=== PATIENT | female | born 1950 | race Caucasian/White ===

== ENCOUNTER → 2019-04-18 13:42 | Outpatient (BNVA) | payer MEDICARE, OTHER, SELFPAY | PROVIDERS: Family Provider Family Medicine; PCP Family Medicine; Visit Provider Nurse Practitioner | DX: F33.2 Major depressive disorder, recurrent severe without psychotic features (principal) | CPT/HCPCS: 90832; 99214 ==

== ENCOUNTER → 2019-05-29 07:31 | Outpatient (BNVA) | payer MEDICARE, OTHER, SELFPAY | PROVIDERS: Family Provider Family Medicine; PCP Family Medicine; Visit Provider Nurse Practitioner | DX: F33.2 Major depressive disorder, recurrent severe without psychotic features (principal); F43.12 Post-traumatic stress disorder, chronic; F60.3 Borderline personality disorder | CPT/HCPCS: 99214 ==

== ENCOUNTER → 2019-07-13 08:23 | Outpatient (BNVA) | payer MEDICARE, OTHER, SELFPAY | PROVIDERS: Family Provider Family Medicine; PCP Family Medicine; Visit Provider Nurse Practitioner | DX: F43.12 Post-traumatic stress disorder, chronic (principal); F33.2 Major depressive disorder, recurrent severe without psychotic features; F60.3 Borderline personality disorder | CPT/HCPCS: 99213 ==

== ENCOUNTER → 2019-08-07 08:25 | Outpatient (BNVA) | payer MEDICARE, OTHER, SELFPAY | PROVIDERS: Family Provider Family Medicine; PCP Family Medicine; Visit Provider Social Worker Clinical | DX: F33.2 Major depressive disorder, recurrent severe without psychotic features (principal); F43.12 Post-traumatic stress disorder, chronic; F60.3 Borderline personality disorder | CPT/HCPCS: 90791 ==

== ENCOUNTER → 2019-08-22 07:48 | Outpatient (BNVA) | payer MEDICARE, OTHER, SELFPAY | PROVIDERS: Family Provider Family Medicine; PCP Family Medicine; Visit Provider Social Worker Clinical | DX: F60.3 Borderline personality disorder (principal); F43.12 Post-traumatic stress disorder, chronic; F33.2 Major depressive disorder, recurrent severe without psychotic features | CPT/HCPCS: 90834 ==

== ENCOUNTER → 2019-10-08 08:23 | Outpatient (BNVA) | payer MEDICARE, OTHER, SELFPAY | PROVIDERS: Family Provider Family Medicine; PCP Family Medicine; Visit Provider Social Worker Clinical | DX: F60.3 Borderline personality disorder (principal); F43.12 Post-traumatic stress disorder, chronic; F33.2 Major depressive disorder, recurrent severe without psychotic features | CPT/HCPCS: 90832 ==

== ENCOUNTER → 2019-10-23 09:01 | Outpatient (BNVA) | payer MEDICARE, OTHER, SELFPAY | PROVIDERS: Family Provider Family Medicine; PCP Family Medicine; Visit Provider Social Worker Clinical | DX: F60.3 Borderline personality disorder (principal); F43.12 Post-traumatic stress disorder, chronic; F33.2 Major depressive disorder, recurrent severe without psychotic features | CPT/HCPCS: 90834 ==

== ENCOUNTER → 2019-11-14 08:36 | Outpatient (BNVA) | payer MEDICARE, OTHER, SELFPAY | PROVIDERS: Family Provider Family Medicine; PCP Family Medicine; Visit Provider Social Worker Clinical | DX: F60.3 Borderline personality disorder (principal); F43.12 Post-traumatic stress disorder, chronic; F33.2 Major depressive disorder, recurrent severe without psychotic features | CPT/HCPCS: 90832 ==

== ENCOUNTER → 2019-12-12 08:40 | Outpatient (BNVA) | payer MEDICARE, OTHER, SELFPAY | PROVIDERS: Family Provider Family Medicine; PCP Family Medicine; Visit Provider Social Worker Clinical | DX: F60.3 Borderline personality disorder (principal); F43.12 Post-traumatic stress disorder, chronic; F33.2 Major depressive disorder, recurrent severe without psychotic features | CPT/HCPCS: 90834 ==

== ENCOUNTER 2020-03-14 09:34 | Outpatient (CLI) | payer MEDICARE, OTHER, SELFPAY ==
--- NOTE | 2020-03-14 09:45 | FL_ITS ---
WS: [id number] MODIFIED BARIUM SWALLOW TECHNIQUE: Modified barium swallow with speech therapy using multiple consistencies. FLUOROSCOPY TIME: 3 minutes. CLINICAL INFORMATION: Other dysphagia COMPARISON: None. FINDINGS: Multiple consistencies utilized. No evidence of aspiration penetration. Slightly delayed oropharyngea l phase with the mitul cracker. Fluid in the vallecula which cleared with additional swallows. Sligh tly delayed transit of the barium tablet in the upper esophagus which resolves with additional fluid. Moderate esophageal dysmotility is noted with delayed emptying. Reflux is visualized to the mid and u pper esophagus. This can be further evaluated with esophagram. FL/FL barium swallow modifd [id number] IMPRESSION: 1. Moderate esophageal dysmotility is noted with delayed emptying. 2. Reflux is visualized to the mid and upper esophagus. This can be further ev aluated with esophagram.
== END 2020-03-14 09:35 | disposition home or self-care (01) ==
LOC: RAD 09:37
PROVIDERS: Family Provider Family Medicine; PCP Family Medicine; Visit Provider Family Medicine
DX: R13.19 Other dysphagia (principal)
CPT/HCPCS: 74230; 92611

== ENCOUNTER → 2020-03-21 07:57 | Outpatient (BNVA) | payer MEDICARE, OTHER, SELFPAY | PROVIDERS: Family Provider Family Medicine; PCP Family Medicine; Visit Provider Nurse Practitioner | DX: F33.2 Major depressive disorder, recurrent severe without psychotic features (principal); F43.12 Post-traumatic stress disorder, chronic; F60.3 Borderline personality disorder | CPT/HCPCS: 99214 ==

== ENCOUNTER → 2020-04-03 08:01 | Outpatient (BNVA) | payer MEDICARE, OTHER, SELFPAY | PROVIDERS: Family Provider Family Medicine; PCP Family Medicine; Visit Provider Social Worker Clinical | DX: F60.3 Borderline personality disorder (principal); F43.12 Post-traumatic stress disorder, chronic; F33.2 Major depressive disorder, recurrent severe without psychotic features | CPT/HCPCS: 90834 ==

== ENCOUNTER → 2020-04-23 08:05 | Outpatient (BNVA) | payer MEDICARE, OTHER, SELFPAY | PROVIDERS: Family Provider Family Medicine; PCP Family Medicine; Visit Provider Nurse Practitioner | DX: F43.12 Post-traumatic stress disorder, chronic (principal); F33.2 Major depressive disorder, recurrent severe without psychotic features; F60.3 Borderline personality disorder | CPT/HCPCS: 99214 ==

== ENCOUNTER → 2020-05-15 07:39 | Outpatient (BNVA) | payer MEDICARE, OTHER, SELFPAY | PROVIDERS: Family Provider Family Medicine; PCP Family Medicine; Visit Provider Social Worker Clinical | DX: F60.3 Borderline personality disorder (principal); F43.12 Post-traumatic stress disorder, chronic; F33.2 Major depressive disorder, recurrent severe without psychotic features | CPT/HCPCS: 90832 ==

== ENCOUNTER → 2020-05-29 09:17 | Outpatient (BNVA) | payer MEDICARE, OTHER, SELFPAY | PROVIDERS: Family Provider Family Medicine; PCP Family Medicine; Visit Provider Orthopaedic Surgery | DX: M54.9 Dorsalgia, unspecified (principal); M41.86 Other forms of scoliosis, lumbar region; M48.061 Spinal stenosis, lumbar region without neurogenic claudication | CPT/HCPCS: 72110 ==

== ENCOUNTER 2020-06-10 08:25 | Outpatient (CLI) | payer MEDICARE, OTHER, SELFPAY ==
--- NOTE | 2020-06-10 08:59 | MR_ITS ---
WS: [id number] MRI LUMBAR SPINE NONCONTRAST TECHNIQUE: Sagittal T1, T2 and STIR imaging. Axial T1 and T2 imaging. CLINICAL INFORMATION: SPINAL STENOSIS COMPARISON: None. FINDINGS: Lumbar scoliosis convex right. No acute compression fractures. Degenerative disc disease worse at L2- 3 with endplate degenerative changes. L1-L2: Mild annular bulging with narrowing of the right greater than left subarticular recess. Mild f acet arthropathy. Foramen are patent. L2-L3: Mild disc bulging with slight retrolisthesis. Left subarticular protrusion impinges the left s ubarticular recess and traversing left L3 nerve root. Mild to moderate left and no significant right foraminal narrowing. Mild central canal stenosis. Moderate facet arthropathy. L3-L4: Mild annular bulging with slight effacement of ventral thecal sac. Spinal canal and foramen ar e patent. Mild facet arthropathy. L4-L5: Mild annular bulging with mild central canal stenosis. Narrowing of the subarticular recess bi laterally. Mild to moderate facet arthropathy. L5-S1: Mild annular bulging eccentric to the right. Slight contact right S1 nerve root. Foramen are p atent. Mild/moderate facet arthropathy. Small left renal cyst measuring 8 mm. Moderate aortic atheromatous disease. Slightly aneurysmal infra renal abdominal aorta measuring 2.1 x 2.1 cm MR/MR lumbar spine wo con* [id number] IMPRESSION: 1. Lumbar scoliosis convex right. No acute compression fractures. 2. Left subarticular disc protrusion L2-3 impinges the traversing left L3 nerv e root in the subarticular recess. Mild to moderate left L2-3 foraminal narrowi ng. Mild central canal stenosis. 3. Mild central canal stenosis L4-5 with narrowing of the right greater than l eft subarticular recess. 4. Disc bulging L5-S1 eccentric to the right with slight contact of the right S1 nerve root. 5. Mild to moderate facet arthropathy L2-3 L3-4 L4-L5 and L5-S1.
== END 2020-06-10 08:26 | disposition home or self-care (01) ==
PROVIDERS: PCP Family Medicine; Visit Provider Orthopaedic Surgery
DX: M48.061 Spinal stenosis, lumbar region without neurogenic claudication (principal); M47.816 Spondylosis without myelopathy or radiculopathy, lumbar region; M47.817 Spondylosis without myelopathy or radiculopathy, lumbosacral region; M51.26 Other intervertebral disc displacement, lumbar region
CPT/HCPCS: 72148

== ENCOUNTER → 2020-06-11 10:53 | Outpatient (BNVA) | payer MEDICARE, OTHER, SELFPAY | PROVIDERS: Family Provider Family Medicine; PCP Family Medicine; Visit Provider Social Worker Clinical | DX: F43.12 Post-traumatic stress disorder, chronic (principal); F60.3 Borderline personality disorder; F33.2 Major depressive disorder, recurrent severe without psychotic features | CPT/HCPCS: 90834 ==

== ENCOUNTER → 2020-07-02 09:09 | Outpatient (BNVA) | payer MEDICARE, OTHER, SELFPAY | PROVIDERS: Family Provider Family Medicine; PCP Family Medicine; Visit Provider Anesthesiology Pain Medicine | DX: M54.41 Lumbago with sciatica, right side (principal); M54.42 Lumbago with sciatica, left side; M54.9 Dorsalgia, unspecified; F17.210 Nicotine dependence, cigarettes, uncomplicated; Z79.891 Long term (current) use of opiate analgesic | CPT/HCPCS: 99205 ==

== ENCOUNTER → 2020-07-07 10:41 | Outpatient (BNVA) | payer MEDICARE, OTHER, SELFPAY | PROVIDERS: Family Provider Family Medicine; PCP Family Medicine; Visit Provider Social Worker Clinical | DX: F60.3 Borderline personality disorder (principal); F43.12 Post-traumatic stress disorder, chronic; F33.2 Major depressive disorder, recurrent severe without psychotic features | CPT/HCPCS: 90834 ==

== ENCOUNTER → 2020-07-08 11:18 | Outpatient (BNVA) | payer MEDICARE, OTHER, SELFPAY | PROVIDERS: Family Provider Family Medicine; PCP Family Medicine; Visit Provider Nurse Practitioner | DX: F43.12 Post-traumatic stress disorder, chronic (principal); F33.2 Major depressive disorder, recurrent severe without psychotic features; F60.3 Borderline personality disorder | CPT/HCPCS: 99214 ==

== ENCOUNTER → 2020-07-16 12:58 | Outpatient (BNVA) | payer MEDICARE, OTHER, SELFPAY | PROVIDERS: Family Provider Family Medicine; PCP Family Medicine; Visit Provider Anesthesiology Pain Medicine | DX: G89.29 Other chronic pain (principal); M54.5 Low back pain; F17.210 Nicotine dependence, cigarettes, uncomplicated; Z79.891 Long term (current) use of opiate analgesic | CPT/HCPCS: 62323; J1040; J3490 ==

== ENCOUNTER → 2020-07-31 09:53 | Outpatient (BNVA) | payer MEDICARE, OTHER, SELFPAY | PROVIDERS: Family Provider Family Medicine; PCP Family Medicine; Visit Provider Anesthesiology Pain Medicine | DX: M54.9 Dorsalgia, unspecified (principal); M47.816 Spondylosis without myelopathy or radiculopathy, lumbar region; M51.16 Intervertebral disc disorders with radiculopathy, lumbar region; M79.604 Pain in right leg; M79.605 Pain in left leg; F17.210 Nicotine dependence, cigarettes, uncomplicated; Z79.891 Long term (current) use of opiate analgesic | CPT/HCPCS: 99214 ==

== ENCOUNTER → 2020-08-11 14:05 | Outpatient (BNVA) | payer MEDICARE, OTHER, SELFPAY | PROVIDERS: Family Provider Family Medicine; PCP Family Medicine; Visit Provider Anesthesiology Pain Medicine | DX: M47.816 Spondylosis without myelopathy or radiculopathy, lumbar region (principal); M54.9 Dorsalgia, unspecified; F17.210 Nicotine dependence, cigarettes, uncomplicated; Z79.891 Long term (current) use of opiate analgesic | CPT/HCPCS: 64493; 64494; 64495; J3490 ==

== ENCOUNTER → 2020-08-25 08:45 | Outpatient (BNVA) | payer MEDICARE, OTHER, SELFPAY | PROVIDERS: Family Provider Family Medicine; PCP Family Medicine; Visit Provider Anesthesiology Pain Medicine | DX: M51.16 Intervertebral disc disorders with radiculopathy, lumbar region (principal); M47.816 Spondylosis without myelopathy or radiculopathy, lumbar region; M54.9 Dorsalgia, unspecified; F17.210 Nicotine dependence, cigarettes, uncomplicated; Z79.891 Long term (current) use of opiate analgesic | CPT/HCPCS: 99214 ==

== ENCOUNTER → 2020-09-09 12:57 | Outpatient (BNVA) | payer MEDICARE, OTHER, SELFPAY | PROVIDERS: Family Provider Family Medicine; PCP Family Medicine; Visit Provider Anesthesiology Pain Medicine | DX: M47.816 Spondylosis without myelopathy or radiculopathy, lumbar region (principal); M54.9 Dorsalgia, unspecified; F17.210 Nicotine dependence, cigarettes, uncomplicated; Z79.891 Long term (current) use of opiate analgesic | CPT/HCPCS: 64635; 64636; J1030 ==

== ENCOUNTER → 2020-09-16 12:48 | Outpatient (BNVA) | payer MEDICARE, OTHER, SELFPAY | PROVIDERS: Family Provider Family Medicine; PCP Family Medicine; Visit Provider Anesthesiology Pain Medicine | DX: M79.18 Myalgia, other site (principal); M47.816 Spondylosis without myelopathy or radiculopathy, lumbar region; M51.16 Intervertebral disc disorders with radiculopathy, lumbar region; M79.604 Pain in right leg; M79.605 Pain in left leg; F17.210 Nicotine dependence, cigarettes, uncomplicated; Z71.6 Tobacco abuse counseling; Z79.891 Long term (current) use of opiate analgesic | CPT/HCPCS: 20553; 99214; J1030; J3490 ==

== ENCOUNTER → 2020-09-23 12:47 | Outpatient (BNVA) | payer MEDICARE, OTHER, SELFPAY | PROVIDERS: Family Provider Family Medicine; PCP Family Medicine; Visit Provider Anesthesiology Pain Medicine | DX: M47.816 Spondylosis without myelopathy or radiculopathy, lumbar region (principal); Z79.891 Long term (current) use of opiate analgesic | CPT/HCPCS: 64635; 64636; J1030 ==

== ENCOUNTER → 2020-10-07 08:50 | Outpatient (BNVA) | payer MEDICARE, OTHER, SELFPAY | PROVIDERS: Family Provider Family Medicine; PCP Family Medicine; Visit Provider Anesthesiology Pain Medicine | DX: M47.816 Spondylosis without myelopathy or radiculopathy, lumbar region (principal); M51.16 Intervertebral disc disorders with radiculopathy, lumbar region; Z79.891 Long term (current) use of opiate analgesic | CPT/HCPCS: 99214 ==

== ENCOUNTER 2020-12-23 14:52 | Outpatient (CLI) | payer MEDICARE, OTHER, SELFPAY ==
--- NOTE | 2020-12-23 14:57 | MM_ITS ---
WS: [id number] BILATERAL SCREENING DIGITAL MAMMOGRAM WITH CAD HISTORY: SCREENING COMPARISON: 04/12/2018 and 01/19/2017 Bilateral CC and MLO views submitted. Computer aided detection analyzed. Breast composition: There are scattered areas of fibroglandular density. No suspicious masses, microc alcifications or architectural distortion. Benign calcification in the anterior LEFT breast. Addition al calcification just posterior to the RIGHT nipple. MM/[place] [id number] IMPRESSION: BI-RADS: 2-Benign FOLLOW UP: 1 Year Follow-up
== END 2020-12-23 14:53 | disposition home or self-care (01) ==
LOC: RADSHAW 14:56
PROVIDERS: PCP Family Medicine; Visit Provider Family Medicine
DX: Z12.31 Encounter for screening mammogram for malignant neoplasm of breast (principal)
CPT/HCPCS: 77067

== ENCOUNTER → 2021-04-20 10:39 | Outpatient (BNVA) | payer MEDICARE, OTHER, SELFPAY | PROVIDERS: PCP Family Medicine; Visit Provider Nurse Practitioner Psychiatric/Mental Health | DX: F43.12 Post-traumatic stress disorder, chronic (principal); F33.2 Major depressive disorder, recurrent severe without psychotic features; F60.3 Borderline personality disorder | CPT/HCPCS: 99214 ==

== ENCOUNTER → 2021-05-04 08:05 | Outpatient (BNVA) | payer MEDICARE, OTHER, SELFPAY | PROVIDERS: PCP Family Medicine; Visit Provider Nurse Practitioner Psychiatric/Mental Health | DX: F43.12 Post-traumatic stress disorder, chronic (principal); F33.2 Major depressive disorder, recurrent severe without psychotic features; G89.29 Other chronic pain | CPT/HCPCS: 99214 ==

== ENCOUNTER → 2021-05-05 10:36 | Outpatient (BNVA) | payer MEDICARE, OTHER, SELFPAY | PROVIDERS: PCP Family Medicine; Visit Provider Social Worker Clinical | DX: F60.3 Borderline personality disorder (principal); F43.12 Post-traumatic stress disorder, chronic; F33.2 Major depressive disorder, recurrent severe without psychotic features | CPT/HCPCS: 90834 ==

== ENCOUNTER → 2021-05-18 12:44 | Outpatient (BNVA) | payer MEDICARE, OTHER, SELFPAY | PROVIDERS: PCP Family Medicine; Visit Provider Nurse Practitioner Psychiatric/Mental Health | DX: F60.3 Borderline personality disorder (principal); F43.12 Post-traumatic stress disorder, chronic; F33.2 Major depressive disorder, recurrent severe without psychotic features; G89.29 Other chronic pain | CPT/HCPCS: 99213 ==

== ENCOUNTER → 2021-06-23 14:16 | Outpatient (BNVA) | payer MEDICARE, OTHER, SELFPAY | PROVIDERS: PCP Family Medicine; Visit Provider Social Worker Clinical | DX: F60.3 Borderline personality disorder (principal); F43.12 Post-traumatic stress disorder, chronic; F33.2 Major depressive disorder, recurrent severe without psychotic features | CPT/HCPCS: 90834 ==

== ENCOUNTER → 2021-06-30 15:12 | Outpatient (BNVA) | payer MEDICARE, OTHER, SELFPAY | PROVIDERS: PCP Family Medicine; Visit Provider Nurse Practitioner Psychiatric/Mental Health | DX: F33.2 Major depressive disorder, recurrent severe without psychotic features (principal); F60.3 Borderline personality disorder; F43.12 Post-traumatic stress disorder, chronic; G89.29 Other chronic pain | CPT/HCPCS: 99214 ==

== ENCOUNTER → 2021-07-07 13:56 | Outpatient (BNVA) | payer MEDICARE, OTHER, SELFPAY | PROVIDERS: PCP Family Medicine; Visit Provider Social Worker Clinical | DX: F60.3 Borderline personality disorder (principal); F43.12 Post-traumatic stress disorder, chronic; F33.2 Major depressive disorder, recurrent severe without psychotic features | CPT/HCPCS: 90834 ==

== ENCOUNTER → 2021-07-17 08:42 | Outpatient (BNVA) | payer MEDICARE, OTHER, SELFPAY | PROVIDERS: PCP Family Medicine; Visit Provider Social Worker Clinical | DX: F60.3 Borderline personality disorder (principal); F43.12 Post-traumatic stress disorder, chronic; F33.2 Major depressive disorder, recurrent severe without psychotic features | CPT/HCPCS: 90834 ==

== ENCOUNTER → 2021-08-17 07:21 | Outpatient (BNVA) | payer MEDICARE, OTHER, SELFPAY | PROVIDERS: PCP Family Medicine; Visit Provider Nurse Practitioner Psychiatric/Mental Health | DX: F60.3 Borderline personality disorder; F43.12 Post-traumatic stress disorder, chronic; G89.29 Other chronic pain; F33.2 Major depressive disorder, recurrent severe without psychotic features | CPT/HCPCS: 99213 ==

== ENCOUNTER → 2021-08-24 10:40 | Outpatient (BNVA) | payer MEDICARE, OTHER, SELFPAY | PROVIDERS: PCP Family Medicine; Visit Provider Social Worker Clinical | DX: F60.3 Borderline personality disorder (principal); F33.2 Major depressive disorder, recurrent severe without psychotic features | CPT/HCPCS: 90791 ==

== ENCOUNTER 2021-12-11 07:53 | Outpatient (CLI) | payer MEDICARE, OTHER, SELFPAY ==
--- NOTE | 2021-12-11 | ECG_ITS ---
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 Interpretive Statements NAME OF STUDY: LEXISCAN SESTAMIBI STRESS TEST INDICATION: Chest Pain, PROCEDURE: At the baseline, the EKG revealed normal sinus rhythm with a poor R wave progression. Possible old septal WV. Some diffused nonspecific ST-T changes. Possible old lateral wall WV. The baseline heart was 63 bpm with a blood pressue of 153/84 mm of Hg. Lexiscan was infused over a period of 20 seconds. A total of 0.4 milligrams of Lexiscan was infused. The stress phase was continued for a total of 5 minutes. Heart rate at the end of the stress phase was 79 bpm with a blood pressure 144/76 mm of Hg. The EKG at the peak infusion revealed no significant changes. Sestamibi was injected 20 seconds after the Lexiscan infusion. Heart rate at the end of the recovery phase was 75 bpm with a blood pressure of 149/78 mm of Hg. CONCLUSION: 1. No significant EKG changes with the LexiScan infusion 2. No LexiScan induced chest pain or cardiac arrhythmia 3. Normal blood pressure and heart rate response 4. Sestamibi/sestamibi perfusion scan pending; see separate report. Electronically Signed On 12-11-2021 16:25:15 CDT by Chandu Cates M.D. [id number]
[2021-12-11 08:33] VITALS: BMI 25.0
--- NOTE | 2021-12-11 08:47 | NMCV_ITS ---
NM alejandra perf SPECT r/s* [id number] Mary Cruz Age: 71 Gender: F : 1950 Exam Date: 12/11/2021 10:05 Ordering Phys: Kem Portillo Technologist: TEODORO Paniagua Exam Location: [facility] Indications: CHEST PAIN STRESS TEST Please see separate stress test report in Ephiphany for full findings IMAGE PROTOCOL Rest/Stress 1 Lexiscan Day Radiopharmaceutical Dose (mCi) Administration Site Administered by Rest: Tc-99m 10.7 IV TEODORO Marshall Sestamibi Stress:Tc-99m 32.4 IV TEODORO Marshall Sestamibi Rest: 11-Dec-2021 60 Discovery 630 Stress: 11-Dec-2021 30 Discovery 630 0.4mg Lexiscan. Supine position only as patient was unable to lay prone. SPECT RESULTS Technical Quality: Excellent Raw Data Analysis: Normal Image Corrections: No attenuation or motion correction applied Summed Stress Score: 0 Summed Rest Score: 0 Summed Difference Score: 0 PERFUSION FINDINGS Uniform myocardial tracer uptake. No significant perfusion abnormalities FUNCTIONAL RESULTS (calculated via Gated SPECT) Stress Image LV EF (%): 59 Stress EDV (mL):91 TID: 1.19 Stress ESV (mL):37 FUNCTIONAL FINDINGS: Segmental wall motion analysis revealing no gross wall motion abnormalities The transient ischemic dilatation ratio was elevated to 1.19 IMPRESSIONS 1. Myocardial perfusion imaging revealing fairly uniform myocardial tracer uptake with no significant perfusion normalities. 2. Normal LV ejection fraction of 59%. 3. LV wall motion analysis revealing no gross wall motion abnormalities. 4. Normal LV volume 5. Elevated transient ischemic dilatation ratio, may suggest endocardial ischemia. However the positive predictive value of this finding is low, especially in the absence of any other abnormal objective findings. Clinical correlation is recommended. Dr Chandu Cates MD [facility] (Electronically Signed) Final Date: 11 December 2021 13:19 S
[2021-12-11] MEDS: regadenoson 0.4 Mg/5 ml Syringe IVP (10:41)
[2021-12-11 10:51] VITALS: BP 149/78; PULSE 77
== END 2021-12-11 07:54 | disposition home or self-care (01) ==
LOC: CDL 07:53
PROVIDERS: PCP Family Medicine; Visit Provider Family Medicine
DX: R07.9 Chest pain, unspecified (principal); R94.39 Abnormal result of other cardiovascular function study
CPT/HCPCS: 78452; 93017; A9500; J2785

== ENCOUNTER → 2022-04-19 10:08 | Outpatient (BNVA) | payer MEDICARE, OTHER, SELFPAY | PROVIDERS: PCP Family Medicine; Visit Provider Otolaryngology | DX: R42 Dizziness and giddiness (principal); Z90.09 Acquired absence of other part of head and neck | CPT/HCPCS: 99203 ==

== ENCOUNTER → 2022-05-17 11:49 | Outpatient (BNVA) | payer MEDICARE, OTHER, SELFPAY | PROVIDERS: PCP Family Medicine; Referring Provider Family Medicine; Visit Provider Anesthesiology Pain Medicine | DX: M47.816 Spondylosis without myelopathy or radiculopathy, lumbar region (principal); M51.16 Intervertebral disc disorders with radiculopathy, lumbar region; M79.604 Pain in right leg; M79.605 Pain in left leg | CPT/HCPCS: 99214 ==

== ENCOUNTER → 2022-06-01 14:33 | Outpatient (BNVA) | payer MEDICARE, OTHER, SELFPAY | PROVIDERS: PCP Family Medicine; Visit Provider Anesthesiology Pain Medicine | DX: M54.16 Radiculopathy, lumbar region (principal) | CPT/HCPCS: 64483; 64484; J1100; J3490 ==

== ENCOUNTER → 2022-06-02 12:25 | Outpatient (BNVA) | payer MEDICARE, OTHER, SELFPAY | PROVIDERS: PCP Family Medicine; Visit Provider Internal Medicine Cardiovascular Disease | DX: I47.1 Supraventricular tachycardia (principal); I11.0 Hypertensive heart disease with heart failure; I50.9 Heart failure, unspecified; R07.89 Other chest pain; F17.210 Nicotine dependence, cigarettes, uncomplicated | CPT/HCPCS: 36415; 80048; 83880; 99205 ==

== ENCOUNTER → 2022-06-15 13:46 | Outpatient (BNVA) | payer MEDICARE, OTHER, SELFPAY | PROVIDERS: PCP Family Medicine; Visit Provider Anesthesiology Pain Medicine | DX: M54.16 Radiculopathy, lumbar region (principal) | CPT/HCPCS: 64483; 64484; J1100; J3490 ==

== ENCOUNTER → 2022-09-13 12:47 | Outpatient (BNVA) | payer MEDICARE, OTHER, SELFPAY | PROVIDERS: PCP Family Medicine; Visit Provider Nurse Practitioner Family | DX: I13.0 Hypertensive heart and chronic kidney disease with heart failure and stage 1 through stage 4 chronic kidney disease, or unspecified chronic kidney disease (principal); F17.210 Nicotine dependence, cigarettes, uncomplicated; N18.9 Chronic kidney disease, unspecified; I50.9 Heart failure, unspecified; R00.2 Palpitations | CPT/HCPCS: 80048; 83880; 99214 ==

== ENCOUNTER 2022-09-20 12:25 | Outpatient (CLI) | payer MEDICARE, OTHER, SELFPAY ==
--- NOTE | 2022-09-20 12:32 | USCV_ITS ---
Mary Cruz Age: 72 Gender: F : 1950 Exam Date: 09/20/2022 12:55 Ordering Phys: Chandu Cates MD ([email or web address]) Technologist: CT Exam Location: [facility] Indication: chf BP: / HR: Rhythm: Sinus Technical Quality: Adequate MEASUREMENTS (Male / Female) Normal Values FINDINGS Left Ventricle Normal left ventricular size and systolic function, EF 60%, visual.mild left ventricular hypertrophy. No regional wall motion abnormalities. Grade I/IV diastolic dysfunction (abnormal relaxation filling pattern), normal to mildly elevated filling pressures. Right Ventricle The right ventricle is normal in size and function. Right Atrium The right atrium is normal in size. Left Atrium The left atrium is normal in size. Mitral Valve Minimally thickened mitral valve. Trace mitral valve regurgitation. Aortic Valve Some thickening of the noncoronary cusp of aortic valve Tricuspid Valve Mild tricuspid valve regurgitation. Pulmonic Valve No gross abnormalities noted Pericardium Normal pericardium without effusion. Aorta Normal ascending aorta dimension. IVC The inferior vena cava appears normal. CONCLUSIONS Normal left ventricular size and systolic function, EF 60%, visual.mild left ventricular hypertrophy. No regional wall motion abnormalities. Grade I/IV diastolic dysfunction (abnormal relaxation filling pattern), normal to mildly elevated filling pressures. The left atrium is normal in size. Minimally thickened mitral valve. Trace mitral valve regurgitation. Some thickening of the noncoronary cusp of aortic valve. Mild tricuspid valve regurgitation. Estimated pulmonary artery peak systolic pressure 50 mmHg There is no pericardial effusion. There are no intracardiac masses. No similar previous studies are available for comparison Dr Chandu Cates MD [facility] (Electronically Signed) Final Date: 22 September 2022 09:04 S
== END 2022-09-20 12:26 | disposition home or self-care (01) ==
PROVIDERS: PCP Family Medicine; Visit Provider Internal Medicine Cardiovascular Disease
DX: R06.09 Other forms of dyspnea (principal); I50.9 Heart failure, unspecified; I07.1 Rheumatic tricuspid insufficiency; R93.1 Abnormal findings on diagnostic imaging of heart and coronary circulation
CPT/HCPCS: 93306

== ENCOUNTER → 2022-10-26 10:30 | Outpatient (BNVA) | payer OTHER, SELFPAY | PROVIDERS: PCP Family Medicine; Visit Provider Nurse Practitioner Psychiatric/Mental Health | DX: F33.2 Major depressive disorder, recurrent severe without psychotic features (principal); F43.12 Post-traumatic stress disorder, chronic; F60.3 Borderline personality disorder | CPT/HCPCS: 80061; 83036 ==

== ENCOUNTER → 2022-11-08 13:17 | Outpatient (BNVA) | payer MEDICARE, OTHER, SELFPAY ==
[2022-10-28 15:55] VITALS: BP 135/79; BMI 26.8
== END ==
PROVIDERS: PCP Family Medicine; Referring Provider Nurse Practitioner Psychiatric/Mental Health; Visit Provider Specialist
DX: R29.90 Unspecified symptoms and signs involving the nervous system (principal); G31.84 Mild cognitive impairment of uncertain or unknown etiology; F60.3 Borderline personality disorder; F43.12 Post-traumatic stress disorder, chronic
CPT/HCPCS: 96116; 99205

== ENCOUNTER → 2022-12-06 12:07 | Outpatient (BNVA) | payer MEDICARE, OTHER, SELFPAY ==
[2022-10-28 15:55] VITALS: BP 135/79; BMI 26.8
== END ==
PROVIDERS: PCP Family Medicine; Visit Provider Internal Medicine Cardiovascular Disease
DX: R07.9 Chest pain, unspecified (principal); R06.02 Shortness of breath; M25.512 Pain in left shoulder; R07.89 Other chest pain; I11.0 Hypertensive heart disease with heart failure; M19.012 Primary osteoarthritis, left shoulder; I50.9 Heart failure, unspecified; M75.82 Other shoulder lesions, left shoulder; I25.10 Atherosclerotic heart disease of native coronary artery without angina pectoris; M75.112 Incomplete rotator cuff tear or rupture of left shoulder, not specified as traumatic; F43.12 Post-traumatic stress disorder, chronic; F17.210 Nicotine dependence, cigarettes, uncomplicated; I47.10 Supraventricular tachycardia, unspecified
CPT/HCPCS: 36415; 73030; 80048; 83880; 93005

== ENCOUNTER → 2023-06-28 11:32 | Outpatient (BNVA) | payer MEDICARE, OTHER, SELFPAY ==
[2022-10-28 15:55] VITALS: BP 135/79; BMI 26.8
== END ==
PROVIDERS: PCP Family Medicine; Visit Provider Internal Medicine Cardiovascular Disease
DX: R07.89 Other chest pain (principal); I13.0 Hypertensive heart and chronic kidney disease with heart failure and stage 1 through stage 4 chronic kidney disease, or unspecified chronic kidney disease; I50.40 Unspecified combined systolic (congestive) and diastolic (congestive) heart failure; N18.9 Chronic kidney disease, unspecified; F17.210 Nicotine dependence, cigarettes, uncomplicated; I47.10 Supraventricular tachycardia, unspecified
CPT/HCPCS: 99214

== ENCOUNTER → 2023-07-18 09:46 | Outpatient (BNVA) | payer MEDICARE, OTHER, SELFPAY ==
[2022-10-28 15:55] VITALS: BP 135/79; BMI 26.8
== END ==
PROVIDERS: PCP Family Medicine; Visit Provider Specialist
DX: M75.82 Other shoulder lesions, left shoulder (principal); M19.012 Primary osteoarthritis, left shoulder; M75.112 Incomplete rotator cuff tear or rupture of left shoulder, not specified as traumatic
CPT/HCPCS: 20610; 73030; 99213; J1100; J2795; J3301

== ENCOUNTER → 2023-10-21 10:51 | Outpatient (BNVA) | payer MEDICARE, OTHER, SELFPAY ==
[2022-10-28 15:55] VITALS: BP 135/79; BMI 26.8
== END ==
PROVIDERS: PCP Family Medicine; Visit Provider Specialist
DX: M75.112 Incomplete rotator cuff tear or rupture of left shoulder, not specified as traumatic (principal); M75.82 Other shoulder lesions, left shoulder; M19.012 Primary osteoarthritis, left shoulder
CPT/HCPCS: 20610; J1100; J2795; J3301

== ENCOUNTER → 2023-11-15 14:26 | Outpatient (BNVA) | payer OTHER, SELFPAY ==
[2022-10-28 15:55] VITALS: BP 135/79; BMI 26.8
== END ==
PROVIDERS: PCP Family Medicine; Visit Provider Nurse Practitioner Psychiatric/Mental Health
DX: F43.12 Post-traumatic stress disorder, chronic (principal); F60.3 Borderline personality disorder; F41.1 Generalized anxiety disorder
CPT/HCPCS: 80061; 83036

== ENCOUNTER 2024-02-09 14:33 | Emergency (ER) | payer MEDICARE, OTHER, SELFPAY ==
[2023-11-23 16:19] VITALS: BP 140/80; BMI 29.1
[2024-02-09 14:34] VITALS: BP 210/12; PULSE 64; RESP 20; TEMP 36.4; O2SAT 93
--- NOTE | 2024-02-09 14:42 | XRR_ITS ---
PROCEDURE INFORMATION: Exam: XR Chest Exam date and time: 02/09/2024 2:57 PM Age: 73 years old Clinical indication: Pain; Angina pectoris; Additional info: Chest pain TECHNIQUE: Imaging protocol: Radiologic exam of the chest. Views: 1 view. COMPARISON: CR XR shoulder LT min 2V* [id number] 07/18/2023 9:47 AM FINDINGS: Lungs: Lungs are clear. Pleural spaces: There is no pleural effusion or pneumothorax. Heart/Mediastinum: There is mild enlargement of the cardiac silhouette. Bones/joints: There is mild degenerative disease at both shoulders. No acute osseous findings. XR/XR chest 1V portable [id number] IMPRESSION: No acute findings.
--- NOTE | 2024-02-09 14:42 | ECG_ITS ---
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 Measurements Intervals [place] Rate: 63 P: 86 RI: 169 QRS: 61 QRSD: 100 T: 66 QT: 352 QTc: 361 Interpretive Statements SINUS RHYTHM NONSPECIFIC T-WAVE ABNORMALITY Compared to ECG 12/06/2022 12:14:37 Possible ischemia no longer present T-wave abnormality still present Electronically Signed On 02-10-2024 09:31:38 SPEARER by Jad Galeas M.D. [id number]
--- NOTE | 2024-02-09 14:42 | W.ED.ABDPA2 ---
HPI - Abdominal Pain General: Chief Complaint: Abdominal Pain Stated Complaint: ruq abd pain/chest pain Time Seen by Provider: 02/09/24 14:34 Source: patient and EMS Mode of arrival: EMS Limitations: no limitations History of Present Illness: Patient is a 73-year-old female who presents to ED today with a complaint of right sided abdominal pain radiating up into her chest. She was reportedly at [facility] [place] when symptoms occurred thus they called an ambulance to bring patient here. Patient states she has been having intermittent identical episodes all summer long . She has reportedly been seen multiple times through her primary care office as well as emergency departments. She states she has been seen at [facility] in [place] as well as [facility] just 3 days ago for identical symptoms. States she was told by [facility] ED [address] days ago that her CT was normal apart from a few spots on my liver . States she followed up with primary care the next day who told her she has diverticulitis and placed her on antibiotics. She states she has had this identical pain since the summer. No correlation with eating. No acid reflux/heartburn. Patient states she will have approximately 2-3 episodes a week that seem to resolve on their own. No alleviating or worsening factors to her discomfort. She does not have a gallbladder. She is not having any nausea, vomiting, changes in bowel movements. She does feel like her abdomen is distended. Patient is very anxious. She states she has been referred to GI and this appointment is scheduled in April. MD elicited complaint: abdominal pain Pertinent past history: none Onset (ago): hour(s) Location: RUQ and RLQ Severity: severe Quality: aching and other (bloating) Radiation: chest Migration to: no migration Exacerbating factors: nothing Relieving factors: nothing Associated Symptoms: Reports no associated symptoms and bloating; Denies change in bowel habits, chills, diarrhea, dysuria, fever(s), nausea, syncope and vomiting Related Data Home Medications Medication Instructions Recorded Confirmed famotidine 20 mg tablet 20 mg PO BID 04/27/21 02/09/24 valsartan 160 mg tablet 160 mg PO BID 04/27/21 02/09/24 alprazolam 0.5 mg tablet 0.5 mg PO BID PRN anxiety 11/12/21 02/09/24 hydrocodone 10 mg-acetaminophen 1 tab PO Q4H PRN Pain 11/12/21 02/09/24 325 mg tablet amlodipine 5 mg tablet 5 mg PO BID 02/09/24 02/09/24 atorvastatin 40 mg tablet 80 mg PO DAILY 02/09/24 02/09/24 clopidogrel 75 mg tablet 75 mg PO DAILY 02/09/24 02/09/24 isosorbide mononitrate 30 mg 30 mg PO DAILY 02/09/24 02/09/24 tablet,extended release 24 hr metoprolol tartrate 25 mg tablet 25 mg PO DAILY 02/09/24 02/09/24 Allergies Allergy/AdvReac Type Severity Reaction Status Date / Time fluphenazine [From Prolixin] Allergy Unknown Verified 02/09/24 13:48 thiopental [From Pentothal] Allergy Unknown Verified 02/09/24 13:48 Review of Systems Const: Denies: fever(s), chills, body aches, fatigue or malaise Eyes: Denies: change in vision, blurry vision, floaters or seeing flashes Card: Reports: chest pain; Denies: palpitations, irregular heart rhythm, edema, swelling of feet/ankles, lightheadedness, syncope, pre-syncope, dyspnea on exertion, orthopnea, leg pain with exertion or acrocyanosis Resp: Reports: pain on inspiration (states it hurts R side of abdomen); Denies: dyspnea, productive cough, non-productive cough, wheezing, hemoptysis or chest congestion GI: Reports: abdominal pain and bloating; Denies: nausea, vomiting, diarrhea or change in bowel habits : Denies: flank pain, difficulty voiding, dysuria, urinary frequency, urinary urgency or urinary hesitancy Musc: Denies: neck pain, back pain, extremity pain, extremity swelling, joint pain or joint swelling Skin/Breast: Denies: rash Neuro: Denies: headache(s) or dizziness PFSH ED PFSH: Medical History Psychiatric care History of colon polyps Abdominal pain Overflow incontinence HTN (hypertension) Hyperlipidemia CKD (chronic kidney disease) ALMA DELIA (generalized anxiety disorder) GERD (gastroesophageal reflux disease) Back pain Fibromyalgia Urinary incontinence Chronic pain Dysphagia Borderline personality disorder Post-traumatic stress disorder, chronic Major depressive disorder, recurrent severe without psychotic features Surgical History History of ear surgery Family History Denies family history of Anesthesia complication Bleeding disorder Social History Smoking and tobacco/nicotine status: current every day tobacco/nicotine user cigarettes Packs smoked per day: 1 Years cigarettes smoked: 70 Quit status (tobacco/nicotine): has tried quititng Number of times tried to quit tobacco: 1 Second hand smoke exposure: Yes Alcohol intake: never Substance/Drug Use: never Current gender identity: Female Physical Exam Const: COMMON NORMALS: average body habitus, patient oriented x3, no limitations, healthy appearing, alert and well nourished GENERAL APPEARANCE: cooperative and in distress (anxious, complains of abdominal pain) Eye: COMMON NORMALS: no scleral icterus Resp: COMMON NORMALS: normal respiratory effort and clear to auscultation bilaterally AUSCULTATION: clear to auscultation bilaterally Cardio: COMMON NORMALS: regular rate and regular rhythm RATE: regular rate RHYTHM: regular rhythm GI: COMMON NORMALS: Normal to inspection, nondistended, normoactive bowel sounds present, Soft to palpation, No hepatosplenomegaly present and no masses INSPECTION: Yes normal to inspection AUSCULTATION: Yes normoactive bowel sounds PALPATION: Yes Soft to palpation, Yes Tenderness to palpation present (GI) (tenderness throughout R side of abdomen), No Guarding due to palpation present (GI), No Rigid due to palpation and Yes No hepatosplenomegaly present : COMMON NORMALS: Yes no CVA tenderness BLADDER/KIDNEY EXAM: Yes no CVA tenderness Back/Pelvis: COMMON NORMALS: no CVA tenderness Extremity: GENERAL: Yes normal exam except as noted Neuro: MINH COMA SCALE: document GCS findings [place] coma scale eye opening: Spontaneous Minh coma scale verbal response: Orientated [place] coma scale motor response: Obey commands [place] coma scale total score: 15 COMMON NORMALS: patient oriented x3 SENSORIUM/ORIENTATION: Yes alert Skin: COMMON NORMALS: no rashes or lesions noted GENERAL SKIN EXAM: no rashes or lesions noted Course Vital Signs: Vital signs: Vital Signs Temperature 97.6 F 02/09/24 14:34 Pulse Rate 59 L 02/09/24 16:36 Respiratory Rate 20 H 02/09/24 14:53 Blood Pressure 182/77 02/09/24 16:36 Pulse Oximetry 95 02/09/24 16:36 Oxygen Delivery Me thod Room Air 02/09/24 16:36 MDM - Abdominal Pain Medical Decision Making Patient re-examined multiple times and feels quite a bit better at time of discharge. Patient's blood work overall is benign. Mild hypokalemia at 3.3. She was given oral supplementation for this. Her baseline troponin is unremarkable. Baseline and repeat EKGs are nonischemic. Based on her history and exam I do not have any suspicion for cardiac etiology. Her UA is clear. Patient's symptoms have been going on well over 6 months. She has had multiple evaluations for this. Records were initially requested at the beginning of her visit. After 2.5 hours we still do not have these records. I am foregoing repeat CT imaging as she just had CT scan 3 days ago. She states she has had countless CT scans over the past several months for evaluation. Return to ED precautions given. Medical Records I reviewed the patient's medical records. Lab Data I reviewed the patient's lab results. 02/09/24 15:14 02/09/24 15:14 Labs/Radiology: Radiology Impressions Chest X-Ray 02/09/24 14:42 IMPRESSION: No acute findings. Laboratory Results WBC 5.86 10^3/uL (3.29-11.43) 02/09/24 15:14 RBC 4.35 10^6/uL (3.85-5.65) 02/09/24 15:14 Hgb 12.70 g/dL (11.27-16.99) 02/09/24 15:14 Hct 39.4 % (36-47) 02/09/24 15:14 MCV 90.6 fl (85-98) 02/09/24 15:14 MCH 29.2 pg (27-33) 02/09/24 15:14 MCHC 32.2 g/dL (30-55) 02/09/24 15:14 RDW 12.9 % (12.1-15.1) 02/09/24 15:14 Plt Count 250 10^3/cmm (157-399) 02/09/24 15:14 MPV 9.8 fL (7.4-10.4) 02/09/24 15:14 Neut % (Auto) 57.3 % 02/09/24 15:14 Lymph % (Auto) 27.5 % 02/09/24 15:14 [place] % (Auto) 10.4 % 02/09/24 15:14 Eos % (Auto) 3.4 % 02/09/24 15:14 Baso % (Auto) 1.2 % 02/09/24 15:14 Neut # (Auto) 3.36 10^3/uL (1.8-7.7) 02/09/24 15:14 Lymph # (Auto) 1.6 10^3/uL (0.8-4.8) 02/09/24 15:14 Upson # (Auto) 0.6 10^3/uL (0.2-0.9) 02/09/24 15:14 Eos # (Auto) 0.2 10^3/uL (0.0-0.8) 02/09/24 15:14 Baso # (Auto) 0.1 10^3/uL (0.0-0.1) 02/09/24 15:14 Nucleated RBC % (auto) 0 % 02/09/24 15:14 Nucleated RBCs # 0.0 /100WBC 02/09/24 15:14 Sodium 136 mmol/L (136-145) 02/09/24 15:14 Potassium 3.3 mmol/L (3.5-5.1) L 02/09/24 15:14 Chloride 97 mmol/L (98-107) L 02/09/24 15:14 Carbon Dioxide 26 mmol/L (22-29) 02/09/24 15:14 Anion Gap 16.3 (5-19) 02/09/24 15:14 BUN 8 mg/dL (8-23) 02/09/24 15:14 Creatinine 0.8 mg/dL (0.5-0.9) 02/09/24 15:14 GFR Calculation Not Reportable 02/09/24 15:14 Glucose 102 mg/dL (65-115) 02/09/24 15:14 Calculated Osmolality 281 mOsm/kg (285-295) L 02/09/24 15:14 Calcium 8.9 mg/dL (8.5-10.5) 02/09/24 15:14 Total Bilirubin 0.3 mg/dL (0.15-1.2) 02/09/24 15:14 AST 13 U/L (0-32) 02/09/24 15:14 ALT 9 U/L (0-33) 02/09/24 15:14 Alkaline Phosphatase 62 U/L (35-105) 02/09/24 15:14 Troponin T Baseline < 6 ng/L (0-10) 02/09/24 15:14 Total Protein 6.1 g/dL (6.6-8.7) L 02/09/24 15:14 Albumin 4.0 g/dL (3.5-5.2) 02/09/24 15:14 Globulin 2.1 g/dL (1.3-4.6) 02/09/24 15:14 Lipase 20 U/L (13-60) 02/09/24 15:14 Urine Color Yellow (Yellow) 02/09/24 16:31 Urine Appearance Clear (CLEAR) 02/09/24 16:31 Urine pH 7.0 (5-7) 02/09/24 16:31 Ur Specific [place] 1.010 (1.005-1.030) 02/09/24 16:31 Urine Protein Trace (Negative) A 02/09/24 16:31 Urine Glucose (UA) Negative (Normal) 02/09/24 16:31 Urine Ketones Negative (Negative) 02/09/24 16:31 Urine Blood Negative (Negative) 02/09/24 16:31 Urine Nitrate Negative (Negative) 02/09/24 16:31 Urine Bilirubin Negative (Negative) 02/09/24 16:31 Urine Urobilinogen 0.2 mg/dL (Negative) 02/09/24 16:31 Ur Leukocyte Esterase Negative (Negative) 02/09/24 16:31 Urine RBC 0-2 /hpf (0-2) 02/09/24 16:31 Urine WBC 0-5 /hpf (0-5) 02/09/24 16:31 Ur Squamous Epith Cells 0-5 /hpf (0-5) 02/09/24 16:31 Amorphous Sediment Not Reportable 02/09/24 16:31 Urine Bacteria None seen /hpf (NONE) 02/09/24 16:31 Hyaline Casts 0-4 /lpf H 02/09/24 16:31 All radiology interpretation(s) finalized by discharge Discharge Plan Discharge Patient Disposition: Home Clinical Impression: Abdominal pain Qualifiers: Abdominal location: unspecified location Qualified Code(s): R10.9 - Unspecified abdominal pain Condition: Stable Prescriptions: No Action famotidine 20 mg tablet 20 mg PO BID valsartan 160 mg tablet 160 mg PO BID hydrocodone-acetaminophen 10-325 mg tablet 1 tab PO Q4H PRN (Reason: Pain) alprazolam 0.5 mg tablet 0.5 mg PO BID PRN (Reason: anxiety) atorvastatin 40 mg tablet 80 mg PO DAILY clopidogrel 75 mg tablet 75 mg PO DAILY amlodipine 5 mg tablet 5 mg PO BID metoprolol tartrate 25 mg tablet 25 mg PO DAILY isosorbide mononitrate 30 mg tablet extended release 24 hr 30 mg PO DAILY Discharge Orders: Discharge ED (Routine); Ordered 02/09/24 Ordered By: Patience uJan Referrals: Kem Portillo [Primary Care Provider] - Patient Instructions: Abdominal Pain (ED) Activity Restrictions/Additional Instructions: As we discussed, would like you to follow-up with your primary care provider next week. Continue plan to follow-up with GI as scheduled in April. You may return to the emergency department at anytime for worsening abdominal pain, repetitive episodes of vomiting, severe lightheadedness/dizziness/passing out episodes, any blood in your vomit or black or tarry stools, fevers, yellowing to your skin or eyes, generally feeling worse or unwell, or any other concerns you may have. I hope you begin to feel better soon. Coding Level of Care Code ED Automatic [employer] Sander for Sveta Wagner
[2024-02-09 14:44] VITALS: BP 210/120
[2024-02-09] MEDS: ondansetron 2 mg/ML SDV 2 mL 4 MG IVP (14:50)
[2024-02-09 14:53] VITALS: RESP 20; O2SAT 97
[2024-02-09] MEDS: morphine 4 mg/mL SDV 1 mL IVP (14:53)
--- NOTE | 2024-02-09 15:11 | PC.PHAR ---
patient states she does do her own medications, however when going through them she didn't really know any of them but could tell me sort of yes or no if i told her what they were for so that is what i did. there is a couple that i need to note she was just put on fluoxitine 20 mg and it made her mouth move constantly? stopped it within 3 days of starting it. also states she doesnt take hydralazine even though it was just prescribed 2 weeks ago
[2024-02-09 15:14] VITALS: BP 196/89; PULSE 55; O2SAT 95
[2024-02-09] MEDS: hyDRALAzine 20 mg/mL INJ 1 mL 10 MG IVP (15:39)
[2024-02-09 15:40] LABS: Basophils # 0.1 10^3/uL (0.0-0.1); Basophils % 1.2 %; Eosinophils # 0.2 10^3/uL (0.0-0.8); Eosinophils % 3.4 %; Hematocrit 39.4 % (36-47); Lymphocytes # 1.6 10^3/uL (0.8-4.8); Lymphocytes % 27.5 %; Mean Corpuscular HGB Conc 32.2 g/dL (30-55); Mean Corpuscular Hemoglobin 29.2 pg (27-33); Mean Corpuscular Volume 90.6 fl (85-98); Mean Platelet Volume 9.8 fL (7.4-10.4); Monocytes # 0.6 10^3/uL (0.2-0.9); Monocytes % 10.4 %; Neutrophils # 3.36 10^3/uL (1.8-7.7); Neutrophils % 57.3 %; Nucleated Red Blood Cells % 0 %; Platelet Count 250 10^3/cmm (157-399); Red Blood Count 4.35 10^6/uL (3.85-5.65); Red Cell Distribution Width 12.9 % (12.1-15.1); White Blood Count 5.86 10^3/uL (3.29-11.43)
[2024-02-09 15:57] LABS: Alanine Aminotransferase 9 U/L (0-33); Alkaline Phosphatase 62 U/L (35-105); Anion Gap 16.3 (5-19); Aspartate Amino Transferase 13 U/L (0-32); Blood Urea Nitrogen 8 mg/dL (8-23); Calcium 8.9 mg/dL (8.5-10.5); Carbon Dioxide 26 mmol/L (22-29); Chloride 97 mmol/L (98-107); Creatinine Clr Calc Pharmacy 62.3907; Globulin 2.1 g/dL (1.3-4.6); Glucose 102 mg/dL (65-115); Lipase 20 U/L (13-60); Osmolality Calculated 281 mOsm/kg (285-295); Potassium 3.3 mmol/L (3.5-5.1); Sodium 136 mmol/L (136-145); Total Bilirubin 0.3 mg/dL (0.15-1.2); Total Protein 6.1 g/dL (6.6-8.7)
[2024-02-09 15:58] LABS: Troponin(5th) Baseline < 6 ng/L (0-10)
[2024-02-09] MEDS: potassium chloride ER 20 mEq Tablet 40 MEQ PO (16:33)
[2024-02-09 16:36] VITALS: BP 182/77; PULSE 59; O2SAT 95
[2024-02-09 16:46] LABS: Bilirubin Urine Negative (Negative); Blood Urine Negative (Negative); Glucose Urine UA Negative (Normal); Ketones Urine Negative (Negative); Leukocyte Esterase Urine Negative (Negative); Nitrate Urine Negative (Negative); Protein Urine Trace (Negative); Urine Appearance Clear (CLEAR); Urine Color Yellow (Yellow); Urobilinogen Urine 0.2 mg/dL (Negative)
[2024-02-09 16:50] LABS: Add Urine Microscopic? YES; Bacteria Urine None Seen /hpf; Hyaline Casts Urine 0-4 /lpf; RBC Urine 0-2 /hpf (0-2); Squamous Epithelial Cell Urine 0-5 /hpf (0-5); WBC Urine 0-5 /hpf (0-5)
--- NOTE | 2024-02-09 16:51 | ECG_ITS ---
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 Measurements Intervals [place] Rate: 58 P: 7 TN: 153 QRS: -24 QRSD: 95 T: 58 QT: 358 QTc: 354 Interpretive Statements SINUS BRADYCARDIA POSSIBLE ANTERIOR MYOCARDIAL INFARCTION , PROBABLY OLD [30 ms Q WAVE IN V3/V4, OR R < 0.2 mV IN V4] Compared to ECG 02/09/2024 14:39:13 Myocardial infarct finding now present Sinus rhythm no longer present T-wave abnormality no longer present Electronically Signed On 02-10-2024 22:08:35 PERL PROGRAMMER by Jad Galeas M.D. [id number]
[2024-02-09 17:09] VITALS: BP 172/83; PULSE 56; O2SAT 94
== END 2024-02-09 17:16 | disposition home or self-care (01) ==
PROVIDERS: Emergency Provider Physician Assistant; PCP Family Medicine
DX: R10.9 Unspecified abdominal pain (principal); Z79.02 Long term (current) use of antithrombotics/antiplatelets; F17.210 Nicotine dependence, cigarettes, uncomplicated; I12.9 Hypertensive chronic kidney disease with stage 1 through stage 4 chronic kidney disease, or unspecified chronic kidney disease; N18.9 Chronic kidney disease, unspecified; E78.5 Hyperlipidemia, unspecified
CPT/HCPCS: 36415; 71045; 80053; 81001; 83690; 84484; 85025; 93005; 96374; 96375; 99285; J0360; J2270; J2405

== ENCOUNTER 2024-05-19 13:51 | Emergency (ER) | payer MEDICARE, OTHER, SELFPAY ==
[2023-11-23 16:19] VITALS: BP 140/80; BMI 29.1
--- NOTE | 2024-05-19 13:59 | W.ED.PSYCHS ---
Documented by User: Gilda Momin MD 05/19/24 16:04 HPI - Psych General: Chief Complaint: Psychiatric Symptoms Stated Complaint: mhe Time Seen by Provider: 05/19/24 13:55 Source: patient and EMS Mode of arrival: EMS Limitations: no limitations History of Present Illness: 74-year-old female who has a history of depression states that she has been getting increasingly depressed. She states she lives alone and is severely depressed about that. Patient is very tearful here and states that she needs help she denies being suicidal but states she wants to get inpatient help Associated symptoms: Reports depression; Deny suicidal ideation Related Data Home Medications ?Medication ?Instructions ?Recorded ?Confirmed famotidine 20 mg tablet 20 mg PO BID 04/27/21 05/19/24 valsartan 160 mg tablet 160 mg PO BID 04/27/21 05/19/24 alprazolam 0.5 mg tablet 0.5 mg PO BID PRN anxiety 11/12/21 05/19/24 hydrocodone 10 mg-acetaminophen 1 tab PO Q4H PRN Pain 11/12/21 05/19/24 325 mg tablet amlodipine 5 mg tablet 5 mg PO BID 02/09/24 05/19/24 atorvastatin 40 mg tablet 80 mg PO DAILY 02/09/24 05/19/24 clopidogrel 75 mg tablet 75 mg PO DAILY 02/09/24 05/19/24 isosorbide mononitrate 30 mg 30 mg PO DAILY 02/09/24 05/19/24 tablet,extended release 24 hr metoprolol tartrate 25 mg tablet 25 mg PO DAILY 02/09/24 05/19/24 albuterol sulfate 90 mcg/actuation 2 puff inhalation Q6H 05/19/24 05/19/24 aerosol inhaler (Ventolin HFA) bupropion HCl 150 mg 24 hr tablet, 150 mg PO DAILY 05/19/24 05/19/24 extended release duloxetine 20 mg capsule,delayed 20 mg PO DAILY 05/19/24 05/19/24 release hydralazine 100 mg tablet 100 mg PO BID 05/19/24 05/19/24 Allergies Allergy/AdvReac Type Severity Reaction Status Date / Time fluphenazine (From Prolixin) Allergy Unknown Verified 02/09/24 13:48 thiopental (From Pentothal) Allergy Unknown Verified 02/09/24 13:48 Review of Systems Const: Denies: fever(s), chills, body aches or change in appetite ENMT: Denies: throat pain or dental pain Card: Denies: chest pain Resp: Denies: dyspnea GI: Denies: abdominal pain, nausea, vomiting or diarrhea Musc: Denies: neck pain or back pain Skin/Breast: Denies: rash Neuro: Denies: headache(s) Psych: Reports: depression; Denies: suicidal ideation PFSH ED PFSH: Medical History Psychiatric care History of colon polyps Abdominal pain Overflow incontinence HTN (hypertension) Hyperlipidemia CKD (chronic kidney disease) ALMA DELIA (generalized anxiety disorder) GERD (gastroesophageal reflux disease) Back pain Fibromyalgia Urinary incontinence Chronic pain Dysphagia Borderline personality disorder Post-traumatic stress disorder, chronic Major depressive disorder, recurrent severe without psychotic features Surgical History History of ear surgery Family History Denies family history of Anesthesia complication Bleeding disorder Social History Smoking and tobacco/nicotine status: current every day tobacco/nicotine user cigarettes Packs smoked per day: 1 Years cigarettes smoked: 70 Quit status (tobacco/nicotine): has tried quititng Number of times tried to quit tobacco: 1 Second hand smoke exposure: Yes Alcohol intake: never Substance/Drug Use: never Current gender identity: Female Physical Exam Const: COMMON NORMALS: no acute distress, patient oriented x3 and healthy appearing HENMT: COMMON NORMALS: normocephalic and atraumatic HEAD & SCALP: normocephalic and atraumatic Eye: COMMON NORMALS: conjunctivae normal CONJUNCTIVA: Yes conjunctivae normal Neck/C-Spine: COMMON NORMALS: full ROM and supple Chest: COMMONS NORMALS: normal inspection of the chest Resp: COMMON NORMALS: normal respiratory effort, No use of accessory muscles and clear to auscultation bilaterally AUSCULTATION: clear to auscultation bilaterally Cardio: COMMON NORMALS: regular rate RATE: regular rate Extremity: COMMON NORMALS: normal to inspection and full ROM Neuro: COMMON NORMALS: patient oriented x3, moves all extremities and no focal motor deficits Psych: COMMON NORMALS: mental status grossly normal, Normal thought process present and cooperative MOOD & AFFECT: Yes depressed mood and Yes tearful THOUGHT PROCESS: Normal thought process present THOUGHT CONTENT: No Suicidality present Skin: COMMON NORMALS: no rashes or lesions noted and no wounds GENERAL SKIN EXAM: no rashes or lesions noted Course Vital Signs: Vital signs: Vital Signs Temperature 98.2 F 05/19/24 14:05 Pulse Rate 72 05/20/24 00:02 Respiratory Rate 16 05/20/24 00:02 Blood Pressure 178/84 05/20/24 00:02 Pulse Oximetry 96 05/20/24 00:02 Oxygen Delivery Me thod Room Air 05/19/24 15:16 MDM - Psych Medical Decision Making Patient presents here with severe depression she voluntarily wants to be placed for her depression she is not suicidal she is medically cleared will transfer due to geriatric psych capabilities Medical Records I reviewed the patient's medical records. Lab Data I reviewed the patient's lab results. 05/19/24 14:08 05/19/24 14:08 Laboratory Results WBC 6.12 10^3/uL (3.29-11.43) 05/19/24 14:08 RBC 4.80 10^6/uL (3.85-5.65) 05/19/24 14:08 Hgb 13.90 g/dL (11.27-16.99) 05/19/24 14:08 Hct 41.5 % (36-47) 05/19/24 14:08 MCV 86.5 fl (85-98) 05/19/24 14:08 MCH 29.0 pg (27-33) 05/19/24 14:08 MCHC 33.5 g/dL (30-55) 05/19/24 14:08 RDW 14.3 % (12.1-15.1) 05/19/24 14:08 Plt Count 308 10^3/cmm (157-399) 05/19/24 14:08 MPV 9.6 fL (7.4-10.4) 05/19/24 14:08 Neut % (Auto) 59.8 % 05/19/24 14:08 Lymph % (Auto) 26.3 % 05/19/24 14:08 [place] % (Auto) 8.7 % 05/19/24 14:08 Eos % (Auto) 3.9 % 05/19/24 14:08 Baso % (Auto) 1.1 % 05/19/24 14:08 Neut # (Auto) 3.66 10^3/uL (1.8-7.7) 05/19/24 14:08 Lymph # (Auto) 1.6 10^3/uL (0.8-4.8) 05/19/24 14:08 [place] # (Auto) 0.5 10^3/uL (0.2-0.9) 05/19/24 14:08 Eos # (Auto) 0.2 10^3/uL (0.0-0.8) 05/19/24 14:08 Baso # (Auto) 0.1 10^3/uL (0.0-0.1) 05/19/24 14:08 Nucleated RBC % (auto) 0 % 05/19/24 14:08 Nucleated RBCs # 0.0 /100WBC 05/19/24 14:08 Sodium 131 mmol/L (136-145) L 05/19/24 14:08 Potassium 3.9 mmol/L (3.5-5.1) 05/19/24 14:08 Chloride 93 mmol/L (98-107) L 05/19/24 14:08 Carbon Dioxide 26 mmol/L (22-29) 05/19/24 14:08 Anion Gap 15.9 (5-19) 05/19/24 14:08 BUN 15 mg/dL (8-23) 05/19/24 14:08 Creatinine 1.1 mg/dL (0.5-0.9) H 05/19/24 14:08 GFR Calculation Not Reportable 05/19/24 14:08 Glucose 100 mg/dL (65-115) 05/19/24 14:08 Calculated Osmolality 273 mOsm/kg (285-295) L 05/19/24 14:08 Calcium 9.2 mg/dL (8.5-10.5) 05/19/24 14:08 Total Bilirubin 0.4 mg/dL (0.15-1.2) 05/19/24 14:08 AST 17 U/L (0-32) 05/19/24 14:08 ALT 16 U/L (0-33) 05/19/24 14:08 Alkaline Phosphatase 74 U/L (35-105) 05/19/24 14:08 Total Protein 7.4 g/dL (6.6-8.7) 05/19/24 14:08 Albumin 4.4 g/dL (3.5-5.2) 05/19/24 14:08 Globulin 3.0 g/dL (1.3-4.6) 05/19/24 14:08 TSH 1.58 uIU/mL (0.27-4.20) 05/19/24 14:08 HCG, Qual Negative (Negative) 05/19/24 15:25 Urine Color Yellow (Yellow) 05/19/24 15:25 Urine Appearance Clear (CLEAR) 05/19/24 15:25 Urine pH 5.5 (5-7) 05/19/24 15:25 Ur Specific [place] 1.011 (1.005-1.030) 05/19/24 15:25 Urine Protein Negative (Negative) 05/19/24 15:25 Urine Glucose (UA) Negative (Normal) 05/19/24 15:25 Urine Ketones Negative (Negative) 05/19/24 15:25 Urine Blood Negative (Negative) 05/19/24 15:25 Urine Nitrate Negative (Negative) 05/19/24 15:25 Urine Bilirubin Negative (Negative) 05/19/24 15:25 Urine Urobilinogen 0.2 mg/dL (Negative) 05/19/24 15:25 Ur Leukocyte Esterase Trace (Negative) A 05/19/24 15:25 Urine RBC 0-2 /hpf (0-2) 05/19/24 15:25 Urine WBC 11-20 /hpf (0-5) H 05/19/24 15:25 Ur Squamous Epith Cells 0-5 /hpf (0-5) 05/19/24 15:25 Amorphous Sediment Not Reportable 05/19/24 15:25 Urine Bacteria None seen /hpf (NONE) 05/19/24 15:25 Hyaline Casts 1.65 /lpf 05/19/24 15:25 Salicylates < 0.3 mg/dL (3-10) L 05/19/24 14:08 Urine Opiates Screen Positive ng/mL (Negative) H 05/19/24 15:25 Acetaminophen < 5.0 ug/mL (10-30) L 05/19/24 14:08 Ur Barbiturates Screen Negative ng/mL (Negative) 05/19/24 15:25 Ur Phencyclidine Scrn Negative ng/mL (Negative) 05/19/24 15:25 Ur Amphetamines Screen Negative ng/mL (Negative) 05/19/24 15:25 U Benzodiazepines Scrn Positive ng/mL (Negative) H 05/19/24 15:25 Urine Cocaine Screen Negative ng/mL (Negative) 05/19/24 15:25 U Marijuana (THC) Screen Negative ng/mL (Negative) 05/19/24 15:25 Ethyl Alcohol < 10 mg/dL (0-10) 05/19/24 14:08 Influenza A (PCR) Negative (Negative) 05/19/24 14:08 Influenza Type B (PCR) Negative (Negative) 05/19/24 14:08 RSV (PCR) Negative (Negative) 05/19/24 14:08 SARS-CoV-2 (PCR) Negative (Negative) 05/19/24 14:08 No radiology studies performed this visit EKG Data EKG 1: I personally reviewed and interpreted this EKG as follows: EKG interpretation date: 05/19/24 EKG interpretation time: 15:58 Interpretation: sinus bradycardia hr [address] elevation qrs 97 qtc 405 Discharge Plan Discharge Patient Disposition: Home Clinical Impression: Depression Condition: Stable Prescriptions: No Action famotidine 20 mg tablet 20 mg PO BID valsartan 160 mg tablet 160 mg PO BID hydrocodone-acetaminophen 10-325 mg tablet 1 tab PO Q4H PRN (Reason: Pain) alprazolam 0.5 mg tablet 0.5 mg PO BID PRN (Reason: anxiety) atorvastatin 40 mg tablet 80 mg PO DAILY clopidogrel 75 mg tablet 75 mg PO DAILY amlodipine 5 mg tablet 5 mg PO BID metoprolol tartrate 25 mg tablet 25 mg PO DAILY isosorbide mononitrate 30 mg tablet extended release 24 hr 30 mg PO DAILY hydralazine 100 mg tablet 100 mg PO BID albuterol sulfate [Ventolin HFA] 90 mcg/actuation HFA aerosol inhaler 2 puff INHALATION Q6H bupropion HCl 150 mg tablet extended release 24 hr 150 mg PO DAILY duloxetine 20 mg capsule,delayed release(DR/EC) 20 mg PO DAILY Discharge Orders: Discharge ED (Routine); Ordered 05/19/24 Ordered By: Ishmael Velasco Referrals: Kem Portillo [Primary Care Provider] - Patient Instructions: Depression (ED), Opioid Safety, Pain Management Activity Restrictions/Additional Instructions: Case management has been asked to make you an appointment for follow-up care with behavioral health clinic. You should get a call from them early next week to set up an appointment. Return for any thoughts or wishes to harm your self or anyone else. Print Language: Tunisian Coding Level of Care Code ED Freight Clerk for Chg Fwd Documented by User: Ishmael Velasco DO 05/20/24 01:11 HPI - Psych General: Chief Complaint: Psychiatric Symptoms Stated Complaint: mhe Time Seen by Provider: 05/19/24 13:55 Related Data Home Medications ?Medication ?Instructions ?Recorded ?Confirmed famotidine 20 mg tablet 20 mg PO BID 04/27/21 05/19/24 valsartan 160 mg tablet 160 mg PO BID 04/27/21 05/19/24 alprazolam 0.5 mg tablet 0.5 mg PO BID PRN anxiety 11/12/21 05/19/24 hydrocodone 10 mg-acetaminophen 1 tab PO Q4H PRN Pain 11/12/21 05/19/24 325 mg tablet amlodipine 5 mg tablet 5 mg PO BID 02/09/24 05/19/24 atorvastatin 40 mg tablet 80 mg PO DAILY 02/09/24 05/19/24 clopidogrel 75 mg tablet 75 mg PO DAILY 02/09/24 05/19/24 isosorbide mononitrate 30 mg 30 mg PO DAILY 02/09/24 05/19/24 tablet,extended release 24 hr metoprolol tartrate 25 mg tablet 25 mg PO DAILY 02/09/24 05/19/24 albuterol sulfate 90 mcg/actuation 2 puff inhalation Q6H 05/19/24 05/19/24 aerosol inhaler (Ventolin HFA) bupropion HCl 150 mg 24 hr tablet, 150 mg PO DAILY 05/19/24 05/19/24 extended release duloxetine 20 mg capsule,delayed 20 mg PO DAILY 05/19/24 05/19/24 release hydralazine 100 mg tablet 100 mg PO BID 05/19/24 05/19/24 Allergies Allergy/AdvReac Type Severity Reaction Status Date / Time fluphenazine (From Prolixin) Allergy Unknown Verified 02/09/24 13:48 thiopental (From Pentothal) Allergy Unknown Verified 02/09/24 13:48 PFSH ED PFSH: Medical History Psychiatric care History of colon polyps Abdominal pain Overflow incontinence HTN (hypertension) Hyperlipidemia CKD (chronic kidney disease) ALMA DELIA (generalized anxiety disorder) GERD (gastroesophageal reflux disease) Back pain Fibromyalgia Urinary incontinence Chronic pain Dysphagia Borderline personality disorder Post-traumatic stress disorder, chronic Major depressive disorder, recurrent severe without psychotic features Surgical History History of ear surgery Family History Denies family history of Anesthesia complication Bleeding disorder Social History Smoking and tobacco/nicotine status: current every day tobacco/nicotine user cigarettes Packs smoked per day: 1 Years cigarettes smoked: 70 Quit status (tobacco/nicotine): has tried quititng Number of times tried to quit tobacco: 1 Second hand smoke exposure: Yes Alcohol intake: never Substance/Drug Use: never Current gender identity: Female Course Vital Signs: Vital signs: Vital Signs Temperature 98.2 F 05/19/24 14:05 Pulse Rate 72 05/20/24 00:02 Respiratory Rate 16 05/20/24 00:02 Blood Pressure 178/84 05/20/24 00:02 Pulse Oximetry 96 05/20/24 00:02 Oxygen Delivery Me thod Room Air 05/19/24 15:16 MDM - Psych Medical Decision Making Patient presents here with severe depression she voluntarily wants to be placed for her depression she is not suicidal she is medically cleared will transfer due to geriatric psych capabilities. Patient checked out to me at shift change. She remains medically stable. The patient now states she would not like to be admitted, but would rather return home. She is not suicidal, and has had no history of suicidal ideation. She is simply depressed, sad that her children are not coming to see her regularly, and feels like she was convinced by her daughter to come to the emergency room. She does not wish to be transferred for psychiatric evaluation or treatment. She is awake and alert, and is her own guardian. She will be allowed discharge home. Case management was asked to make the patient a [facility] [place] follow-up appointment, at the patient's request. Lab Data 05/19/24 14:08 05/19/24 14:08 Laboratory Results WBC 6.12 10^3/uL (3.29-11.43) 05/19/24 14:08 RBC 4.80 10^6/uL (3.85-5.65) 05/19/24 14:08 Hgb 13.90 g/dL (11.27-16.99) 05/19/24 14:08 Hct 41.5 % (36-47) 05/19/24 14:08 MCV 86.5 fl (85-98) 05/19/24 14:08 MCH 29.0 pg (27-33) 05/19/24 14:08 MCHC 33.5 g/dL (30-55) 05/19/24 14:08 RDW 14.3 % (12.1-15.1) 05/19/24 14:08 Plt Count 308 10^3/cmm (157-399) 05/19/24 14:08 MPV 9.6 fL (7.4-10.4) 05/19/24 14:08 Neut % (Auto) 59.8 % 05/19/24 14:08 Lymph % (Auto) 26.3 % 05/19/24 14:08 [place] % (Auto) 8.7 % 05/19/24 14:08 Eos % (Auto) 3.9 % 05/19/24 14:08 Baso % (Auto) 1.1 % 05/19/24 14:08 Neut # (Auto) 3.66 10^3/uL (1.8-7.7) 05/19/24 14:08 Lymph # (Auto) 1.6 10^3/uL (0.8-4.8) 05/19/24 14:08 [place] # (Auto) 0.5 10^3/uL (0.2-0.9) 05/19/24 14:08 Eos # (Auto) 0.2 10^3/uL (0.0-0.8) 05/19/24 14:08 Baso # (Auto) 0.1 10^3/uL (0.0-0.1) 05/19/24 14:08 Nucleated RBC % (auto) 0 % 05/19/24 14:08 Nucleated RBCs # 0.0 /100WBC 05/19/24 14:08 Sodium 131 mmol/L (136-145) L 05/19/24 14:08 Potassium 3.9 mmol/L (3.5-5.1) 05/19/24 14:08 Chloride 93 mmol/L (98-107) L 05/19/24 14:08 Carbon Dioxide 26 mmol/L (22-29) 05/19/24 14:08 Anion Gap 15.9 (5-19) 05/19/24 14:08 BUN 15 mg/dL (8-23) 05/19/24 14:08 Creatinine 1.1 mg/dL (0.5-0.9) H 05/19/24 14:08 GFR Calculation Not Reportable 05/19/24 14:08 Glucose 100 mg/dL (65-115) 05/19/24 14:08 Calculated Osmolality 273 mOsm/kg (285-295) L 05/19/24 14:08 Calcium 9.2 mg/dL (8.5-10.5) 05/19/24 14:08 Total Bilirubin 0.4 mg/dL (0.15-1.2) 05/19/24 14:08 AST 17 U/L (0-32) 05/19/24 14:08 ALT 16 U/L (0-33) 05/19/24 14:08 Alkaline Phosphatase 74 U/L (35-105) 05/19/24 14:08 Total Protein 7.4 g/dL (6.6-8.7) 05/19/24 14:08 Albumin 4.4 g/dL (3.5-5.2) 05/19/24 14:08 Globulin 3.0 g/dL (1.3-4.6) 05/19/24 14:08 TSH 1.58 uIU/mL (0.27-4.20) 05/19/24 14:08 HCG, Qual Negative (Negative) 05/19/24 15:25 Urine Color Yellow (Yellow) 05/19/24 15:25 Urine Appearance Clear (CLEAR) 05/19/24 15:25 Urine pH 5.5 (5-7) 05/19/24 15:25 Ur Specific [place] 1.011 (1.005-1.030) 05/19/24 15:25 Urine Protein Negative (Negative) 05/19/24 15:25 Urine Glucose (UA) Negative (Normal) 05/19/24 15:25 Urine Ketones Negative (Negative) 05/19/24 15:25 Urine Blood Negative (Negative) 05/19/24 15:25 Urine Nitrate Negative (Negative) 05/19/24 15:25 Urine Bilirubin Negative (Negative) 05/19/24 15:25 Urine Urobilinogen 0.2 mg/dL (Negative) 05/19/24 15:25 Ur Leukocyte Esterase Trace (Negative) A 05/19/24 15:25 Urine RBC 0-2 /hpf (0-2) 05/19/24 15:25 Urine WBC 11-20 /hpf (0-5) H 05/19/24 15:25 Ur Squamous Epith Cells 0-5 /hpf (0-5) 05/19/24 15:25 Amorphous Sediment Not Reportable 05/19/24 15:25 Urine Bacteria None seen /hpf (NONE) 05/19/24 15:25 Hyaline Casts 1.65 /lpf 05/19/24 15:25 Salicylates < 0.3 mg/dL (3-10) L 05/19/24 14:08 Urine Opiates Screen Positive ng/mL (Negative) H 05/19/24 15:25 Acetaminophen < 5.0 ug/mL (10-30) L 05/19/24 14:08 Ur Barbiturates Screen Negative ng/mL (Negative) 05/19/24 15:25 Ur Phencyclidine Scrn Negative ng/mL (Negative) 05/19/24 15:25 Ur Amphetamines Screen Negative ng/mL (Negative) 05/19/24 15:25 U Benzodiazepines Scrn Positive ng/mL (Negative) H 05/19/24 15:25 Urine Cocaine Screen Negative ng/mL (Negative) 05/19/24 15:25 U Marijuana (THC) Screen Negative ng/mL (Negative) 05/19/24 15:25 Ethyl Alcohol < 10 mg/dL (0-10) 05/19/24 14:08 Influenza A (PCR) Negative (Negative) 05/19/24 14:08 Influenza Type B (PCR) Negative (Negative) 05/19/24 14:08 RSV (PCR) Negative (Negative) 05/19/24 14:08 SARS-CoV-2 (PCR) Negative (Negative) 05/19/24 14:08 Discharge Plan Discharge Patient Disposition: Home Clinical Impression: Depression Condition: Stable Prescriptions: No Action famotidine 20 mg tablet 20 mg PO BID valsartan 160 mg tablet 160 mg PO BID hydrocodone-acetaminophen 10-325 mg tablet 1 tab PO Q4H PRN (Reason: Pain) alprazolam 0.5 mg tablet 0.5 mg PO BID PRN (Reason: anxiety) atorvastatin 40 mg tablet 80 mg PO DAILY clopidogrel 75 mg tablet 75 mg PO DAILY amlodipine 5 mg tablet 5 mg PO BID metoprolol tartrate 25 mg tablet 25 mg PO DAILY isosorbide mononitrate 30 mg tablet extended release 24 hr 30 mg PO DAILY hydralazine 100 mg tablet 100 mg PO BID albuterol sulfate [Ventolin HFA] 90 mcg/actuation HFA aerosol inhaler 2 puff INHALATION Q6H bupropion HCl 150 mg tablet extended release 24 hr 150 mg PO DAILY duloxetine 20 mg capsule,delayed release(DR/EC) 20 mg PO DAILY Discharge Orders: Discharge ED (Routine); Ordered 05/19/24 Ordered By: Ishmael Velasco Referrals: Kem Portillo [Primary Care Provider] - Patient Instructions: Depression (ED), Opioid Safety, Pain Management Activity Restrictions/Additional Instructions: Case management has been asked to make you an appointment for follow-up care with behavioral health clinic. You should get a call from them early next week to set up an appointment. Return for any thoughts or wishes to harm your self or anyone else. Print Language: Tunisian Coding Level of Care Code ED Freight Clerk for Sveta Wagner
[2024-05-19 14:05] VITALS: BP 153/76; PULSE 91; RESP 18; TEMP 36.8; O2SAT 99
[2024-05-19 14:21] LABS: Basophils # 0.1 10^3/uL (0.0-0.1); Basophils % 1.1 %; Eosinophils # 0.2 10^3/uL (0.0-0.8); Eosinophils % 3.9 %; Hematocrit 41.5 % (36-47); Lymphocytes # 1.6 10^3/uL (0.8-4.8); Lymphocytes % 26.3 %; Mean Corpuscular HGB Conc 33.5 g/dL (30-55); Mean Corpuscular Volume 86.5 fl (85-98); Mean Platelet Volume 9.6 fL (7.4-10.4); Monocytes # 0.5 10^3/uL (0.2-0.9); Monocytes % 8.7 %; Neutrophils # 3.66 10^3/uL (1.8-7.7); Neutrophils % 59.8 %; Nucleated Red Blood Cells % 0 %; Platelet Count 308 10^3/cmm (157-399); Red Cell Distribution Width 14.3 % (12.1-15.1); White Blood Count 6.12 10^3/uL (3.29-11.43)
[2024-05-19 14:46] LABS: Alanine Aminotransferase 16 U/L (0-33); Albumin Level 4.4 g/dL (3.5-5.2); Alkaline Phosphatase 74 U/L (35-105); Anion Gap 15.9 (5-19); Aspartate Amino Transferase 17 U/L (0-32); Blood Urea Nitrogen 15 mg/dL (8-23); Calcium 9.2 mg/dL (8.5-10.5); Carbon Dioxide 26 mmol/L (22-29); Chloride 93 mmol/L (98-107); Glucose 100 mg/dL (65-115); Osmolality Calculated 273 mOsm/kg (285-295); Potassium 3.9 mmol/L (3.5-5.1); Sodium 131 mmol/L (136-145); Thyroid Stimulating Hormone 1.58 uIU/mL (0.27-4.20); Total Bilirubin 0.4 mg/dL (0.15-1.2); Total Protein 7.4 g/dL (6.6-8.7)
[2024-05-19 14:48] LABS: Acetaminophen < 5.0 ug/mL (10-30); Alcohol Level < 10 mg/dL (0-10); Salicylate < 0.3 mg/dL (3-10)
[2024-05-19 15:16] VITALS: O2SAT 99
[2024-05-19 15:26] LABS: Influenza A NEGATIVE (Negative); Influenza B NEGATIVE (Negative); Respiratory Syncytial Virus Ce NEGATIVE (Negative); SARS-CoV-2 PCR NEGATIVE (Negative)
[2024-05-19 15:37] LABS: HCG Qualitative Urine. Negative (Negative)
[2024-05-19 15:41] LABS: Bilirubin Urine Negative (Negative); Blood Urine Negative (Negative); Glucose Urine UA Negative (Normal); Ketones Urine Negative (Negative); Leukocyte Esterase Urine Trace (Negative); Nitrate Urine Negative (Negative); Protein Urine Negative (Negative); Specific Gravity, Urine 1.011 (1.005-1.030); Urine Appearance Clear (CLEAR); Urine Color Yellow (Yellow); Urobilinogen Urine 0.2 mg/dL (Negative); pH Urine 5.5 (5-7)
[2024-05-19 15:42] LABS: Amphetamines Screen Urine Negative (Negative); Barbiturates Screen Urine Negative (Negative); Benzodiazepines Screen Urine Positive (Negative); Cocaine Screen Urine Negative (Negative); Opiate Screen Urine Positive (Negative); PCP Screen Urine Negative (Negative); THC Screen Urine Negative (Negative)
[2024-05-19 15:46] LABS: Add Urine Microscopic? YES; Bacteria Urine None Seen /hpf; Hyaline Casts Urine 1.65 /lpf; RBC Urine 0-2 /hpf (0-2); Squamous Epithelial Cell Urine 0-5 /hpf (0-5)
--- NOTE | 2024-05-19 15:58 | ECG_ITS ---
[facility] Date: 2024-05-19 Pat Name: Mary Cruz Department: Room: Gender: Female Business Services Intern: : 1950 Requested By: Gilda Momin Order Number: [id number] Ronnell MD: Chandu Cates M.D. Measurements Intervals [place] Rate: 57 P: 72 WA: 173 QRS: -10 QRSD: 97 T: 63 QT: 410 QTc: 402 Interpretive Statements SINUS BRADYCARDIA SEPTAL MYOCARDIAL INFARCTION , OF INDETERMINATE AGE [40+ ms Q WAVE IN V1/V2] Compared to ECG 02/09/2024 16:51:18 No significant changes Electronically Signed On 05-20-2024 22:45:11 CDT by Chandu Cates M.D. [email or web address] [id number]
[2024-05-19] MEDS: HYDROcodone-acetaminophen 10-325 mg Tablet 1 TAB PO ×2 (16:01→23:37)
[2024-05-19 21:38] VITALS: BP 175/83; PULSE 60; RESP 16; O2SAT 95
[2024-05-19] MEDS: famotidine 20 mg Tablet PO (23:36)
[2024-05-19] MEDS: hyDRALAzine 25 mg Tablet 100 MG PO (23:36)
[2024-05-19] MEDS: amlodipine 5 mg Tablet PO (23:36)
[2024-05-20 00:02] VITALS: BP 178/84; PULSE 72; RESP 16; O2SAT 96
--- NOTE | 2024-05-23 08:09 | DCPLANNER ---
Referral sent to [facility] for Eval
== END 2024-05-20 00:27 | disposition home or self-care (01) ==
PROVIDERS: Emergency Medicine; Emergency Provider Emergency Medicine; PCP Family Medicine
DX: F32.A Depression, unspecified (principal); Z79.02 Long term (current) use of antithrombotics/antiplatelets; Z11.52 Encounter for screening for COVID-19; F17.210 Nicotine dependence, cigarettes, uncomplicated; I12.9 Hypertensive chronic kidney disease with stage 1 through stage 4 chronic kidney disease, or unspecified chronic kidney disease; N18.9 Chronic kidney disease, unspecified
CPT/HCPCS: 80053; 80306; 80307; 81001; 81025; 84443; 85025; 87637; 93005; 99284; J9999

== ENCOUNTER → 2024-06-29 10:33 | Outpatient (BNVA) | payer MEDICARE, OTHER, SELFPAY ==
[2023-11-23 16:19] VITALS: BP 140/80; BMI 29.1
== END ==
PROVIDERS: PCP Family Medicine; Visit Provider Specialist
DX: M19.012 Primary osteoarthritis, left shoulder (principal)
CPT/HCPCS: 20610; J1100; J2795; J3301; J9999

== ENCOUNTER 2024-07-03 13:10 | Outpatient (CLI) | payer MEDICARE, OTHER, SELFPAY ==
[2023-11-23 16:19] VITALS: BP 140/80; BMI 29.1
--- NOTE | 2024-07-03 | MM_ITS ---
WS: [id number] DIAGNOSTIC BILATERAL DIGITAL BREAST TOMOSYNTHESIS MAMMOGRAPHY WITH CAD RIGHT breast ultrasound, limited. HISTORY: RIGHT BREAST PAIN, RT BREAST CYST COMPARISON: 12/23/2020 TECHNIQUE: Bilateral craniocaudad, mediolateral oblique, and mediolateral views are submitted with tomosynthesis and SM. Spot compression RIGHT CC and MLO. Computer aided detection utilized. Breast composition: The breasts are almost entirely fatty. Triangular marker is placed over the anterior medial RIGHT breast. Patient was unable to identify the palpable abnormality during today's exam. There are benign calcifications in each breast. No nipple retraction. No suspicious mass or distortion. RIGHT breast ultrasound, limited. Ultrasound directed in the retroareolar region and to the area directed by the patient. Attention is focused along the 1-3 o'clock axis. No dilated ducts and no mass identified. MM/MM diag BI tomosynthesis [id number] IMPRESSION: BI-RADS: 2 - Benign. FOLLOW UP: 1 Year Follow-up
--- NOTE | 2024-07-03 13:45 | US_ITS ---
WS: [id number] DIAGNOSTIC BILATERAL DIGITAL BREAST TOMOSYNTHESIS MAMMOGRAPHY WITH CAD RIGHT breast ultrasound, limited. HISTORY: RIGHT BREAST PAIN, RT BREAST CYST COMPARISON: 12/23/2020 TECHNIQUE: Bilateral craniocaudad, mediolateral oblique, and mediolateral views are submitted with tomosynthesis and SM. Spot compression RIGHT CC and MLO. Computer aided detection utilized. Breast composition: The breasts are almost entirely fatty. Triangular marker is placed over the anterior medial RIGHT breast. Patient was unable to identify the palpable abnormality during today's exam. There are benign calcifications in each breast. No nipple retraction. No suspicious mass or distortion. RIGHT breast ultrasound, limited. Ultrasound directed in the retroareolar region and to the area directed by the patient. Attention is focused along the 1-3 o'clock axis. No dilated ducts and no mass identified. US/US breast RT limited* [id number] IMPRESSION: BI-RADS: 2 - Benign. FOLLOW UP: 1 Year Follow-up
== END 2024-07-03 13:11 | disposition home or self-care (01) ==
LOC: RAD 13:13
PROVIDERS: PCP Family Medicine; Visit Provider Family Medicine
DX: N64.4 Mastodynia (principal); R92.313 Mammographic fatty tissue density, bilateral breasts; R92.1 Mammographic calcification found on diagnostic imaging of breast
CPT/HCPCS: 76642; 77062; G0279

== ENCOUNTER 2024-07-19 12:41 | Inpatient (IN) | payer MEDICARE, OTHER, SELFPAY ==
[2023-11-23 16:19] VITALS: BP 140/80; BMI 29.1
[2024-07-19] VITALS (27 sets, daily range): BP systolic 132–176; BP diastolic 55–103; PULSE 0–76; RESP 12–22; TEMP 36.8–37.4; O2SAT 89–98; BMI 28.3
--- NOTE | 2024-07-19 12:47 | XR_ITS ---
WS: [id number] Portable AP upright chest, 07/19/2024 Clinical Data: chest pain Comparison: Portable chest, 02/09/2024 Findings: No nodules, masses or effusions are seen. The heart is normal. The pulmonary vascularity is not increased. No pneumonia or pneumothorax is seen. The aortic arch and descending thoracic aorta show tortuosity and minimal calcification. There are monitor leads on the chest wall. XR/XR chest 1V portable [id number] Impression: Atherosclerosis.
--- NOTE | 2024-07-19 12:55 | W.ED.CHESTPA ---
Documented by User: Darnell Cordero DO 07/19/24 13:23 HPI - Chest Pain General: Chief Complaint: Chest Pain Stated Complaint: Chest Pain Time Seen by Provider: 07/19/24 12:47 History of Present Illness: 74-year-old female presents emergency room with complaint of substernal chest pain that began while she was at rest around 830 this morning. She took some nitro at home with minimal relief of symptoms pain radiates up into her neck she has not noticed anything that makes it better or worse she has had some difficulty with epigastric discomfort Associated symptoms: Deny abdominal pain, dyspnea or fever(s) Related Data Home Medications ?Medication ?Instructions ?Recorded ?Confirmed valsartan 160 mg tablet 160 mg PO BID 04/27/21 07/19/24 alprazolam 0.5 mg tablet 0.5 mg PO BID PRN anxiety 11/12/21 07/19/24 hydrocodone 10 mg-acetaminophen 1 tab PO Q4H PRN Pain 11/12/21 07/19/24 325 mg tablet amlodipine 5 mg tablet 5 mg PO BID 02/09/24 07/19/24 clopidogrel 75 mg tablet 75 mg PO DAILY 02/09/24 07/19/24 albuterol sulfate 90 mcg/actuation 2 puff inhalation Q6H 05/19/24 07/19/24 aerosol inhaler (Ventolin HFA) bupropion HCl 150 mg 24 hr tablet, 150 mg PO DAILY 05/19/24 07/19/24 extended release duloxetine 20 mg capsule,delayed 20 mg PO DAILY 05/19/24 07/19/24 release hydralazine 100 mg tablet 100 mg PO BID 05/19/24 07/19/24 fluticasone propionate 50 2 spray intranasal DAILY 07/19/24 07/19/24 mcg/actuation nasal spray,suspension Previous Rx's ?Medication ?Instructions ?Recorded isosorbide mononitrate 30 mg 60 mg (2 x 30 mg) PO DAILY 30 days 07/20/24 tablet,extended release 24 hr #60 tabs pantoprazole 40 mg tablet,delayed 40 mg PO QAM #60 tabs 07/20/24 release (Protonix) Allergies Allergy/AdvReac Type Severity Reaction Status Date / Time fluphenazine (From Prolixin) Allergy Unknown Verified 07/09/24 13:09 thiopental (From Pentothal) Allergy Unknown Verified 07/09/24 13:09 Review of Systems Const: Denies: fever(s) or chills Card: Reports: chest pain Resp: Denies: dyspnea GI: Denies: abdominal pain : Denies: dysuria, urinary frequency or urinary urgency Musc: Denies: neck pain or back pain Skin/Breast: Denies: rash PFSH ED PFSH: Medical History Psychiatric care History of colon polyps Abdominal pain Overflow incontinence HTN (hypertension) Hyperlipidemia CKD (chronic kidney disease) ALMA DELIA (generalized anxiety disorder) GERD (gastroesophageal reflux disease) Back pain Fibromyalgia Urinary incontinence Chronic pain Dysphagia Borderline personality disorder Post-traumatic stress disorder, chronic Major depressive disorder, recurrent severe without psychotic features Surgical History History of ear surgery Family History Denies family history of Anesthesia complication Bleeding disorder Social History Smoking and tobacco/nicotine status: current some day tobacco/nicotine user cigarettes Packs smoked per day: 1 Years cigarettes smoked: 70 Quit status (tobacco/nicotine): has tried quititng Number of times tried to quit tobacco: 1 Second hand smoke exposure: Yes Alcohol intake: never Substance/Drug Use: never Current gender identity: Female Physical Exam Const: GENERAL APPEARANCE: cooperative ORIENTATION/CONSCIOUSNESS: Yes awake, Yes oriented to person, Yes oriented to place and Yes oriented to time HENMT: COMMON NORMALS: normocephalic, atraumatic and hearing grossly normal bilaterally HEAD & SCALP: normocephalic and atraumatic Resp: COMMON NORMALS: normal respiratory effort, No retractions, No use of accessory muscles and clear to auscultation bilaterally AUSCULTATION: clear to auscultation bilaterally Cardio: COMMON NORMALS: regular rate, regular rhythm and No murmurs present (Cardio) RATE: regular rate RHYTHM: regular rhythm GI: COMMON NORMALS: Soft to palpation and No hepatosplenomegaly present AUSCULTATION: Yes normoactive bowel sounds PALPATION: Yes Soft to palpation, No Tenderness to palpation present (GI), No Guarding due to palpation present (GI) and Yes No hepatosplenomegaly present Extremity: COMMON NORMALS: normal to inspection, capillary refill normal, no clubbing, cyanosis or edema, no calf tenderness and no pedal edema Neuro: SENSORIUM/ORIENTATION: Yes oriented to person, Yes oriented to place and Yes oriented to time Skin: COMMON NORMALS: no rashes or lesions noted GENERAL SKIN EXAM: no rashes or lesions noted Course Vital Signs: Vital signs: Vital Signs Temperature 99.3 F 07/20/24 00:00 Pulse Rate 74 07/20/24 09:50 Respiratory Rate 23 H 07/20/24 08:30 Blood Pressure 163/97 07/20/24 10:28 Pulse Oximetry 94 07/20/24 08:30 Oxygen Delivery Me thod Room Air 07/20/24 08:03 MDM - Chest Pain Lab Data 07/20/24 05:15 07/20/24 05:15 Radiology Impressions Chest X-Ray 07/19/24 12:47 Impression: Atherosclerosis. Laboratory Results WBC 5.86 10^3/uL (3.29-11.43) 07/19/24 12:58 RBC 4.81 10^6/uL (3.85-5.65) 07/19/24 12:58 Hgb 14.00 g/dL (11.27-16.99) 07/19/24 12:58 Hct 41.9 % (36-47) 07/19/24 12:58 MCV 87.1 fl (85-98) 07/19/24 12:58 MCH 29.1 pg (27-33) 07/19/24 12:58 MCHC 33.4 g/dL (30-55) 07/19/24 12:58 RDW 13.1 % (12.1-15.1) 07/19/24 12:58 Plt Count 264 10^3/cmm (157-399) 07/19/24 12:58 MPV 9.6 fL (7.4-10.4) 07/19/24 12:58 Neut % (Auto) 62.4 % 07/19/24 12:58 Lymph % (Auto) 25.3 % 07/19/24 12:58 [place] % (Auto) 9.6 % 07/19/24 12:58 Eos % (Auto) 1.5 % 07/19/24 12:58 Baso % (Auto) 1.0 % 07/19/24 12:58 Neut # (Auto) 3.66 10^3/uL (1.8-7.7) 07/19/24 12:58 Lymph # (Auto) 1.5 10^3/uL (0.8-4.8) 07/19/24 12:58 [place] # (Auto) 0.6 10^3/uL (0.2-0.9) 07/19/24 12:58 Eos # (Auto) 0.1 10^3/uL (0.0-0.8) 07/19/24 12:58 Baso # (Auto) 0.1 10^3/uL (0.0-0.1) 07/19/24 12:58 Nucleated RBC % (auto) 0 % 07/19/24 12:58 Nucleated RBCs # 0.0 /100WBC 07/19/24 12:58 D-Dimer 0.75 ug/mLFEU (0-0.59) H 07/19/24 12:58 Sodium 130 mmol/L (136-145) L 07/19/24 12:58 Potassium 3.9 mmol/L (3.5-5.1) 07/19/24 12:58 Chloride 94 mmol/L (98-107) L 07/19/24 12:58 Carbon Dioxide 20 mmol/L (22-29) L 07/19/24 12:58 Anion Gap 19.9 (5-19) H 07/19/24 12:58 BUN 16 mg/dL (8-23) 07/19/24 12:58 Creatinine 0.9 mg/dL (0.5-0.9) 07/19/24 12:58 GFR Calculation Not Reportable 07/19/24 12:58 Glucose 123 mg/dL (65-115) H 07/19/24 12:58 Estimat Average Glucose 120 07/19/24 12:58 Hemoglobin A1c 5.8 % (4.0-6.0) 07/19/24 12:58 Calculated Osmolality 273 mOsm/kg (285-295) L 07/19/24 12:58 Calcium 9.2 mg/dL (8.5-10.5) 07/19/24 12:58 Iron 71 ug/dL (37-145) 07/19/24 12:58 TIBC 239 mcg/dl 07/19/24 12:58 % Saturation 29.7 % (20-50) 07/19/24 12:58 Unsat Iron Binding 168 ug/dL (112-347) 07/19/24 12:58 Total Bilirubin 0.2 mg/dL (0.15-1.2) 07/19/24 12:58 AST 20 U/L (0-32) 07/19/24 12:58 ALT 15 U/L (0-33) 07/19/24 12:58 Alkaline Phosphatase 71 U/L (35-105) 07/19/24 12:58 Troponin T Baseline 10 ng/L (0-10) 07/19/24 12:58 Troponin T 120 Minute 10.79 ng/L (0-10) H 07/19/24 15:01 Delta Troponin T 0.79 ABS# (0-10) 07/19/24 15:01 Total Protein 6.1 g/dL (6.6-8.7) L 07/19/24 12:58 Albumin 4.1 g/dL (3.5-5.2) 07/19/24 12:58 Globulin 2.0 g/dL (1.3-4.6) 07/19/24 12:58 Vitamin B12 473 pg/mL (232-1245) 07/19/24 12:58 Procalcitonin 0.06 ng/mL (0-0.5) 07/19/24 12:58 TSH 0.94 uIU/mL (0.27-4.20) 07/19/24 12:58 Discharge Plan Discharge Patient Disposition: Admitted As Inpatient Admit Provider: Maldonado Bryant Clinical Impression: Chest pain Condition: Stable Discharge Diet: Cardiac Discharge Activity: Resume usual activity and Increase activity as tolerated Coding Level of Care Code ED Security Supervisor for Chg Fwd Documented by User: Raulito Breaux DO 07/20/24 20:28 HPI - Chest Pain General: Chief Complaint: Chest Pain Stated Complaint: Chest Pain Time Seen by Provider: 07/19/24 12:47 Related Data Home Medications ?Medication ?Instructions ?Recorded ?Confirmed valsartan 160 mg tablet 160 mg PO BID 04/27/21 07/19/24 alprazolam 0.5 mg tablet 0.5 mg PO BID PRN anxiety 11/12/21 07/19/24 hydrocodone 10 mg-acetaminophen 1 tab PO Q4H PRN Pain 11/12/21 07/19/24 325 mg tablet amlodipine 5 mg tablet 5 mg PO BID 02/09/24 07/19/24 clopidogrel 75 mg tablet 75 mg PO DAILY 02/09/24 07/19/24 albuterol sulfate 90 mcg/actuation 2 puff inhalation Q6H 05/19/24 07/19/24 aerosol inhaler (Ventolin HFA) bupropion HCl 150 mg 24 hr tablet, 150 mg PO DAILY 05/19/24 07/19/24 extended release duloxetine 20 mg capsule,delayed 20 mg PO DAILY 05/19/24 07/19/24 release hydralazine 100 mg tablet 100 mg PO BID 05/19/24 07/19/24 fluticasone propionate 50 2 spray intranasal DAILY 07/19/24 07/19/24 mcg/actuation nasal spray,suspension Previous Rx's ?Medication ?Instructions ?Recorded isosorbide mononitrate 30 mg 60 mg (2 x 30 mg) PO DAILY 30 days 07/20/24 tablet,extended release 24 hr #60 tabs pantoprazole 40 mg tablet,delayed 40 mg PO QAM #60 tabs 07/20/24 release (Protonix) Allergies Allergy/AdvReac Type Severity Reaction Status Date / Time fluphenazine (From Prolixin) Allergy Unknown Verified 07/09/24 13:09 thiopental (From Pentothal) Allergy Unknown Verified 07/09/24 13:09 PFS ED PFSH: Medical History Psychiatric care History of colon polyps Abdominal pain Overflow incontinence HTN (hypertension) Hyperlipidemia CKD (chronic kidney disease) ALMA DELIA (generalized anxiety disorder) GERD (gastroesophageal reflux disease) Back pain Fibromyalgia Urinary incontinence Chronic pain Dysphagia Borderline personality disorder Post-traumatic stress disorder, chronic Major depressive disorder, recurrent severe without psychotic features Surgical History History of ear surgery Family History Denies family history of Anesthesia complication Bleeding disorder Social History Smoking and tobacco/nicotine status: current some day tobacco/nicotine user cigarettes Packs smoked per day: 1 Years cigarettes smoked: 70 Quit status (tobacco/nicotine): has tried quititng Number of times tried to quit tobacco: 1 Second hand smoke exposure: Yes Alcohol intake: never Substance/Drug Use: never Current gender identity: Female Course Vital Signs: Vital signs: Vital Signs Temperature 99.3 F 07/20/24 00:00 Pulse Rate 74 07/20/24 09:50 Respiratory Rate 23 H 07/20/24 08:30 Blood Pressure 163/97 07/20/24 10:28 Pulse Oximetry 94 07/20/24 08:30 Oxygen Delivery Me thod Room Air 07/20/24 08:03 MDM - Chest Pain Medical Decision Making Care assumed from Dr. Graham. Patient already accepted for admission. She was rooming in the emergency department and till she transferred to the floor. The time under my care was unremarkable. Not requiring any additional diagnosis or treatments. Lab Data 07/20/24 05:15 07/20/24 05:15 Radiology Impressions Chest X-Ray 07/19/24 12:47 Impression: Atherosclerosis. Laboratory Results WBC 5.86 10^3/uL (3.29-11.43) 07/19/24 12:58 RBC 4.81 10^6/uL (3.85-5.65) 07/19/24 12:58 Hgb 14.00 g/dL (11.27-16.99) 07/19/24 12:58 Hct 41.9 % (36-47) 07/19/24 12:58 MCV 87.1 fl (85-98) 07/19/24 12:58 MCH 29.1 pg (27-33) 07/19/24 12:58 MCHC 33.4 g/dL (30-55) 07/19/24 12:58 RDW 13.1 % (12.1-15.1) 07/19/24 12:58 Plt Count 264 10^3/cmm (157-399) 07/19/24 12:58 MPV 9.6 fL (7.4-10.4) 07/19/24 12:58 Neut % (Auto) 62.4 % 07/19/24 12:58 Lymph % (Auto) 25.3 % 07/19/24 12:58 [place] % (Auto) 9.6 % 07/19/24 12:58 Eos % (Auto) 1.5 % 07/19/24 12:58 Baso % (Auto) 1.0 % 07/19/24 12:58 Neut # (Auto) 3.66 10^3/uL (1.8-7.7) 07/19/24 12:58 Lymph # (Auto) 1.5 10^3/uL (0.8-4.8) 07/19/24 12:58 [place] # (Auto) 0.6 10^3/uL (0.2-0.9) 07/19/24 12:58 Eos # (Auto) 0.1 10^3/uL (0.0-0.8) 07/19/24 12:58 Baso # (Auto) 0.1 10^3/uL (0.0-0.1) 07/19/24 12:58 Nucleated RBC % (auto) 0 % 07/19/24 12:58 Nucleated RBCs # 0.0 /100WBC 07/19/24 12:58 D-Dimer 0.75 ug/mLFEU (0-0.59) H 07/19/24 12:58 Sodium 130 mmol/L (136-145) L 07/19/24 12:58 Potassium 3.9 mmol/L (3.5-5.1) 07/19/24 12:58 Chloride 94 mmol/L (98-107) L 07/19/24 12:58 Carbon Dioxide 20 mmol/L (22-29) L 07/19/24 12:58 Anion Gap 19.9 (5-19) H 07/19/24 12:58 BUN 16 mg/dL (8-23) 07/19/24 12:58 Creatinine 0.9 mg/dL (0.5-0.9) 07/19/24 12:58 GFR Calculation Not Reportable 07/19/24 12:58 Glucose 123 mg/dL (65-115) H 07/19/24 12:58 Estimat Average Glucose 120 07/19/24 12:58 Hemoglobin A1c 5.8 % (4.0-6.0) 07/19/24 12:58 Calculated Osmolality 273 mOsm/kg (285-295) L 07/19/24 12:58 Calcium 9.2 mg/dL (8.5-10.5) 07/19/24 12:58 Iron 71 ug/dL (37-145) 07/19/24 12:58 TIBC 239 mcg/dl 07/19/24 12:58 % Saturation 29.7 % (20-50) 07/19/24 12:58 Unsat Iron Binding 168 ug/dL (112-347) 07/19/24 12:58 Total Bilirubin 0.2 mg/dL (0.15-1.2) 07/19/24 12:58 AST 20 U/L (0-32) 07/19/24 12:58 ALT 15 U/L (0-33) 07/19/24 12:58 Alkaline Phosphatase 71 U/L (35-105) 07/19/24 12:58 Troponin T Baseline 10 ng/L (0-10) 07/19/24 12:58 Troponin T 120 Minute 10.79 ng/L (0-10) H 07/19/24 15:01 Delta Troponin T 0.79 ABS# (0-10) 07/19/24 15:01 Total Protein 6.1 g/dL (6.6-8.7) L 07/19/24 12:58 Albumin 4.1 g/dL (3.5-5.2) 07/19/24 12:58 Globulin 2.0 g/dL (1.3-4.6) 07/19/24 12:58 Vitamin B12 473 pg/mL (232-1245) 07/19/24 12:58 Procalcitonin 0.06 ng/mL (0-0.5) 07/19/24 12:58 TSH 0.94 uIU/mL (0.27-4.20) 07/19/24 12:58 All radiology interpretation(s) finalized by discharge Discharge Plan Discharge Patient Disposition: Admitted As Inpatient Admit Provider: Maldonado Bryant Clinical Impression: Chest pain Condition: Stable Discharge Diet: Cardiac Discharge Activity: Resume usual activity and Increase activity as tolerated Coding Level of Care Code ED Security Supervisor for Sveta Wagner
--- NOTE | 2024-07-19 13:15 | ECG_ITS ---
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 Measurements Intervals [place] Rate: 68 P: 70 OK: 171 QRS: -21 QRSD: 96 T: 63 QT: 392 QTc: 419 Interpretive Statements SINUS RHYTHM SEPTAL MYOCARDIAL INFARCTION , OF INDETERMINATE AGE [40+ ms Q WAVE IN V1/V2] MODERATE T-WAVE ABNORMALITY, CONSIDER LATERAL ISCHEMIA [-0.1+ mV T-WAVE IN I/aVL/V5/V6] Compared to ECG 05/19/2024 15:58:56 T-wave abnormality now present Possible ischemia now present Sinus bradycardia no longer present Myocardial infarct finding still present Electronically Signed On 07-19-2024 18:02:22 CDT by Chandu Cates M.D. [email or web address]
[2024-07-19 13:21] LABS: Basophils # 0.1 10^3/uL (0.0-0.1); Eosinophils # 0.1 10^3/uL (0.0-0.8); Eosinophils % 1.5 %; Hematocrit 41.9 % (36-47); Lymphocytes # 1.5 10^3/uL (0.8-4.8); Lymphocytes % 25.3 %; Mean Corpuscular HGB Conc 33.4 g/dL (30-55); Mean Corpuscular Hemoglobin 29.1 pg (27-33); Mean Corpuscular Volume 87.1 fl (85-98); Mean Platelet Volume 9.6 fL (7.4-10.4); Monocytes # 0.6 10^3/uL (0.2-0.9); Monocytes % 9.6 %; Neutrophils # 3.66 10^3/uL (1.8-7.7); Neutrophils % 62.4 %; Nucleated Red Blood Cells % 0 %; Platelet Count 264 10^3/cmm (157-399); Red Blood Count 4.81 10^6/uL (3.85-5.65); Red Cell Distribution Width 13.1 % (12.1-15.1); White Blood Count 5.86 10^3/uL (3.29-11.43)
[2024-07-19 13:43] LABS: Troponin(5th) Baseline 10 ng/L (0-10)
[2024-07-19 13:46] LABS: Alanine Aminotransferase 15 U/L (0-33); Albumin Level 4.1 g/dL (3.5-5.2); Alkaline Phosphatase 71 U/L (35-105); Anion Gap 19.9 (5-19); Aspartate Amino Transferase 20 U/L (0-32); Blood Urea Nitrogen 16 mg/dL (8-23); Calcium 9.2 mg/dL (8.5-10.5); Carbon Dioxide 20 mmol/L (22-29); Chloride 94 mmol/L (98-107); Creatinine Clr Calc Pharmacy 54.6052; Glucose 123 mg/dL (65-115); Osmolality Calculated 273 mOsm/kg (285-295); Potassium 3.9 mmol/L (3.5-5.1); Sodium 130 mmol/L (136-145); Total Bilirubin 0.2 mg/dL (0.15-1.2); Total Protein 6.1 g/dL (6.6-8.7)
[2024-07-19] MEDS: morphine 4 mg/mL SDV 1 mL 2 MG IVP (14:06)
[2024-07-19] MEDS: ketorolac 30 mg/mL INJ IVP (14:06)
--- NOTE | 2024-07-19 14:47 | ECG_ITS ---
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 Measurements Intervals [place] Rate: 70 P: 24 [place]: 125 QRS: -6 QRSD: 101 T: 75 QT: 328 QTc: 355 Interpretive Statements SINUS RHYTHM NONSPECIFIC T-WAVE ABNORMALITY Compared to ECG 05/19/2024 15:58:56 T-wave abnormality now present Sinus bradycardia no longer present Myocardial infarct finding no longer present Electronically Signed On 07-19-2024 18:17:49 CDT by Chandu Cates M.D. [id number]
[2024-07-19 15:30] LABS: Troponin 5 2HR 10.79 ng/L (0-10); Troponin 5 2HR Delta 0.79 ABS# (0-10)
--- NOTE | 2024-07-19 16:12 | ECG_ITS ---
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
--- NOTE | 2024-07-19 16:12 | USCV_ITS ---
Mary Cruz Age: 74 Gender: F : 1950 Exam Date: 07/19/2024 19:32 Ordering Phys: Maldonado Bryant MD Technologist: ALBERT Exam Location: [facility] [place] Indication: htn, unstable angina BP: 173 / 84 HR: 65 Rhythm: Sinus Technical Quality: Adequate MEASUREMENTS (Male / Female) Normal Values 2D ECHO LV Diastolic Diameter PLAX 4.7 cm 4.2 - 5.9 / 3.9 - 5.3 cm IVS Diastolic Thickness 1.3 cm 0.6 - 1.0 / 0.6 - 0.9 cm IVS Systolic Thickness 2.1 cm LVPW Diastolic Thickness 1.6 cm 0.6 - 1.0 / 0.6 - 0.9 cm LVPW Systolic Thickness 1.4 cm LVOT Diameter 1.8 cm LV Ejection Fraction 2D Teich 69.8 % LV Ejection Fraction MOD 4C 61.4 % LV Ejection Fraction MOD 2C 49.3 % LV Ejection Fraction 2C AL 52.5 % LA Diameter 2.6 cm Aorta at Sinotubular Diameter 3.0 cm IVC Diameter 1.0 cm M-MODE LA Ao Ratio MM 1.1 AV Cusp Separation MM 1.8 cm DOPPLER AV Peak Velocity 152.0 cm/s LVOT Peak Velocity 95.0 cm/s AV Area Cont Eq vti 2.1 cm squared AV Area Cont Eq pk 1.7 cm squared MV Peak Velocity 108.0 cm/s MV Area PHT 2.3 cm squared Mitral E to A Ratio 0.6 TV Peak E Velocity 41.0 cm/s PV Peak Velocity 111.0 cm/s FINDINGS Left Ventricle Normal left ventricular size and systolic function, EF 61%.mild left ventricular hypertrophy. Grade I/IV diastolic dysfunction (abnormal relaxation filling pattern), normal to mildly elevated filling pressures. Right Ventricle Normal right ventricular size and systolic function. Right Atrium The right atrium is normal in size. Left Atrium The left atrium is normal in size. Mitral Valve No gross abnormalities noted Aortic Valve No gross abnormalities noted Tricuspid Valve No gross abnormalities noted Pulmonic Valve No gross abnormalities noted Pericardium Normal pericardium without effusion. Aorta Normal ascending aorta dimension. IVC Normal inferior vena cava. CONCLUSIONS Normal left ventricular size and systolic function, EF 61%.mild left ventricular hypertrophy. Grade I/IV diastolic dysfunction (abnormal relaxation filling pattern), normal to mildly elevated filling pressures. No gross wall motion abnormalities Normal cardiac chamber sizes. No intracardiac masses No similar previous studies are available for comparison Dr Chandu Cates MD [facility] (Electronically Signed) Final Date: 20 Jul 2024 09:17 S
[2024-07-19] MEDS: nitroglycerin 1 gm/inch oint Pkt 1 INCH TOPICAL (16:24)
[2024-07-19 17:03] LABS: Procalcitonin 0.06 ng/mL (0-0.5)
--- NOTE | 2024-07-19 17:14 | PM.HP ---
Providers/Chief Complaint Admitting Physician: Maldonado Bryant MD Primary Care Provider: Kem Portillo Chief Complaint: Chest Pain History of Present Illness Mary Cruz is a 74 year old female With past medical history of atypical chest pain, uncontrolled hypertension, PTSD, SVT who presents to the ER today with ongoing central chest pain radiating to her neck with some difficulty in breathing and palpitations that started today morning when she woke up. Patient denies any nausea, vomiting, headache. States she has been having some stomach upset for last 2 days with belly pain. Denies any diarrhea. Denies any headache. Denies any changes in medications recently. In the ER troponin was checked which was found to be normal with a delta of 0.79 in 2 hours with EKG showing mild T wave inversions in lateral leads hence hospitalist service was consulted with concern for possible unstable angina. Review of Systems General: Reports: 10 or more systems reviewed and unremarkable except in HPI and below Const: Denies: fever(s), chills, body aches, change in appetite, change in weight, malaise, night sweats, diaphoresis, change in sleep pattern, daytime sleepiness or snoring Eyes: Denies: change in vision, blurry vision, photophobia, eye discomfort or eye discharge ENMT: Denies: throat pain, enlarged tonsils, hoarseness, mouth pain, oral sores, dry mouth, tinnitus, nasal congestion or post nasal drip Card: Denies: chest pain, palpitations, irregular heart rhythm, edema, swelling of feet/ankles, lightheadedness, syncope, pre-syncope, dyspnea on exertion, orthopnea, leg pain with exertion or acrocyanosis Resp: Denies: dyspnea, productive cough, non-productive cough, wheezing, stridor, pain on inspiration, change in phlegm color, hemoptysis or chest congestion GI: Denies: abdominal pain, nausea, vomiting, hematemesis, coffee ground emesis, dysphagia, heartburn, diarrhea, constipation, bloating, GI cramping, change in bowel habits, pain on defecation, hematochezia or melena : Denies: flank pain, dysuria, urinary frequency, urinary urgency, urinary hesitancy, nocturia or hematuria Musc: Denies: neck pain, back pain, extremity pain, joint pain, joint swelling, joint redness, joint stiffness or limited range of motion Neuro: Denies: headache(s), numbness in extremities, weakness in extremities, sensory changes, lack of coordination, difficulty walking, frequent falls, dizziness, vertigo, confusion, Slurred speech present, difficulty communicating thoughts or seizure-like activity Psych: Denies: anxiety, depression, mood swings, panic attacks, hopelessness or irritability Endo: Denies: polyuria, polydipsia, tired all the time, cold intolerance, excessive sweating, flushing or heat intolerance Hunter/Lymph: Denies: easy bruising or easy bleeding All/Imm: Denies: tongue swelling, facial swelling or acute wheezing Medications/Allergies Home Medications ?Medication ?Instructions ?Recorded ?Confirmed ?Last Taken ?Type famotidine 20 mg tablet 20 mg PO BID 04/27/21 07/09/24 02/09/24 History valsartan 160 mg tablet 160 mg PO BID 04/27/21 07/09/24 02/09/24 History alprazolam 0.5 mg tablet 0.5 mg PO BID PRN anxiety 11/12/21 07/09/24 Unknown History hydrocodone 10 mg-acetaminophen 1 tab PO Q4H PRN Pain 11/12/21 07/09/24 Unknown History 325 mg tablet amlodipine 5 mg tablet 5 mg PO BID 02/09/24 07/09/24 02/09/24 History atorvastatin 40 mg tablet 80 mg PO DAILY 02/09/24 07/09/24 02/09/24 History clopidogrel 75 mg tablet 75 mg PO DAILY 02/09/24 07/09/24 02/09/24 History isosorbide mononitrate 30 mg 30 mg PO DAILY 02/09/24 07/09/24 02/09/24 History tablet,extended release 24 hr metoprolol tartrate 25 mg tablet 25 mg PO DAILY 02/09/24 07/09/24 02/09/24 History albuterol sulfate 90 mcg/actuation 2 puff inhalation Q6H 05/19/24 07/09/24 Unknown History aerosol inhaler (Ventolin HFA) bupropion HCl 150 mg 24 hr tablet, 150 mg PO DAILY 05/19/24 07/09/24 Unknown History extended release duloxetine 20 mg capsule,delayed 20 mg PO DAILY 05/19/24 07/09/24 Unknown History release hydralazine 100 mg tablet 100 mg PO BID 05/19/24 07/09/24 Unknown History Allergies Allergy/AdvReac Type Severity Reaction Status Date / Time fluphenazine (From Prolixin) Allergy Unknown Verified 07/09/24 13:09 thiopental (From Pentothal) Allergy Unknown Verified 07/09/24 13:09 PFSH Acute PFSH: Medical History Psychiatric care History of colon polyps Abdominal pain Overflow incontinence HTN (hypertension) Hyperlipidemia CKD (chronic kidney disease) ALMA DELIA (generalized anxiety disorder) GERD (gastroesophageal reflux disease) Back pain Fibromyalgia Urinary incontinence Chronic pain Dysphagia Borderline personality disorder Post-traumatic stress disorder, chronic Major depressive disorder, recurrent severe without psychotic features Surgical History History of ear surgery Family History Denies family history of Anesthesia complication Bleeding disorder Social History Smoking and tobacco/nicotine status: current some day tobacco/nicotine user cigarettes Packs smoked per day: 1 Years cigarettes smoked: 70 Quit status (tobacco/nicotine): has tried quititng Number of times tried to quit tobacco: 1 Second hand smoke exposure: Yes Alcohol intake: never Substance/Drug Use: never Current gender identity: Female Vitals/I&O/Wt Last Vital Signs Temp 98.7 F 07/19/24 16:50 Pulse 72 07/19/24 16:55 Resp 18 07/19/24 16:55 BP 173/84 07/19/24 16:55 Pulse Ox 97 07/19/24 17:08 O2 Del Method Room Air 07/19/24 17:08 Weight last 48 hrs Weight 77.111 kg Weight 77.111 kg Physical Exam Narrative: General: No acute distress, AO x3, anxious HEENT: PERRLA, pupils bilaterally equal and reactive Chest: Normal vesicular breath sounds, no added sounds, equal good air entry bilaterally CVS: S1-S2 regular, no murmurs, no tachycardia, no gallops, no rubs Abdomen: Soft, nontender, no organomegaly, bowel sounds present Neuro: No focal deficits, no facial deformity, AO x3, power 5/5 in all limbs Data 07/19/24 12:58 07/19/24 12:58 A&P Assessment and plan (1) Chest pain: Has history of atypical chest pain. Last stress test from 2021 showed normal perfusion scan. Cycle troponins. Check echocardiogram. Aspirin 81 mg daily. Continue with home dose of atorvastatin. Metoprolol 25 mg twice daily. Continue with home dose of Imdur 30 mg oral daily. Check D-dimer. Check A1c, lipid panel. N.p.o. after midnight for Lexiscan stress test in AM. Cannot rule out symptoms in setting of possible GERD. She has been complaining of abdominal upset for last few days. IV Protonix 40 mg daily. Continue with home dose of Xanax 0.5 mg twice daily as needed. (2) Atherosclerosis of coronary artery of [place] heart without angina pectoris: (3) Benign essential HTN: Goal blood pressure less than 140/90 mmHg. Med rec not completed yet but it seems patient is on multiple antihypertensives including amlodipine 5 mg twice daily, hydralazine 100 mg twice daily, Imdur 30 mg daily, metoprolol 25 mg daily, valsartan 160 mg oral twice daily. For now restart all medications except hydralazine 100 mg twice daily. Will restart once med rec is completed. Uptitrate as per goal blood pressures. 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 Plan Full code Cardiac diet, n.p.o. 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
[2024-07-19] MEDS: alum-mag-hydroxide-sime 30 mL UDC PO (17:18)
[2024-07-19] MEDS: enoxaparin 40 mg/0.4 mL Syringe SUBCUT (17:19)
[2024-07-19] MEDS: pantoprazole 40 mg SDV IVP (17:19)
[2024-07-19] MEDS: docusate sodium 100 mg Capsule PO (17:19)
[2024-07-19] MEDS: losartan 50 mg Tablet PO (17:49)
[2024-07-19 17:55] LABS: D Dimer 0.75 ug/mLFEU (0-0.59)
--- NOTE | 2024-07-19 18:04 | PC.PHAR ---
Patient stated she didn't know the names of her drugs and said I can call the Pharmacy. I spoke apoorva Boudreaux in [place] and they verified current medications . Patient did have a Metoprolol Tartrate 25 but last fill was 05/21/24 30days and no refills available .
[2024-07-19 18:38] LABS: Estmated Average Glucose 120; Hemoglobin A1C 5.8 % (4.0-6.0)
--- NOTE | 2024-07-19 18:47 | ECG_ITS ---
[facility]: 2024-07-19 Pat Name: Mary Cruz Department: Room: ICU03 Gender: Female Specialty Cook: : 1950 Requested By: Darnell Martin Order Number: [id number] Ronnell MD: Chandu Cates M.D. Measurements Intervals Stuart Rate: 71 P: 62 CT: 177 QRS: -22 QRSD: 100 T: 94 QT: 381 QTc: 415 Interpretive Statements SINUS RHYTHM WITH OCCASIONAL SUPRAVENTRICULAR PREMATURE COMPLEXES SEPTAL MYOCARDIAL INFARCTION , OF INDETERMINATE AGE [40+ ms Q WAVE IN V1/V2] MODERATE T-WAVE ABNORMALITY, CONSIDER LATERAL ISCHEMIA [-0.1+ mV T-WAVE IN I/aVL/V5/V6] Compared to ECG 07/19/2024 13:15:58 No significant changes Electronically Signed On 07-19-2024 18:14:47 CDT by Chandu Cates M.D. [email or web address]
[2024-07-19 19:59] LABS: Troponin 5 6HR 8.65 ng/L (0-10)
[2024-07-19 20:00] LABS: Troponin 5 6HR Delta -1.35 ng/L (0-12)
[2024-07-19 20:03] LABS: Iron 71 ug/dL (37-145); Percent Saturation 29.7 % (20-50); Thyroid Stimulating Hormone 0.94 uIU/mL (0.27-4.20); Total Iron Binding Capacity 239 mcg/dl; Unsaturated Iron Binding 168 ug/dL (112-347); Vitamin B12 473 pg/mL (232-1245)
[2024-07-19] MEDS: metoprolol tartrate 25 mg Tablet PO (21:45)
[2024-07-20] VITALS (23 sets, daily range): BP systolic 149–181; BP diastolic 70–97; PULSE 51–74; RESP 13–23; TEMP 37.4; O2SAT 88–96
[2024-07-20] MEDS: alum-mag-hydroxide-sime 30 mL UDC 15 ML PO ×2 (00:14→13:43)
[2024-07-20] MEDS: morphine 4 mg/mL SDV 1 mL 2 MG IVP (01:29)
[2024-07-20] MEDS: ondansetron 2 mg/ML SDV 2 mL 4 MG IVP (05:33)
[2024-07-20 05:36] LABS: Basophils % 0.9 %; Eosinophils # 0.2 10^3/uL (0.0-0.8); Eosinophils % 4.1 %; Hematocrit 39.4 % (36-47); Lymphocytes # 1.6 10^3/uL (0.8-4.8); Lymphocytes % 36.3 %; Mean Corpuscular HGB Conc 33.8 g/dL (30-55); Mean Corpuscular Hemoglobin 29.2 pg (27-33); Mean Corpuscular Volume 86.4 fl (85-98); Mean Platelet Volume 9.9 fL (7.4-10.4); Monocytes # 0.4 10^3/uL (0.2-0.9); Monocytes % 9.1 %; Neutrophils # 2.19 10^3/uL (1.8-7.7); Neutrophils % 49.6 %; Nucleated Red Blood Cells % 0 %; Platelet Count 239 10^3/cmm (157-399); Red Blood Count 4.56 10^6/uL (3.85-5.65); White Blood Count 4.41 10^3/uL (3.29-11.43)
[2024-07-20 06:02] LABS: Alanine Aminotransferase 13 U/L (0-33); Albumin Level 3.6 g/dL (3.5-5.2); Alkaline Phosphatase 65 U/L (35-105); Anion Gap 13.1 (5-19); Aspartate Amino Transferase 14 U/L (0-32); Blood Urea Nitrogen 20 mg/dL (8-23); Carbon Dioxide 25 mmol/L (22-29); Chloride 98 mmol/L (98-107); Chol HDL Ratio 3.53 mg/dL (0.0-4.40); Cholesterol 166 mg/dL (0-200); Creatinine Clr Calc Pharmacy 44.4511; Globulin 2.5 g/dL (1.3-4.6); Glucose 92 mg/dL (65-115); HDL Cholesterol 47 mg/dL (60-100); LDL Cholesterol Calculated 97 mg/dL (50-129); LDL HDL Ratio 2.06 RATIO (0.00-3.22); Magnesium 2.1 mg/dL (1.7-2.3); Osmolality Calculated 276 mOsm/kg (285-295); Phosphorus 3.3 mg/dL (2.5-4.5); Potassium 4.1 mmol/L (3.5-5.1); Sodium 132 mmol/L (136-145); Total Bilirubin 0.3 mg/dL (0.15-1.2); Total Protein 6.1 g/dL (6.6-8.7); Triglycerides 111 mg/dL (0-150)
[2024-07-20 06:20] LABS: Folate Level 9.4 ng/mL (4.8-37.3)
[2024-07-20] MEDS: regadenoson 0.4 Mg/5 ml Syringe IVP (09:34)
[2024-07-20] MEDS: aminophylline 25 mg/mL SDV 20 mL IVP ×3 (09:43→09:47)
[2024-07-20] MEDS: atorvastatin 40 mg Tablet 80 MG PO (10:27)
[2024-07-20] MEDS: buPROPion XL (24 HR) 150 mg Tablet PO (10:27)
[2024-07-20] MEDS: duloxetine 20 mg Capsule PO (10:27)
[2024-07-20] MEDS: hyDRALAzine 50 mg Tablet 100 MG PO (10:28)
[2024-07-20] MEDS: losartan 50 mg Tablet PO (10:28)
[2024-07-20] MEDS: metoprolol tartrate 25 mg Tablet PO (10:28)
[2024-07-20] MEDS: clopidogrel 75 mg Tablet PO (10:28)
[2024-07-20] MEDS: amlodipine 5 mg Tablet PO (10:28)
[2024-07-20] MEDS: pantoprazole 40 mg SDV IVP (10:29)
--- NOTE | 2024-07-20 12:13 | PM.DCS ---
Discharge Providers Date of Admission: 07/19/24 16:32 Date of Discharge: July 20, 2024 Attending Provider at Admission: Maldonado Bryant MD Attending Provider at Discharge: Maldonado Bryant MD Primary Care Provider: Kem Portillo Diagnoses at Discharge Discharge Diagnosis (1) Chest pain: Status: Acute Qualifiers: Chest pain type: other chest pain Qualified Code(s): R07.89 - Other chest pain (2) Atherosclerosis of coronary artery of [place] heart without angina pectoris: Status: Acute (3) Benign essential HTN: Status: Acute (4) CHF (congestive heart failure), NYHA class I: Status: Acute Qualifiers: Congestive heart failure chronicity: unspecified Congestive heart failure type: combined Qualified Code(s): I50.40 - Unspecified combined systolic (congestive) and diastolic (congestive) heart failure (5) SVT (supraventricular tachycardia): Status: Acute Reason for Visit Reason for Visit: Chest Pain Hospital Course Hospital Course Mary Cruz is a 74 year old female With past medical history of atypical chest pain, uncontrolled hypertension, PTSD, SVT who presents to the ER today with ongoing central chest pain radiating to her neck with some difficulty in breathing and palpitations that started today morning when she woke up. Patient denies any nausea, vomiting, headache. States she has been having some stomach upset for last 2 days with belly pain. Denies any diarrhea. Denies any headache. Denies any changes in medications recently. In the ER troponin was checked which was found to be normal with a delta of 0.79 in 2 hours with EKG showing mild T wave inversions in lateral leads hence hospitalist service was consulted with concern for possible unstable angina. Patient was admitted to the hospital further evaluation and management of chest pain. Echocardiogram was done which was negative for regional wall motion abnormality which, showed normal EF. She underwent cardiac stress on 07/20 which were negative for acute ischemia. D-dimer was checked which was negative for age. Patient symptoms are most likely in setting of acid reflux from gastroenteritis. She is advised to maintain her oral hydration with a full 2 to 3 L of liquid daily. Famotidine has been changed to Protonix twice daily for 2 weeks followed by 40 mg Protonix daily. During hospitalization she was found to have elevated blood pressures for which Imdur 60 mg oral daily has been added to her medication list. She is secondary to the rheumatoid number pressure diary with goal blood pressure between 140 systolics. Physical Exam Narrative: General: No acute distress, AO x3, anxious HEENT: PERRLA, pupils bilaterally equal and reactive Chest: Normal vesicular breath sounds, no added sounds, equal good air entry bilaterally CVS: S1-S2 regular, no murmurs, no tachycardia, no gallops, no rubs Abdomen: Soft, nontender, no organomegaly, bowel sounds present Neuro: No focal deficits, no facial deformity, AO x3, power 5/5 in all limbs Discharge Data Studies Completed and Pending Completed Studies During Hospitalization Category Date Time Status Sestamibi Stress Test Request Routine Exams 07/19/24 16:12 Draft XR chest 1V portable [id number] Stat Exams 07/19/24 12:47 Completed NM alejandra perf SPECT r/s* [id number] Routine Nuc Med 07/20/24 16:12 Completed CV. echo complete* [id number] Routine Ultrasound 07/19/24 16:12 Completed Pending at discharge Category Date Time Status Complete Blood Count w/Auto AM LABS Lab 07/21/24 04:00 Ordered Complete Blood Count w/Auto AM LABS Lab 07/22/24 04:00 Ordered Comprehensive Metabolic Panel AM LABS Lab 07/21/24 04:00 Ordered Comprehensive Metabolic Panel AM LABS Lab 07/22/24 04:00 Ordered Magnesium AM LABS Lab 07/21/24 04:00 Ordered Magnesium AM LABS Lab 07/22/24 04:00 Ordered Phosphorus AM LABS Lab 07/21/24 04:00 Ordered Phosphorus AM LABS Lab 07/22/24 04:00 Ordered Radiology Impressions Chest X-Ray 07/19/24 12:47 Impression: Atherosclerosis. Echocardiogram: CONCLUSIONS Normal left ventricular size and systolic function, EF 61%.mild left ventricular hypertrophy. Grade I/IV diastolic dysfunction (abnormal relaxation filling pattern), normal to mildly elevated filling pressures. No gross wall motion abnormalities Normal cardiac chamber sizes. No intracardiac masses No similar previous studies are available for comparison Dr Chandu Cates MD [facility] (Electronically Signed) Final Date: 20 Jul 2024 09:17 Lexiscan stress test: PERFUSION FINDINGS SPECT images demonstrate homogeneous tracer distribution throughout the myocardium. FUNCTIONAL RESULTS (calculated via Gated SPECT) Stress Image LV EF (%): 65 Stress EDV (mL):92 TID: 1.1 Stress ESV (mL):32 FUNCTIONAL FINDINGS: There is normal left ventricular systolic function. TID ratio is mildly elevated most likely secondary to left ventricular hyper trophy IMPRESSIONS Myocardial perfusion imaging is normal. Janie Dupont MD (Electronically Signed) Final Date: 20 Jul 2024 11:26 Laboratory Results WBC 4.41 10^3/uL (3.29-11.43) 07/20/24 05:15 RBC 4.56 10^6/uL (3.85-5.65) 07/20/24 05:15 Hgb 13.30 g/dL (11.27-16.99) 07/20/24 05:15 Hct 39.4 % (36-47) 07/20/24 05:15 MCV 86.4 fl (85-98) 07/20/24 05:15 MCH 29.2 pg (27-33) 07/20/24 05:15 MCHC 33.8 g/dL (30-55) 07/20/24 05:15 RDW 13.0 % (12.1-15.1) 07/20/24 05:15 Plt Count 239 10^3/cmm (157-399) 07/20/24 05:15 MPV 9.9 fL (7.4-10.4) 07/20/24 05:15 Neut % (Auto) 49.6 % 07/20/24 05:15 Lymph % (Auto) 36.3 % 07/20/24 05:15 Bee % (Auto) 9.1 % 07/20/24 05:15 Eos % (Auto) 4.1 % 07/20/24 05:15 Baso % (Auto) 0.9 % 07/20/24 05:15 Neut # (Auto) 2.19 10^3/uL (1.8-7.7) 07/20/24 05:15 Lymph # (Auto) 1.6 10^3/uL (0.8-4.8) 07/20/24 05:15 Bee # (Auto) 0.4 10^3/uL (0.2-0.9) 07/20/24 05:15 Eos # (Auto) 0.2 10^3/uL (0.0-0.8) 07/20/24 05:15 Baso # (Auto) 0.0 10^3/uL (0.0-0.1) 07/20/24 05:15 Nucleated RBC % (auto) 0 % 07/20/24 05:15 Nucleated RBCs # 0.0 /100WBC 07/20/24 05:15 D-Dimer 0.75 ug/mLFEU (0-0.59) H 07/19/24 12:58 Sodium 132 mmol/L (136-145) L 07/20/24 05:15 Potassium 4.1 mmol/L (3.5-5.1) 07/20/24 05:15 Chloride 98 mmol/L (98-107) 07/20/24 05:15 Carbon Dioxide 25 mmol/L (22-29) 07/20/24 05:15 Anion Gap 13.1 (5-19) 07/20/24 05:15 BUN 20 mg/dL (8-23) 07/20/24 05:15 Creatinine 1.1 mg/dL (0.5-0.9) H 07/20/24 05:15 GFR Calculation Not Reportable 07/20/24 05:15 Glucose 92 mg/dL (65-115) 07/20/24 05:15 Estimat Average Glucose 120 07/19/24 12:58 Hemoglobin A1c 5.8 % (4.0-6.0) 07/19/24 12:58 Calculated Osmolality 276 mOsm/kg (285-295) L 07/20/24 05:15 Calcium 9.0 mg/dL (8.5-10.5) 07/20/24 05:15 Phosphorus 3.3 mg/dL (2.5-4.5) 07/20/24 05:15 Magnesium 2.1 mg/dL (1.7-2.3) 07/20/24 05:15 Iron 71 ug/dL (37-145) 07/19/24 12:58 TIBC 239 mcg/dl 07/19/24 12:58 % Saturation 29.7 % (20-50) 07/19/24 12:58 Unsat Iron Binding 168 ug/dL (112-347) 07/19/24 12:58 Total Bilirubin 0.3 mg/dL (0.15-1.2) 07/20/24 05:15 AST 14 U/L (0-32) 07/20/24 05:15 ALT 13 U/L (0-33) 07/20/24 05:15 Alkaline Phosphatase 65 U/L (35-105) 07/20/24 05:15 Troponin T Baseline 10 ng/L (0-10) 07/19/24 12:58 Troponin T 120 Minute 10.79 ng/L (0-10) H 07/19/24 15:01 Delta Troponin T 0.79 ABS# (0-10) 07/19/24 15:01 Troponin T Hi Sens 6Hr 8.65 ng/L (0-10) 07/19/24 19:18 Troponin T Hi Sens 6Hr Delta -1.35 ng/L (0-12) L 07/19/24 19:18 Total Protein 6.1 g/dL (6.6-8.7) L 07/20/24 05:15 Albumin 3.6 g/dL (3.5-5.2) 07/20/24 05:15 Globulin 2.5 g/dL (1.3-4.6) 07/20/24 05:15 Triglycerides 111 mg/dL (0-150) 07/20/24 05:15 Cholesterol 166 mg/dL (0-200) 07/20/24 05:15 LDL Cholesterol, Calc 97 mg/dL (50-129) 07/20/24 05:15 HDL Cholesterol 47 mg/dL (60-100) L 07/20/24 05:15 LDL/HDL Ratio 2.06 RATIO (0.00-3.22) 07/20/24 05:15 Cholesterol/HDL Ratio 3.53 mg/dL (0.0-4.40) 07/20/24 05:15 Vitamin B12 473 pg/mL (232-1245) 07/19/24 12:58 Folate 9.4 ng/mL (4.8-37.3) 07/20/24 05:15 Procalcitonin 0.06 ng/mL (0-0.5) 07/19/24 12:58 TSH 0.94 uIU/mL (0.27-4.20) 07/19/24 12:58 Vitals Last Vital Signs Temp 99.3 F 07/20/24 00:00 Pulse 74 07/20/24 09:50 Resp 23 H 07/20/24 08:30 BP 163/97 07/20/24 10:28 Pulse Ox 94 07/20/24 08:30 O2 Del Method Room Air 07/20/24 08:03 Discharge Plan Discharge Patient Disposition: Home Condition: Stable Prescriptions: New isosorbide mononitrate 30 mg Tablet Extended Release 24 Hr 60 mg PO DAILY 30 Days Qty: 60 0RF pantoprazole [Protonix] 40 mg tablet,delayed release (DR/EC) 40 mg PO QAM Qty: 60 0RF Rx Instructions: Twice daily for next 2 weeks followed by once daily Continued valsartan 160 mg tablet 160 mg PO BID hydrocodone-acetaminophen 10-325 mg tablet 1 tab PO Q4H PRN (Reason: Pain) alprazolam 0.5 mg tablet 0.5 mg PO BID PRN (Reason: anxiety) clopidogrel 75 mg tablet 75 mg PO DAILY amlodipine 5 mg tablet 5 mg PO BID hydralazine 100 mg tablet 100 mg PO BID albuterol sulfate [Ventolin HFA] 90 mcg/actuation HFA aerosol inhaler 2 puff INHALATION Q6H bupropion HCl 150 mg tablet extended release 24 hr 150 mg PO DAILY duloxetine 20 mg capsule,delayed release(DR/EC) 20 mg PO DAILY fluticasone propionate 50 mcg/actuation spray,suspension 2 spray INTRANASAL DAILY Discontinued famotidine 20 mg tablet 20 mg PO BID Discharge Orders: Discharge Order (Routine); Ordered 07/20/24 Ordered By: Maldonado Bryant Referrals: Kem Portillo [Primary Care Provider, [facility]] - 07/30/25 11:00 am Referral Note: clinic will notify you for a closer available appointment ,clinics would like to follow up with patients usually 5-7 days after a discharge from hospital . will follow with [facility] nurse Marika Quintero Discharge Diet: Cardiac Discharge Activity: Resume usual activity and Increase activity as tolerated Patient Instructions: Isosorbide Mononitrate (By mouth) (Imdur, Imdur ER, Ismo), Pantoprazole (By mouth) (Protonix), Heart Failure (DC), Supraventricular Tachycardia (DC), Chest Pain (DC), Heart Healthy Diet (DC), Hypertension (DC), CHF Stoplight, Chest Pain Stoplight, Opioid Safety Activity Restrictions/Additional Instructions: Check your blood pressure daily at home maintain a blood pressure diary. Goal blood pressure is between 100 140 systolic. Maintain oral hydration with up to 2 L of liquid daily. Take Protonix twice daily for 2 weeks followed by once daily. Discharge Attestations Time Spent in Discharge Care*: greater than 30 min Specific Discharge Activities: educating patient, discussing with pcp/other providers, discussing with telehealth case manager/social workers/dc planners, documenting/other paperwork and evaluating patient/reviewing data Time Spent in Smoking Cessation: more than 10 minutes Status at Discharge: Cognitive status at discharge: cognitively intact, Behavioral status at discharge: cooperative, Functional status at discharge: independent ambulation, Overall status at discharge: patient is back to baseline Quality Metrics Clinical Quality Measures [ No reported AMI, CVA or VTE this stay] Coding Level of Care Code 75772 Total time (in minutes) for Discharge: 65 Diagnoses Other chest pain R07.89 Chest pain type: other chest pain Atherosclerosis of coronary artery of [place] heart without angina pectoris I25.10 Benign essential HTN I10 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
--- NOTE | 2024-07-20 16:12 | NMCV_ITS ---
NM alejandra perf SPECT r/s* [id number] Mary Cruz Age: 74 Gender: F : 1950 Exam Date: 07/20/2024 08:52 Ordering Phys: Maldonado Bryant MD Technologist: TEODORO Hassan Exam [facility]: [facility] Indications: CP STRESS TEST Please see separate stress test report in [facility] for full findings IMAGE PROTOCOL Rest/Stress 1 Lexiscan Day Radiopharmaceutical Dose (mCi) Administration Site Administered by Rest: Tc-99m 10.9 IV Mine Pagan, CREPE MACHINE OPERATOR Sestamibi Stress:Tc-99m 32.8 IV Mine Colliergle, CREPE MACHINE OPERATOR Sestamibi Rest: 20-Jul-2024 60 Discovery 630 Stress: 20-Jul-2024 30 Discovery 630 0.4mg Lexiscan. Supine position only as patient was unable to lay prone. SPECT RESULTS Technical Quality: Good Raw Data Analysis: Normal Image Corrections: No attenuation or motion correction applied Summed Stress Score: 0 Summed Rest Score: 0 Summed Difference Score: 0 PERFUSION FINDINGS SPECT images demonstrate homogeneous tracer distribution throughout the myocardium. FUNCTIONAL RESULTS (calculated via Gated SPECT) Stress Image LV EF (%): 65 Stress EDV (mL):92 TID: 1.1 Stress ESV (mL):32 FUNCTIONAL FINDINGS: There is normal left ventricular systolic function. TID ratio is mildly elevated most likely secondary to left ventricular hyper trophy IMPRESSIONS Myocardial perfusion imaging is normal. Janie Dupont MD (Electronically Signed) Final Date: 20 Jul 2024 11:26 S
== END 2024-07-20 13:24 | disposition home or self-care (01) | DRG 313 ==
LOC: ER 16:13 → ICU 16:33
PROVIDERS: Family Medicine; Admitting Provider Student in an Organized Health Care Education/Training Program; Emergency Provider General Practice; PCP Family Medicine; Visit Provider Student in an Organized Health Care Education/Training Program
DX: R07.89 Other chest pain (principal); I13.0 Hypertensive heart and chronic kidney disease with heart failure and stage 1 through stage 4 chronic kidney disease, or unspecified chronic kidney disease; I50.30 Unspecified diastolic (congestive) heart failure; I47.10 Supraventricular tachycardia, unspecified; F33.2 Major depressive disorder, recurrent severe without psychotic features; I25.10 Atherosclerotic heart disease of native coronary artery without angina pectoris; N18.9 Chronic kidney disease, unspecified; F43.12 Post-traumatic stress disorder, chronic; E78.5 Hyperlipidemia, unspecified; F41.1 Generalized anxiety disorder; K21.9 Gastro-esophageal reflux disease without esophagitis; M79.7 Fibromyalgia; F60.3 Borderline personality disorder; F17.210 Nicotine dependence, cigarettes, uncomplicated; Z79.891 Long term (current) use of opiate analgesic; Z79.02 Long term (current) use of antithrombotics/antiplatelets
CPT/HCPCS: 36415; 71045; 78452; 80053; 80061; 82607; 82746; 83036; 83540; 83550; 83735; 84100; 84145; 84443; 84484; 85025; 85378; 93005; 93017; 93306; 94664; 96372; 96374; 96375; 99285; A9500; J0280; J1650; J1885; J2270; J2405; J2470; J2785; J9999

== ENCOUNTER → 2024-11-28 11:17 | Outpatient (BNVA) | payer OTHER, SELFPAY ==
[2023-11-23 16:19] VITALS: BP 140/80; BMI 29.1
== END ==
PROVIDERS: PCP Family Medicine; Visit Provider Psychiatry & Neurology Psychiatry
DX: F60.3 Borderline personality disorder (principal); F41.1 Generalized anxiety disorder; F33.2 Major depressive disorder, recurrent severe without psychotic features
CPT/HCPCS: 83036

== ENCOUNTER 2024-12-18 08:40 | Emergency (ER) | payer MEDICARE, OTHER, SELFPAY ==
[2024-12-03 11:09] VITALS: BP 160/81; BMI 26.9
--- OUTSIDE RECORDS SUMMARY | 2024-12-11 13:00 | XMS_ITS | Encounter Summary ---
Author Organization [facility] Address [address] [place] [address] Care Team Providers Care Felt Pad Cutter Name Role Phone Kem Portillo MD Primary Care Provider [phone] Reason for Visit * Reason Comments Establish Care Chronic abd pain * Eval and Treat (Routine) - Closed Specialty Diagnoses / Procedures Referred By Contac t Referred To Contact Surgery / General Surgery Diagnoses Chronic abdominal pain Procedures [place] OFFICE/OUTPATIENT ESTABLISHED MOD MDM 30 MIN [place] OFFICE/OUTPATIENT NEW MODERATE MDM 45 MINUTES Anabell Diggs FNP [address] [facility] [address] [place] [address] Phone: tel: fax: Pino Mitchell MD [address] [place] [phone] Phone: tel: fax: Referral ID Status Reason Start Date Expiration Date Visits Re quested Visits Authorized [id number] Closed 11/29/2024 11/29/2025 1 1 Encounter Details Date Type Department Care Team (Late st Contact Info) Description 12/11/2024 1:00 PM CDT Office Visit [facility] Gen Spec Surg [address] [address] Pino Mitchell MD [address] [place] [phone] Right upper quadrant abdominal pain (Primary Dx) Social History Tobacco Use Types Packs/Day Years Used Date Smoking Tobacco: Every Day Cigarettes Smokeless Tobacco: Never Alcohol Use Standard Drinks/Week Comments No 0 (1 standard drink = 0.6 oz pur e alcohol) Feeling Safe Answer Date Recorded Within the last year, have y ou been afraid of your partner or ex-partner? Patient declined 01/14/2020 Within the last year, have y ou been humiliated or emotionally abused in other ways by your partner or ex-partner? Patient declined 01/14/2020 Within the last year, have y ou been kicked, hit, slapped, or otherwise physically hurt by your partner or ex-partner? Patient declined 01/14/2020 Within the last year, have y ou been raped or forced to have any kind of sexual activity by your partner or ex-partner? Patient declined 01/14/2020 Social Connections Answer Date Recorded In a typical week, how many times do you talk on the phone with family, friends, or neighbors? Patient declined 01/14/2020 How often do you get togethe r with friends or relatives? Patient declined 01/14/2020 How often do you attend methodist or lutheran serv ices? Patient declined 01/14/2020 Do you belong to any clubs o r organizations such as methodist groups, unions, fraternal or athletic groups, or school groups? Patient declined 01/14/2020 How often do you attend meet ings of the clubs or organizations you belong to? Patient declined 01/14/2020 Are you , , di vorced, , never , or living with a partner? Patient declined 01/14/2020 Financial Resource Strain Answer Date R ecorded How hard is it for you to pa y for the very basics like food, housing, medical care, and heating? Not very hard 08/27/2021 Food Insecurity Answer Date Recorded In the past 12 months, have you worried that your food would run out before you had money to buy more? Never true 08/27/2021 In the past 12 months, did y ou run out of food and didn't have money to buy more? Never true 08/27/2021 Transportation Needs Answer Date Record ed In the past 12 months, has l ack of transportation kept you from medical appointments or from getting medications? No 08/27/2021 Lack of Transportation (Non-Medical) Not on file 08/27/2021 Feeling Safe Answer Date Recorded Are you in a relationship wi th someone who hurts you emotionally and/or physically? No 11/23/2024 Food Insecurity Answer Date Recorded Patient needs follow up regardin 06/21/2024 Transportation Needs Answer Date Record ed Patient needs follow up regardin 06/21/2024 Housing Stability Answer Date Recorded Social/Environmental Concerns No concerns Utility Needs Answer Date Recorded Patient needs follow up regardin 06/21/2024 Comments No Sex and Gender Information Value Date Recorded Sex Assigned at Not on file Legal Sex Female 12:40 AM NOZZLEMAN Gender Identity Not on file Sexual Orientation Not on file documented as of this encounter Last Filed Vital Signs Vital Sign Reading Time Taken Comments Blood Pressure 136/74 12/11/2024 1:11 PM CDT Pulse 85 12/11/2024 1:11 PM CDT Temperature 36.1 C (97 F) 12/11/2024 1:11 PM CDT Respiratory Rate - - Oxygen Saturation 96% 12/11/2024 1:11 PM CDT Inhaled Oxygen Concentration - - Weight 69.9 kg (154 lb) 12/11/2024 1:11 PM CDT Height 165.1 cm (5' 5 ) 12/11/2024 1:11 PM CDT Body Mass Index 25.63 12/11/2024 1:11 PM CDT documented in this encounter Progress Notes * Pino Mitchell MD - 12/12/2024 6:46 AM CDT Patient: Mary Cruz / 74 y.o. / female : 1950 Clinic Note: Date:12/12/2024 Mary Cruz is a 74 y.o. female History of Present Illness The patient is a 74-year-old female who presents for chronic abdominal pain. She reports experiencing abdominal pain since the previous winter, which has persisted through the summer. The pain is described as severe, often making her doubt her ability to endure it throughout the day. Despite undergoing various diagnostic tests including blood tests, x-rays, CT scans, and ultrasounds, no definitive cause for her discomfort has been identified. She has had stents placed in her bladder and aorta, and her gallbladder was removed in the past. She experiences nausea whether she eats or not, and her abdomen is notably hard and bloated. The pain is localized under her rib cage on both sides and occasionally extends downwards. She has consulted with a venetian blind mechanic regarding her symptoms. Her bowel movements have improved recently, but she previously experienced watery stools and was advised to undergo a cleanout procedure. She has not had a colonoscopy within the recommended timeframe. She has consulted with Dr. Triplett in [place] for the same issue. A week ago, she visited the ER where a CT scan suggested possible constipation. She has been taking hydrocodone for several years due to three discs in her back that are compressed, causing constant pain. PAST SURGICAL HISTORY: - Gallbladder removal - Stent placement in the aorta - Stent placement in the superior mesenteric artery (SMA) Body mass index is 25.63 kg/m??. CT scan: Findings: Comparison from 08/30/2024. There is mild bibasilar discoid atelectasis and/or scarring. No concerning abnormality of either lung base is noted. There is mild cardiomegaly. No significant abnormality of the liver is noted. The spleen and pancreas are unremarkable. The gallbladder is surgically absent. There is unchanged mild intra and extra hepatic bile duct dilatation. The common bile duct measures 13 mm in the head of the pancreas. No abnormality of the adrenal glands is noted. The right kidney is unremarkable. There is mild left renal atrophy. There is a small left renal cyst. There are no abnormally dilated loops of bowel. There is no evidence for appendicitis. No inflammatory change is noted. No free air or free fluid is appreciated. The urinary bladder is unremarkable. The uterus is absent. No pathologic adenopathy is noted. There is mild atherosclerotic plaque in the distal descending thoracic aorta and in the proximal and mid abdominal aorta. The celiac is patent but probably severely stenotic at its origin. There is a patent stent in the proximal SMA. There is a patent right renal artery. There is a patent left renal artery with probable severe stenosis at the origin. A bifurcated endograft is again noted in the infrarenal abdominal aorta extending into the bilateral common iliac arteries. The endograft is patent. Outflow was present. No significant abnormality of the bony pelvis is noted. No acute abnormality of the lumbar spine is present. Multilevel degenerative change is noted. IMPRESSION: 1. No acute radiographic abnormality noted. 2. Prior cholecystectomy. Unchanged mild intra and extrahepatic bile duct dilatation. 3. 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 4. Chronic left renal atrophy. Small left renal cyst. 5. Prior hysterectomy. Mesenteric duplex: FINDINGS: SMA peak systolic velocity values elevated at 3.03 m/s. SMA to aorta velocity ratio is also elevated measuring 4.89. Celiac artery peak systolic velocity is within normal limits as is its ratio to aortic velocity. SMV is patent. 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 Assessment & Plan 1. Chronic mesenteric ischemia. Symptoms of chronic abdominal pain, bloating, and discomfort after eating are consistent with chronic mesenteric ischemia due to poor blood flow to the intestines. 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 A mesenteric duplex will be ordered prior to consultation with Dr. Cerda. Referral to Dr. Brianna Cerda, a vascular surgeon, for further evaluation and potential stenting of the celiac artery. 2. Chronic back pain. Chronic back pain is due to three disks in the spine that are sitting on each other, causing constant pain. Hydrocodone has been used for pain management. Risks, benefits, and alternatives of continued hydrocodone use were discussed, including potential dependency and the need for regular monitoring. 3. Constipation. Constipation has improved recently but was previously severe, with minimal bowel movements and watery stools. A colonoscopy may be considered if symptoms persist. The importance of hydration and dietary fiber was discussed as part of the management plan. This documentation was created by [employer] railcar foreman software (known for inherent railcar foreman error) using [employer]. Effort has been done to assure accuracy of railcar foreman. Any obvious errors or omissions should be clarified with the author of the document. The author of this note, patient (or authorized direct marketing representative), and all other persons present consent to the audio recording of this visit for charting documentation purposes. Do not feel like there is any indication for general surgical intervention. Likely represents chronic intestinal ischemia. Signed: Pino Mitchell MD 12/12/2024, 6:46 AM documented in this encounter Plan of Treatment Upcoming Encounters Date Type Department Care Team (Latest Contact Info) Description 12/19/2024 10:20 AM CDT [facility] [address] [phone] Marika Quintero FNP [address] [phone] 12/25/2024 3:20 PM CDT Office Visit [facility] [address] [phone] Kem Portillo MD [address] [address] 02/05/2025 10:20 AM NOZZLEMAN Hospital Encounter [facility] [address] [place] [address] Alex Berg MD [address] [address] 02/05/2025 10:20 AM NOZZLEMAN - 02/05/2025 10:40 AM NOZZLEMAN Surgery [facility] [address] [place] [address] Alex Berg MD [address] [address] ESOPHAGOGASTRODUODENOSCOPY Scheduled Procedures Name Priority Associated Diagnoses Date/Ti me ESOPHAGOGASTRODUODENOSCOPY Dysphagia, unspecified type; Black tarry stools 02/05/2025 10:20 AM NOZZLEMAN COLONOSCOPY Dysphagia, unspecified type; Black tarry stools 02/05/2025 10:20 AM NOZZLEMAN Scheduled Referrals Name Type Priority Associated Diagnoses Orde r Schedule AMB REFERRAL TO GENERAL SURGERY Outpatient Referral Routine Chronic abdominal pain Ordered: 11/29/2024 documented as of this encounter Goals Goal Patient Goal Type Associated Problems Recent Progress Patient-Stated? Author Autogenera carlos Goal Care Plan Autogenerated Problem No Lynn Rod RN documented as of this encounter Visit Diagnoses Diagnosis Right upper quadrant abdominal pain- Primary Abdominal pain, right upper quadrant documented in this encounter Additional Health Concerns Active Problems Noted Date Diagnosed Date Autogenerated Problem 11/29/2024 Assessment Noted Time PHQ-9 Depression Total Score: 5 09/07/19 25 2:30 PM CDT documented as of this encounter Care Teams Felt Pad Cutter Relationship Specialty Start Date End Date Kem Portillo MD [address] [phone] PCP - General Family Practice 09/02/21 documented as of this encounter
--- OUTSIDE RECORDS SUMMARY | 2024-12-15 04:46 | XMS_ITS | Encounter Summary ---
Author Organization [facility] Address 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 Name Role Phone Kem Portillo MD Primary Care Provider [phone] Reason for Visit * Reason Comments Shortness of Breath * Auth/Cert (Routine) Specialty Diagnoses / Procedures Referred By Contac t Referred To Contact Internal Medicine Elizabeth Rodriguez MD [address] [place] [phone] Phone: tel: fax: [address] [phone] Phone: tel: fax: Referral ID Status Reason Start Date Expiration Date Visits Re quested Visits Authorized [id number] 1 1 Encounter Details Date Type Department Care Team (Latest Contact Info) Description 12/15/2024 4:46 AM CDT - 12/16/2024 12:50 PM CDT Hospital Encounter [facility] [address] [place] [id number] Daniel Austin MD [address] [place] [phone] Elizabeth Rodriguez MD [address] [place] [phone] COPD with exacerbation (CMS/HCC) Discharge Disposition: Home or Self Care Social History Tobacco Use Types Packs/Day Years [...] declined 01/14/2020 How often do you attend zoroastrian or voodoo serv ices? Patient declined 01/14/2020 Do you belong to any clubs o r organizations such as zoroastrian groups, unions, fraternal or athletic groups, or [...] of Transportation (Non-Medical) Not on file 08/27/2021 Food Insecurity Answer Date Recorded Do you find you are eating l ess than you should because you can t pay for food? No 12/15/2024 Transportation Needs Answer Date Record ed Have you gone without health care because you didn t have a way to get there? 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 No 2024 Housing Stability Answer Date Recorded Do you worry you won t have a steady place to sleep or struggle to pay rent or mortgage? No 12/15/2024 Utility Needs Answer Date Recorded Do you have difficulty payin g for utility costs (electric, water or gas bills)? No 12/15/2024 Medication Needs Answer Date Recorded Have you skipped taking medi cation due to cost or worry you can t afford new medications? No 12/15/2024 Feeling Safe Answer Date Recorded Are you in a relationship wi th someone who hurts you emotionally and/or physically? 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 Gender Identity Not on file Sexual Orientation Not on file documented as of this encounter Last Filed Vital Signs Vital Sign Reading Time Taken Comments Blood Pressure 159/62 12/16/2024 11:00 AM CDT Pulse 65 12/16/2024 11:00 AM CDT Temperature 36.4 C (97.6 F) 12/16/2024 8:44 AM CDT Respiratory Rate 18 12/16/2024 11:00 AM CDT Oxygen Saturation 100% 12/16/2024 8:44 AM CDT Inhaled Oxygen Concentration - - Weight 72.4 kg (159 lb 9.6 oz) 12/15/2024 10:07 AM CDT Height 165.1 cm (5' 5 ) 12/15/2024 4:47 AM CDT Body Mass Index 26.56 12/15/2024 4:47 AM CDT documented in this encounter Discharge Summaries * Leah Messina Diane, 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 / female : 1950 Admit date: 12/15/2024 Indication for Admission: COPD exacerbation and HTN Admitting Diagnoses: COPD exacerbation and severe uncontrolled HTN Attending Physician: Elizabeth Rodriguez MD Consults: none. Emergency Department Diagnoses: ICD-10-CM ICD-9-CM 1. COPD with exacerbation (CMS/HCC) J44.1 491.21 2. Severe uncontrolled hypertension I10 401.9 3. Vitamin B12 deficiency (non anemic) E53.8 266.2 4. Essential hypertension I10 401.9 Problem List: Active Hospital Problems Diagnosis Patient understands importance of medication adherence COPD with exacerbation (CMS/HCC) Severe uncontrolled hypertension Resolved Hospital Problems No resolved problems to display. Treatments: antibiotics: azithromycin and cefTRIAXone, steroids: prednisone and dexamethazone, and respiratory therapy: O2 and duonebs . Significant Diagnostic Studies: Hospital Course: Mary Cruz is a(n) 74 y.o. female, admitted to the hospital with the diagnosis of COPD exacerbation and hypertension urgency Patient presented by EMS with reports of sob and hypertension. She was noted to be anxious and havea history of COPD. Reviewed results and patient has slight leukocytosis of 13.8. Renal function LFTs and electrolytes are within normal. COVID and influenza tests are negative. X-ray of the chest revealed emphysema with minimal left basilar atelectasis. Provided with couple doses of hydralazine pain medication and a tablet of Ativan for anxiety along with methylprednisolone and DuoNeb over night in the ED. This am The patient with given another dose Xopenex with ipratropium, Imdur 60 mg which is patient's regular medication, dexamethasone 10 mg IV in the presence of COPD. 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 At her reevaluation, patient's blood pressure improved to 138/61 with regular rate and rhythm in the 60s. Patient has decrease in wheezing after using the Xopenex with ipratropium and receiving longer doseof steroid. Patient still requiring oxygen with a baseline of room air. Patient agreeable to admit for continued treatment. 12/15/2024 Seen at bedside. Resting. No s/s of distress at this time. BP is remaining stable and patient currently has her oxgyen off. Will continue to monitor with the starting of abx and RT to assess and treat. 12/16/2024 Long discussion with the patient regarding medications and adherence. Discussion with daughter regarding assistance and previous hospice which she reports fired because she didn't like the company counting her pain medications. The patient doesn't qualify for medicaid or home health at this time.The patient is agreeable to work with her family to improve medication compliance. Discussed the changes and plan to start back with medication and keep a log of blood pressure and any miss medications. Admission Condition: stable. Discharge date: 12/16/2024 Discharging Physician: KHADRA Castillo Discharge Exam: Vitals and nursing note reviewed. Constitutional: General: She is resting without s/s of distress Appearance: Normal appearance. HENT: Head: Normocephalic and atraumatic. Right Ear: External ear normal. Left Ear: External ear normal. Nose: Nose normal. Mouth/Throat: Mouth: Mucous membranes are moist. Pharynx: Oropharynx is clear. Eyes: Extraocular Movements: Extraocular movements intact. Cardiovascular: Rate and Rhythm: Normal rate and regular rhythm. Heart sounds: Normal heart sounds. Pulmonary: Effort: Pulmonary effort is normal. Breath sounds: Decreased breath sounds and no wheezing present. No rhonchi or rales. Abdominal: Palpations: Abdomen is soft. Musculoskeletal: General: Normal range of motion. Cervical back: Normal range of motion and neck supple. No rigidity or tenderness. Skin: General: Skin is warm and dry. Neurological: General: No focal deficit present. Mental Status: She is alert and oriented to person, place, and time. Mental status is at baseline. Psychiatric: Mood and Affect: stable Thought Content: Thought content normal. Discharge Condition: improving. Discharge Diagnoses: hypertension and copd exacerbation Disposition: home. MEDICATIONS Prior to admission: Facility-Administered Medications Prior to Admission Medication Dose Route Frequency Provider Last Rate Last Admin cyanocobalamin (VITAMIN B-12) injection 1,000 mcg 1,000 mcg IM every 30 days Kem Portillo MD 1,000 mcg at 11/20/24 1128 Medications Prior to Admission Medication Sig Dispense Refill Last Dose/Taking ALPRAZolam (XANAX) 0.5 mg tablet Take 1 Tablet (0.5 mg) by mouth 2 times daily as needed for Anxiety. 60 Tablet 2 HYDROcodone-acetaminophen (NORCO) 10-325 mg Tablet Take 1 Tablet by mouth every 4 hours as needed for Pain, Moderate. Max Daily Amount: 6 Tablets 180 Tablet 0 fluticasone propionate (FLONASE) 50 mcg/spray [place], Suspension nasal inhaler Administer 2 Sprays in each nostril daily. 16 Gram 11 polyethylene glycol 3350 (MIRALAX) 17 gram/dose Powder Take 1 Scoop (17 Grams) by mouth daily. 527 Gram 2 isosorbide mononitrate (IMDUR) 60 mg Extended Release 24 hour tablet Take 1 Tablet (60 mg) by mouthdaily in the morning. 30 Tablet 0 amLODIPine (NORVASC) 5 mg tablet Take 1 Tablet (5 mg) by mouth daily. 30 Tablet 0 DULoxetine (CYMBALTA) 30 mg Capsule, Delayed Release(E.C.) Take 1 Capsule (30 mg) by mouth daily. Dose increase 100 Capsule 1 [DISCONTINUED] valsartan (DIOVAN) 160 mg tablet Take 1 Tablet (160 mg) by mouth 2 times daily. 200 Tablet 3 clopidogreL (PLAVIX) 75 mg Tablet Take 1 Tablet (75 mg) by mouth daily. 100 Tablet 1 famotidine (PEPCID) 20 mg tablet TAKE 1 TABLET BY MOUTH TWICE DAILY NEEDED FOR HEARTBURN/UPSET STOMACH 200 Tablet 1 gabapentin (NEURONTIN) 100 mg capsule Take 1 Capsule (100 mg) by mouth 2 times daily. (Patient not taking: Reported on 12/10/2024) 60 Capsule 2 lubiprostone (AMITIZA) 24 mcg Capsule Take 1 Capsule (24 mcg) by mouth 2 times daily with meals. (Patient not taking: Reported on 12/10/2024) 60 Capsule 5 furosemide (LASIX) 20 mg tablet Take 1 Tablet (20 mg) by mouth daily. 100 Tablet 3 metoprolol tartrate (LOPRESSOR) 50 mg tablet Take 1 Tablet (50 mg) by mouth 2 times daily. 180 Tablet 3 pantoprazole (PROTONIX) 40 mg Tablet, Delayed Release (E.C.) Take 1 Tablet (40 mg) by mouth daily. 90 Tablet 3 budesonide-formoteroL (SYMBICORT) 160-4.5 mcg/actuation HFA Aerosol Inhaler Take 2 Puffs by inhalation 2 times daily. 10.2 Gram 11 hydrALAZINE (APRESOLINE) 100 mg Tablet tablet Take 1 tablet by mouth twice daily 200 Tablet 2 buPROPion HCL (Wellbutrin SR) 150 mg Sustained Release 12 hour tablet Take 1 Tablet (150 mg) by mouth 2 times daily. Dose increase (Patient not taking: Reported on 12/10/2024) 60 Tablet 5 Ventolin HFA 90 mcg/actuation inhaler INHALE 2 PUFFS BY MOUTH EVERY 6 HOURS NEEDED FOR SHORTNESSOF BREATH 18 Gram 5 docusate sodium (COLACE) 100 mg capsule Take 1 Capsule (100 mg) by mouth 3 times daily as needed for Constipation. (Patient not taking: Reported on 12/10/2024) 125 Capsule 5 nystatin (NYSTOP) 100,000 unit/gram powder Apply to affected area 2 times daily. 60 Gram 5 zinc oxide 12 % Cream Use barrier cream twice daily to areas of damaged skin (Patient not taking: Reported on 12/10/2024) 142 Gram 2 aspirin (ECOTRIN EC) 81 mg Tablet, Delayed Release (E.C.) Take 1 Tablet by mouth daily. Discharge medications and new prescriptions: Medication List START taking these medications aspirin 81 mg Tablet, Delayed Release (E.C.) Commonly known as: ECOTRIN EC Take 1 Tablet by mouth daily. Refills: 0 azithromycin 250 mg tablet Commonly known as: ZITHROMAX Take 1 Tablet (250 mg) by mouth daily for 5 days. Signed by: Nurse Virgie Messina Quantity: 5 Tablet Refills: 0 cefdinir 300 mg capsule Commonly known as: OMNICEF Take 1 Capsule (300 mg) by mouth every 12 hours for 7 days. Signed by: Nurse Virgie Messina Quantity: 14 Capsule Refills: 0 guaiFENesin 600 mg Extended Release Biphasic tablet Commonly known as: MUCINEX Take 1 Tablet (600 mg) by mouth 2 times daily for 5 days. Signed by: Nurse Virgie Messina Quantity: 10 Tablet Refills: 0 predniSONE 20 mg tablet Commonly known as: DELTASONE Take 1 Tablet (20 mg) by mouth daily with breakfast for 5 days. Start taking on: December 17, 2024 Signed by: Nurse Virgie Messina Quantity: 5 Tablet Refills: 0 CHANGE how you take these medications hydrALAZINE 25 mg tablet Commonly known as: APRESOLINE What changed: medication strength how much to take when to take this reasons to take this Take 1 Tablet (25 mg) by mouth 2 times daily as needed for Other (See Comment) (Blood pressure >160 or/and >100). Signed by: Nurse Virgie Messina Quantity: 60 Tablet Refills: 0 valsartan 160 mg tablet Commonly known as: DIOVAN What changed: when to take this Take 1 Tablet (160 mg) by mouth daily. Signed by: Nurse Virgie Messina Quantity: 30 Tablet Refills: 0 CONTINUE taking these medications ALPRAZolam 0.5 mg tablet Commonly known as: XANAX Take 1 Tablet (0.5 mg) by mouth 2 times daily as needed for Anxiety. Signed by: Dr. Jose Portillo Quantity: 60 Tablet Refills: 2 amLODIPine 5 mg tablet Commonly known as: NORVASC Take 1 Tablet (5 mg) by mouth daily. Signed by: Nurse Practitioner Kane Read Quantity: 30 Tablet Refills: 0 budesonide-formoteroL 160-4.5 mcg/actuation HFA Aerosol Inhaler Commonly known as: SYMBICORT Take 2 Puffs by inhalation 2 times daily. Signed by: Dr. Jose Portillo Quantity: 10.2 Gram Refills: 11 clopidogreL 75 mg Tablet Commonly known as: PLAVIX Take 1 Tablet (75 mg) by mouth daily. Signed by: Dr. Mark Motley Quantity: 100 Tablet Refills: 1 DULoxetine 30 mg Capsule, Delayed Release(E.C.) Commonly known as: CYMBALTA Take 1 Capsule (30 mg) by mouth daily. Dose increase Signed by: Dr. Jose Portillo Quantity: 100 Capsule Refills: 1 famotidine 20 mg tablet Commonly known as: PEPCID TAKE 1 TABLET BY MOUTH TWICE DAILY NEEDED FOR HEARTBURN/UPSET STOMACH Signed by: Nurse Practitioner Mark Mccloud Quantity: 200 Tablet Refills: 1 fluticasone propionate 50 mcg/spray [place], Suspension nasal inhaler Commonly known as: FLONASE Administer 2 Sprays in each nostril daily. Signed by: Nurse Practitioner Kane Read Quantity: 16 Gram Refills: 11 HYDROcodone-acetaminophen 10-325 mg Tablet Commonly known as: NORCO Take 1 Tablet by mouth every 4 hours as needed for Pain, Moderate. Max Daily Amount: 6 Tablets Signed by: Dr. Jose Portillo Quantity: 180 Tablet Refills: 0 isosorbide mononitrate 60 mg Extended Release 24 hour tablet Commonly known as: IMDUR Take 1 Tablet (60 mg) by mouth daily in the morning. Signed by: Nurse Practitioner Kane Read Quantity: 30 Tablet Refills: 0 pantoprazole 40 mg Tablet, Delayed Release (E.C.) Commonly known as: PROTONIX Take 1 Tablet (40 mg) by mouth daily. Signed by: Dr. Jose Portillo Quantity: 90 Tablet Refills: 3 polyethylene glycol 3350 17 gram/dose Powder Commonly known as: MIRALAX Take 1 Scoop (17 Grams) by mouth daily. Signed by: Nurse Practitioner Kane Read Quantity: 527 Gram Refills: 2 Ventolin HFA 90 mcg/actuation inhaler INHALE 2 PUFFS BY MOUTH EVERY 6 HOURS NEEDED FOR SHORTNESS OF BREATH Signed by: Dr. Jose Portillo Quantity: 18 Gram Refills: 5 Generic drug: albuterol sulfate STOP taking these medications buPROPion HCL 150 mg Sustained Release 12 hour tablet Commonly known as: Wellbutrin SR docusate sodium 100 mg capsule Commonly known as: COLACE furosemide 20 mg tablet Commonly known as: LASIX gabapentin 100 mg capsule Commonly known as: NEURONTIN lubiprostone 24 mcg Capsule Commonly known as: AMITIZA metoprolol tartrate 50 mg tablet Commonly known as: LOPRESSOR nystatin 100,000 unit/gram powder Commonly known as: NYSTOP zinc OXIDE 12 % Cream Where to Get Your Medications These medications were sent to [facility] [address] [place] [address] - [address] [address] [address] [address] Hours: M-F [id number] Sat [id number] Sun closed azithromycin 250 mg tablet cefdinir 300 mg capsule guaiFENesin 600 mg Extended Release Biphasic tablet hydrALAZINE 25 mg tablet predniSONE 20 mg tablet valsartan 160 mg tablet Patient instructions: Activity: activity as tolerated. Diet: Regular Diet. It's very important to take your medication as directed. You will be discharged on Norvasc 5 mg 1 tab in the am, Imdur 60 mg 1 tab in the early am, Valsartan 160 mg 1 tab po daily. You will also have hydralazine 25 mg that you take if your blood pressure is over 170 systolic or/and over 100 diastolic twice a day with your bp checks in the morning and afternoon. It's very important to keep a blood pressure and heart rate log to take with you to your follow up appointment in the next 3-5 days. If you miss ANY of the doses above, please note that in the blood pressure log so your medications can be adjusted according to your adherence to the current treatment plan. For the COPD exacerbation you need to continue oral antibiotic Zithromax and Omnicef. You will alsoreceived a short dose of prednisone and mucinex. You reported blood tinged sputum and it's important to follow up with your primary care to monitor resolution or continuing of this event. You reported difficultly swallowing at times and that you have had a modified barium test and bedside in the past. It is recommended to continue on the medication you were started on by your primary care for GERD. You will be continued on dual therapy of aspirin and plavix related to the recent stent placement. Continue this regimen and follow up with vascular and for your ultrasound as you have planned for tomorrow. Follow-up with Kem Portillo MD in 3 day(s). Signed: KHADRA Castillo 12/16/2024, 11:27 AM Cosigned by Elizabeth Rodriguez MD at 12/16/2024 6:53 PM CDT documented in this encounter Discharge Instructions * Discharge Instructions* Leah Messina FNP - 12/16/2024 9:49 AM CDT It's very important to take your medication as directed. You will be DC on Norvasc 5 mg 1 tab in the am, Imdur 60 mg 1 tab in the early am, Valsartan 160 mg 1 tab po daily. You will also have hydralazine 25 mg that you take if your blood pressure is over 170 systolic or/and 100 diastolic twice a day with your bp checks in the morning and afternoon. It's very important to keep a blood pressure and heart rate log to take with you to your follow up appointment in the next 3-5 days. If you miss ANY of the doses above, please note that in the blood pressure log so your medications can be adjusted according to your adherence to the current treatment plan. For the COPD exacerbation you need to continue oral antibiotic Zithromax and Omnicef. You will alsoreceived a short dose of prednisone and mucinex. You reported blood tinged sputum and it's important to follow up with your primary care to monitor resolution or continuing of this event. You reported difficultly swallowing at times and that you have had a modified barium test and bedside in the past. It is recommended to continue on the medication you were started on by your primary care for GERD. You will be continued on dual therapy of aspirin and plavix related to the recent stent placement. Continue this regimen and follow up with vascular and for your ultrasound as you have planned for tomorrow. * Attachments The following attachments cannot be sent through Care Everywhere. * Hypertension: Emergency or Urgency ([place]) * COPD Exacerbation Plan ([place]) * Cefdinir ([place]) * Guaifenesin ([place]) * Prednisone ([place]) * Azithromycin ([place]) documented in this encounter Medications at Time of Discharge valsartan (DIOVAN) 160 mg tabletIndications:E ssential hypertension Take 1 Tablet (160 mg) by mouth daily. 30 Tablet 12/16/2024 predniSONE (DELTASONE) 20 mg tablet Take 1 Tablet (20 mg) by mouth daily with breakfast for 5 days. 5 Tablet 12/17/2024 5 hydrALAZINE (APRESOLINE) 25 mg tablet Take 1 Tablet (25 mg) by mouth 2 times daily as needed for Other (See Comment) (Blood pressure >160 or/and >100). 60 Tablet 12/16/2024 5 azithromycin (ZITHROMAX) 250 mg tablet Take 1 Tablet (250 mg) by mouth daily for 5 days. 5 Tablet 12/16/2024 5 cefdinir (OMNICEF) 300 mg capsule Take 1 Capsule (300 mg) by mouth every 12 hours for 7 days. 14 Capsule 12/16/2024 5 guaiFENesin (MUCINEX) 600 mg Extended Release Biphasic tablet Take 1 Tablet (600 mg) by mouth 2 times daily for 5 days. 10 Tablet 12/16/2024 5 ALPRAZolam (XANAX) 0.5 mg tabletIndications:G AD (generalized anxiety disorder) Take 1 Tablet (0.5 mg) by mouth 2 times daily as needed for Anxiety. 60 Tablet 2 12/12/2024 HYDROcodone-acetami nophen (NORCO) 10-325 mg TabletIndications:C hronic pain syndrome,Primary osteoarthritis involving multiple joints,Osteoarthrit is of spine with radiculopathy, lumbar region,Chronic bilateral low back pain with bilateral sciatica Take 1 Tablet by mouth every 4 hours as needed for Pain, Moderate. Max Daily Amount: 6 Tablets 180 Tablet 12/12/2024 fluticasone propionate (FLONASE) 50 mcg/spray [place], Suspension nasal inhalerIndications: Dysfunction of Eustachian tube, unspecified laterality Administer 2 Sprays in each nostril daily. 16 Gram 11 12/10/2024 polyethylene glycol 3350 (MIRALAX) 17 gram/dose PowderIndications:C onstipation, unspecified constipation type Take 1 Scoop (17 Grams) by mouth daily. 527 Gram 2 12/10/2024 isosorbide mononitrate (IMDUR) 60 mg Extended Release 24 hour tabletIndications:H TN (hypertension), benign Take 1 Tablet (60 mg) by mouth daily in the morning. 30 Tablet 12/10/2024 5 amLODIPine (NORVASC) 5 mg tabletIndications:H TN (hypertension), benign Take 1 Tablet (5 mg) by mouth daily. 30 Tablet 12/10/2024 DULoxetine (CYMBALTA) 30 mg Capsule, Delayed Release(E.C.)Indica tions:Chronic pain syndrome Take 1 Capsule (30 mg) by mouth daily. Dose increase 100 Capsule 1 11/21/2024 clopidogreL (PLAVIX) 75 mg Tablet Take 1 Tablet (75 mg) by mouth daily. 100 Tablet 1 11/01/2024 famotidine (PEPCID) 20 mg tablet TAKE 1 TABLET BY MOUTH TWICE DAILY NEEDED FOR HEARTBURN/UPSET STOMACH 200 Tablet 1 10/08/2024 pantoprazole (PROTONIX) 40 mg Tablet, Delayed Release (E.C.) Take 1 Tablet (40 mg) by mouth daily. 90 Tablet 3 08/14/2024 budesonide-formoter oL (SYMBICORT) 160-4.5 mcg/actuation HFA Aerosol InhalerIndications: Panlobular emphysema Take 2 Puffs by inhalation 2 times daily. 10.2 Gram 11 08/14/2024 Ventolin HFA 90 mcg/actuation inhaler INHALE 2 PUFFS BY MOUTH EVERY 6 HOURS NEEDED FOR SHORTNESS OF BREATH 18 Gram 5 03/18/2024 aspirin (ECOTRIN EC) 81 mg Tablet, Delayed Release (E.C.) Take 1 Tablet by mouth daily. 06/28/2023 documented as of this encounter Progress Notes * Monica Delvalle RN - 12/16/2024 12:51 PM CDT Reviewed discharge instructions with the patient and her daughter, Shannan. Discussed patient's discharge diagnosis, care of condition, and a printed handout was provided as well. 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 Information provided regarding new medications. The patient's IV was removed without issue, catheter intact. Patient was discharged at 1250 and was wheeled to private vehicle. At time of discharge, patient was alert and oriented with no signs or symptoms of acute distress. * Monica Delvalle RN - 12/16/2024 7:00 AM CDT Bedside rounding completed. Patient denies needs at this time. * Debra Ford RCP - 12/16/2024 12:39 AM CDT Pt seems to be resting comfortable at this time. * Debra Ford RCP - 12/15/2024 7:32 PM CDT Pt given albuterol/atrovent svn. * Lynn Barrera RN - 12/15/2024 6:50 PM CDT Bedside report completed with day shift. Patient resting comfortably in bed. Reassessment of pain is 8 out of 10 to head and upper stomach. Patient stated she has had abdomen pain for almost a year has had all the test that could be done to diagnosis her condition but all have come back normal. Nurse informed patient that there is not a doctor on the floor in person at night and if she wants to discuss this situation with a doctor they would be here in the morning. Patient was happy with this. Then patient asked for ice cream because that sometime helps with her abdomen pain but patient is lactose intolerant. * Monica Delvalle RN - 12/15/2024 10:25 AM CDT Patient arrived to room via wheelchair, accompanied by her daughter. Patient transferred herself tothe bed with stand-by assist. She is on oxygen at 2L/min with an oxygen saturation of 95%; she doesnot use supplemental oxygen at home. Patient is alert and oriented x4. She has an anxious demeanor;this proposal writer utilized therapeutic communication techniques and made room lighting changes to help the patient feel more at ease. The patient states that she is going to stay overnight so that staff can monitor her blood pressure. This proposal writer explained that we will also be monitoring her airway and give breathing treatments to treat her COPD exacerbation. The patient is wearing glasses and does not have her dentures. The patient's daughter left soon after arrival, taking the patient's housecoat and earrings home with her. Patient reports chronic, aching discomfort to her back and abdomen. documented in this encounter H&P Notes * Leah Messina FNP - 12/15/2024 11:01 AM CDT [facility] History & Physical PATIENT: Mary Cruz AGE: 74 y.o. : 1950 BED: 132 PCP Kem Portillo MD CC:Shortness of Breath HPI Mary Cruz is a(n) 74 y.o. female, admitted to the hospital with the diagnosis of COPD exacerbation and hypertension urgency Patient presented by EMS with reports of sob and hypertension. She was noted to be anxious and havea history of COPD. Reviewed results and patient has slight leukocytosis of 13.8. Renal function LFTs and electrolytes are within normal. COVID and influenza tests are negative. X-ray of the chest revealed emphysema with minimal left basilar atelectasis. Provided with couple doses of hydralazine pain medication and a tablet of Ativan for anxiety along with methylprednisolone and DuoNeb over night in the ED. This am The patient with given another dose Xopenex with ipratropium, Imdur 60 mg which is patient's regular medication, dexamethasone 10 mg IV in the presence of COPD. 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 At her reevaluation, patient's blood pressure improved to 138/61 with regular rate and rhythm in the 60s. Patient has decrease in wheezing after using the Xopenex with ipratropium and receiving longer doseof steroid. Patient still requiring oxygen with a baseline of room air. Patient agreeable to admit for continued treatment. 12/15/2024 Seen at bedside. Resting. No s/s of distress at this time. BP is remaining stable and patient currently has her oxgyen off. Will continue to monitor with the starting of abx and RT to assess and treat. 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 Fibromyalgia GERD (gastroesophageal reflux disease) Hyperlipidemia Onychomycosis Osteoarthrosis, unspecified whether generalized or localized, unspecified site Personal history of adenomatous and serrated colon polyps PTSD (post-traumatic stress disorder) Renal insufficiency 06/07/2019 Stress incontinence, female Temporomandibular joint disorder Tobacco abuse Unspecified essential hypertension PSHx: Past Surgical History: Procedure Laterality Date [facility] ANGIOGRAPHY EXTREMITY UNILATERAL RS&I N/A 12/14/2023 FEMORAL ANGIOGRAPHY WITH INTERVENTION performed by Brianna Motley DO at [facility] MAIN OR HX CHOLECYSTECTOMY HX COLONOSCOPY N/A 04/23/2021 COLONOSCOPY WITH POLYPECTOMY performed by Cheo Ann DO at [facility] OR HX ESOPHAGOGASTRODUODENOSCOPY N/A 09/15/2023 ESOPHAGOGASTRODUODENOSCOPY performed by Alex Berg MD at [facility] ENDOSCOPY HX EXCISIONAL BIOPSY Right 1997 BENIGN HX EYE SURGERY 03/01/1969 Patient had left eye removed related to accident. HX HYSTERECTOMY 2013 COMPLETE HX KNEE ARTHROSCOPY Left [place] ARTHROSCOPY KNEE DIAGNOSTIC W/WO SYNOVIAL BX SPX Left 07/30/2019 KNEE ARTHROSCOPY performed by Donn Cedillo MD at [facility] [place] COLONOSCOPY FLX DX W/COLLJ SPEC WHEN PFRMD N/A 04/23/2021 COLONOSCOPY performed by Cheo Ann DO at [facility] [place] COLSC FLX W/RMVL OF TUMOR POLYP LESION SNARE TQ N/A 07/02/2014 COLONOSCOPY WITH POLYPECTOMY performed by Justin Holloway MD at [facility] [place] CYSTOURETHROSCOPY 07/25/2009 CYSTOSCOPY RIGID performed by VLADIMIR KIM at [facility] [place]ERY [place] EGD TRANSORAL BIOPSY SINGLE/MULTIPLE N/A 04/23/2021 ESOPHAGOGASTRODUODENOSCOPY WITH BIOPSY performed by Cheo Ann DO at [facility] [place] LAPAROSCOPY ENTEROLYSIS SEPARATE PROCEDURE N/A 04/08/2015 ABDOMINAL LYSIS OF ADHESIONS LAPAROSCOPY performed by Vladimir Kim MD at [facility] [place] LAPAROSCOPY W/RMVL ADNEXAL STRUCTURES Bilateral 04/08/2015 SALPINGO-OOPHORECTOMY LAPAROSCOPIC performed by Vladimir Kim MD at [facility] [place] LAPS ABD PRTM&OMENTUM DX W/WO SPEC BR/WA SPX N/A 04/08/2015 LAPAROSCOPY DIAGNOSTIC/OPERATIVE performed by Vladimir Kim MD at [facility] [place] OPEN/PERQ PLACEMENT INTRAVASCULAR STENT INITIAL N/A 12/14/2023 VASCULAR STENT INSERTION ARTERIAL performed by Brianna Motley DO at [facility] [place] SLING OPERATION STRESS INCONTINENCE 07/25/2009 BLADDER SUSPENSION PUBO VAGINAL SLING performed by VLADIMIR KIM at [facility] [place] SURGERY [place] STAPEDECTOMY/STAPEDOTOMY Right 12/21/2018 STAPEDECTOMY WITH CO2 LASER performed by Filipe Mcmanus DO at [facility] [place] STAPEDECTOMY/STAPEDOTOMY Right 04/19/2018 STAPEDECTOMY REVISON performed by Filipe Mcmanus DO at [facility] [place] STAPEDECTOMY/STAPEDOTOMY Right 12/07/2016 STAPEDECTOMY WITH CO2 LASER performed by Filipe Mcmanus DO at [facility] [place] Social Hx: Social History Tobacco Use Smoking status: Every Day Current packs/day: 0.50 Types: Cigarettes Smokeless tobacco: Never Substance Use Topics Alcohol use: No Family Hx: Family History Problem Relation Name Age of Onset Heart Disease Father Hypertension Father Cancer Mother liver cancer Heart Disease Mother Hypertension Mother Cancer Maternal Grandmother Breast Cancer Neg Hx Colon Cancer Neg Hx Ovarian Cancer Neg Hx Home Medications: Prior to Admission medications Medication Sig Start Date End Date Taking? Authorizing Provider ALPRAZolam (XANAX) 0.5 mg tablet Take 1 Tablet (0.5 mg) by mouth 2 times daily as needed for Anxiety. 12/12/24 Kem Portillo MD HYDROcodone-acetaminophen (NORCO) 10-325 mg Tablet Take 1 Tablet by mouth every 4 hours as needed for Pain, Moderate. Max Daily Amount: 6 Tablets 12/12/24 Kem Portillo MD fluticasone propionate (FLONASE) 50 mcg/spray [place], Suspension nasal inhaler Administer 2 Sprays in each nostril daily. 12/10/24 Patience Read FNP polyethylene glycol 3350 (MIRALAX) 17 gram/dose Powder Take 1 Scoop (17 Grams) by mouth daily. 12/10/24 Patience Read FNP isosorbide mononitrate (IMDUR) 60 mg Extended Release 24 hour tablet Take 1 Tablet (60 mg) by mouthdaily in the morning. 12/10/24 01/09/25 Patience Read FNP amLODIPine (NORVASC) 5 mg tablet Take 1 Tablet (5 mg) by mouth daily. 12/10/24 01/09/25 Patience Read FNP DULoxetine (CYMBALTA) 30 mg Capsule, Delayed Release(E.C.) Take 1 Capsule (30 mg) by mouth daily. Dose increase 11/21/24 Kem Portillo MD valsartan (DIOVAN) 160 mg tablet Take 1 Tablet (160 mg) by mouth 2 times daily. 11/20/24 Kem Portillo MD clopidogreL (PLAVIX) 75 mg Tablet Take 1 Tablet (75 mg) by mouth daily. 11/01/24 Brianna Motley DO famotidine (PEPCID) 20 mg tablet TAKE 1 TABLET BY MOUTH TWICE DAILY NEEDED FOR HEARTBURN/UPSET STOMACH 10/08/24 Linda Mccloud NP gabapentin (NEURONTIN) 100 mg capsule Take 1 Capsule (100 mg) by mouth 2 times daily. Patient not taking: Reported on 12/10/2024 09/19/24 Kem Portillo MD lubiprostone (AMITIZA) 24 mcg Capsule Take 1 Capsule (24 mcg) by mouth 2 times daily with meals. Patient not taking: Reported on 12/10/2024 08/14/24 Kem Portillo MD furosemide (LASIX) 20 mg tablet Take 1 Tablet (20 mg) by mouth daily. 08/14/24 Kem Portillo MD metoprolol tartrate (LOPRESSOR) 50 mg tablet Take 1 Tablet (50 mg) by mouth 2 times daily. 08/14/24 Kem Portillo MD pantoprazole (PROTONIX) 40 mg Tablet, Delayed Release (E.C.) Take 1 Tablet (40 mg) by mouth daily. 08/14/24 Kem Portillo MD budesonide-formoteroL (SYMBICORT) 160-4.5 mcg/actuation HFA Aerosol Inhaler Take 2 Puffs by inhalation 2 times daily. 08/14/24 Kem Portillo MD hydrALAZINE (APRESOLINE) 100 mg Tablet tablet Take 1 tablet by mouth twice daily 06/05/24 Kem Portillo MD buPROPion HCL (Wellbutrin SR) 150 mg Sustained Release 12 hour tablet Take 1 Tablet (150 mg) by mouth 2 times daily. Dose increase Patient not taking: Reported on 12/10/2024 05/24/24 Kem Portillo MD Ventolin HFA 90 mcg/actuation inhaler INHALE 2 PUFFS BY MOUTH EVERY 6 HOURS NEEDED FOR SHORTNESSOF BREATH 03/18/24 Kem Portillo MD naloxone (NARCAN) 4 mg/spray [place], Non-Aerosol EMERGENCY USE ONLY: Administer 1 spray (4 mg) in one nostril one time. May repeat in alternating nostrils every 2-3 min until responsive or EMS arrives. Patient not taking: Reported on 12/10/2024 02/03/24 Kem Portillo MD docusate sodium (COLACE) 100 mg capsule Take 1 Capsule (100 mg) by mouth 3 times daily as needed for Constipation. Patient not taking: Reported on 12/10/2024 11/04/23 Kem Portillo MD nystatin (NYSTOP) 100,000 unit/gram powder Apply to affected area 2 times daily. 10/06/23 Kem Portillo MD zinc oxide 12 % Cream Use barrier cream twice daily to areas of damaged skin Patient not taking: Reported on 12/10/2024 10/06/23 Kem Portillo MD aspirin (ECOTRIN EC) 81 mg Tablet, Delayed Release (E.C.) Take 1 Tablet by mouth daily. Patient not taking: Reported on 12/10/2024 06/28/23 Provider, Historical Review of Systems Review of Systems Constitutional: Negative for chills and fever. Respiratory: Positive for cough, sputum production and shortness of breath. Cardiovascular: Negative for chest pain and leg swelling. Musculoskeletal: Negative for myalgias. Psychiatric/Behavioral: The patient is nervous/anxious. Physical: Patient Vitals for the past 24 hrs: BP Temp Temp src Pulse Resp SpO2 Height Weight 12/15/24 1007 -- -- -- -- -- -- -- 72.4 kg (159 lb 9.6 oz) 12/15/2445 (!) 146/64 -- -- -- 24 96 % -- -- 12/15/24 0930 (!) 145/73 -- -- 63 21 95 % -- -- 12/15/24 09 (!) 142/65 -- -- 62 20 94 % -- -- 12/15/24 0830 139/74 -- -- 63 13 94 % -- -- 12/15/24 08 (!) 163/74 -- -- 64 20 96 % -- -- 12/15/24 0745 (!) 153/69 -- -- 61 22 98 % -- -- 12/15/24 0742 -- -- -- 61 16 -- -- -- 12/15/24 0730 (!) 166/81 -- -- 60 20 96 % -- -- 12/15/24 0720 -- -- -- 61 18 92 % -- -- 12/15/24 07 (!) 171/65 -- -- 61 16 91 % -- -- 12/15/24 0645 (!) 169/80 -- -- 62 20 95 % -- -- 12/15/2430 (!) 184/80 -- -- 63 24 95 % -- -- 12/15/24 0604 -- -- -- 62 20 -- -- -- 12/15/24 0600 (!) 176/81 -- -- 64 22 92 % -- -- 12/15/24 0545 (!) 190/83 -- -- 61 25 95 % -- -- 12/15/24 0530 (!) 187/87 -- -- 60 25 94 % -- -- 12/15/24 0515 (!) 183/89 -- -- 62 26 95 % -- -- 12/15/24 0500 (!) 198/82 -- -- (!) 58 19 96 % -- -- 12/15/24 0447 (!) 213/91 98.4 ??F (36.9 ??C) Tympanic (!) 59 13 98 % 5' 5 (1.651 m) 73.3 kg (161 lb 11.2 oz) Physical Exam Vitals and nursing note reviewed. Constitutional: General: She is resting without s/s of distress Appearance: Normal appearance. HENT: Head: Normocephalic and atraumatic. Right Ear: External ear normal. Left Ear: External ear normal. Nose: Nose normal. Mouth/Throat: Mouth: Mucous membranes are moist. Pharynx: Oropharynx is clear. Eyes: Extraocular Movements: Extraocular movements intact. Cardiovascular: Rate and Rhythm: Normal rate and regular rhythm. Heart sounds: Normal heart sounds. Pulmonary: Effort: Pulmonary effort is normal. Breath sounds: Decreased breath sounds and wheezing present. No rhonchi or rales. Abdominal: Palpations: Abdomen is soft. Musculoskeletal: General: Normal range of motion. Cervical back: Normal range of motion and neck supple. No rigidity or tenderness. Skin: General: Skin is warm and dry. Neurological: General: No focal deficit present. Mental Status: She is alert and oriented to person, place, and time. Mental status is at baseline. Psychiatric: Mood and Affect: Mood is anxious. Thought Content: Thought content normal. Laboratory Testing Results: Recent Results (from the past 48 hours) CBC WITH DIFFERENTIAL Collection Time: 12/15/24 4:55 AM Result Value Ref Range WBC 13.8 (H) 4.0 - 10.0 K/uL RBC 4.49 3.93 - 5.22 M/uL HEMOGLOBIN 13.0 11.2 - 15.7 g/dL HEMATOCRIT 37.3 34.1 - 44.9 % MCV 83.1 79.4 - 94.8 fL MCH 29.0 25.6 - 32.2 pg MCHC 34.9 32.2 - 35.5 g/dL RDW 12.7 11.0 - 14.5 % RDW-STDEV 38.6 36.9 - 56.9 fL PLATELETS 224 163 - 337 K/uL MPV 9.9 (L) 10.0 - 14.8 fL NEUTROPHILS 87 (H) 34 - 71 % LYMPHOCYTES 6 (L) 19 - 52 % MONOCYTES 6 5 - 13 % EOSINOPHILS 1 1 - 6 % BASOPHILS 0 0 - 1 % IMMATURE GRANULOCYTES 0 % NEUTROPHIL ABSOLUTE 11.98 (H) 1.56 - 6.13 K/uL LYMPHOCYTE ABSOLUTE 0.82 (L) 1.20 - 3.40 K/uL MONOCYTE ABSOLUTE 0.82 (H) 0.24 - 0.36 K/uL EOSINOPHIL ABSOLUTE 0.11 0.04 - 0.36 K/uL BASOPHILS ABSOLUTE 0.04 0.01 - 0.08 K/uL IMMATURE GRANULOCYTES ABSOLUTE 0.04 K/uL COMPREHENSIVE METABOLIC PANEL Collection Time: 12/15/24 4:55 AM Result Value Ref Range SODIUM 132 (L) 136 - 145 mmol/L POTASSIUM 4.5 3.5 - 5.1 mmol/L CHLORIDE 95 (L) 98 - 107 mmol/L CO2 26 22 - 29 mmol/L CALCIUM 9.2 8.8 - 10.2 mg/dL BUN 16 8 - 23 mg/dL CREATININE 0.88 0.51 - 0.95 mg/dL GLUCOSE 124 (H) 74 - 99 mg/dL TOTAL PROTEIN 6.8 6.6 - 8.7 g/dL ALBUMIN 4.0 3.5 - 5.2 g/dL BILIRUBIN TOTAL 0.5 0.0 - 1.2 mg/dL ALKALINE PHOSPHATASE 68 35 - 104 U/L AST 34 0 - 35 U/L ALT 16 0 - 35 U/L GFR >60 mL/min/1.73 sq meter ANION GAP 11 5 - 20 mmol/L INFLUENZA VIRUS A AND B, ANTIGEN DETECTION Collection Time: 12/15/24 6:23 AM Specimen: Nasopharynx; Upper Respiratory Result Value Ref Range INFLUENZA A AG Not Detected Not Detected INFLUENZA B AG Not Detected Not Detected COVID-19 ANTIGEN Collection Time: 12/15/24 6:23 AM Specimen: Nares; Upper Respiratory Result Value Ref Range COVID-19 ANTIGEN Presumptive Negative Presumptive Negative GLUCOSE and POC GLUCOSE Lab Results Component Value Date/Time GLUCOSE 124 (H) 12/15/2024 04:55 AM Lab Results Component Value Date/Time HGBA1C 5.8 07/19/2024 12:00 AM Imaging: Results for orders placed during the hospital encounter of 12/15/24 XR CHEST PA OR AP 1 VW Narrative Exam: Radiographs: XR CHEST PA OR AP 1 VW Indication: Shortness of breath Comparison: Chest x-ray dated 05/23/2023 Impression : Borderline pulmonary venous hypertension. Chest is otherwise unremarkable. Results for orders placed during the hospital encounter of 11/23/24 CT ABDOMEN PELVIS W CONTRAST Narrative Exam: CT ABDOMEN PELVIS W CONTRAST Date/Time of Exam: 11/23/2024 5:18 PM Reason For Exam: Abdominal pain, acute, nonlocalized. Diagnosis: See Reason for Exam. Technique: CT of the abdomen was performed following the administration of intravenous contrast. Contrast: 100 mL Isovue-300 Findings: Comparison from 08/30/2024. There is mild [...] is present. Multilevel degenerative change is noted. Impression : 1. No acute radiographic abnormality noted. 2. Prior cholecystectomy. Unchanged mild intra and extrahepatic bile duct dilatation. 3. 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 4. Chronic left renal atrophy. Small left renal cyst. 5. Prior hysterectomy. Assessment: Assessment Plan: Plan COPD exacerbation: Zithromax/ceftriaxone day 1 Dexamethasone received in the ED Plan to start prednisone tomorrow morning Duoneb scheduled every 6 hours RT to assess and treat Titrate oxygen based on needed. Noted hypoxia in the ED Baseline is room air Pending sputum culture collection Continue home Symbicort Hypertension urgency: Patient seen on 12/10/2024 for elevated bp by PCP Will restart home medication (Diovan, norvasc, imdur) Lasix. Will need to confirm metoprolol hydralazine Bp has improved Patient is confused on what medications she takes. Possible need of home health assistance for medication set up at time of DC Anxiety/PTSD: Continue home medication PRN xanax Bupropion- denies taking Duloxetine Gabapentin- denies taking SMA stent 11/2023: Pending vascular follow up outpatient Noted renal artery stenosis- playing a role in current htn urgency? Currently on valsartan Received bentyl in the ED Started asa in combination with the plavix. Patient will need to continue dual therapy Requested home medications to be brought to the hospital to compare. Quality Measures: DVT PPX: Enoxaparin GI PPX: acid neutralizing therapy DIET: No diet orders on file Code Status: Prior DISPOSITION: Home KHADRA Castillo 12/15/2024 11:01 AM Cosigned by Elizabeth Rodriguez MD at 12/15/2024 8:53 PM CDT documented in this encounter ED Notes * Braden Beard RN - 12/15/2024 10:09 AM CDT Patient taken to Med Surg room 132-2 at 0959 via wheelchair with oxygen at 2L NC. All belongings inher daughter's possession. * Braden Beard RN - 12/15/2024 7:36 AM CDT Patient found awake and alert in room with daughter present. Patient on room air with SpO2 at 92%. Appears anxious, all questions answered. Patient reports she woke up around 2300 last night with SOB, Headache, and not feeling well, took her antihypertensives but continued not feeling well so she called 911. Reports she does feel better now compared to when she arrived. RT in room to assess and provide treatments * Jinny Hernández RN - 12/15/2024 6:33 AM CDT Patient stand by assist to bedside commode. * Jinny Hernández RN - 12/15/2024 5:00 AM CDT Mary Cruz is a 74 y.o. female who arrives to the Emergency Department by private car. Chief Complaint Patient presents with Shortness of Breath Patient states she has been short of breath for a long time but it has gotten worse recently, with increased productive cough. Pain is 10/10. Patient hypertensive but other vital signs within normal limits, aaox4, Patient appears anxious and short of breath at rest. Airway patent, self-maintained with even respirations. Patient has expiratory wheezing when auscultating lung sounds. Perfusion within normal limits for age. Skin color normal for ethnicity, warm, dry and intact. Patient did take her blood pressure medication before coming in but does not know what it's called. ID band present. Patient in bed in low position with wheels locked. Patient informed of plan of care. Patient verbalized understanding and in agreement with plan of care, all questions answered. Comfort measures offered. Monitors on and audible. Patient placed on continuous diagnostic cardiac sonographer, pulse ox and blood pressure monitoring. Call light at bedside. Patient encouraged to call with needs. Will continue to monitor. Weapons assessment performed. Education provided regarding facility weapon storage and securement policy. Mary Cruz denied possession of any weapons or firearms at this time * Debra Ford RCP - 12/15/2024 4:56 AM CDT EKG completed. Results given to Dr. Austin and scanned into [employer]. * Elizabeth Rodriguez MD - 12/15/2024 4:46 AM CDTAssociated Order(s): EKG HISTORY OF PRESENT ILLNESS The patient is a 74-year-old female who arrives by EMS. She cannot tell me exactly why she came in but says that her blood pressure has been out of control, but apparently she was quite short of breath and that is why she called EMS. She was given DuoNeb treatment and route with little benefit. Sheis noted to have audible wheezes and is a poor historian. She is here for further evaluation and treatment. History provided by: The patient and medical records History limited by: Age and the condition of the patient calculation clerk used: No Arrived by: EMS Arrived from: Home Shortness of Breath Severity: Moderate Onset quality: Unable to specify Timing: Constant Progression: Unchanged Chronicity: Chronic Context: activity, smoke exposure and weather changes Relieved by: Nothing Worsened by: Exertion Ineffective treatments: None tried LV Function: Unknown Associated symptoms: wheezing Risk factors PE/DVT: smoking Risk factors: tobacco use PAST MEDICAL HISTORY REVIEWED MEDICAL: Patient has a past medical history of Anxiety, Chronic kidney disease, COPD (chronic obstructive pulmonary disease), Depression, Eye injury, Fibromyalgia, GERD (gastroesophageal reflux disease), Hyperlipidemia, Onychomycosis, Osteoarthrosis, unspecified whether generalized or localized, unspecifiedsite, Personal history of adenomatous and serrated colon polyps, PTSD (post-traumatic stress disorder), Renal insufficiency (06/07/2019), Stress incontinence, female, Temporomandibular joint disorder, Tobacco abuse, and Unspecified essential hypertension. SURGICAL: Patient has a past surgical history that includes pr laparoscopy enterolysis separate procedure (N/A, 04/08/2015); eye surgery (03/01/1969); pr cystourethroscopy (07/25/2009); pr sling operation stress incontinence (07/25/2009); knee arthroscopy; cholecystectomy; pr arthroscopy knee diagnostic w/wo synovial bx spx (Left, 07/30/2019); pr stapedectomy/stapedotomy (Right, 12/21/2018); pr stapedectomy/stapedotomy (Right, 04/19/2018); excisional biopsy (Right, 1997); hysterectomy (2013); pr laparoscopy w/rmvl adnexal structures (Bilateral, 04/08/2015); pr laps abd prtm&omentum dx w/wo spec br/wa spx (N/A, 04/08/2015); pr colsc flx w/rmvl of tumor polyp lesion snare tq (N/A, 07/02/2014); pr stapedectomy/stapedotomy (Right, 12/07/2016); pr colonoscopy flx dx w/collj spec when pfrmd (N/A, 04/23/2021); pr egd transoral biopsy single/multiple (N/A, 04/23/2021); colonoscopy (N/A, 04/23/2021); esophagogastroduodenoscopy (N/A, 09/15/2023); chg angiography extremity unilateral rs&i (N/A, 12/14/2023); and pr open/perq placement intravascular stent initial (N/A, 12/14/2023). ALLERGIES Thiopental sodium and Fluphenazine hcl PHYSICAL EXAM INITIAL VS BP: (!) 213/91 (12/15/24 044), Heart Rate: (!) 59 bpm (12/15/24446), Resp: 13 (12/15/24446), Pulse: (!) 59 (12/15/24446), Temp: 98.4 ??F (36.9 ??C) (12/15/24446), Temp src: Tympanic (12/15/24446), SpO2: 98 % (12/15/24446), Height: 5' 5 (165.1 cm) (12/15/24446), Weight: 73.3 kg (161 lb 11.2 oz) (12/15/24446), BMI (Calculated): (!) 26.89 (12/15/24446) No LMP recorded. Patient has had a hysterectomy. Physical Exam Vitals and nursing note reviewed. Constitutional: General: She is in acute distress. Appearance: Normal appearance. She is ill-appearing. HENT: Head: Normocephalic and atraumatic. Right Ear: External ear normal. Left Ear: External ear normal. Nose: Nose normal. Mouth/Throat: Mouth: Mucous membranes are moist. Pharynx: Oropharynx is clear. Eyes: Extraocular Movements: Extraocular movements intact. Cardiovascular: Rate and Rhythm: Normal rate and regular rhythm. Heart sounds: Normal heart sounds. Pulmonary: Effort: Pulmonary effort is normal. Breath sounds: Decreased breath sounds and wheezing present. No rhonchi or rales. Abdominal: Palpations: Abdomen is soft. Musculoskeletal: General: Normal range of motion. Cervical back: Normal range of motion and neck supple. No rigidity or tenderness. Skin: General: Skin is warm and dry. Neurological: General: No focal deficit present. Mental Status: She is alert and oriented to person, place, and time. Mental status is at baseline. Psychiatric: Mood and Affect: Mood is anxious. Thought Content: Thought content normal. DIAGNOSTICS LAB: CBC WITH DIFFERENTIAL - Abnormal Result Value WBC 13.8 (*) RBC 4.49 HEMOGLOBIN 13.0 HEMATOCRIT 37.3 MCV 83.1 MCH 29.0 MCHC 34.9 RDW 12.7 RDW-STDEV 38.6 PLATELETS 224 MPV 9.9 (*) NEUTROPHILS 87 (*) LYMPHOCYTES 6 (*) MONOCYTES 6 EOSINOPHILS 1 BASOPHILS 0 IMMATURE GRANULOCYTES 0 NEUTROPHIL ABSOLUTE 11.98 (*) LYMPHOCYTE ABSOLUTE 0.82 (*) MONOCYTE ABSOLUTE 0.82 (*) EOSINOPHIL ABSOLUTE 0.11 BASOPHILS ABSOLUTE 0.04 IMMATURE GRANULOCYTES ABSOLUTE 0.04 COMPREHENSIVE METABOLIC PANEL - Abnormal SODIUM 132 (*) POTASSIUM 4.5 CHLORIDE 95 (*) CO2 26 CALCIUM 9.2 BUN 16 CREATININE 0.88 GLUCOSE 124 (*) TOTAL PROTEIN 6.8 ALBUMIN 4.0 BILIRUBIN TOTAL 0.5 ALKALINE PHOSPHATASE 68 AST 34 ALT 16 GFR >60 ANION GAP 11 INFLUENZA VIRUS A AND B, ANTIGEN DETECTION - Normal INFLUENZA A AG Not Detected INFLUENZA B AG Not Detected COVID-19 ANTIGEN - Normal COVID-19 ANTIGEN Presumptive Negative RADIOLOGY: XR CHEST PA OR AP 1 VW ED Interpretation Chronic changes with cephalization and some scarring but no lobar infiltrates Radiologist Impression IMPRESSION: Borderline pulmonary venous hypertension. Chest is otherwise unremarkable. EKG: PROCEDURES EKG Date/Time: 12/15/2024 5:15 AM Performed by: Daniel Austin MD Authorized by: Daniel Austin MD ECG interpreted by ED Physician in the absence of a distribution specialist: yes Rate: ECG rate: 59 ECG rate assessment: bradycardic Rhythm: Rhythm Origin: sinus Rhythm morphology: narrow Comments: EKG shows mild sinus bradycardia and some chronic changes but no acute ischemia. MEDICAL DECISION MAKING AND PLAN OF CARE Medical Decision Making Assumed care of the patient from the night team at 7 AM. Reviewed results and patient has slight leukocytosis of 13.8. Renal function LFTs and electrolytes are within normal. COVID and influenza tests are negative. X-ray of the chest revealed emphysema with minimal left basilar atelectasis. Colleague from overnight provided with couple doses of hydralazine pain medication and a tablet of Ativan for anxiety along with methylprednisolone and DuoNeb. Provided patient with another dose of Xopenex with ipratropium, Imdur 60 mg which is patient's regular medication, dexamethasone 10 mg IV and Zofran with Bentyl. 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 We will hold off on admission just yet until breathing and BP are more stable. At her reevaluation, patient's blood pressure improved to 138/61 with regular rate and rhythm in the 60s. Patient has decrease in wheezing after using the Xopenex with ipratropium and receiving longer doseof steroid. After the discussion with the patient and family, decision was made to admit the patient for observation to the hospital for further care. Patient will be admitted for planned additional work-up and management. Patient is in agreement with the plan. Amount and/or Complexity of Data Reviewed Radiology: ordered and independent interpretation performed. ECG/medicine tests: ordered and independent interpretation performed. Risk Prescription drug management. Decision regarding hospitalization. Clinical Scoring & Consults Medications Administered During the ED Stay from 12/15/2024 0446 to 12/15/2024 0850 Date/Time Order Dose Route Action 12/15/2024 0513 CDT hydrALAZINE (APRESOLINE) 20 mg/mL injection 10 mg 10 mg IV Given 12/15/2024 0615 CDT hydrALAZINE (APRESOLINE) 20 mg/mL injection 10 mg 10 mg IV Given 12/15/2024 0617 CDT methylPREDNISolone sodium succinate (SOLU-Medrol) 125 mg in sterile water 2 mL injection 125 mg IV Given 12/15/2024 0558 CDT ipratropium-albuteroL (DUONEB) 0.5 mg-3 mg(2.5 mg base)/3 mL inhalation solution 3 mL 3 mL Inhalation Given 12/15/2024613 CDT HYDROcodone-acetaminophen (NORCO) 5-325 mg per tablet 1 Tablet 1 Tablet Oral Given 12/15/2024618 CDT amLODIPine (NORVASC) tablet 5 mg 5 mg Oral Given 12/15/2024627 CDT LORazepam (ATIVAN) tablet 0.5 mg 0.5 mg Oral Given 12/15/2024727 CDT levalbuterol (XOPENEX) 1.25 mg/3 mL inhalation solution 1.25 mg 1.25 mg Inhalation Given 12/15/2024727 CDT ipratropium bromide (ATROVENT) 0.02 % nebulizer solution 0.5 mg 0.5 mg Inhalation Given 12/15/2024729 CDT dexAMETHasone (DECADRON) injection 10 mg 10 mg IV Given 12/15/2024727 CDT isosorbide mononitrate (IMDUR) SR 24 hour tablet 60 mg 60 mg Oral Given 12/15/2024727 CDT dicyclomine (BENTYL) capsule 20 mg 20 mg Oral Given 12/15/2024728 CDT ondansetron (ZOFRAN) 4 mg/2 mL injection 4 mg 4 mg IV Given . New Prescriptions for this Encounter LAST VS BP: (!) 153/69 (12/15/2445), Heart Rate: 61 bpm (12/15/2445), Resp: 22 (12/15/24 0745), Pulse: 61 (12/15/24 0745), Temp: 98.4 ??F (36.9 ??C) (12/15/24446), Temp src: Tympanic (12/15/24446),SpO2: 98 % (12/15/24 0745) CLINICAL IMPRESSION Diagnoses Diagnosis Comment Added By Time Added COPD with exacerbation ([facility]) [J44.1] Daniel Austin MD 12/15/2024 5:58 AM Severe uncontrolled hypertension [I10] Daniel Austin MD 12/15/2024 5:59 AM DISPOSITION, EDUCATION AND MEDICATION RECONCILIATION Medications reconciled. See after visit summary for patient education on discharged patients. ED Disposition ED Disposition Admit Condition Stable User Elizabeth Rodriguez MD Date/Time Sat Dec 15, 2024 8:48 AM Comment -- ATTESTATION STATEMENTS documented in this encounter Miscellaneous Notes * Care Plan - Lynn Barrera RN - 12/16/2024 5:41 AM CDT Shift Summary Pain remained at a high level throughout the shift despite intervention, and ALPRAZolam was administered for anxiety. No falls, injuries, or safety concerns were documented, and all safety measures were in place. Perineal hygiene was independently managed, and no temperature abnormalities were noted. Maintained independence in mobility and activities of daily living, with no assistive devices required. Overall, remained stable with consistent safety, hygiene, and mobility status during the shift. Infection Risk/Actual: Infection prevention, control, or resolution by discharge: No fever or abnormal temperature trends were observed, and perineal hygiene was independently maintained throughout the shift. Safety/Fall: Absence of fall, injury, harm during hospitalization: No falls or injuries occurred, and safety checks and fall risk precautions were consistently maintained during the shift. * Care Plan - Monica Delvalle RN - 12/15/2024 2:52 PM CDT Shift Summary Patient remains alert and able to answer orientation questions. She ambulates without issue, walking greater than 400 feet on room air this afternoon; saturation was 94% upon her return to her room. Patient completed a shower independently. She has reported pain to her back and abdomen that is chronic in nature and received a dose of PRN Stuart. She has an appointment scheduled for an ultrasound of her mesenteric artery on Tuesday in [place]. Patient's medication list was reviewed by HEIDI Lynn. Patient manages her own medications, but doesn't know what she takes for certain. The patient's daughter requested an updated medication list and this proposal writer explained that a list would be provided at time of discharge; her daughter plans to helpset up medications at home. Her daughter states that she herself is recovering from a respiratory ailment and fears that she may have passed germs to her mom. Infection Risk/Actual: Infection prevention, control, or resolution by discharge: Antibiotics including azithromycin and cefTRIAXone were administered and then stopped during the shift; temperature remained within normal range and hygiene care was completed with CHG, with no redness noted on skin check. Safety/Fall: Absence of fall, injury, harm during hospitalization: Safety checks were completed andfall risk was reviewed multiple times, with no falls or injuries documented; patient experienced some dizziness/generalized weakness but remained independent in ambulation and transferring. Identify discharge needs upon admission and through discharge: Anticipated discharge needs were identified as home and self-care, with no concerns about housing, transportation, or social/environmental factors; family visited during the shift. Achieve optimal musculoskeletal function by discharge or maintain baseline function: Mobility was slightly limited and activity was occasional walking, but independence in ambulation and transferringwas maintained; musculoskeletal interventions focused on promoting mobility and independence in ADLs. * Gen AI ED Handoff - GENERATIVE AI HANDOFF NOTE - 12/15/2024 8:54 AM CDT SITUATION: Patient ( ) is a 74-year-old female who has been in the ER for 4 hours. She came to the ER due to shortness of breath. The patient's most recent care team on record included: Braden Beard; Marika Quintero; Vicky Lal; Linda Mccloud; Linda Mccloud; Imani Mcmahan. BACKGROUND: This patient has allergies to Thiopental Sodium, Fluphenazine Hcl. ASSESSMENT: Patient's most recent vitals recorded in flowsheets were as follows: BP: 153/69 T: 98.4 F RR: 22 SPO2: 98% HR: 61 WT: 161.7 LBS BMI: 26.91 Most recent Glucose Value: 124. Completed: 2024-12-15 05:19. Lines most recently placed include: angioset at 2024-12-15 04:58. Last recorded oxygen source was nasal cannula. Prev 45 Day Discharges: 1. Readmission detail: 2024-11-23 EMERGENCY Abdominal pain, unspecified abdominal location. The patient presents with severe uncontrolled hypertension and COPD with exacerbation. She has a history of anxiety, chronic kidney disease, depression, fibromyalgia, GERD, hyperlipidemia, osteoarthrosis, PTSD, renal insufficiency, stress incontinence, temporomandibular joint disorder, tobacco abuse, and unspecified essential hypertension. The patient is a poor historian and has been experiencing shortness of breath with wheezing. She has a slight leukocytosis and abnormal sodium and chloride levels. The patient is anxious and has a history of smoking. RECOMMENDATION: The patient was given DuoNeb, Xopenex with ipratropium, methylprednisolone, dexamethasone, and hydralazine for hypertension management. She also received Ativan for anxiety, Imdur, and Zofran with Bentyl. The patient is on continuous cardiac monitoring, pulse oximetry, and blood pressure monitoring. She is admitted for observation and further management, including additional work-up for her chronic abdominal pain and potential vascular follow-up for SMA past stenting and possible celiac artery stenting. The patient should be monitored for respiratory status and blood pressure stability. Comfort measures and patient education have been provided, and she is encouraged to call with any needs. *This summary was created by [employer]. The responses are meant to enhance, not replace normal workflow. Please contact the ED nurse for any additional information.* documented in this encounter Plan of Treatment Upcoming Encounters Date Type Department Care Team (Latest Contact Info) Description 12/19/2024 10:20 AM CDT Office Visit [facility] [address] [phone] LeonMarika wilcox, KHADRA [address] [place] [address] 12/25/2024 3:20 PM CDT Office Visit [facility] [address] [place] [address] Kem Portillo MD [address] [place] [address] 02/05/2025 10:20 AM [employer] Hospital Encounter [facility] [address] [place] [address] Alex Berg MD [address] [address] 02/05/2025 10:20 AM [employer] - 02/05/2025 10:40 AM [employer] Surgery [facility] [address] [place] [address] Alex Berg MD [address] [address] ESOPHAGOGASTRODUODENOSCOPY Pending Results Name Type Priority Associated Diagnoses Date /Time SPUTUM CULTURE WITH GRAM STAIN Microbiology Routine 12/15/2024 4:16 PM CDT Scheduled Procedures Name Priority Associated Diagnoses Date/Ti me ESOPHAGOGASTRODUODENOSCOPY Dysphagia, unspecified type; Black tarry stools 02/05/2025 10:20 AM [employer] COLONOSCOPY Dysphagia, unspecified type; Black tarry stools 02/05/2025 10:20 AM [employer]SE [employer] documented as of this encounter Goals Goal Patient Goal Type Associated Problems Recent Progress Patient-Stated? Author Autogenera carlos Goal Care Plan Autogenerated Problem Lynn Carcamo RN documented as of this encounter Procedures Procedure Name Priority Date/Time Associated Diagnosis Comments SPUTUM CULTURE WITH GRAM STAIN Routine 12/15/2024 4:16 PM CDT COVID-19 ANTIGEN Stat 12/15/2024 6:23 AM CDT INFLUENZA VIRUS A AND B, ANTIGEN DETECTION Stat 12/15/2024 6:23 AM CDT XR CHEST PA OR AP 1 VW Stat 5:24 AM CDT EKG 12-LEAD Stat 12/15/2024 5:15 AM CDT CBC WITH DIFFERENTIAL Stat 12/15/2024 4:55 AM CDT COMPREHENSIVE METABOLIC PANEL Stat 12/15/2024 4:55 AM CDT documented in this encounter Results * COVID-19 ANTIGEN (12/15/2024 6:23 AM CDT) COVID-19 ANTIGEN Presumptive Negative Presumptive Negative 12/15/2024 6:58 AM CDT [facility] Upper Respiratory ANTERIOR NARES SWAB / Unknown Collection / Unknown 12/15/2024 6:23 AM CDT 12/15/2024 6:36 AM CDT Narrative [facility] - 12/15/2024 6:58 AM CDT Shaylee SARS antigen test has been authorized by FDA under an emergency use authorization (EUA) and has been authorized only for the detection of proteins from SARS-CoV-2 and influenza, not for any other viruses or pathogens. Shaylee SARS Antigen TERESA is intended for the simultaneous qualitative detection and differentiation of nucleocapsid protein antigen from SARS-CoV-2 directly from nasopharyngeal (BI DATA MODELER) and nasal (NS) swab specimens collected from individuals who are suspected of respiratory viral infection consistent with COVID-19 by their healthcare provider within the first five (5) days of symptom onset when tested at least twice over three days with at least 48 hours between tests, or from individuals without symptoms or other epidemiological reasons to suspect COVID-19 when tested at least three times over five days with at least 48 hours between tests. This test is only authorized for the duration of the declaration that circumstances exist justifying the authorization of emergency use of in vitro diagnostics for detection and/or diagnosis of the virus that causes COVID-19 under Section 564(b)(1) of the Act, 21 U.S.C. 360bbb-3(b)(1), unless the authorization is terminated or revoked sooner. Negative results should be treated as presumptive and confirmed with a molecular assay, if necessary for patient care. Serial testing should be performed in individuals with negative results at least twice over three days (with 48 hours between tests) for symptomatic individuals or from individuals without symptoms or other epidemiological reasons to suspect COVID-19 when tested at least three times over five days with at least 48 hours between tests. Daniel Austin MD MICROBIOLOGY - GENERAL ORD ERABLES Final Result Performing Organization Address [facility] Co de Phone Number [facility] # [id number] [address] [place] [address] * INFLUENZA VIRUS A AND B, ANTIGEN DETECTION (12/15/2024 6:23 AM CDT) Pathologist [facility] INFLUENZA A AG NOT DETECTED Not Detected 12/15/2024 6:58 AM CDT [facility] INFLUENZA B AG NOT DETECTED Not Detected 12/15/2024 6:58 AM CDT [facility] Upper Respiratory ENTIRE NASOPHARYNX / Unknown Collection / Unknown 12/15/2024 6:23 AM CDT 12/15/2024 6:36 AM CDT Narrative [facility] - 12/15/2024 6:58 AM CDT Negative results do not rule out infection. If clinically indicated, consider PCR testing which is more sensitive than antigen testing. If PCR testing is desired, consult with your local laboratory as sample recollection may be required. Daniel Austin MD MICROBIOLOGY - GENERAL ORD ERABLES Final Result Performing Organization Address [facility] Co de Phone Number [facility] # [id number] [address] [place] [phone] * XR CHEST PA OR AP 1 VW (12/15/2024 5:24 AM CDT) Anatomical Region Laterality Modality Chest Computed Radiogr aphy 12/15/2024 5:17 AM CDT Impressions 12/15/2024 7:23 AM CDT IMPRESSION: Borderline pulmonary venous hypertension. Chest is otherwise unremarkable. Narrative 12/15/2024 7:23 AM CDT Exam: Radiographs: XR CHEST PA OR AP 1 VW Indication: Shortness of breath Comparison: Chest x-ray dated 05/23/2023 Procedure Note Kailash Mcbride MD - 12/15/2024 Exam: Radiographs: XR CHEST PA OR AP 1 VW Indication: Shortness of breath Comparison: Chest x-ray dated 05/23/2023 IMPRESSION: Borderline pulmonary venous hypertension. Chest is otherwise unremarkable. Daniel Austin MD DIAGNOSTIC IMAGING ORDERAB LES Final Result * EKG (12/15/2024 5:15 AM CDT) Narrative Elizabeth Rodriguez MD - 12/15/2024 5:15 AM CDT Elizabeth Rodriguez MD 12/15/2024 8:50 AM EKG Date/Time: 12/15/2024 5:15 AM Performed by: Daniel Austin MD Authorized by: Daniel Austin MD ECG interpreted by ED Physician in the absence of a distribution specialist: yes Rate: ECG rate: 59 ECG rate assessment: bradycardic Rhythm: Rhythm Origin: sinus Rhythm morphology: narrow Comments: EKG shows mild sinus bradycardia and some chronic changes but no acute ischemia. Daniel Austin MD ECG ORDERABLES Final Resu lt * (ABNORMAL) COMPREHENSIVE METABOLIC PANEL (12/15/2024 4:55 AM CDT) SODIUM 132(L) 136 - 145 mmol/L 12/15/2024 5:19 AM CDT [facility] POTASSIUM 4.5 3.5 - 5.1 mmol/L 12/15/2024 5:19 AM [facility] Comment:Moderate hemolysis p resent. Can cause significant falsely elevated result. Redraw if indicated. CHLORIDE 95(L) 98 - 107 mmol/L 12/15/2024 5:19 AM [facility] CO2 26 22 - 29 mmol/L 12/15/2024 5:19 AM [facility] CALCIUM 9.2 8.8 - 10.2 mg/dL 12/15/2024 5:19 AM [facility] BUN 16 8 - 23 mg/dL 12/15/2024 5:19 AM [facility] CREATININE 0.88 0.51 - 0.95 mg/dL 12/15/2024 5:19 AM [facility] Comment:The GFR result is no t clinically significant on patients <18 or >70 years of age. GLUCOSE 124(H) 74 - 99 mg/dL 12/15/2024 5:19 AM [facility] TOTAL PROTEIN 6.8 6.6 - 8.7 g/dL 12/15/2024 5:19 AM [facility] ALBUMIN 4.0 3.5 - 5.2 g/dL 12/15/2024 5:19 AM [facility] BILIRUBIN TOTAL 0.5 0.0 - 1.2 mg/dL 12/15/2024 5:19 AM [facility] ALKALINE PHOSPHATASE 68 35 - 104 U/L 12/15/2024 5:19 AM [facility] AST 34 0 - 35 U/L 12/15/2024 5:19 AM [facility] Comment:Hemolysis present. R esult may be falsely elevated. ALT 16 0 - 35 U/L 12/15/2024 5:19 AM [facility] Comment:Hemolysis present. R esult may be falsely elevated. GFR >60 mL/min/1.7 3 sq meter 12/15/2024 5:19 AM [facility] Comment:eGFR calculated with 2020 CKD-EPI equation. Vegetarian diet, extremely high or low muscle mass, and may affect results. Cystatin C with Glomerular Filtration Rate is a suitable alternative for these patients. ANION GAP 11 5 - 20 mmol/L 12/15/2024 5:19 AM T [facility] Blood BLOOD SPECIMEN / Unknown Collection / Unknown 12/15/2024 4:55 AM CDT 12/15/2024 5:01 AM CDT Daniel uAstin MD CHEMISTRY ORDERABLES Final Result [facility] CLIA # [id number] [address] [place] [id number] * (ABNORMAL) CBC WITH DIFFERENTIAL (12/15/2024 4:55 AM CDT) WBC 13.8(H) 4.0 - 10.0 K/uL 12/15/2024 5:04 AM [facility] RBC 4.49 3.93 - 5.22 M/uL 12/15/2024 5:04 AM [facility] HEMOGLOBIN 13.0 11.2 - 15.7 g/dL 12/15/2024 5:04 AM [facility] HEMATOCRIT 37.3 34.1 - 44.9 % 12/15/2024 5:04 AM [facility] MCV 83.1 79.4 - 94.8 fL 12/15/2024 5:04 AM [facility] MCH 29.0 25.6 - 32.2 pg 12/15/2024 5:04 AM [facility] MCHC 34.9 32.2 - 35.5 g/dL 12/15/2024 5:04 AM [facility] RDW 12.7 11.0 - 14.5 % 12/15/2024 5:04 AM [facility] RDW-STDEV 38.6 36.9 - 56.9 fL 12/15/2024 5:04 AM [facility] PLATELETS 224 163 - 337 K/uL 12/15/2024 5:04 AM [facility] MPV 9.9(L) 10.0 - 14.8 fL 12/15/2024 5:04 AM T [facility] NEUTROPHILS 87(H) 34 - 71 % 12/15/2024 5:04 AM [facility] LYMPHOCYTES 6(L) 19 - 52 % 12/15/2024 5:04 AM [facility] MONOCYTES 6 5 - 13 % 12/15/2024 5:04 AM [facility] EOSINOPHILS 1 1 - 6 % 12/15/2024 5:04 AM [facility] BASOPHILS 0 0 - 1 % 12/15/2024 5:04 AM [facility] IMMATURE GRANULOCYTES 0 % 12/15/2024 5:04 AM [facility] NEUTROPHIL ABSOLUTE 11.98(H) 1.56 - 6.13 K/uL 12/15/2024 5:04 AM [facility] LYMPHOCYTE ABSOLUTE 0.82(L) 1.20 - 3.40 K/uL 12/15/2024 5:04 AM [facility] MONOCYTE ABSOLUTE 0.82(H) 0.24 - 0.36 K/uL 12/15/2024 5:04 AM [facility] EOSINOPHIL ABSOLUTE 0.11 0.04 - 0.36 K/uL 12/15/2024 5:04 AM [facility] BASOPHILS ABSOLUTE 0.04 0.01 - 0.08 K/uL 12/15/2024 5:04 AM [facility] IMMATURE GRANULOCYTES ABSOLUTE 0.04 K/uL 12/15/2024 5:04 AM [facility] Blood BLOOD SPECIMEN / Unknown Collection / Unknown 12/15/2024 4:55 AM CDT 12/15/2024 5:01 AM CDT us Daniel Austin MD HEMATOLOGY ORDERABLES Augusta potts Result [facility] CLIA # [id number] [address] [place] [id number] documented in this encounter Visit Diagnoses Diagnosis COPD with exacerbation ([facility]/HCC)- Primary Obstructive chronic bronchitis with exacerbation COPD with exacerbation (CMS/HCC) Obstructive chronic bronchitis with exacerbation Severe uncontrolled hypertension Unspecified essential hypertension Vitamin B12 deficiency (non anemic) Other B-complex deficiencies Essential hypertension Unspecified essential hypertension Severe uncontrolled hypertension Unspecified essential hypertension Patient understands importance of medication adherence documented in this encounter Administered Medications Inactive Administered Medications - up to 3 most recent administrations Medication Order MAR Action Action Date Dose Rate Site ALPRAZolam (XANAX) disintegrating tablet 0.5 mg 0.5 mg, Oral, TWO TIMES DAILY PRN, Starting on 12/15/24 at 1114, Until 12/16/24 at 1453, Anxiety, Routine, Previous Med: ALPRAZolam (XANAX) 0.5 mg tablet - Orig Sig - Take 1 Tablet (0.5 mg) by mouth 2 times daily as needed for Anxiety. Given 12/16/2024 8:10 AM CDT 0.5 mg Given 12/15/2024 8:47 PM CDT 0.5 mg amLODIPine (NORVASC) tablet 5 mg 5 mg, Oral, DAILY, First dose (after last modification) on 12/15/24 at 0615, Until Discontinued, Stat Given 12/15/2024 6:19 AM CDT 5 mg amLODIPine (NORVASC) tablet 5 mg 5 mg, Oral, DAILY, First dose on 12/16/24 at 0900, Until Discontinued, Routine, Previous Med: amLODIPine (NORVASC) 5 mg tablet - Orig Sig - Take 1 Tablet (5 mg) by mouth daily. Given 12/16/2024 8:10 AM CDT 5 mg aspirin (ECOTRIN EC) tablet 81 mg 81 mg, Oral, DAILY, First dose (after last modification) on 12/16/24 at 0900, Until Discontinued, Routine, Previous Med: aspirin (ECOTRIN EC) 81 mg Tablet, Delayed Release (E.C.) - Orig Sig - Take 1 Tablet by mouth daily. Patient not taking: Reported on 12/10/2024 Given 12/16/2024 8:09 AM CDT 81 mg azithromycin (ZITHROMAX) 500 mg in sodium chloride 0.9 % 250 mL IVPB 500 mg, IV, DAILY, First dose on 12/15/24 at 1130, Until Discontinued, Routine, Antibiotic Indication: Pneumonia - HAP/VAP New Bag 12/16/2024 8:18 AM CDT 500 mg 285 mL/hr New Bag 12/15/2024 12:37 PM CDT 500 mg 285 mL/hr cefTRIAXone (ROCEPHIN) 1,000 mg in sodium chloride 0.9% 50 mL IVPB (MBP) 1,000 mg, IV, DAILY, First dose on 12/15/24 at 1130, Until Discontinued, Routine, Antibiotic Indication: Pneumonia - Community-acquired(CAP) New Bag 12/16/2024 9:27 AM CDT 1,000 mg 118 mL/ hr New Bag 12/15/2024 11:57 AM CDT 1,000 mg 118 mL/hr clopidogreL (PLAVIX) tablet 75 mg 75 mg, Oral, DAILY, First dose on 12/15/24 at 1130, Until Discontinued, Routine, Previous Med: clopidogreL (PLAVIX) 75 mg Tablet - Orig Sig - Take 1 Tablet (75 mg) by mouth daily. Given 12/16/2024 8:09 AM CDT 75 mg Given 12/15/2024 12:14 PM CDT 75 mg dexAMETHasone (DECADRON) injection 10 mg 10 mg, IV, ONE TIME ONLY, 1 dose, On 12/15/24 at 0730, Routine Given 12/15/2024 7:30 AM CDT 10 mg dicyclomine (BENTYL) capsule 20 mg 20 mg, Oral, ONE TIME ONLY, 1 dose, On 12/15/24 at 0730, Routine Given 12/15/2024 7:28 AM CDT 20 mg DULoxetine (CYMBALTA) capsule 30 mg 30 mg, Oral, DAILY, First dose on 12/15/24 at 1130, Until Discontinued, Routine, Previous Med: DULoxetine (CYMBALTA) 30 mg Capsule, Delayed Release(E.C.) - Orig Sig - Take 1 Capsule (30 mg) by mouth daily. Dose increase Given 12/16/2024 8:0 9 AM CDT 30 mg Given 12/15/2024 12:15 PM CDT 30 mg enoxaparin (LOVENOX) injection 40 mg 40 mg, subCUT, EVERY 24 HOURS, First dose on 12/15/24 at 1145, Until Discontinued, Routine, Indication: Prophylaxis of VTE, Dose to be adjusted per facility protocol? Yes Given 12/16/2024 11:27 AM CDT 40 mg Abdomen, Right Lower Quadrant Given 12/15/2024 12:15 PM CDT 40 mg A bdominal Tissue famotidine (PEPCID) tablet 20 mg 20 mg, Oral, DAILY, First dose on 12/15/24 at 1130, Until Discontinued, Routine, Previous Med: famotidine (PEPCID) 20 mg tablet - Orig Sig - TAKE 1 TABLET BY MOUTH TWICE DAILY NEEDED FOR HEARTBURN/UPSET STOMACH Given 12/16/2024 8:09 AM CDT 20 mg Given 12/15/2024 12:14 PM CDT 20 mg fluticasone furoate-vilanteroL (BREO ELLIPTA) 100-25 mcg/dose inhaler 1 Puff 1 Puff, Inhalation, DAILY RESPIRATORY, First dose on 12/15/24 at 1215, Until Discontinued, Routine Given 12/16/2024 8:38 AM CDT 1 Puff fluticasone propionate (FLONASE) 50 mcg/spray nasal inhaler 2 [place], Both Nostrils, DAILY, First dose on 12/15/24 at 1130, Until Discontinued, Routine, Previous Med: fluticasone propionate (FLONASE) 50 mcg/spray [place], Suspension nasal inhaler - Orig Sig - Administer 2 Sprays in each nostril daily. Given 12/16/2024 8:11 AM CDT 2 Sprays Given 12/15/2024 11:54 AM CDT 2 Sprays furosemide (LASIX) tablet 20 mg 20 mg, Oral, DAILY, First dose on 12/15/24 at 1130, Until Discontinued, Routine, Previous Med: furosemide (LASIX) 20 mg tablet - Orig Sig - Take 1 Tablet (20 mg) by mouth daily. Given 12/15/2024 12:15 PM CDT 20 mg gabapentin (NEURONTIN) capsule 100 mg 100 mg, Oral, TWO TIMES DAILY, First dose on 12/15/24 at 1130, Until Discontinued, Routine, Previous Med: gabapentin (NEURONTIN) 100 mg capsule - Orig Sig - Take 1 Capsule (100 mg) by mouth 2 times daily. Patient not taking: Reported on 12/10/2024 Given 12/16/2024 8:09 AM CDT 100 mg hydrALAZINE (APRESOLINE) 20 mg/mL injection 10 mg 10 mg, IV, ONE TIME ONLY, 1 dose, On 12/15/24 at 0515, Routine Given 12/15/2024 5:13 AM CDT 10 mg hydrALAZINE (APRESOLINE) 20 mg/mL injection 10 mg 10 mg, IV, ONE TIME ONLY, 1 dose, On 12/15/24 at 0600, Routine Given 12/15/2024 6:15 AM CDT 10 mg hydrALAZINE (APRESOLINE) tablet 25 mg 25 mg, Oral, EVERY 6 HOURS PRN, Starting on 12/15/24 at 1223, Until 12/16/24 at 0727, Blood Pressure, >160 systolic or >100 diastolic, Routine Feeding Started 12/16/2024 5:37 AM CDT 25 mg Given 12/15/2024 4:13 PM CDT 25 mg hydrALAZINE (APRESOLINE) tablet 50 mg 50 mg, Oral, EVERY 6 HOURS PRN, Starting on 12/16/24 at 0727, Until 12/16/24 at 1453, Blood Pressure, >160 systolic or >100 diastolic, Routine HYDROcodone-acetaminophen (NORCO) 10-325 mg per tablet 1 Tablet 1 Tablet, Oral, EVERY 4 HOURS PRN, Starting on 12/15/24 at 1114, Until 12/16/24 at 1453, Pain, Moderate, Routine, Previous Med: HYDROcodone-acetaminophen (NORCO) 10-325 mg Tablet - Orig Sig - Take 1 Tablet by mouth every 4 hours as needed for Pain, Moderate. Max Daily Amount: 6 Tablets Given 12/15/2024 6:07 PM CDT 1 Tabl et Given 12/15/2024 12:55 PM CDT 1 Tablet HYDROcodone-acetaminophen (NORCO) 5-325 mg per tablet 1 Tablet 1 Tablet, Oral, ONE TIME ONLY, 1 dose, On 12/15/24 at 0615, Routine Given 12/15/2024 6:14 AM CDT 1 Tablet ipratropium bromide (ATROVENT) 0.02 % nebulizer solution 0.5 mg 0.5 mg, Inhalation, ONE TIME ONLY RESPIRATORY, 1 dose, On 12/15/24 at 0730, Routine Given 12/15/2024 7:28 AM CDT 0.5 mg ipratropium-albuteroL (DUONEB) 0.5 mg-3 mg(2.5 mg base)/3 mL inhalation solution 3 mL 3 mL, Inhalation, ONE TIME ONLY RESPIRATORY, 1 dose, On 12/15/24 at 0600, Routine Given 12/15/2024 5:58 AM CDT 3 mL ipratropium-albuteroL (DUONEB) 0.5 mg-3 mg(2.5 mg base)/3 mL inhalation solution 3 mL 3 mL, Inhalation, EVERY 6 HOURS RESPIRATORY, First dose on 12/15/24 at 1300, Until Discontinued, Routine Given 12/16/2024 8:37 AM CDT 3 mL Given 12/15/2024 7:29 PM CDT 3 mL Given 12/15/2024 1:28 PM CDT 3 mL isosorbide mononitrate (IMDUR) SR 24 hour tablet 60 mg 60 mg, Oral, DAILY, First dose on 12/15/24 at 0730, Until Discontinued, Routine Given 12/15/2024 7:28 AM CDT 60 mg isosorbide mononitrate (IMDUR) SR 24 hour tablet 60 mg 60 mg, Oral, DAILY EARLY, First dose on 12/16/24 at 0600, Until Discontinued, Routine, Previous Med: isosorbide mononitrate (IMDUR) 60 mg Extended Release 24 hour tablet - Orig Sig - Take 1 Tablet (60 mg) by mouth daily in the morning. Feeding Started 12/16/2024 5:26 AM CDT 60 mg levalbuterol (XOPENEX) 1.25 mg/3 mL inhalation solution 1.25 mg 1.25 mg, Inhalation, ONE TIME ONLY RESPIRATORY, 1 dose, On 12/15/24 at 0730, Routine Given 12/15/2024 7:28 AM CDT 1.25 mg LORazepam (ATIVAN) tablet 0.5 mg 0.5 mg, Oral, ONE TIME ONLY, 1 dose, On 12/15/24 at 0630, Routine Given 12/15/2024 6:28 AM CDT 0.5 mg methylPREDNISolone sodium succinate (SOLU-Medrol) 125 mg in sterile water 2 mL injection 125 mg, IV, ONE TIME ONLY, 1 dose, On 12/15/24 at 0600, Routine Given 12/15/2024 6:17 AM CDT 125 mg ondansetron (ZOFRAN ODT) tablet 8 mg 8 mg, Oral, EVERY 8 HOURS PRN, Starting on 12/16/24 at 0730, Until 12/16/24 at 1453, Nausea/Emesis, Routine Given 12/16/2024 8:09 AM CDT 8 mg ondansetron (ZOFRAN) 4 mg/2 mL injection 4 mg 4 mg, IV, ONE TIME ONLY, 1 dose, On 12/15/24 at 0730, Routine Given 12/15/2024 7:29 AM CDT 4 mg pantoprazole (PROTONIX) tablet 40 mg 40 mg, Oral, DAILY, First dose on 12/15/24 at 1130, Until Discontinued, Routine, Previous Med: pantoprazole (PROTONIX) 40 mg Tablet, Delayed Release (E.C.) - Orig Sig - Take 1 Tablet (40 mg) by mouth daily. , Indication: Other, Indication: home med Given 12/16/2024 9:05 AM CDT 40 mg polyethylene glycol (MIRALAX) packet 17 Gram 17 Gram, Oral, DAILY, First dose on 12/15/24 at 1130, Until Discontinued, Routine, Previous Med: polyethylene glycol 3350 (MIRALAX) 17 gram/dose Powder - Orig Sig - Take 1 Scoop (17 Grams) by mouth daily. Given 12/16/2024 8:08 AM CDT 17 Grams Given 12/15/2024 11:55 AM CDT 17 Grams predniSONE (DELTASONE) tablet 20 mg 20 mg, Oral, DAILY WITH BREAKFAST, First dose on 12/16/24 at 0800, Until Discontinued, Routine Given 12/16/2024 8:09 AM CDT 20 mg simethicone chewable tablet 120 mg 120 mg (rounded from 125 mg), Oral, FOUR TIMES DAILY BEFORE MEALS AND AT BEDTIME, First dose on 12/16/24 at 0845, Until Discontinued, Routine Given 12/16/2024 11:26 AM CDT 120 mg Given 12/16/2024 9:05 AM CDT 120 mg sodium chloride 0.9 % flush bag 25 mL 25 mL, IV, SEE ADMIN INSTRUCTIONS, Starting on 12/15/24 at 1141, Until 12/16/24 at 1453, Routine Restarted 12/16/2024 9:25 AM CDT 200 mL/hr New Bag 12/16/2024 8:16 AM CDT 25 mL 250 mL/hr New Bag 12/15/2024 12:36 PM CDT 25 mL 200 mL/hr sodium chloride flush injection 10 mL 10 mL, IV, EVERY 12 HOURS (BlD), First dose on 12/15/24 at 1145, Until Discontinued, Routine Given 12/16/2024 8:09 AM CDT 10 mL Given 12/15/2024 8:47 PM CDT 10 mL Given 12/15/2024 11:59 AM CDT 10 mL valsartan (DIOVAN) tablet 160 mg 160 mg, Oral, TWO TIMES DAILY, First dose on 12/15/24 at 1130, Until Discontinued, Routine, Previous Med: valsartan (DIOVAN) 160 mg tablet - Orig Sig - Take 1 Tablet (160 mg) by mouth 2 times daily. Given 12/16/2024 8:09 AM CDT 160 mg Given 12/15/2024 8:47 PM CDT 160 mg Given 12/15/2024 12:14 PM CDT 160 mg documented in this encounter Active and Recently Administered Medications Times are shown in CDT. Scheduled Medication Order 12/14/2024 12/15/2024 12/16/2024 albuterol sulfate 90 mcg/Actuation inhaler 2 Puff 2 Puff, Inhalation, SEE ADMIN INSTRUCTIONS, Starting on 12/15/24 at 1115, Until 12/16/24 at 1453, Routine, Previous Med: Ventolin HFA 90 mcg/actuation inhaler - Orig Sig - INHALE 2 PUFFS BY MOUTH EVERY 6 HOURS NEEDED FOR SHORTNESS OF BREATH amLODIPine (NORVASC) tablet 5 mg (CANCELED) 5 mg, Oral, DAILY, First dose (after last modification) on 12/15/24 at 0615, Until Discontinued, Stat 0619 (Given - Provider: Jinny Hernández RN) amLODIPine (NORVASC) tablet 5 mg 5 mg, Oral, DAILY, First dose on 12/16/24 at 0900, Until Discontinued, Routine, Previous Med: amLODIPine (NORVASC) 5 mg tablet - Orig Sig - Take 1 Tablet (5 mg) by mouth daily. 0810 (Given - Provid er: Monica Delvalle RN) aspirin (ECOTRIN EC) tablet 81 mg 81 mg, Oral, DAILY, First dose (after last modification) on 12/16/24 at 0900, Until Discontinued, Routine, Previous Med: aspirin (ECOTRIN EC) 81 mg Tablet, Delayed Release (E.C.) - Orig Sig - Take 1 Tablet by mouth daily. Patient not taking: Reported on 12/10/2024 0809 (Given - Provid er: Monica Delvalle RN) azithromycin (ZITHROMAX) 500 mg in sodium chloride 0.9 % 250 mL IVPB 500 mg, IV, DAILY, First dose on 12/15/24 at 1130, Until Discontinued, Routine, Antibiotic Indication: Pneumonia - HAP/VAP 1237 (New Bag - Provider: Aylin Bourgeois RN)1337 (Stopped - Provider: Monica Delvalle RN) 0818 (New Bag - Provider: Monica Delvalle RN)0918 (Stopped - Provider: Monica Delvalle RN) buPROPion HCL (WELLBUTRIN SR) 12 hour tablet 150 mg 150 mg, Oral, TWO TIMES DAILY, First dose on 12/15/24 at 1130, Until Discontinued, Routine, Previous Med: buPROPion HCL (Wellbutrin SR) 150 mg Sustained Release 12 hour tablet - Orig Sig - Take 1 Tablet (150 mg) by mouth 2 times daily. Dose increase Patient not taking: Reported on 12/10/2024 , On hold since 12/15/2024 at 1124 until manually unheld 1124 (Held by Provider - Provider: KHADRA Hurley - Reason: Other - See Comment)1130 (Automatically Held)2100 (Automatically Held) 0900 (Automatically Held)1453 (Order Unhold - Provider: PROVIDER, DISCHARGE PATIENT) cefTRIAXone (ROCEPHIN) 1,000 mg in sodium chloride 0.9% 50 mL IVPB (MBP) 1,000 mg, IV, DAILY, First dose on 12/15/24 at 1130, Until Discontinued, Routine, Antibiotic Indication: Pneumonia - Community-acquired(CAP) 1157 (New Bag - Provider: Monica Delvalle RN)1227 (Stopped - Provider: Aylin Bourgeois RN) 0927 (New Bag - Provider: Aylin Bourgeois RN)0957 (Stopped - Provider: Monica Delvalle RN) clopidogreL (PLAVIX) tablet 75 mg 75 mg, Oral, DAILY, First dose on 12/15/24 at 1130, Until Discontinued, Routine, Previous Med: clopidogreL (PLAVIX) 75 mg Tablet - Orig Sig - Take 1 Tablet (75 mg) by mouth daily. 1214 (Given - Provider: Monica Delvalle RN) 0809 (Given - Provider: Monica Delvalle RN) cyanocobalamin (VITAMIN B-12) injection 1,000 mcg 1,000 mcg, IM, EVERY MONTH, 11 doses, First dose (after last reorder) on Maria T 12/20/24 at 1130, Last dose on 10/16/25 at 1130, Routine, On hold since 12/15/2024 at 1124 until manually unheld 1124 (Held by Provider - Provider: KHADRA Hurley - Reason: Other - See Comment) 1453 (Order Unhold - Provider: PROVIDER, DISCHARGE PATIENT) dexAMETHasone (DECADRON) injection 10 mg (COMPLETED) 10 mg, IV, ONE TIME ONLY, 1 dose, On 12/15/24 at 0730, Routine 0730 (Given - Provider: Braden Beard RN) dextrose 5 % in water 250 mL flush bag 25 mL 25 mL, IV, SEE ADMIN INSTRUCTIONS, Starting on 12/15/24 at 1141, Until 12/16/24 at 1453, Routine dicyclomine (BENTYL) capsule 20 mg (COMPLETED) 20 mg, Oral, ONE TIME ONLY, 1 dose, On 12/15/24 at 0730, Routine 0728 (Given - Provider: Braden Beard RN) DULoxetine (CYMBALTA) capsule 30 mg 30 mg, Oral, DAILY, First dose on 12/15/24 at 1130, Until Discontinued, Routine, Previous Med: DULoxetine (CYMBALTA) 30 mg Capsule, Delayed Release(E.C.) - Orig Sig - Take 1 Capsule (30 mg) by mouth daily. Dose increase 1215 (Given - Provider: Monica Delvalle RN) 0809 (Given - Provider: Monica Delvalle RN) enoxaparin (LOVENOX) injection 40 mg 40 mg, subCUT, EVERY 24 HOURS, First dose on 12/15/24 at 1145, Until Discontinued, Routine, Indication: Prophylaxis of VTE, Dose to be adjusted per facility protocol? Yes 1215 (Given - Provider: Monica Delvalle RN) 1127 (Given - Provider: Aylin Bourgeois RN) famotidine (PEPCID) tablet 20 mg 20 mg, Oral, DAILY, First dose on 12/15/24 at 1130, Until Discontinued, Routine, Previous Med: famotidine (PEPCID) 20 mg tablet - Orig Sig - TAKE 1 TABLET BY MOUTH TWICE DAILY NEEDED FOR HEARTBURN/UPSET STOMACH 1214 (Given - Provider: Monica Delvalle RN) 0809 (Given - Provider: Monica Delvalle RN) fluticasone furoate-vilanteroL (BREO ELLIPTA) 100-25 mcg/dose inhaler 1 Puff 1 Puff, Inhalation, DAILY RESPIRATORY, First dose on 12/15/24 at 1215, Until Discontinued, Routine 1215 (Not Given - Provider: Bee Cortes RCP - Reason: Other - See Comment - Comment: bid - will be started tonight) 0838 (Given - Provider: Darren Cortes RCP) fluticasone propionate (FLONASE) 50 mcg/spray nasal inhaler 2 [place] 2 [place], Both Nostrils, DAILY, First dose on 12/15/24 at 1130, Until Discontinued, Routine, Previous Med: fluticasone propionate (FLONASE) 50 mcg/spray [place], Suspension nasal inhaler - Orig Sig - Administer 2 Sprays in each nostril daily. 1154 (Given - Provider: Monica Delvalle RN) 0811 (Given - Provider: Monica Delvalle RN) furosemide (LASIX) tablet 20 mg (CANCELED) 20 mg, Oral, DAILY, First dose on 12/15/24 at 1130, Until Discontinued, Routine, Previous Med: furosemide (LASIX) 20 mg tablet - Orig Sig - Take 1 Tablet (20 mg) by mouth daily. 1215 (Given - Provider: Monica Delvalle RN) gabapentin (NEURONTIN) capsule 100 mg 100 mg, Oral, TWO TIMES DAILY, First dose on 12/15/24 at 1130, Until Discontinued, Routine, Previous Med: gabapentin (NEURONTIN) 100 mg capsule - Orig Sig - Take 1 Capsule (100 mg) by mouth 2 times daily. Patient not taking: Reported on 12/10/2024 1124 (Held by Provider - Provider: KHADRA Hurley - Reason: Other - See Comment)1130 (Automatically Held)2100 (Automatically Held) 0726 (Order Unhold - Provider: Elizabeth Rodriguez MD)0809 (Given - Provider: Monica Delvalle RN) hydrALAZINE (APRESOLINE) 20 mg/mL injection 10 mg (COMPLETED) 10 mg, IV, ONE TIME ONLY, 1 dose, On 12/15/24 at 0515, Routine 0513 (Given - Provider: Jinny Hernández, ADRIANNA) hydrALAZINE (APRESOLINE) 20 mg/mL injection 10 mg (COMPLETED) 10 mg, IV, ONE TIME ONLY, 1 dose, On 12/15/24 at 0600, Routine 0615 (Given - Provider: Jinny Hernández, ADRIANNA) HYDROcodone-acetaminophen (NORCO) 5-325 mg per tablet 1 Tablet (COMPLETED) 1 Tablet, Oral, ONE TIME ONLY, 1 dose, On 12/15/24 at 0615, Routine 0614 (Given - Provider: Jinny Hernández, ADRIANNA) ipratropium bromide (ATROVENT) 0.02 % nebulizer solution 0.5 mg (COMPLETED) 0.5 mg, Inhalation, ONE TIME ONLY RESPIRATORY, 1 dose, On 12/15/24 at 0730, Routine 0728 (Given - Provider: Braden Beard RN) ipratropium-albuteroL (DUONEB) 0.5 mg-3 mg(2.5 mg base)/3 mL inhalation solution 3 mL (COMPLETED) 3 mL, Inhalation, ONE TIME ONLY RESPIRATORY, 1 dose, On 12/15/24 at 0600, Routine 0558 (Given - Provider: Debra Ford RCP) ipratropium-albuteroL (DUONEB) 0.5 mg-3 mg(2.5 mg base)/3 mL inhalation solution 3 mL 3 mL, Inhalation, EVERY 6 HOURS RESPIRATORY, First dose on 12/15/24 at 1300, Until Discontinued, Routine 1328 (Given - Provider: Bee Cortes RCP)1929 (Given - Provider: Debra Ford RCP) 0100 (Not Given - Provider: Debra Ford RCP - Reason: Patient asleep)0837 (Given - Provider: Darren Cortes RCP) isosorbide mononitrate (IMDUR) SR 24 hour tablet 60 mg (CANCELED) 60 mg, Oral, DAILY, First dose on 12/15/24 at 0730, Until Discontinued, Routine 0728 (Given - Provider: Braden Beard RN) isosorbide mononitrate (IMDUR) SR 24 hour tablet 60 mg 60 mg, Oral, DAILY EARLY, First dose on 12/16/24 at 0600, Until Discontinued, Routine, Previous Med: isosorbide mononitrate (IMDUR) 60 mg Extended Release 24 hour tablet - Orig Sig - Take 1 Tablet (60 mg) by mouth daily in the morning. 0526 (Feeding Starte d - Provider: Lynn Barrera RN) levalbuterol (XOPENEX) 1.25 mg/3 mL inhalation solution 1.25 mg (COMPLETED) 1.25 mg, Inhalation, ONE TIME ONLY RESPIRATORY, 1 dose, On 12/15/24 at 0730, Routine 0728 (Given - Provider: Braden Beard RN) LORazepam (ATIVAN) tablet 0.5 mg (COMPLETED) 0.5 mg, Oral, ONE TIME ONLY, 1 dose, On 12/15/24 at 0630, Routine 0628 (Given - Provider: Jinny Hernández RN) lubiprostone (AMITIZA) capsule 24 mcg 24 mcg, Oral, TWO TIMES DAILY WITH MEALS, First dose on 12/15/24 at 1130, Until Discontinued, Routine, Previous Med: lubiprostone (AMITIZA) 24 mcg Capsule - Orig Sig - Take 1 Capsule (24 mcg) by mouth 2 times daily with meals. Patient not taking: Reported on 12/10/2024 , On hold since 12/15/2024 at 1124 until manually unheld 1124 (Held by Provider - Provider: KHADRA Hurley - Reason: Other - See Comment)1130 (Automatically Held)1700 (Automatically Held) 0800 (Automatically Held)1453 (Order Unhold - Provider: PROVIDER, DISCHARGE PATIENT) methylPREDNISolone sodium succinate (SOLU-Medrol) 125 mg in sterile water 2 mL injection (COMPLETED) 125 mg, IV, ONE TIME ONLY, 1 dose, On 12/15/24 at 0600, Routine 0617 (Given - Provider: Jinny Heránndez RN) metoprolol tartrate (LOPRESSOR) tablet 50 mg 50 mg, Oral, TWO TIMES DAILY, First dose on 12/15/24 at 1130, Until Discontinued, Routine, Previous Med: metoprolol tartrate (LOPRESSOR) 50 mg tablet - Orig Sig - Take 1 Tablet (50 mg) by mouth 2 times daily. , On hold since 12/15/2024 at 1124 until manually unheld 1124 (Held by Provider - Provider: KHADRA Hurley - Reason: Other - See Comment)1130 (Automatically Held)2100 (Automatically Held) 0900 (Automatically Held)1453 (Order Unhold - Provider: PROVIDER, DISCHARGE PATIENT) miconazole nitrate (REMEDY-AF,ZEASORB-AF) 2 % topical powder Topical, SEE ADMIN INSTRUCTIONS, Starting on 12/15/24 at 1116, Until 12/16/24 at 1453, Previous Med: nystatin (NYSTOP) 100,000 unit/gram powder - Orig Sig - Apply to affected area 2 times daily. , On hold since 12/15/2024 at 1124 until manually unheld 1124 (Held by Provider - Provider: KHADRA Hurley - Reason: Other - See Comment) 1453 (Order Unhold - Provider: PROVIDER, DISCHARGE PATIENT) naloxone (NARCAN) 0.4 mg/mL injection 0.1-0.4 mg 0.1-0.4 mg, IV, SEE ADMIN INSTRUCTIONS, Starting on 12/15/24 at 1141, Until 12/16/24 at 1453, Routine ondansetron (ZOFRAN) 4 mg/2 mL injection 4 mg (COMPLETED) 4 mg, IV, ONE TIME ONLY, 1 dose, On 12/15/24 at 0730, Routine 0729 (Given - Provider: Braden Beard RN) pantoprazole (PROTONIX) tablet 40 mg 40 mg, Oral, DAILY, First dose on 12/15/24 at 1130, Until Discontinued, Routine, Previous Med: pantoprazole (PROTONIX) 40 mg Tablet, Delayed Release (E.C.) - Orig Sig - Take 1 Tablet (40 mg) by mouth daily. , Indication: Other, Indication: home med 1124 (Held by Provider - Provider: KHADRA Hurley - Reason: Other - See Comment)1130 (Automatically Held) 0841 (Order Unhold - Provider: KHADRA Hurley)0905 (Given - Provider: Aylin Bourgeois RN) polyethylene glycol (MIRALAX) packet 17 Gram 17 Gram, Oral, DAILY, First dose on 12/15/24 at 1130, Until Discontinued, Routine, Previous Med: polyethylene glycol 3350 (MIRALAX) 17 gram/dose Powder - Orig Sig - Take 1 Scoop (17 Grams) by mouth daily. 1155 (Given - Provider: Monica Delvalle RN) 0808 (Given - Provider: Monica Delvalle RN) predniSONE (DELTASONE) tablet 20 mg 20 mg, Oral, DAILY WITH BREAKFAST, First dose on 12/16/24 at 0800, Until Discontinued, Routine 0809 (Given - Provid er: Monica Delvalle RN) simethicone chewable tablet 120 mg 120 mg (rounded from 125 mg), Oral, FOUR TIMES DAILY BEFORE MEALS AND AT BEDTIME, First dose on 12/16/24 at 0845, Until Discontinued, Routine 0905 (Given - Provid er: Aylin Bourgeois RN)1126 (Given - Provider: Aylin Bourgeois RN) sodium chloride 0.9 % flush bag 25 mL 25 mL, IV, SEE ADMIN INSTRUCTIONS, Starting on 12/15/24 at 1141, Until 12/16/24 at 1453, Routine 1236 (New Bag - Provider: Aylin Bourgeois RN) 0816 (New Bag - Provider: Monica Delvalle RN)0925 (Restarted - Provider: Aylin Bourgeois RN) sodium chloride flush injection 10 mL 10 mL, IV, EVERY 12 HOURS (BlD), First dose on 12/15/24 at 1145, Until Discontinued, Routine 1159 (Given - Provider: Monica Delvalle RN)2047 (Given - Provider: Lynn Barrera RN) 0809 (Given - Provider: Monica Delvalle RN) sodium chloride flush injection 10 mL 10 mL, IV, SEE ADMIN INSTRUCTIONS, Starting on 12/15/24 at 1141, Until 12/16/24 at 1453, Routine valsartan (DIOVAN) tablet 160 mg 160 mg, Oral, TWO TIMES DAILY, First dose on 12/15/24 at 1130, Until Discontinued, Routine, Previous Med: valsartan (DIOVAN) 160 mg tablet - Orig Sig - Take 1 Tablet (160 mg) by mouth 2 times daily. 121 (Given - Provider: Monica Delvalle RN)2046 (Given - Provider: Lynn Barrera RN) 0809 (Given - Provider: Monica Delvalle RN) PRN Medication Order 12/14/2024 12/15/2024 12/16/2024 ALPRAZolam (XANAX) disintegrating tablet 0.5 mg 0.5 mg, Oral, TWO TIMES DAILY PRN, Starting on 12/15/24 at 1114, Until 12/16/24 at 1453, Anxiety, Routine, Previous Med: ALPRAZolam (XANAX) 0.5 mg tablet - Orig Sig - Take 1 Tablet (0.5 mg) by mouth 2 times daily as needed for Anxiety. 2046 (Given - Provider: Lynn Barrera RN) 08 (Given - Provider: Monica Delvalle RN) docusate sodium (COLACE) capsule 100 mg 100 mg, Oral, THREE TIMES DAILY PRN, Starting on 12/15/24 at 1115, Until 12/16/24 at 1453, Constipation, Routine, Previous Med: docusate sodium (COLACE) 100 mg capsule - Orig Sig - Take 1 Capsule (100 mg) by mouth 3 times daily as needed for Constipation. Patient not taking: Reported on 12/10/2024 , On hold since 12/15/2024 at 1124 until manually unheld 1124 (Held by Provider - Provider: KHADRA Hurley - Reason: Other - See Comment) 1453 (Order Unhold - Provider: PROVIDER, DISCHARGE PATIENT) hydrALAZINE (APRESOLINE) tablet 25 mg (CANCELED) 25 mg, Oral, EVERY 6 HOURS PRN, Starting on 12/15/24 at 1223, Until 12/16/24 at 0727, Blood Pressure, >160 systolic or >100 diastolic, Routine 1613 (Given - Provider: Monica Delvalle RN) 0537 (Feeding Started - Provider: Lynn Barrera RN) hydrALAZINE (APRESOLINE) tablet 50 mg 50 mg, Oral, EVERY 6 HOURS PRN, Starting on 12/16/24 at 0727, Until 12/16/24 at 1453, Blood Pressure, >160 systolic or >100 diastolic, Routine HYDROcodone-acetaminophen (NORCO) 10-325 mg per tablet 1 Tablet 1 Tablet, Oral, EVERY 4 HOURS PRN, Starting on 12/15/24 at 1114, Until 12/16/24 at 1453, Pain, Moderate, Routine, Previous Med: HYDROcodone-acetaminophen (NORCO) 10-325 mg Tablet - Orig Sig - Take 1 Tablet by mouth every 4 hours as needed for Pain, Moderate. Max Daily Amount: 6 Tablets 1255 (Given - Provider: Monica Delvalle RN)1807 (Given - Provider: Monica Delvalle RN) ondansetron (ZOFRAN ODT) tablet 8 mg 8 mg, Oral, EVERY 8 HOURS PRN, Starting on 12/16/24 at 0730, Until 12/16/24 at 1453, Nausea/Emesis, Routine 0809 (Given - Provid er: Monica Delvalle RN) documented in this encounter Additional Health Concerns Active Problems Noted Date Diagnosed Date Autogenerated Problem 11/29/2024 Infection Onset Date Last Indicated Resolved Time R/O COVID-19 12/15/2024 12/15/2024 12/15/2024 6:09 AM CDT R/O COVID-19 12/15/2024 12/15/2024 12/15/2024 6:58 AM CDT documented as of this encounter Care Teams Barrel Drainer Relationship Specialty Start Date End Date Kem Portillo MD [address] [id number] PCP - General Family Practice 09/02/21 documented as of this encounter
--- OUTSIDE RECORDS SUMMARY | 2024-12-17 10:51 | XMS_ITS | Encounter Summary ---
Author Organization [facility] Address [address] [place] [address] Care Team Providers Care Itinerant Teacher Assistant Name Role Phone Kem Portillo MD Primary Care Provider +1 [phone] Reason for Referral * Radiology Services (Urgent) - Closed Specialty Diagnoses / Procedures Referred By Contac t Referred To Contact Radiology Diagnoses Gastroesophageal reflux disease without esophagitis Mesenteric angina Procedures US MESENTERIC ARTERY Pino Mitchell MD [address] [place] [phone] Phone: tel: fax: [facility] Ultrasound [address] [place] [address] Phone: tel: fax: Referral ID Status Reason Start Date Expiration Date Visits Re quested Visits Authorized [id number] Closed 12/11/2024 01/11/2026 1 1 Reason for Visit * Radiology Services (Urgent) - Closed Specialty Diagnoses / Procedures Referred By Contac t Referred To Contact Radiology Diagnoses Gastroesophageal reflux disease without esophagitis Mesenteric angina Procedures US MESENTERIC ARTERY Pino Mitchell MD [address] [place] [phone] Phone: tel: fax: [facility] Ultrasound [address] [place] [address] Phone: tel: fax: Referral ID Status Reason Start Date Expiration Date Visits Re quested Visits Authorized [id number] Closed 12/11/2024 01/11/2026 1 1 Encounter Details Date Type Department Care Team (Late st Contact Info) Description 12/17/2024 10:51 AM CDT - 12/17/2024 11:59 PM CDT Hospital Encounter [facility] Ultrasound [address] [place] [address] Pino Mitchell MD [address] [facility] [facility] [address] [place] [address] Arrived Discharge Disposition: Home or Self Care Social [...] declined 01/14/2020 How often do you attend mandaeism or episcopal serv ices? Patient declined 01/14/2020 Do you belong to any clubs o r organizations such as mandaeism groups, unions, fraternal or athletic groups, or [...] worry about transportation for future doctor visits, mixing picker tender medication, etc.? No 2024 Housing Stability Answer [...] on file Legal Sex Female 12:40 AM HEEL STIFFENER Gender Identity Not on file Sexual Orientation Not on file documented as of this encounter Medications at Time of Discharge [...] Tablet 12/12/2024 fluticasone propionate (FLONASE) 50 mcg/spray [place], Suspension nasal inhalerIndications: Dysfunction of Eustachian tube, [...] mg) by mouth daily. 30 Tablet 12/10/2024 5 DULoxetine (CYMBALTA) 30 mg Capsule, Delayed Release(E.C.)Indica [...] daily. 06/28/2023 documented as of this encounter Plan of Treatment Upcoming Encounters Date Type Department Care Team (Latest Contact Info) Description 12/19/2024 10:20 AM CDT Office Visit [facility] [address] [phone] Marika Quintero FNP [address] [address] 12/25/2024 3:20 PM CDT Office Visit [facility] [address] [place] [address] Kem Portillo MD [address] [place] [address] 02/05/2025 10:20 AM HEEL STIFFENER Hospital Encounter [facility] Endoscopy [address] [place] [address] Alex Berg MD [address] [address] 02/05/2025 10:20 AM HEEL STIFFENER - 02/05/2025 10:40 AM HEEL STIFFENER Surgery [facility] Endoscopy [address] [place] [address] Alex Berg MD [address] [address] ESOPHAGOGASTRODUODENOSCOPY Scheduled Procedures Name Priority Associated Diagnoses Date/Ti ok ESOPHAGOGASTRODUODENOSCOPY Dysphagia, unspecified type; Black tarry stools 02/05/2025 10:20 AM HEEL STIFFENER COLONOSCOPY Dysphagia, unspecified type; Black tarry stools 02/05/2025 10:20 AM HEEL STIFFENER documented as of this encounter Goals Goal Patient Goal Type Associated Problems Recent Progress Patient-Stated? Author Autogenera carlos Goal Care Plan Autogenerated Problem Lynn Carcamo RN documented as of this encounter Procedures Procedure Name Priority Date/Time Associated Diagnosis Comments US MESENTERIC ARTERY Stat 12/17/2024 11:33 AM CDT Gastroesophageal reflux disease without esophagitis Mesenteric angina documented in this encounter Results * US MESENTERIC ARTERY (12/17/2024 11:33 AM CDT) Anatomical Region Laterality Modality Abdomen Ultrasound 12/17/2024 11:3 3 AM CDT Impressions 12/17/2024 11:58 AM CDT IMPRESSION: 1. Celiac velocities are mildly increased. Possible stenosis as mentioned on prior CT. 2. SMA stent is patent with normal velocity. Narrative 12/17/2024 11:58 AM CDT Exam: US MESENTERIC ARTERY Date/Time of Exam: 12/17/2024 11:33 AM Reason For Exam: See Diagnosis. Diagnosis: Gastroesophageal reflux disease without esophagitis; Mesenteric angina. Comparison: CT November 23, 2024 Findings: The peak systolic velocity within the aorta is measured at 0.86 m/s. SMA stent. The peak systolic velocity within the superior mesenteric artery is measured at 2.1 m/s (Normal <2.75 m/s). The superior mesenteric artery to aorta ratio is 2.4 (Normal <3.0). The peak systolic velocity within the celiac artery is measured at 2.4 m/s (Normal <2.0 m/s). The celiac artery to aorta ratio is 2.8 (Normal <3.0). The superior mesenteric vein is Patent. Procedure Note Jaylene Danielle MD - 12/17/2024 Exam: US MESENTERIC ARTERY Date/Time of Exam: 12/17/2024 11:33 AM Reason For Exam: See Diagnosis. Diagnosis: Gastroesophageal reflux disease without esophagitis; Mesenteric angina. Comparison: CT November 23, 2024 Findings: The peak systolic velocity within the aorta is measured at 0.86 m/s. SMA stent. The peak systolic velocity within the superior mesenteric artery is measured at 2.1 m/s (Normal <2.75 m/s). The superior mesenteric artery to aorta ratio is 2.4 (Normal <3.0). The peak systolic velocity within the celiac artery is measured at 2.4 m/s (Normal <2.0 m/s). The celiac artery to aorta ratio is 2.8 (Normal <3.0). The superior mesenteric vein is Patent. IMPRESSION: 1. Celiac velocities are mildly increased. Possible stenosis as mentioned on prior CT. 2. SMA stent is patent with normal velocity. us Pino Mitchell MD ORDERABLES Final R esult documented in this encounter Visit Diagnoses Diagnosis Gastroesophageal reflux disease without esophagitis Esophageal reflux Mesenteric angina Chronic vascular insufficiency of intestine documented in this encounter Additional Health Concerns Active Problems Noted Date Diagnosed Date Autogenerated Problem 11/29/2024 documented as of this encounter Care Teams Itinerant Teacher Assistant Relationship Specialty Start Date End Date Kem Portillo MD [address] [facility] [address] [place] [address] PCP - General Family Practice 09/02/21 documented as of this encounter
[2024-12-18 08:41] VITALS: BP 165/96; PULSE 84; RESP 16; TEMP 36.7; O2SAT 93; BMI 27.9
--- NOTE | 2024-12-18 08:42 | ECG_ITS ---
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 Measurements Intervals [place] Rate: 84 P: -88 NH: 99 QRS: -37 QRSD: 98 T: 49 QT: 380 QTc: 451 Interpretive Statements JUNCTIONAL RHYTHM/ Ectopic atrial rhythm LEFT AXIS DEVIATION [QRS AXIS < -30] SEPTAL MYOCARDIAL INFARCTION , OF INDETERMINATE AGE [40+ ms Q WAVE IN V1/V2] Compared to ECG 07/19/2024 17:04:59 Junctional rhythm now present Left-axis deviation now present Sinus rhythm no longer present T-wave abnormality no longer present Possible ischemia no longer present Myocardial infarct finding still present Electronically Signed On 12-18-2024 15:36:13 CDT by Chandu Cates M.D. [id number]
--- NOTE | 2024-12-18 08:48 | XRR_ITS ---
PROCEDURE INFORMATION: Exam: XR Chest Exam date and time: 12/18/2024 09:06 AM Age: 74 years old Clinical indication: Pain; Angina pectoris; Additional info: Chest pain TECHNIQUE: Imaging protocol: Radiologic exam of the chest. Views: 1 view. COMPARISON: CR XR chest 1V portable [id number] 07/19/2024 01:07 PM FINDINGS: Lungs: Unremarkable. No consolidation. Pleural spaces: Unremarkable. No pleural effusion. No pneumothorax. Heart/Mediastinum: Cardiac size and configuration is within normal limits. Vasculature: Atherosclerotic vascular disease. Bones/joints: Degenerative changes of the spine. Osteopenia. XR/XR chest 1V portable [id number] IMPRESSION: No acute process.
--- OUTSIDE RECORDS SUMMARY | 2024-12-18 09:13 | XMS_ITS | Encounter Summary ---
Author Organization [facility] Address [address] [facility] Attn: [place] [address] Care Team Providers Care Game Breeding Farm Manager Name Role Phone Kem Portillo MD Primary Care Provider [phone] [phone] Encounter Details Date Type Department Care Team (Latest Contact Info) Description 12/15/2024 Travel Social History Tobacco Use Types Packs/Day Years [...] declined 01/14/2020 How often do you attend synagogue or jainism serv ices? Patient declined 01/14/2020 Do you belong to any clubs o r organizations such as synagogue groups, unions, fraternal or athletic groups, or [...] worry about transportation for future doctor visits, pick up truck driver medication, etc.? No 2024 Housing Stability Answer [...] on file Legal Sex Female 12:40 AM LEADERSHIP DEVELOPMENT INSTRUCTOR Gender Identity Not on file Sexual Orientation Not on file documented as of this encounter Plan of Treatment Upcoming Encounters Date Type Department Care Team (Latest Contact Info) Description 12/19/2024 10:20 AM CDT Office Visit [facility] [address] [address] Marika Quintero FNP [address] [address] 12/25/2024 3:20 PM CDT Office Visit [facility] [address] [address] Kem Portillo MD [address] [address] 02/05/2025 10:20 AM LEADERSHIP DEVELOPMENT INSTRUCTOR Hospital Encounter [facility] Endoscopy [address] [place] [address] Alex Berg MD [address] [address] 02/05/2025 10:20 AM LEADERSHIP DEVELOPMENT INSTRUCTOR - 02/05/2025 10:40 AM LEADERSHIP DEVELOPMENT INSTRUCTOR Surgery [facility] Endoscopy [address] [place] [address] Alex Berg MD [address] [address] ESOPHAGOGASTRODUODENOSCOPY Scheduled Procedures Name Priority Associated Diagnoses Date/Ti il ESOPHAGOGASTRODUODENOSCOPY Dysphagia, unspecified type; Black tarry stools 02/05/2025 10:20 AM LEADERSHIP DEVELOPMENT INSTRUCTOR COLONOSCOPY Dysphagia, unspecified type; Black tarry stools 02/05/2025 10:20 AM LEADERSHIP DEVELOPMENT INSTRUCTOR documented as of this encounter Goals Goal Patient Goal Type Associated Problems Recent Progress Patient-Stated? Author Autogenera carlos Goal Care Plan Autogenerated Problem Lynn Carcamo RN documented as of this encounter Visit Diagnoses Not on filedocumented in this encounter Additional Health Concerns Active Problems Noted Date Diagnosed Date Autogenerated Problem 11/29/2024 Infection Onset Date Last Indicated Resolved Time R/O COVID-19 12/15/2024 12/15/2024 12/15/2024 6:09 AM CDT R/O COVID-19 12/15/2024 12/15/2024 12/15/2024 6:58 AM CDT documented as of this encounter Care Teams Game Breeding Farm Manager Relationship Specialty Start Date End Date Kem Portillo MD [address] [phone] PCP - General Family Practice 09/02/21 documented as of this encounter
--- OUTSIDE RECORDS SUMMARY | 2024-12-18 09:13 | XMS_ITS | Encounter Summary ---
Author Organization [email or web address] Address [address] [place] [address] Care Team Providers Care Sewing Machinist Name Role Phone Kem Portillo MD Primary Care Provider [phone] [phone] Reason for Referral * Radiology Services (Urgent) - Closed Specialty Diagnoses / Procedures Referred By Contac t Referred To Contact Radiology Diagnoses Gastroesophageal reflux disease without esophagitis Mesenteric angina Procedures US MESENTERIC ARTERY Pino Mitchell MD [address] [place] [phone] Phone: tel: fax: [facility] Ultrasound [address] [place] [address] Phone: tel: fax: Referral ID Status Reason Start Date Expiration Date Visits Re quested Visits Authorized [id number] Closed 12/11/2024 01/11/2026 1 1 * Eval and Treat (Routine) - Open Specialty Diagnoses / Procedures Referred By Contac t Referred To Contact Vascular Surgery Diagnoses Gastroesophageal reflux disease without esophagitis Mesenteric angina Procedures RI OFFICE/OUTPATIENT ESTABLISHED MOD MDM 30 MIN RI OFFICE/OUTPATIENT NEW MODERATE MDM 45 MINUTES Pino Mitchell MD [address] [place] [phone] Phone: tel: fax: [facility] Vascular Surgery [place] [id number] [address] Phone: tel: fax: Referral ID Status Reason Start Date Expiration Date Visits Re quested Visits Authorized [id number] Open 12/11/2024 12/11/2025 1 1 Encounter Details Date Type Department Care Team (Late st Contact Info) Description 12/11/2024 Orders Only [facility] Gen Spec Surg [place] [address] [facility] [address] [place] [address] Pino Mitchell MD [address] [place] [address] [address] [place] [address] Gastroesophageal reflux disease without esophagitis (Primary Dx); Mesenteric angina Social History Tobacco Use Types Packs/Day Years [...] declined 01/14/2020 How often do you attend adventist or anabaptism serv ices? Patient declined 01/14/2020 Do you belong to any clubs o r organizations such as adventist groups, unions, fraternal or athletic groups, or [...] on file Legal Sex Female 12:40 AM CHANGE ADVISOR Gender Identity Not on file Sexual Orientation Not on file documented as of this encounter Plan of Treatment Upcoming Encounters Date Type Department Care Team (Latest Contact Info) Description 12/19/2024 10:20 AM CDT Office Visit [address] [address] Marika Quintero FNP [address] [address] 12/25/2024 3:20 PM CDT Office Visit [place] [address] [place] [phone] Kem Portillo MD [address] [place] [address] 02/05/2025 10:20 AM CHANGE ADVISOR Hospital Encounter [facility] Endoscopy [address] [place] [address] Alex Berg MD [address] [facility] [address] [place] [address] 02/05/2025 10:20 AM CHANGE ADVISOR - 02/05/2025 10:40 AM CHANGE ADVISOR Surgery [facility] Endoscopy [address] [place] [address] Alex Berg MD [address] [address] ESOPHAGOGASTRODUODENOSCOPY Scheduled Procedures Name Priority Associated Diagnoses Date/Ti ga ESOPHAGOGASTRODUODENOSCOPY Dysphagia, unspecified type; Black tarry stools 02/05/2025 10:20 AM CHANGE ADVISOR COLONOSCOPY Dysphagia, unspecified type; Black tarry stools 02/05/2025 10:20 AM CHANGE ADVISOR Scheduled Referrals Name Type Priority Associated Diagnoses Orde r Schedule AMB REFERRAL TO VASCULAR SURGERY Outpatient Referral Routine Gastroesophageal reflux disease without esophagitis Mesenteric angina Ordered: 12/11/2024 documented as of this encounter Goals Goal Patient Goal Type Associated Problems Recent Progress Patient-Stated? Author Autogenera carlos Goal Care Plan Autogenerated Problem No Lynn Rod RN documented as of this encounter Results * US MESENTERIC ARTERY [...] Visit Diagnoses Diagnosis Gastroesophageal reflux disease without esophagitis- Primary Esophageal reflux Mesenteric angina Chronic vascular insufficiency of intestine Gastroesophageal reflux disease without esophagitis Esophageal reflux Mesenteric angina Chronic vascular insufficiency of intestine documented in this encounter Additional Health Concerns Active Problems Noted Date Diagnosed Date Autogenerated Problem 11/29/2024 Assessment Noted Time PHQ-9 Depression Total Score: 5 09/07/19 25 2:30 PM CDT documented as of this encounter Care Teams Sewing Machinist Relationship Specialty Start Date End Date Kem Portillo MD [address] [phone] PCP - General Family Practice 09/02/21 documented as of this encounter
--- OUTSIDE RECORDS SUMMARY | 2024-12-18 09:13 | XMS_ITS | Encounter Summary ---
Author Organization [facility] Address [address] [place] [address] Care Team Providers Care Consumer Insight Manager Name Role Phone Kem Portillo MD Primary Care Provider [phone] [phone] Encounter Details Date Type Department Care Team (Late st Contact Info) Description 10/27/2006 Outpatient Historical [facility] Imaging Services-[facility] [place] [address] [place] [address] Social History Tobacco Use Types Packs/Day Years Used Date Smoking Tobacco: Never Assessed Comments Unknown Sex and Gender Information Value Date Recorded Sex Assigned at Not on file Legal Sex Female 3:44 AM NETWORK ADMIN Gender Identity Not on file Sexual Orientation Not on file documented as of this encounter Plan of Treatment Not on file documented as of this encounter Visit Diagnoses Not on filedocumented in this encounter Care Teams Consumer Insight Manager Relationship Specialty Start Date End Date Kem Portillo MD [address] [facility] [place] [phone] PCP - General Family Practice 02/02/16 documented as of this encounter
--- OUTSIDE RECORDS SUMMARY | 2024-12-18 09:13 | XMS_ITS | Encounter Summary ---
Author Organization [facility] Address [address] [place] [address] Care Team Providers Care Vat Packer Name Role Phone Kem Portillo MD Primary Care Provider [phone] [phone] Encounter Details Date Type Department Care Team (Latest Contact Info) Description 10/26/2006 Outpatient Historical [facility] Medicine [facility] [address] [address] Shayd Hansen DO NO ADDRESS ON FILE Acute Bronchitis (Primary Dx); Dermatophytosis of Nail; Depressive Disorder, not Elsewhere Classified Social History Tobacco Use Types Packs/Day Years Used Date Smoking Tobacco: Never Assessed Comments Unknown Sex and Gender Information Value Date Recorded Sex Assigned at Not on file Legal Sex Female 3:44 AM PACKAGER HAND Gender Identity Not on file Sexual Orientation Not on file documented as of this encounter Plan of Treatment Not on file documented as of this encounter Visit Diagnoses Diagnosis Acute bronchitis- Primary Dermatophytosis of nail Depressive disorder, not elsewhere classified documented in this encounter Care Teams Vat Packer Relationship Specialty Start Date End Date Kem Portillo MD [address] [address] PCP - General Family Practice 02/02/16 documented as of this encounter
--- OUTSIDE RECORDS SUMMARY | 2024-12-18 09:13 | XMS_ITS | Encounter Summary ---
Author Organization [facility] Address [address] [place] [address] Care Team Providers Care Hr Operations Advisor Name Role Phone Kem Portillo MD Primary Care Provider +1 [phone] Encounter Details Date Type Department Care Team (Late st Contact Info) Description 12/17/2024 Results Follow-Up [facility] Emergency Medicine [address] [address] Leah Messina FNP [address] [facility] [address] [place] [address] SPUTUM CULTURE WITH GRAM STAIN Social History Tobacco Use Types Packs/Day Years [...] declined 01/14/2020 How often do you attend scientology or mosque serv ices? Patient declined 01/14/2020 Do you belong to any clubs o r organizations such as scientology groups, unions, fraternal or athletic groups, or [...] worry about transportation for future doctor visits, miner pick medication, etc.? No 2024 Housing Stability Answer [...] on file Legal Sex Female 12:40 AM HIGH SCHOOL GUIDANCE COUNSELOR Gender Identity Not on file Sexual Orientation Not on file documented as of this encounter Plan of Treatment Upcoming Encounters Date Type Department Care Team (Latest Contact Info) Description 12/19/2024 10:20 AM CDT Office Visit [address] [address] Marika Quintero FNP [address] [address] 12/25/2024 3:20 PM CDT Office Visit [address] [address] Kem Portillo MD [address] [address] 02/05/2025 10:20 AM HIGH SCHOOL GUIDANCE COUNSELOR Hospital Encounter [facility] Endoscopy [address] [place] [address] Alex Berg MD [address] [address] 02/05/2025 10:20 AM HIGH SCHOOL GUIDANCE COUNSELOR - 02/05/2025 10:40 AM HIGH SCHOOL GUIDANCE COUNSELOR Surgery [facility] Endoscopy [address] [place] [address] Alex Berg MD [address] [address] ESOPHAGOGASTRODUODENOSCOPY Scheduled Procedures Name Priority Associated Diagnoses Date/Ti me ESOPHAGOGASTRODUODENOSCOPY Dysphagia, unspecified type; Black tarry stools 02/05/2025 10:20 AM HIGH SCHOOL GUIDANCE COUNSELOR COLONOSCOPY Dysphagia, unspecified type; Black tarry stools 02/05/2025 10:20 AM HIGH SCHOOL GUIDANCE COUNSELOR documented as of this encounter Goals Goal Patient Goal Type Associated Problems Recent Progress Patient-Stated? Author Autogenera carlos Goal Care Plan Autogenerated Problem No Lynn Rod RN documented as of this encounter Visit Diagnoses Not on filedocumented in this encounter Additional Health Concerns Active Problems Noted Date Diagnosed Date Autogenerated Problem 11/29/2024 documented as of this encounter Care Teams Hr Operations Advisor Relationship Specialty Start Date End Date Kem Portillo MD [address] [facility] [address] [place] [phone] PCP - General Family Practice 09/02/21 documented as of this encounter
--- OUTSIDE RECORDS SUMMARY | 2024-12-18 09:13 | XMS_ITS | Encounter Summary ---
Author Organization [facility] Address [address] [place] [address] Care Team Providers Care Evidence Specialist Name Role Phone Kem Portillo MD Primary Care Provider [phone] [phone] Reason for Visit * Reason Onset Date Comments Medication Refill 12/10/2024 Encounter Details Date Type Department Care Team (Late st Contact Info) Description 12/10/2024 Refill [facility] Medicine [place] [address] [address] Patience Read, [facility] [address] [address] ALMA DELIA (generalized anxiety disorder); Chronic pain syndrome; Primary osteoarthritis involving multiple joints; Osteoarthritis of spine with radiculopathy, lumbar region; Chronic bilateral low back pain with bilateral sciatica Social History Tobacco Use Types Packs/Day Years [...] declined 01/14/2020 How often do you attend evangelical or tenriism serv ices? Patient declined 01/14/2020 Do you belong to any clubs o r organizations such as evangelical groups, unions, fraBricsnet or athletic groups, or school groups? Patient [...] on file Legal Sex Female 12:40 AM CLERICAL STOCK INSPECTOR Gender Identity Not on file Sexual Orientation Not on file documented as of this encounter Plan of Treatment Upcoming Encounters Date Type Department Care Team (Latest Contact Info) Description 12/19/2024 10:20 AM CDT Office Visit [facility] [address] [place] [address] Marika Quintero FNP [address] [place] [address] 12/25/2024 3:20 PM CDT Office Visit [facility] [address] [place] [address] Kem Portillo MD [address] [place] [address] 02/05/2025 10:20 AM CLERICAL STOCK INSPECTOR Hospital Encounter [facility] Endoscopy [address] [place] [address] Alex Berg MD [address] [address] 02/05/2025 10:20 AM CLERICAL STOCK INSPECTOR - 02/05/2025 10:40 AM CLERICAL STOCK INSPECTOR Surgery [facility] Endoscopy [address] [place] [address] Alex Berg MD [address] [address] ESOPHAGOGASTRODUODENOSCOPY Scheduled Procedures Name Priority Associated Diagnoses Date/Ti me ESOPHAGOGASTRODUODENOSCOPY Dysphagia, unspecified type; Black tarry stools 02/05/2025 10:20 AM CLERICAL STOCK INSPECTOR COLONOSCOPY Dysphagia, unspecified type; Black tarry stools 02/05/2025 10:20 AM CLERICAL STOCK INSPECTOR documented as of this encounter Goals Goal Patient Goal Type Associated Problems Recent Progress Patient-Stated? 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
[2024-12-18 09:14] LABS: Hematocrit 44.3 % (36-47); Hemoglobin 14.80 g/dL (11.27-16.99); Mean Corpuscular HGB Conc 33.4 g/dL (30-55); Mean Corpuscular Hemoglobin 28.8 pg (27-33); Mean Corpuscular Volume 86.2 fl (85-98); Nucleated Red Blood Cells % 0 %; Platelet Count 312 10^3/cmm (157-399); Red Blood Count 5.14 10^6/uL (3.85-5.65); White Blood Count 8.83 10^3/uL (3.29-11.43)
--- NOTE | 2024-12-18 09:14 | W.ED.CHESTPA ---
HPI - Chest Pain General: Chief Complaint: Chest Pain Stated Complaint: Chest pain Time Seen by Provider: 12/18/24 08:42 History of Present Illness: 74-year-old female presents emergency room with complaint of chest pain that began last night she was recently seen in the hospital states still having chest pain. She did receive some nitro and route she thought it improved slightly. She had a stress test in June of this year Lexiscan suspected stress test was read as normal. No recent fever sweats chills no history of arrhythmias no history of DVTs or PE. Associated symptoms: Deny abdominal pain, dyspnea or fever(s) Related Data Home Medications ?Medication ?Instructions ?Recorded ?Confirmed valsartan 160 mg tablet 160 mg PO BID 04/27/21 10/12/24 alprazolam 0.5 mg tablet 0.5 mg PO BID PRN anxiety 11/12/21 10/12/24 hydrocodone 10 mg-acetaminophen 1 tab PO Q4H PRN Pain 11/12/21 10/12/24 325 mg tablet amlodipine 5 mg tablet 5 mg PO BID 02/09/24 10/12/24 clopidogrel 75 mg tablet 75 mg PO DAILY 02/09/24 10/12/24 albuterol sulfate 90 mcg/actuation 2 puff inhalation Q6H 05/19/24 10/12/24 aerosol inhaler (Ventolin HFA) bupropion HCl 150 mg 24 hr tablet, 150 mg PO DAILY 05/19/24 10/12/24 extended release duloxetine 20 mg capsule,delayed 20 mg PO DAILY 05/19/24 10/12/24 release hydralazine 100 mg tablet 100 mg PO BID 05/19/24 10/12/24 fluticasone propionate 50 2 spray intranasal DAILY 07/19/24 10/12/24 mcg/actuation nasal spray,suspension Previous Rx's ?Medication ?Instructions ?Recorded pantoprazole 40 mg tablet,delayed 40 mg PO QAM #60 tabs 07/20/24 release (Protonix) isosorbide mononitrate 30 mg 30 mg PO DAILY #30 tabs 12/18/24 tablet,extended release 24 hr Allergies Allergy/AdvReac Type Severity Reaction Status Date / Time fluphenazine (From Prolixin) Allergy Unknown Verified 10/12/24 07:18 thiopental (From Pentothal) Allergy Unknown Verified 10/12/24 07:18 Review of Systems Const: Denies: fever(s) or chills Card: Denies: chest pain Resp: Denies: dyspnea GI: Denies: abdominal pain : Denies: dysuria, urinary frequency or urinary urgency Musc: Denies: neck pain or back pain Skin/Breast: Denies: rash PFSH ED PFSH: Medical History Psychiatric care History of colon polyps Abdominal pain Overflow incontinence HTN (hypertension) Hyperlipidemia CKD (chronic kidney disease) ALMA DELIA (generalized anxiety disorder) GERD (gastroesophageal reflux disease) Back pain Fibromyalgia Urinary incontinence Chronic pain Dysphagia Borderline personality disorder Post-traumatic stress disorder, chronic Major depressive disorder, recurrent severe without psychotic features Surgical History History of ear surgery Family History Denies family history of Anesthesia complication Bleeding disorder Social History Smoking and tobacco/nicotine status: current every day tobacco/nicotine user cigarettes Packs smoked per day: 1 Years cigarettes smoked: 70 Quit status (tobacco/nicotine): has tried quititng Number of times tried to quit tobacco: 1 Second hand smoke exposure: Yes Alcohol intake: never Substance/Drug Use: never Current gender identity: Female Physical Exam Const: GENERAL APPEARANCE: cooperative ORIENTATION/CONSCIOUSNESS: Yes awake, Yes oriented to person, Yes oriented to place and Yes oriented to time HENMT: COMMON NORMALS: normocephalic, atraumatic and hearing grossly normal bilaterally HEAD & SCALP: normocephalic and atraumatic Resp: COMMON NORMALS: normal respiratory effort, No retractions, No use of accessory muscles and clear to auscultation bilaterally AUSCULTATION: clear to auscultation bilaterally Cardio: COMMON NORMALS: regular rate, regular rhythm and No murmurs present (Cardio) RATE: regular rate RHYTHM: regular rhythm GI: COMMON NORMALS: Soft to palpation and No hepatosplenomegaly present AUSCULTATION: Yes normoactive bowel sounds PALPATION: Yes Soft to palpation, No Tenderness to palpation present (GI), No Guarding due to palpation present (GI) and Yes No hepatosplenomegaly present Extremity: COMMON NORMALS: normal to inspection, capillary refill normal, no clubbing, cyanosis or edema, no calf tenderness and no pedal edema Neuro: SENSORIUM/ORIENTATION: Yes oriented to person, Yes oriented to place and Yes oriented to time Skin: COMMON NORMALS: no rashes or lesions noted GENERAL SKIN EXAM: no rashes or lesions noted Course Vital Signs: Vital signs: Vital Signs Temperature 98.0 F 12/18/24 08:41 Pulse Rate 70 12/18/24 12:00 Respiratory Rate 16 12/18/24 08:41 Blood Pressure 149/84 12/18/24 12:00 Pulse Oximetry 95 12/18/24 12:00 Oxygen Delivery Me thod Room Air 12/18/24 10:30 MDM - Chest Pain Medical Decision Making Labs and imaging reviewed patient is insistent on being discharged home. Will start her on isosorbide mononitrate 30 mg once daily and have her follow-up with her primary care doctor she has an appointment tomorrow return if she has further symptoms. Reviewed findings with her. Discussed labs with patient was very anxious to go home affect we had to discuss it with her to keep her from leaving AMA before completing the workup. Medical Records I reviewed the patient's medical records. Lab Data I reviewed the patient's lab results. 12/18/24 09:06 12/18/24 09:06 Radiology Impressions Chest X-Ray 12/18/24 08:48 IMPRESSION: No acute process. Laboratory Results WBC 8.83 10^3/uL (3.29-11.43) 12/18/24 09:06 RBC 5.14 10^6/uL (3.85-5.65) 12/18/24 09:06 Hgb 14.80 g/dL (11.27-16.99) 12/18/24 09:06 Hct 44.3 % (36-47) 12/18/24 09:06 MCV 86.2 fl (85-98) 12/18/24 09:06 MCH 28.8 pg (27-33) 12/18/24 09:06 MCHC 33.4 g/dL (30-55) 12/18/24 09:06 RDW 12.6 % (12.1-15.1) 12/18/24 09:06 Plt Count 312 10^3/cmm (157-399) 12/18/24 09:06 MPV 9.6 fL (7.4-10.4) 12/18/24 09:06 Neut % (Auto) 63.4 % 12/18/24 09:06 Lymph % (Auto) 26.2 % 12/18/24 09:06 [place] % (Auto) 8.3 % 12/18/24 09:06 Eos % (Auto) 0.8 % 12/18/24 09:06 Baso % (Auto) 0.8 % 12/18/24 09:06 Neut # (Auto) 5.61 10^3/uL (1.8-7.7) 12/18/24 09:06 Lymph # (Auto) 2.3 10^3/uL (0.8-4.8) 12/18/24 09:06 [place] # (Auto) 0.7 10^3/uL (0.2-0.9) 12/18/24 09:06 Eos # (Auto) 0.1 10^3/uL (0.0-0.8) 12/18/24 09:06 Baso # (Auto) 0.1 10^3/uL (0.0-0.1) 12/18/24 09:06 Nucleated RBC % (auto) 0 % 12/18/24 09:06 Nucleated RBCs # 0.0 /100WBC 12/18/24 09:06 Sodium 138 mmol/L (136-145) 12/18/24 09:06 Potassium 3.8 mmol/L (3.5-5.1) 12/18/24 09:06 Chloride 97 mmol/L (98-107) L 12/18/24 09:06 Carbon Dioxide 26 mmol/L (22-29) 12/18/24 09:06 Anion Gap 18.8 (5-19) 12/18/24 09:06 BUN 14 mg/dL (8-23) 12/18/24 09:06 Creatinine 0.8 mg/dL (0.5-0.9) 12/18/24 09:06 GFR Calculation Not Reportable 12/18/24 09:06 Glucose 92 mg/dL (65-115) 12/18/24 09:06 Calculated Osmolality 286 mOsm/kg (285-295) 12/18/24 09:06 Calcium 9.7 mg/dL (8.5-10.5) 12/18/24 09:06 Total Bilirubin 0.3 mg/dL (0.15-1.2) 12/18/24 09:06 AST 18 U/L (0-32) 12/18/24 09:06 ALT 17 U/L (0-33) 12/18/24 09:06 Alkaline Phosphatase 77 U/L (35-105) 12/18/24 09:06 Troponin T Baseline 11 ng/L (0-10) H 12/18/24 09:06 Troponin T 120 Minute 10.67 ng/L (0-10) H 12/18/24 11:18 Delta Troponin T -0.33 ABS# (0-10) L 12/18/24 11:18 Total Protein 7.0 g/dL (6.6-8.7) 12/18/24 09:06 Albumin 4.6 g/dL (3.5-5.2) 12/18/24 09:06 Globulin 2.4 g/dL (1.3-4.6) 12/18/24 09:06 All radiology interpretation(s) finalized by discharge EKG Data EKG 1: I personally reviewed and interpreted this EKG as follows: EKG interpretation date: 12/18/24 Prior EKG tracings: available for review Interpretation: EKG 12/18/2024 8:42 AM junctional rhythm left axis deviation. No acute ST elevation. Rate of 84. Interval 99 QTc 451. . Compared to EKG 07/19/2024 EKG 2: Interpretation: EKG 12/18/2024 1140 sinus rhythm occasional PVCs no acute ST changes. Rate of 68 OR interval 158 QTc [address] changes noted compared to EKG done earlier same day Discharge Plan Discharge Patient Disposition: Home Clinical Impression: Atypical chest pain, Benign essential HTN Condition: Stable Prescriptions: New isosorbide mononitrate 30 mg tablet extended release 24 hr 30 mg PO DAILY Qty: 30 0RF No Action valsartan 160 mg tablet 160 mg PO BID hydrocodone-acetaminophen 10-325 mg tablet 1 tab PO Q4H PRN (Reason: Pain) alprazolam 0.5 mg tablet 0.5 mg PO BID PRN (Reason: anxiety) clopidogrel 75 mg tablet 75 mg PO DAILY amlodipine 5 mg tablet 5 mg PO BID hydralazine 100 mg tablet 100 mg PO BID albuterol sulfate [Ventolin HFA] 90 mcg/actuation HFA aerosol inhaler 2 puff INHALATION Q6H bupropion HCl 150 mg tablet extended release 24 hr 150 mg PO DAILY duloxetine 20 mg capsule,delayed release(DR/EC) 20 mg PO DAILY fluticasone propionate 50 mcg/actuation spray,suspension 2 spray INTRANASAL DAILY pantoprazole [Protonix] 40 mg tablet,delayed release (DR/EC) 40 mg PO QAM Qty: 60 0RF Rx Instructions: Twice daily for next 2 weeks followed by once daily Discharge Orders: Discharge ED (Routine); Ordered 12/18/24 Ordered By: Darnell Cordero Referrals: eKm Portillo [Primary Care Provider, Family Practice] Discharge Diet: Usual diet Discharge Activity: Resume usual activity Patient Instructions: Opioid Safety, Pain Management, Patient Portal & Pierre Instructions Activity Restrictions/Additional Instructions: Thank you for choosing [facility] for your healthcare needs today. It is very important that you follow up as instructed or that you return to the Emergency Department should you have concerns or if your condition changes or worsens in any way. Emergency department visits are focused on emergent conditions, in some cases you may require further evaluation on an outpatient basis. You were seen in the emergency room with complaints chest comfort your EKG and cardiac enzymes were negative he had a stress test earlier this year which was also normal. Recommend starting isosorbide mononitrate 30 mg once daily and follow-up with your primary care doctor tomorrow as scheduled. (Please note that included in your discharge packet is information concerning opioid safety and pain management. This information is given to all patients were discharged from the ER regardless of their discharge diagnosis or the medicines they usually take or are prescribed.) Print Language: Thai Coding Level of Care Code ED Weapons Officer for Chg Fwd Heart Score HEART Score Components History: Moderately Suspicious EKG: Non-specific Changes Age: 65 or more yrs Risk Factors: 1 or 2 Risk Factors Troponin: Baseline Trop <16 ng/L HEART Score RESULT HEART Score: 5
--- OUTSIDE RECORDS SUMMARY | 2024-12-18 09:14 | XMS_ITS | Encounter Summary ---
Author Organization [facility] Address [address] [place] [address] Care Team Providers Care Reinforcing Steel Machine Operator Name Role Phone Kem Portillo MD Primary Care Provider [phone] [phone] Encounter Details Date Type Department Care Team (Latest Contact Info) Description 12/29/2004 Outpatient Historical [facility] [address] [place] [address] [place] [address] Byron Johnson MD [address] [place] [address] DERANG MED MENISCUS NEC (Primary Dx) Social History Tobacco Use Types Packs/Day Years Used Date Smoking Tobacco: Never Assessed Comments Unknown Sex and Gender Information Value Date Recorded Sex Assigned at Not on file Legal Sex Female 3:44 AM PLASTICS ENGINEERING TEACHER Gender Identity Not on file Sexual Orientation Not on file documented as of this encounter Plan of Treatment Not on file documented as of this encounter Visit Diagnoses Diagnosis Other and unspecified derangement of medial meniscus- Primary documented in this encounter Care Teams Reinforcing Steel Machine Operator Relationship Specialty Start Date End Date Kem Portillo MD [address] [facility] [place] [address] PCP - General Family Practice 02/02/16 documented as of this encounter
--- OUTSIDE RECORDS SUMMARY | 2024-12-18 09:14 | XMS_ITS | Encounter Summary ---
Author Organization [facility] Address [address] [place] [address] Care Team Providers Care Range Conservationist Name Role Phone Kem Portillo MD Primary Care Provider [phone] [phone] Encounter Details Date Type Department Care Team (Latest Contact Info) Description 01/07/2005 Outpatient Historical [facility] Orthopedics- [address] [place] [address] Byron Johnson MD [address] [place] [address] DERANG POST MED MENISCUS (Primary Dx) Social History Tobacco Use Types Packs/Day Years Used Date Smoking Tobacco: Never Assessed Comments Unknown Sex and Gender Information Value Date Recorded Sex Assigned at Not on file Legal Sex Female 3:44 AM OUTSIDE SALESPERSON Gender Identity Not on file Sexual Orientation Not on file documented as of this encounter Plan of Treatment Not on file documented as of this encounter Visit Diagnoses Diagnosis Derangement of posterior horn of medial meniscus- Primary documented in this encounter Care Teams Range Conservationist Relationship Specialty Start Date End Date Kem Portillo MD [address] [facility] [place] [address] PCP - General Family Practice 02/02/16 documented as of this encounter
--- OUTSIDE RECORDS SUMMARY | 2024-12-18 09:14 | XMS_ITS | Encounter Summary ---
Author Organization [facility] Address [address] [place] [address] Care Team Providers Care Marketing Underwriter Name Role Phone Kem Portillo MD Primary Care Provider [phone] [phone] Encounter Details Date Type Department Care Team (Latest Contact Info) Description 08/01/2006 Outpatient Historical [facility] Medicine [place] [address] [address] Shady Hansen DO NO ADDRESS ON FILE Neoplasm of Unspecified Nature of Bone, Soft Tissue, and Skin (Primary Dx); Depressive Disorder, not Elsewhere Classified Social History Tobacco Use Types Packs/Day Years Used Date Smoking Tobacco: Never Assessed Comments Unknown Sex and Gender Information Value Date Recorded Sex Assigned at Not on file Legal Sex Female 3:44 AM GRANTS MANAGER Gender Identity Not on file Sexual Orientation Not on file documented as of this encounter Plan of Treatment Not on file documented as of this encounter Visit Diagnoses Diagnosis Neoplasm of unspecified nature of bone, soft tissue, and skin- Primary Depressive disorder, not elsewhere classified documented in this encounter Care Teams Marketing Underwriter Relationship Specialty Start Date End Date Kem Portillo MD [address] [phone] PCP - General Family Practice 02/02/16 documented as of this encounter
--- OUTSIDE RECORDS SUMMARY | 2024-12-18 09:14 | XMS_ITS | Encounter Summary ---
Author Organization [email or web address] [facility] [employer] Address [address] [place] [address] Phone Care Team Providers Care Park Services Specialist Name Role Phone Kem Portillo MD Primary Care Provider [phone] Encounter Details Date Type Department Care Team (Late st Contact Info) Description 11/26/2019 Orders Only [facility] [address] [place] [address] Atrophy of kidney; Chronic kidney disease, stage 2 (mild) Social History Tobacco Use Types Packs/Day Years Used Date Smoking Tobacco: Never Assessed Comments Unknown Sex and Gender Information Value Date Recorded Sex Assigned at Not on file Legal Sex Female 10:26 AM EDT Gender Identity Not on file Sexual Orientation Not on file documented as of this encounter Plan of Treatment Not on file documented as of this encounter Visit Diagnoses Diagnosis Atrophy of kidney Chronic kidney disease, stage 2 (mild) documented in this encounter Care Teams Park Services Specialist Relationship Specialty Start Date End Date Kem Portillo MD [address] [place] [address] PCP - General Family Medicine 11/26/19 documented as of this encounter
--- OUTSIDE RECORDS SUMMARY | 2024-12-18 09:14 | XMS_ITS | Encounter Summary ---
Author Organization [employer] Address [address] [place] [address] Care Team Providers Care Solar Installer Name Role Phone Kem Portillo MD Primary Care Provider [phone] [phone] Encounter Details Date Type Department Care Team (Late st Contact Info) Description 07/19/2023 Lab Requisition [facility] [place] [address] [address] Marika Quintero, [facility] [address] [place] [phone] Right upper quadrant pain Social History Tobacco Use Types Packs/Day Years [...] declined 01/14/2020 How often do you attend shinto or orthodoxy serv ices? Patient declined 01/14/2020 Do you belong to any clubs o r organizations such as shinto groups, unions, fraternal or athletic groups, or [...] who hurts you emotionally and/or physically? No 05/23/2023 Comments No Sex and Gender Information Value Date Recorded Sex Assigned at Not on file Legal Sex Female 12:40 AM BEEF KILLER Gender Identity Not on file Sexual Orientation Not on file documented as of this encounter Plan of Treatment Upcoming Encounters Date Type Department Care Team (Latest Contact Info) Description 12/19/2024 10:20 AM CDT Office Visit [address] [address] Marika Quintero FNP [address] [phone] 12/25/2024 3:20 PM CDT Office Visit [address] [place] [address] Kem Portillo MD [address] [place] [address] 02/05/2025 10:20 AM BEEF KILLER Hospital Encounter [facility] Endoscopy [address] [place] [address] Alex Begr MD [address] [facility] [address] [place] [address] 02/05/2025 10:20 AM BEEF KILLER - 02/05/2025 10:40 AM BEEF KILLER Surgery [facility] Endoscopy [address] [place] [address] Alex Berg MD [address] [facility] [address] [place] [address] ESOPHAGOGASTRODUODENOSCOPY Scheduled Procedures Name Priority Associated Diagnoses Date/Ti va ESOPHAGOGASTRODUODENOSCOPY Dysphagia, unspecified type; Black tarry stools 02/05/2025 10:20 AM BEEF KILLER COLONOSCOPY Dysphagia, unspecified type; Black tarry stools 02/05/2025 10:20 AM BEEF KILLER documented as of this encounter Procedures Procedure Name Priority Date/Time Associated Diagnosis Comments CBC WITH DIFFERENTIAL Stat 07/19/2023 11:35 AM CDT Right upper quadrant pain COMPREHENSIVE METABOLIC PANEL Stat 07/19/2023 11:35 AM CDT Right upper quadrant pain documented in this encounter Results * (ABNORMAL) COMPREHENSIVE METABOLIC PANEL (07/19/2023 11:35 AM CDT) SODIUM 139 136 - 145 mmol/L 07/19/2023 12:03 PM CDT [facility] POTASSIUM 4.5 3.5 - 5.1 mmol/L 07/19/2023 12:03 PM [facility] CHLORIDE 101 98 - 107 mmol/L 07/19/2023 12:03 PM [facility] CO2 25 22 - 29 mmol/L 07/19/2023 12:03 PM [facility] CALCIUM 9.6 8.8 - 10.2 mg/dL 07/19/2023 12:03 PM [facility] BUN 21 8 - 23 mg/dL 07/19/2023 12:03 PM [facility] CREATININE 0.88 0.51 - 0.95 mg/dL 07/19/2023 12:03 PM [facility] Comment:The GFR result is no t clinically significant on patients <18 or >70 years of age. GLUCOSE 150(H) 74 - 99 mg/dL 07/19/2023 12:03 PM [facility] TOTAL PROTEIN 6.6 6.6 - 8.7 g/dL 07/19/2023 12:03 PM [facility] ALBUMIN 4.6 3.5 - 5.2 g/dL 07/19/2023 12:03 PM [facility] BILIRUBIN TOTAL 0.3 <=1.2 mg/dL 07/19/2023 12:03 PM [facility] ALKALINE PHOSPHATASE 76 35 - 104 U/L 07/19/2023 12:03 PM [facility] AST 28 10 - 35 U/L 07/19/2023 12:03 PM [facility] ALT 20 10 - 35 U/L 07/19/2023 12:03 PM [facility] GFR >60 mL/min/1.7 3 sq meter 07/19/2023 12:03 PM [facility] Comment:eGFR calculated with 2020 CKD-EPI equation. Vegetarian diet, extremely high or low muscle mass, and may affect results. Cystatin C with Glomerular Filtration Rate is a suitable alternative for these patients. ANION GAP 13 12 - 20 mmol/L 07/19/2023 12:03 PM [facility] Blood Collection / Unknown 07/19/2023 11:35 AM CDT 07/19/2023 11:43 AM CDT Marika Janejolanta Quintero INSULATION POWER UNIT TENDER CHEMISTRY ORDERABLES Fin al Result [facility] CLIA # [id number] [address] [place] [address] * (ABNORMAL) CBC WITH DIFFERENTIAL (07/19/2023 11:35 AM CDT) WBC 12.2(H) 4.0 - 10.0 K/uL 07/19/2023 11:53 AM T [facility] RBC 4.62 3.93 - 5.22 M/uL 07/19/2023 11:53 AM [facility] HEMOGLOBIN 13.6 11.2 - 15.7 g/dL 07/19/2023 11:53 AM [facility] HEMATOCRIT 42.2 34.1 - 44.9 % 07/19/2023 11:53 AM [facility] MCV 91.3 79.4 - 94.8 fL 07/19/2023 11:53 AM [facility] MCH 29.4 25.6 - 32.2 pg 07/19/2023 11:53 AM [facility] MCHC 32.2 32.2 - 35.5 g/dL 07/19/2023 11:53 AM [facility] RDW 12.8 11.0 - 14.5 % 07/19/2023 11:53 AM [facility] RDW-STDEV 42.7 36.9 - 56.9 fL 07/19/2023 11:53 AM [facility] PLATELETS 285 163 - 337 K/uL 07/19/2023 11:53 AM [facility] MPV 10.1 10.0 - 14.8 fL 07/19/2023 11:53 AM [facility] NEUTROPHILS 79(H) 34 - 71 % 07/19/2023 11:53 AM [facility] LYMPHOCYTES 16(L) 19 - 52 % 07/19/2023 11:53 AM [facility] MONOCYTES 4(L) 5 - 13 % 07/19/2023 11:53 AM [facility] EOSINOPHILS 0(L) 1 - 6 % 07/19/2023 11:53 AM [facility] BASOPHILS 0 0 - 1 % 07/19/2023 11:53 AM [facility] IMMATURE GRANULOCYTES 1 % 07/19/2023 11:53 AM [facility] NEUTROPHIL ABSOLUTE 9.62(H) 1.56 - 6.13 K/uL 07/19/2023 11:53 AM [facility] LYMPHOCYTE ABSOLUTE 1.96 1.20 - 3.40 K/uL 07/19/2023 11:53 AM [facility] MONOCYTE ABSOLUTE 0.50(H) 0.24 - 0.36 K/uL 07/19/2023 11:53 AM [facility] EOSINOPHIL ABSOLUTE 0.01(L) 0.04 - 0.36 K/uL 07/19/2023 11:53 AM [facility] BASOPHILS ABSOLUTE 0.05 0.01 - 0.08 K/uL 07/19/2023 11:53 AM [facility] IMMATURE GRANULOCYTES ABSOLUTE 0.07 K/uL 07/19/2023 11:53 AM [facility] Blood Collection / Unknown 07/19/2023 11:35 AM CDT 07/19/2023 11:43 AM CDT us Marika Quintero INSULATION POWER UNIT TENDER HEMATOLOGY ORDERABLES Fi nal [id number] [address] [place] [address] documented in this encounter Visit Diagnoses Diagnosis Right upper quadrant pain Abdominal pain, right upper quadrant documented in this encounter Additional Health Concerns Infection Onset Date Last Indicated Resolved Time R/O GI Pathogen 09/29/2023 09/29/2023 09/29/2023 1 :53 PM CDT R/O GI Pathogen 09/30/2023 09/30/2023 09/30/2023 4 :56 AM CDT R/O COVID-19 12/15/2024 12/15/2024 12/15/2024 6:09 AM CDT R/O COVID-19 12/15/2024 12/15/2024 12/15/2024 6:58 AM CDT Assessment Noted Time PHQ-9 Depression Total Score: 2 04/18/19 24 2:34 PM BEEF KILLER documented as of this encounter Care Teams Solar Installer Relationship Specialty Start Date End Date Kem Portillo MD [address] [address] PCP - General Family Practice 09/02/21 documented as of this encounter
--- OUTSIDE RECORDS SUMMARY | 2024-12-18 09:14 | XMS_ITS | Encounter Summary ---
Author Organization [facility] Address [address] [place] [address] Care Team Providers Care Etiquette Teacher Name Role Phone Kem Portillo MD Primary Care Provider [phone] [phone] Encounter Details Date Type Department Care Team (Late st Contact Info) Description 11/15/2006 Outpatient Historical [facility] Plastic Surgery [address] [place] [address] Ronaldo Aldana MD NO ADDRESS ON FILE Follow-Up Examination, Following Unspecified Surgery (Primary Dx) Social History Tobacco Use Types Packs/Day Years Used Date Smoking Tobacco: Never Assessed Comments Unknown Sex and Gender Information Value Date Recorded Sex Assigned at Not on file Legal Sex Female 3:44 AM DEPORTATION EXAMINER Gender Identity Not on file Sexual Orientation Not on file documented as of this encounter Plan of Treatment Not on file documented as of this encounter Visit Diagnoses Diagnosis Follow-up examination, following unspecified surgery- Primary documented in this encounter Care Teams Etiquette Teacher Relationship Specialty Start Date End Date Kem Portillo MD [address] [facility] [address] [place] [address] PCP - General Family Practice 02/02/16 documented as of this encounter
--- OUTSIDE RECORDS SUMMARY | 2024-12-18 09:14 | XMS_ITS | Encounter Summary ---
Author Organization [facility] Address [address] [place] [address] Care Team Providers Care Monogram Technician Name Role Phone Kem Portillo MD Primary Care Provider [phone] [phone] Encounter Details Date Type Department Care Team (Late st Contact Info) Description 10/05/2006 Outpatient Historical [facility] Plastic Surgery [address] [place] [address] Ronaldo Aldana MD NO ADDRESS ON FILE Follow-Up Examination, Following Unspecified Surgery (Primary Dx) Social History Tobacco Use Types Packs/Day Years Used Date Smoking Tobacco: Never Assessed Comments Unknown Sex and Gender Information Value Date Recorded Sex Assigned at Not on file Legal Sex Female 3:44 AM UNDERWATER WELDER Gender Identity Not on file Sexual Orientation Not on file documented as of this encounter Plan of Treatment Not on file documented as of this encounter Visit Diagnoses Diagnosis Follow-up examination, following unspecified surgery- Primary documented in this encounter Care Teams Monogram Technician Relationship Specialty Start Date End Date Kem Portillo MD [address] [facility] [address] [place] [address] PCP - General Family Practice 02/02/16 documented as of this encounter
--- OUTSIDE RECORDS SUMMARY | 2024-12-18 09:14 | XMS_ITS | Encounter Summary ---
Author Organization [facility] Address [address] [place] [address] Care Team Providers Care Order Filler Name Role Phone Kem Portillo MD Primary Care Provider +1 [phone] Encounter Details Date Type Department Care Team (Late st Contact Info) Description 04/14/2015 Nurse Triage Report [id number] ABSTRACTION Diane Coles, RN Social History Tobacco Use Types Packs/Day Years Used Date Smoking Tobacco: Every Day Cigarettes 1 30 Smokeless Tobacco: Never Comments:wants to quit smoki ng and did for a while but has started back. has tried Chantix twice Alcohol Use Standard Drinks/Week Comments Yes 0 (1 standard drink = 0.6 oz pur e alcohol) 1-2 glasses per year Comments No Sex and Gender Information Value Date Recorded Sex Assigned at Not on file Legal Sex Female 3:44 AM KERRICK KLEANER OPERATOR Gender Identity Not on file Sexual Orientation Not on file Occupation Industry Job Start Date Job End Date Not on file Not on file Not on file Not on file documented as of this encounter Progress Notes * Diane Coles, ADRIANNA - 04/14/2015 6:37 PM CST CHART DOCUMENTATION ONLY Call Type: Triage Call Addendum Date and Time [id number] Presenting Problem: Granddaughter Cindy Bourgeois, She has a rash after her surgery. Report feedback to Dr. Kim Associated Symptoms: abdomen is itching, skin is rough and bumpy- goes up to her breasts and is all over her abdomen, back is itching, burning, she feels hot Onset: 48 hours ago Location: abdomen Pain Assessment: 1 - 10 with 10 being the most severe pain rash is burning Treatment so far for current presenting problem: none History (Clinical Problems): had ovaries removed 2/ laproscopically(HTN, depression) Medications: epic review Medication reactions: epic review <<<<<<<< TRIAGE NOTE >>>>>>>> Triage Note: Recycling Operator Diane Coles added this note on Apr 14 2015 5:34PM: I decided to have MD call pt r/t recent surgery and any surgery meds that may be causeing her the rash. She will take a benadryl after she hears from MD, so she will not be asleep. Recycling Operator [email or web address] added this note on Apr 14 2015 6:36PM Pt states Dr Kim actually called her back and she will take the benadryl and will soak in the baking soda water as well. She is to call the office tomorrow to make sure the rash is resolving. <<<<<<<< TRIAGE/OUTCOME >>>>>>>> Guideline Title: Postoperative Problems ; Postoperative Problems Recommended Disposition: Provide Home/Self Care Original Inclination: Call Provider/See in 24 Override Disposition: Call Provider Immediately Intended Action: Call Provider Immediately Physician Contacted: No All other situations ? YES ICK KLEANER OPERATOR ICK KLEANER OPERATOR documented in this encounter Plan of Treatment Not on file documented as of this encounter Visit Diagnoses Not on filedocumented in this encounter Additional Health Concerns Assessment Noted Time PHQ-9 Depression Total Score: 5 10/23/19 14 1:00 PM CDT documented as of this encounter Care Teams Order Filler Relationship Specialty Start Date End Date Kem Portillo MD [address] [address] PCP - General Family Practice 02/02/16 documented as of this encounter
--- OUTSIDE RECORDS SUMMARY | 2024-12-18 09:14 | XMS_ITS | Encounter Summary ---
Author Organization [facility] Address [address] [place] [address] Care Team Providers Care Employment Appeals Examiner Name Role Phone Kem Portillo MD Primary Care Provider [phone] [phone] Encounter Details Date Type Department Care Team (Latest Contact Info) Description 01/25/2005 Outpatient Historical [facility] Orthopedics- [address] [place] [address] Byron Johnson MD [address] [place] [address] DERANG POST MED MENISCUS (Primary Dx) Social History Tobacco Use Types Packs/Day Years Used Date Smoking Tobacco: Never Assessed Comments Unknown Sex and Gender Information Value Date Recorded Sex Assigned at Not on file Legal Sex Female 3:44 AM CLASSIFIED ADVERTISING MANAGER Gender Identity Not on file Sexual Orientation Not on file documented as of this encounter Plan of Treatment Not on file documented as of this encounter Visit Diagnoses Diagnosis Derangement of posterior horn of medial meniscus- Primary documented in this encounter Care Teams Employment Appeals Examiner Relationship Specialty Start Date End Date Kem oPrtillo MD [address] [facility] [place] [address] PCP - General Family Practice 02/02/16 documented as of this encounter
--- OUTSIDE RECORDS SUMMARY | 2024-12-18 09:14 | XMS_ITS | Encounter Summary ---
Author Organization [facility] Address [address] [place] [address] Care Team Providers Care Agri Business Agent Name Role Phone Kem Portillo MD Primary Care Provider [phone] Encounter Details Date Type Department Care Team (Late st Contact Info) Description 03/03/2007 Outpatient Historical [facility] Medicine [place] [address] [address] Lauro Peña MD NO ADDRESS ON FILE Social History Tobacco Use Types Packs/Day Years Used Date Smoking Tobacco: Never Assessed Comments Unknown Sex and Gender Information Value Date Recorded Sex Assigned at Not on file Legal Sex Female 3:44 AM PHYSICAL THERAPIST TECHNICIAN Gender Identity Not on file Sexual Orientation Not on file documented as of this encounter Plan of Treatment Not on file documented as of this encounter Visit Diagnoses Not on filedocumented in this encounter Care Teams Agri Business Agent Relationship Specialty Start Date End Date eKm Portillo MD [address] [address] PCP - General Family Practice 02/02/16 documented as of this encounter
--- OUTSIDE RECORDS SUMMARY | 2024-12-18 09:14 | XMS_ITS | Encounter Summary ---
Author Organization [facility] Address [address] [place] [address] Care Team Providers Care Hand Pleater Name Role Phone Kem Portillo MD Primary Care Provider [phone] Encounter Details Date Type Department Care Team (Late st Contact Info) Description 09/30/2006 Outpatient Historical [facility] Pl[facility] [address] [place] [address] Ronaldo Aldana MD NO ADDRESS ON FILE Sebaceous Cyst (Primary Dx) Social History Tobacco Use Types Packs/Day Years Used Date Smoking Tobacco: Never Assessed Comments Unknown Sex and Gender Information Value Date Recorded Sex Assigned at Not on file Legal Sex Female 3:44 AM ER NURSE Gender Identity Not on file Sexual Orientation Not on file documented as of this encounter Plan of Treatment Not on file documented as of this encounter Visit Diagnoses Diagnosis Sebaceous cyst- Primary documented in this encounter Care Teams Hand Pleater Relationship Specialty Start Date End Date Kem Portillo MD [address] [facility] [address] [place] [address] PCP - General Family Practice 02/02/16 documented as of this encounter
--- OUTSIDE RECORDS SUMMARY | 2024-12-18 09:14 | XMS_ITS | Encounter Summary ---
Author Organization [facility] Address [address] [place] [address] Care Team Providers Care Rat Exterminator Name Role Phone Kem Portillo MD Primary Care Provider [phone] Encounter Details Date Type Department Care Team (Late st Contact Info) Description 03/31/2007 Outpatient Historical [facility] Medicine [place] 104 [facility] 60 [place] [address] Shady Hansen DO NO ADDRESS ON FILE Social History Tobacco Use Types Packs/Day Years Used Date Smoking Tobacco: Never Assessed Comments Unknown Sex and Gender Information Value Date Recorded Sex Assigned at Not on file Legal Sex Female 3:44 AM HOSPITAL PHARMACIST Gender Identity Not on file Sexual Orientation Not on file documented as of this encounter Progress Notes * Shady Hansen, - 03/31/2007 12:00 AM CST Patient Name: Mary Cruz DOS: 03/31/2007 : 1950 VITALS: Weight: 157.0 pounds. Pulse: 0. Not dictated. BP: 150/74. SUBJECTIVE: I need to talk. I think my medication may be messed up. I was out of Celexa for three or four days before I got it filled, but I do not think it is working anyway. Patient relates that she is having back pain, would like to have a refill on the hydrocodone and her alprazolam. Patient relates that she just lost all interest in everything, she is having problems with memory, lays things down and cannot remember where she puts it. Patient relates sometimes she thinks she is losing her mind. Patient was going through counseling with [facility], but did not return. Patient relates she could not tell where that was helping it, and she had a bad experience at first where she went over there and appointments have been cancelled, but she did not get the message. She was frustrated over that. Patient also relates that she is having hot flashes every night, that she is just miserable. REVIEW OF SYSTEMS: GASTROINTESTINAL: Patient relates bowels move okay. No chronic diarrhea, constipation. She has not had a colonoscopy. GENITOURINARY: Occasional nocturia. CARDIOVASCULAR: History of hypertension. NEUROMUSCULAR: Patient relates she is having low back and leg pain. RESPIRATORY: Patient continues to smoke. She does relate to nonproductive cough. OBJECTIVE: GENERAL: Patient is alert, tearful at times. ENT: EARS: Tympanic membranes not injected. NOSE: Nasal turbinates within normal limits. MOUTH: Tongue is midline. NECK: Supple. HEART: Regular rate and rhythm. LUNGS: Decreased sounds. No rales or rhonchi. ABDOMEN: Soft. EXTREMITIES: No edema. ASSESSMENT: 1. Memory changes by history. 2. Depression. 3. Hypertension. 4. Cigarette smoker. 5. Status post hysterectomy with menopausal symptoms. PLAN: Talked with patient about neurological consultation. She is agreeable to this. Explained to her that the only thing that would get rid of the hot flashes would probably be to go back on her estrogen, but she needs to be aware of the possible side effects to estrogen, increased heart disease, strokes, blood clots, and possibly breast cancer. I also talked with patient about pain medication being depressive and if she could go off the hydrocodone and just take Tylenol, I think that would benefit patient. May want to take patient off the lisinopril because of her cough and try her on Avapro. Patient is in a very difficult situation. Patient was having problems with depression before the d eath of her son within the last year which left her being mother to three girls. Patient and her seem to be doing very well with the three girls, they are doing school. Patient's has turned in his half-way so they could add on to their home and build three bedrooms so each of the girls could have their own room. The bedrooms, bathrooms are done, but the hallway and dining room is not complete. Patient relates she sees that every day. I talked with patient about going for walks. Patient relates every time she goes for a walk she sees [place], her son's home and relates all that does is makes her more depressed. Patient is in a very difficult situation, would like to get assistance from a neurologist regardingthe memory changes and then we can go and possibly get some help regarding her depression. Patient denies being suicidal, relate if she feels that way at all she needs to go to the emergencyroom. Patient knows she can call me at any time if she should have any questions. Patient will be continued on the Celexa, will not refill the hydrocodone today. Shady Hansen D.O. [facility] Electronically Signed by Shady Hansen D.O. 04/07/2007 15:26 , P, brianna Document #: [id number] cc: ITAL PHARMACIST documented in this encounter Plan of Treatment Not on file documented as of this encounter Visit Diagnoses Not on filedocumented in this encounter Care Teams Rat Exterminator Relationship Specialty Start Date End Date Kem Portillo MD [address] [facility] 60 [place] [id number] PCP - General Family Practice 02/02/16 documented as of this encounter
--- OUTSIDE RECORDS SUMMARY | 2024-12-18 09:14 | XMS_ITS | Encounter Summary ---
Author Organization [facility] Address [address] [place] [address] Care Team Providers Care Cereal Supervisor Name Role Phone Kem Portillo MD Primary Care Provider [phone] Encounter Details Date Type Department Care Team (Late st Contact Info) Description 11/25/2024 Results Follow-Up [facility] Emergency Medicine [address] [address] Sarahy Genao, PHOTOFINISHING LABORATORY WORKER [address] [facility] [address] [place] [address] URINE CULTURE Social History Tobacco Use Types Packs/Day Years [...] declined 01/14/2020 How often do you attend voodoo or yazdanism serv ices? Patient declined 01/14/2020 Do you belong to any clubs o r organizations such as voodoo groups, unions, fraternal or athletic groups, or [...] on file Legal Sex Female 12:40 AM GRAIN SAMPLER Gender Identity Not on file Sexual Orientation Not on file documented as of this encounter Plan of Treatment Upcoming Encounters Date Type Department Care Team (Latest Contact Info) Description 12/19/2024 10:20 AM CDT Office Visit [address] [address] Marika Quintero, KHADRA [address] [place] [address] 12/25/2024 3:20 PM CDT Office Visit [facility] [address] [place] [address] Kem Portillo MD [address] [place] [address] 02/05/2025 10:20 AM GRAIN SAMPLER Hospital Encounter [facility] [address] [place] [address] Alex Berg MD [address] [address] 02/05/2025 10:20 AM GRAIN SAMPLER - 02/05/2025 10:40 AM GRAIN SAMPLER Surgery [facility] [address] [place] [address] lAex Berg MD [address] [address] ESOPHAGOGASTRODUODENOSCOPY Scheduled Procedures Name Priority Associated Diagnoses Date/Ti hi ESOPHAGOGASTRODUODENOSCOPY Dysphagia, unspecified type; Black tarry stools 02/05/2025 10:20 AM GRAIN SAMPLER COLONOSCOPY Dysphagia, unspecified type; Black tarry stools 02/05/2025 10:20 AM GRAIN SAMPLER documented as of this encounter Visit Diagnoses Not on filedocumented in this encounter Additional Health Concerns Infection Onset Date Last Indicated Resolved Time R/O COVID-19 12/15/2024 12/15/2024 12/15/2024 6:09 AM CDT R/O COVID-19 12/15/2024 12/15/2024 12/15/2024 6:58 AM CDT Assessment Noted Time PHQ-9 Depression Total Score: 5 09/07/19 25 2:30 PM CDT documented as of this encounter Care Teams Cereal Supervisor Relationship Specialty Start Date End Date Kem Portillo MD [address] [address] PCP - General Family Practice 09/02/21 documented as of this encounter
--- OUTSIDE RECORDS SUMMARY | 2024-12-18 09:14 | XMS_ITS | Clinical Summary ---
Author Organization [facility] Address [address] [address] Care Team Providers Care Granite Countertop Installer Name Role Phone Kem Portillo MD Primary Care Provider [phone] Allergies Active Allergy Reactions Criticality Noted Date Comments Fluphenazine Other (see comments) High 04/17/2020 Lost control of my whole body Thiopental Swelling High 02/25/2016 Swelling of the Uvula Medications venlafaxine XR (Effexor XR) 75 MG 24 hr capsule 1 capsule at bed time Active valsartan (DIOVAN) 160 MG tablet Take 160 mg by mouth twice a day 0 Active traZODone (DESYREL) 100 MG tablet Take 100 mg by mouth at night if needed 0 Active senna-docusate (PERICOLACE) 8.6-50 MG per tablet Take 1 tablet by mouth daily 1 Active pyridoxine (B-6) 50 MG tablet Take 50 mg by mouth daily 9 Active omeprazole (PriLOSEC) [address] capsule Take 40 mg by mouth daily 0 Active NIFEdipine XL (PROCARDIA XL) 60 MG 24 hr tablet Take 60 mg by mouth daily 1 Active naproxen (NAPROSYN) 500 MG tablet Take 500 mg by mouth 0 Active Naloxone HCl 4 MG/0.1ML liquid Administer 1 spray (4 mg) in one nostril one time. May repeat in alternating nostrils every 2-3 min until responsive or EMS arrives. 0 Active lovastatin (MEVACOR) 20 MG tablet Take 20 mg by mouth 0 Active HYDROcodone-kacy taminophen (LORCET PLUS) 10-325 MG per tablet Take 1 tablet by mouth every 6 (six) hours if needed 1 Active hydroCHLOROthia zide (HYDRODIURIL) 25 MG tablet Take 1 tablet by mouth 1 (one) time each day 0 Active hydrALAZINE (APRESOLINE) 25 MG tablet Take 25 mg by mouth twice a day 0 Active gabapentin (NEURONTIN) 300 MG capsule Take by mouth twice a day Take 1 capsule 1 time daily for 1 wk. Then take 1 capsule 2 times daily the next wk.Then take 1 capsule 3 times daily. 0 Active Fesoterodine Fumarate ER (Toviaz) 4 MG tablet sustained-relea se 24 hour Take 4 mg by mouth 1 (one) time each day Active escitalopram (LEXAPRO) 20 MG tablet Take 1 tablet by mouth 1 (one) time each day 0 Active DULoxetine (CYMBALTA) [address] capsule 60 mg daily 0 Active cholecalciferol (VITAMIN D-3 SUPER STRENGTH) 50 MCG (2000 UT) tablet Take 1 tablet by mouth 1 (one) time each day Active carvedilol (COREG) 6.25 MG tablet Take 6.25 mg by mouth 2 (two) times a day 9 Active aspirin 325 MG tablet Take 325 mg by mouth daily Active ALPRAZolam (XANAX) 0.5 MG tablet Take 0.5 mg by mouth 2 (two) times a day if needed 0 Active albuterol HFA (PROVENTIL HFA;VENTOLIN HFA) 108 (90 Base) MCG/ACT inhaler Inhale 2 puffs every 4 (four) hours if needed 1 Active Psyllium (METAMUCIL PO) Take by mouth 1 (one) time each day if needed Active Active Problems No known active problems Immunizations Immunization Administration Dates Next Due Influenza Split High Dose Pr eservative Free IM 11/20/2018,11/30/2016 Influenza TIV (IM) 10/25/2019, 8,12/01/2016,10/14,01/21/2015,03/14/2012,12/29/2007 ,12/27/2006 Pneumococcal Polysaccharide 10/22/2013 Td 05/08/2007 Family History Medical History Relation Comments Heart disease Father Hypertension Father Cancer Maternal Grandmother Cancer Mother Heart disease Mother Hypertension Mother Relation Status Comments Father Maternal Grandmother Mother Social History Tobacco Use Types Packs/Day Years Used Date Smoking Tobacco: Every Day Cigarettes Smokeless Tobacco: Never Alcohol Use Standard Drinks/Week Comments Not Currently 0 (1 standard drink = 0.6 oz pur e alcohol) Comments Unknown Sex and Gender Information Value Date Recorded Sex Assigned at Not on file Legal Sex Female 10:26 AM EDT Gender Identity Not on file Sexual Orientation Not on file Last Filed Vital Signs Vital Sign Reading Time Taken Comments Blood Pressure 150/70 04/30/2020 1:15 PM FORENSIC SCIENCE EXAMINER Pulse 60 04/30/2020 1:15 PM FORENSIC SCIENCE EXAMINER Temperature 36.8 C (98.2 F) 04/30/2020 1:15 PM FORENSIC SCIENCE EXAMINER Respiratory Rate - - Oxygen Saturation - - Inhaled Oxygen Concentration - - Weight 72.9 kg (160 lb 12.8 oz) 04/30/2020 1:15 PM FORENSIC SCIENCE EXAMINER Height 165.1 cm (5' 5 ) 04/30/2020 1:15 PM FORENSIC SCIENCE EXAMINER Body Mass Index 26.76 04/30/2020 1:15 PM FORENSIC SCIENCE EXAMINER Plan of Treatment Health Maintenance Due Date Last Done Comments Pneumococcal Vaccine: 50+ Years (2 of 2 - PCV) 10/22/2014 10/22/2013 Influenza Vaccine (#1) 2024 0, 11/20/2018, 11/14/2017, Additional history exists Pneumococcal Vaccine: Peds (0 to 5 Years) and At-Risk Patients (6 to 49 Years) Discontinued 10/22/2013 Hepatitis B Vaccine Aged Out No longe r eligible based on patient's age to complete this topic Insurance Medicare [facility] [place] [id number] Care Teams Granite Countertop Installer Relationship Specialty Start Date End Date Kem Portillo MD [address] [address] PCP - General Family Medicine 11/26/19
--- OUTSIDE RECORDS SUMMARY | 2024-12-18 09:14 | XMS_ITS | Encounter Summary ---
Author Organization [facility] Address [address] [place] [address] Care Team Providers Care Industrial Gas Fitter Name Role Phone Kem Portillo MD Primary Care Provider [phone] Encounter Details Date Type Department Care Team (Late st Contact Info) Description 08/30/2006 Outpatient Historical [facility] Plastic Surgery [address] [place] [address] Ronaldo Aldana MD NO ADDRESS ON FILE Sebaceous Cyst (Primary Dx) Social History Tobacco Use Types Packs/Day Years Used Date Smoking Tobacco: Never Assessed Comments Unknown Sex and Gender Information Value Date Recorded Sex Assigned at Not on file Legal Sex Female 3:44 AM MANAGER TELEMETRY Gender Identity Not on file Sexual Orientation Not on file documented as of this encounter Plan of Treatment Not on file documented as of this encounter Visit Diagnoses Diagnosis Sebaceous cyst- Primary documented in this encounter Care Teams Industrial Gas Fitter Relationship Specialty Start Date End Date Kem Portillo MD [address] [facility] 60 [place] [address] PCP - General Family Practice 02/02/16 documented as of this encounter
--- OUTSIDE RECORDS SUMMARY | 2024-12-18 09:14 | XMS_ITS | Encounter Summary ---
Author Organization [facility] Address [address] [place] [address] Care Team Providers Care Supervisor Cell Efficiency Name Role Phone Kem Portillo MD Primary Care Provider [phone] Encounter Details Date Type Department Care Team (Latest Contact Info) Description 11/17/2006 Outpatient Historical [facility] Medicine [place] [address] [address] Lorenza Tony MD NO ADDRESS ON FILE Lumbago (Primary Dx); Spasm of Muscle Social History Tobacco Use Types Packs/Day Years Used Date Smoking Tobacco: Never Assessed Comments Unknown Sex and Gender Information Value Date Recorded Sex Assigned at Not on file Legal Sex Female 3:44 AM SOFTWARE DEVELOPMENT TEST ENGINEER Gender Identity Not on file Sexual Orientation Not on file documented as of this encounter Plan of Treatment Not on file documented as of this encounter Visit Diagnoses Diagnosis Lumbago- Primary Spasm of muscle documented in this encounter Care Teams Supervisor Cell Efficiency Relationship Specialty Start Date End Date Kem Portillo MD [address] [address] PCP - General Family Practice 02/02/16 documented as of this encounter
--- OUTSIDE RECORDS SUMMARY | 2024-12-18 09:15 | XMS_ITS | Encounter Summary ---
Author Organization [facility] Address [address] [place] [address] Care Team Providers Care Maternal Child Nurse Name Role Phone Kem Portillo MD Primary Care Provider [phone] [phone] Encounter Details Date Type Department Care Team (Latest Contact Info) Description 12/11/2001 Outpatient Historical [facility] [address] [address] Lonnie Craig MD NO ADDRESS ON FILE SCREENING MAMM-MAILG NEOPL-OTHER (Primary Dx) Social History Tobacco Use Types Packs/Day Years Used Date Smoking Tobacco: Never Assessed Comments Unknown Sex and Gender Information Value Date Recorded Sex Assigned at Not on file 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
--- OUTSIDE RECORDS SUMMARY | 2024-12-18 09:15 | XMS_ITS | Encounter Summary ---
Author Organization [facility] Address [address] [place] [address] Care Team Providers Care Maintenance Man Name Role Phone Kem Portillo MD Primary Care Provider [phone] [phone] Reason for Referral * Radiology Services (Routine) - Closed Specialty Diagnoses / Procedures Referred By Contac t Referred To Contact Cardiology Diagnoses Chest pressure HOWELL (dyspnea on exertion) Abnormal EKG Procedures CL LT HEART CATHETERIZATION Maxwell Burciaga MD [facility] Administrative Assistant [address] [place] [id number] Phone: tel: fax: Referral ID Status Reason Start Date Expiration Date Visits Re quested Visits Authorized [id number] Closed 01/23/2019 02/23/2020 1 1 NSED PROFESSIONAL COUNSELOR Encounter Details Date Type Department Care Team (Late st Contact Info) Description 01/23/2019 Ancillary Orders [facility] [address] [place] [address] [address] [place] [address] Maxwell Burciaga MD NO ADDRESS ON FILE Chest pressure; HOWELL (dyspnea on exertion); Abnormal EKG Social History Tobacco Use Types Packs/Day Years Used Date Smoking Tobacco: Every Day Cigarettes 1 30 Smokeless Tobacco: Never Comments:wants to quit smoki ng and did for a while but has started back. has tried Chantix twice Alcohol Use Standard Drinks/Week Comments No 0 (1 standard drink = 0.6 oz pur e alcohol) Few times per month Comments No Sex and Gender Information Value Date Recorded Sex Assigned at Not on file Legal Sex Female 3:44 AM LICENSED PROFESSIONAL COUNSELOR Gender Identity Not on file Sexual Orientation Not on file Occupation Industry Job Start Date Job End Date Not on file Not on file Not on file Not on file documented as of this encounter Plan of Treatment Not on file documented as of this encounter Results * CL LT HEART CATHETERIZATION (02/09/2019 7:57 AM LICENSED PROFESSIONAL COUNSELOR) 02/09/2019 7:36 AM LICENSED PROFESSIONAL COUNSELOR Impressions [facility] - 02/09/2019 8:10 AM LICENSED PROFESSIONAL COUNSELOR S: 1) Mild nonobstructive 2-vessel coronary artery disease 2) Normal to hyperdynamic LV contractility RECOMMENDATIONS: 1) Consider noncardiac causes of her discomfort. Omeprazole 20mg po daily. OV with Dr. Portillo at her convenience. Maxwell Burciaga MD, [facility], [facility] - 02/09/2019 8:10 AM LICENSED PROFESSIONAL COUNSELOR CARDIAC CATHETERIZATION REPORT-TRANSRADIAL [place], [place] PATIENT: Mary Cruz PATIENT NUMBER: [id number] BIRTHDATE: 1950 REFERRING PHYSICIAN: Kem Portillo MD DATE: 02/09/2019 TIME: 8:09 AM PROCEDURE: Left heart catheterization with coronary angiography, left ventricular cineangiography via right transradial approach INDICATION: arm and chest discomfort, possible angina After carefully discussing potential benefits/ risks of and alternatives to cardiac catheterization and possible intervention at length with the patient, informed consent was obtained. The right radial artery was prepped and draped in the usual manner. Bk's test was normal. Continuous blood pressure, ECG, and oxygen saturation monitoring were utilized. Carefully titrated conscious sedation was achieved. I personally supervised conscious sedation with versed and fentanyl from 0741 to 0758. Following infiltration of 1% lidocaine local anesthetic, a 6 FR right radial arterial sheath was inserted over a flexible guidewire using single wall technique and ultrasound guidance Ultrasound guidance was medically necessary for assessment of size and patency of the selected vessel, visualization of adjacent structures and to facilitate avoidance of adjacent veins and nerves. Vascular needle entry was seen on ultrasound and image was permanently recorded. A cocktail of NTG and verapamil was given into the sheath. Heparin was given IV. There were no apparent complications. CORONARY ANGIOGRAPHY: Coronary angiography was performed with a 5FR [place] catheter. The results were as follows: The left main coronary artery is normal. The left anterior descending coronary artery is 20-30% narrowed proximally. The left posterior circumflex coronary artery and its branches are normal. The right coronary artery is dominant and 20% narrowed mid portion. No collaterals are seen. LEFT VENTRICULAR CINEANGIOGRAPHY: LV cineangiography was performed with a 5 FR pigtail catheter in GARCIA projection. 10 ml of contrast were used. The left ventricle is normal in size. All wall segments contract normally. Estimated left ventricular ejection fraction is 70%. No significant mitral insufficiency is noted. There is no significant gradient across the aortic valve. Following the procedure a Vascband transradial band was applied. With 10 ml of air there was excellent hemostasis. Good capillary refill was noted in the right hand digits. Estimated blood loss <30ml. us Maxwell Burciaga MD FLUOROSCOPY ORDERABLES Final R esult [facility] documented in this encounter Visit Diagnoses Diagnosis Chest pressure Other chest pain HOWELL (dyspnea on exertion) Other dyspnea and respiratory abnormality Abnormal EKG Nonspecific abnormal electrocardiogram (ECG) (EKG) Abnormal EKG- Primary Nonspecific abnormal electrocardiogram (ECG) (EKG) HOWELL (dyspnea on exertion) Other dyspnea and respiratory abnormality Chest pressure Other chest pain documented in this encounter Care Teams Maintenance Man Relationship Specialty Start Date End Date Kem Portillo MD [address] [facility] [address] [place] [id number] PCP - General Family Practice 02/02/16 documented as of this encounter
--- OUTSIDE RECORDS SUMMARY | 2024-12-18 09:15 | XMS_ITS | Encounter Summary ---
Author Organization [facility] Address [address] [place] [address] Care Team Providers Care Recycling Attendant Name Role Phone Kem Portillo MD Primary Care Provider [phone] Encounter Details Date Type Department Care Team (Latest Contact Info) Description 07/05/2003 Outpatient Historical [facility] Medicine [place] [address] [address] Shady Hansen DO NO ADDRESS ON FILE JOINT PAIN-L/LEG (Primary Dx); MASTODYNIA Social History Tobacco Use Types Packs/Day Years Used Date Smoking Tobacco: Never Assessed Comments Unknown Sex and Gender Information Value Date Recorded Sex Assigned at Not on file 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
--- OUTSIDE RECORDS SUMMARY | 2024-12-18 09:15 | XMS_ITS | Encounter Summary ---
Author Organization [facility] Address [address] [place] [address] Care Team Providers Care Custom Frame Assembler Name Role Phone Kem Portillo MD Primary Care Provider [phone] Encounter Details Date Type Department Care Team (Latest Contact Info) Description 12/13/2003 Outpatient Historical [facility] Medicine [place] [address] [address] Shady Hansen, NO ADDRESS ON FILE CELLULITIS, FINGER NOS (Primary Dx) Social History Tobacco Use Types Packs/Day Years Used Date Smoking Tobacco: Never Assessed Comments Unknown Sex and Gender Information Value Date Recorded Sex Assigned at Not on file 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
--- OUTSIDE RECORDS SUMMARY | 2024-12-18 09:15 | XMS_ITS | Encounter Summary ---
Author Organization [facility] Address [address] [place] [address] Care Team Providers Care Lithograph Press Operator Tinware Name Role Phone Kem Portillo MD Primary Care Provider [phone] [phone] Encounter Details Date Type Department Care Team (Latest Contact Info) Description 12/15/2005 Outpatient Historical [facility] Medicine [place] [address] [address] Shday Hansen DO NO ADDRESS ON FILE Acute Bronchitis (Primary Dx); Sprain Lumbosacral; Pain in Limb Social History Tobacco Use Types Packs/Day Years Used Date Smoking Tobacco: Never Assessed Comments Unknown Sex and Gender Information Value Date Recorded Sex Assigned at Not on file Legal Sex Female 3:44 AM SENIOR CORPORATE RECRUITER Gender Identity Not on file Sexual Orientation Not on file documented as of this encounter Plan of Treatment Not on file documented as of this encounter Visit Diagnoses Diagnosis Acute bronchitis- Primary Sprain lumbosacral Sprain of lumbosacral (joint) (ligament) Pain in limb Pain in soft tissues of limb documented in this encounter Care Teams Lithograph Press Operator Tinware Relationship Specialty Start Date End Date Kem Portillo MD [address] [address] PCP - General Family Practice 02/02/16 documented as of this encounter
--- OUTSIDE RECORDS SUMMARY | 2024-12-18 09:15 | XMS_ITS | Encounter Summary ---
Author Organization [facility] Address [address] [place] [address] Care Team Providers Care Grinder And Plater Name Role Phone Kem Portillo MD Primary Care Provider [phone] Encounter Details Date Type Department Care Team (Latest Contact Info) Description 10/02/2003 Outpatient Historical [facility] [address] [address] Ignacia Jean-Baptiste MD NO ADDRESS ON FILE LUMP OR MASS IN BREAST (Primary Dx) Social History Tobacco Use Types Packs/Day Years Used Date Smoking Tobacco: Never Assessed Comments Unknown Sex and Gender Information Value Date Recorded Sex Assigned at Not on file 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
--- OUTSIDE RECORDS SUMMARY | 2024-12-18 09:15 | XMS_ITS | Encounter Summary ---
Author Organization [facility] Address [address] [place] [address] Care Team Providers Care Rail Car Painter/Sandblaster Name Role Phone Kem Portillo MD Primary Care Provider [phone] Encounter Details Date Type Department Care Team (Latest Contact Info) Description 02/02/2005 Outpatient Historical [facility] Medicine [place] [address] [address] Shady Hansen DO NO ADDRESS ON FILE HYPERTENSION NOS (Primary Dx) Social History Tobacco Use Types Packs/Day Years Used Date Smoking Tobacco: Never Assessed Comments Unknown Sex and Gender Information Value Date Recorded Sex Assigned at Not on file Legal Sex Female 3:44 AM OBSTETRICS NURSE Gender Identity Not on file Sexual Orientation Not on file documented as of this encounter Plan of Treatment Not on file documented as of this encounter Visit Diagnoses Diagnosis Unspecified essential hypertension- Primary documented in this encounter Care Teams Rail Car Painter/Sandblaster Relationship Specialty Start Date End Date Kem Portillo MD [address] [address] PCP - General Family Practice 02/02/16 documented as of this encounter
--- OUTSIDE RECORDS SUMMARY | 2024-12-18 09:15 | XMS_ITS | Encounter Summary ---
Author Organization [facility] Address [address] [facility] Attn: [place] [address] Care Team Providers Care Workers Compensation Claims Analyst Name Role Phone Kem Portillo MD Primary Care Provider +1 [phone] Encounter Details Date Type Department Care Team (Late st Contact Info) Description 12/11/2001 Outpatient Historical Non-Staff, Physician NO ADDRESS ON FILE Social History Tobacco Use Types Packs/Day Years Used Date Smoking Tobacco: Never Assessed Comments Unknown Sex and Gender Information Value Date Recorded Sex Assigned at Not on file 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
--- OUTSIDE RECORDS SUMMARY | 2024-12-18 09:15 | XMS_ITS | Encounter Summary ---
Author Organization [facility] Address [address] [place] [address] Care Team Providers Care Recreation Professor Name Role Phone Kem Portillo MD Primary Care Provider +1 [phone] Encounter Details Date Type Department Care Team (Latest Contact Info) Description 10/14/2003 Outpatient Historical [facility] Family Medicine- [place] [address] [place] [address] Shady Hansen, NO ADDRESS ON FILE Toxic effect venom (Primary Dx) Social History Tobacco Use Types Packs/Day Years Used Date Smoking Tobacco: Never Assessed Comments Unknown Sex and Gender Information Value Date Recorded Sex Assigned at Not on file 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
--- OUTSIDE RECORDS SUMMARY | 2024-12-18 09:15 | XMS_ITS | Encounter Summary ---
Author Organization [facility] Address [address] [place] [address] Care Team Providers Care Laborer Ammunition Assembly Name Role Phone Kem Portillo MD Primary Care Provider +1 [phone] Encounter Details Date Type Department Care Team (Latest Contact Info) Description 10/05/[address] 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
--- OUTSIDE RECORDS SUMMARY | 2024-12-18 09:15 | XMS_ITS | Encounter Summary ---
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
--- OUTSIDE RECORDS SUMMARY | 2024-12-18 09:15 | XMS_ITS | Encounter Summary ---
Author Organization [facility] Address [address] [place] [address] Care Team Providers Care Cathodic Protection Technician Name Role Phone Kem Portillo MD Primary Care Provider +1 [phone] Encounter Details Date Type Department Care Team (Latest Contact Info) Description 10/02/2003 Outpatient Historical [facility] Shady Hansen, NO ADDRESS ON FILE UNSP ABNORMAL MAMMOGRAM (Primary Dx) Social History Tobacco Use Types Packs/Day Years Used Date Smoking Tobacco: Never Assessed Comments Unknown Sex and Gender Information Value Date Recorded Sex Assigned at Not on file 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
--- OUTSIDE RECORDS SUMMARY | 2024-12-18 09:15 | XMS_ITS | Encounter Summary ---
Author Organization [facility] Address [address] [place] [address] Care Team Providers Care Track Supervisor Name Role Phone Kem Portillo MD Primary Care Provider +1 [phone] Encounter Details Date Type Department Care Team (Latest Contact Info) Description 09/10/2005 Outpatient Historical [facility] Medicine [place] [address] [address] Shady Hansen DO NO ADDRESS ON FILE Unspecified Chest Pain (Primary Dx); Symptomatic Menopausal or Female Climacteric States; Unspecified Essential Hypertension Social History Tobacco Use Types Packs/Day Years Used Date Smoking Tobacco: Never Assessed Comments Unknown Sex and Gender Information Value Date Recorded Sex Assigned at Not on file 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
--- OUTSIDE RECORDS SUMMARY | 2024-12-18 09:15 | XMS_ITS | Encounter Summary ---
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
--- OUTSIDE RECORDS SUMMARY | 2024-12-18 09:15 | XMS_ITS | Encounter Summary ---
Author Organization [facility] Address [address] [place] [address] Care Team Providers Care Assembler Unit Name Role Phone Kem Portillo MD Primary Care Provider +1 [phone] Encounter Details Date Type Department Care Team (Latest Contact Info) Description 03/10/2004 Outpatient Historical [facility] [address] [address] Shady Hansen DO NO ADDRESS ON FILE ACUTE BRONCHITIS (Primary Dx); ABDOMINAL PAIN UNSPEC SITE; VISUAL LOSS NOS; SCREENING MAL NEOP-RECTUM Social History Tobacco Use Types Packs/Day Years Used Date Smoking Tobacco: Never Assessed Comments Unknown Sex and Gender Information Value Date Recorded Sex Assigned at Not on file 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
--- OUTSIDE RECORDS SUMMARY | 2024-12-18 09:15 | XMS_ITS | Encounter Summary ---
Author Organization [facility] Address [address] [place] [address] Care Team Providers Care Cutting Machine Operator Helper Name Role Phone Kem Portillo MD Primary Care Provider +1 [phone] Encounter Details Date Type Department Care Team (Latest Contact Info) Description 12/10/2003 Outpatient Historical [facility] Medicine [place] [address] [address] Shady Hansen, NO ADDRESS ON FILE ADJUSTMENT DISORDER WITH DEPRESSED MOOD (Primary Dx) Social History Tobacco Use Types Packs/Day Years Used Date Smoking Tobacco: Never Assessed Comments Unknown Sex and Gender Information Value Date Recorded Sex Assigned at Not on file 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
--- OUTSIDE RECORDS SUMMARY | 2024-12-18 09:15 | XMS_ITS | Encounter Summary ---
Author Organization [facility] Address [address] [place] [address] Care Team Providers Care Special Events Manager Name Role Phone Kem Portillo MD Primary Care Provider +1 [phone] Encounter Details Date Type Department Care Team (Latest Contact Info) Description 09/20/2005 Outpatient Historical [facility] [address] [place] [address] Shady Hansen DO NO ADDRESS ON FILE Precordial Pain (Primary Dx) Social History Tobacco Use Types Packs/Day Years Used Date Smoking Tobacco: Never Assessed Comments Unknown Sex and Gender Information Value Date Recorded Sex Assigned at Not on file 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 Sex Female 3:44 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 COORDINATOR Gender Identity Not on file Sexual Orientation Not on file documented as of this encounter Plan of Treatment Not on file documented as of this encounter Procedures Procedure Name Priority Date/Time Associated Diagnosis Comments STRESS TEST EXERCISE NUCLEAR MED Routine 09/20/2005 12:01 AM CDT NM MYOCARD PERF IMAG SPECT MULT Routine 09/20/2005 12:01 AM CDT documented in this encounter Results * NM MYOCARD PERF IMAG SPECT MULT (09/20/2005 12:01 AM CDT) 09/20/2005 12:0 1 AM CDT Narrative INTERFACE SYSTEM - 09/20/2005 12:01 AM CDT 09/20/2005 Radiopharmaceutical: Tc-99m (technetium-99m) Myoview (rest) Dose: 10.2 mCi Tc-99m (technetium-99m) Myoview (stress) 33 mCi Reason for Consultation: Precordial chest pain. Evaluation of myocardial perfusion. RADIONUCLIDE MYOCARDIAL PERFUSION SPECT REST / STRESS WALL MOTION EJECTION FRACTION EVALUATION: The initial images demonstrate that the heart is overall normal in size. Right ventricular activity appears normal. The left ventricular wall does not appear thickened. The distribution of the tracer around the left ventricle is relatively uniform on the immediate post-adenosine images. There were no areas that showed obvious differences in tracer concentration in comparison to the resting study. Evaluation of left ventricular wall motion demonstrates concentric wall thickening and normal wall motion throughout the left ventricular myocardium. The resting left ventricular ejection fraction was 68%. IMPRESSION: There is no obvious evidence for a critical coronary artery stenotic lesion leading to reversible ischemia on this examination. There is normal wall motion and left ventricular ejection fraction at rest. jaw Dictated By: Turner Sanders M.D. Electronically Signed By: Turner Sanders M.D. Date Signed: 09/21/05 [facility] Procedure Note 01/16/2009 09/20/2005 Radiopharmaceutical: Tc-99m (technetium-99m) Myoview (rest) Dose: 10.2 mCi Tc-99m (technetium-99m) Myoview (stress) 33 mCi Reason for Consultation: Precordial chest pain. Evaluation of myocardial perfusion. RADIONUCLIDE MYOCARDIAL PERFUSION SPECT REST / STRESS WALL MOTION EJECTIONFRACTION EVALUATION: The initial images demonstrate that the heart is overall normal in size.Right ventricular activity appears normal. The left ventricular wall does not appear thickened. Thedistribution of the tracer around the left ventricle is relatively uniform on the immediatepost-adenosine images. There were no areas that showed obvious differences in tracer concentration incomparison to the resting study. Evaluation of left ventricular wall motion demonstrates concentric wallthickening and normal wall motion throughout the left ventricular myocardium. The resting left ventricular ejection fraction was 68%. IMPRESSION: There is no obvious evidence for a critical coronary artery stenoticlesion leading to reversible ischemia on this examination. There is normal wall motion and leftventricular ejection fraction at rest. jaw Dictated By: Turner Sanders M.D. Electronically Signed By: Turner Sanders M.D. Date Signed: 09/21/05 [facility] Shady Hansen DO NM ORDERABLES Final Result INTERFACE SYSTEM Refer to clinic/hospital department * STRESS TEST,EXERCISE, NUCLEAR MED (09/20/2005 12:01 AM CDT) 09/20/2005 12:0 1 AM CDT Narrative INTERFACE SYSTEM - 09/20/2005 12:01 AM CDT 09/20/2005 Reason for Consultation: Precordial chest pain. Evaluation of myocardial perfusion. CARDIOVASCULAR STRESS TEST WITH ADENOSINE PROVOCATION, MONITORING, AND INTERPRETATION: This study was supervised and monitored by Dr. Turner Sanders. Following the intravenous administration of 36.9 mg of adenosine over a four- minute period, the patient remained in the supine position for an additional two minutes. The above radiopharmaceutical was injected at approximately two minutes into the adenosine infusion. Her blood pressure went from 138/82 to 132/70 at peak adenosine effect. Her heart rate went from a baseline of 61 to a peak of 82 beats per minute during the same interval. She developed shortness of breath, headache, and some shoulder discomfort with the adenosine infusion. These symptoms rapidly resolved spontaneously upon completion of the adenosine infusion. No ischemic electrocardiographic changes were noted. No arrhythmias were induced during or after the procedure. IMPRESSION: The patient had a non-ischemic electrocardiographic response to adenosine infusion. No arrhythmias were induced during the procedure. Myocardial perfusion imaging report to follow. gaston Dictated By: Turner Sanders M.D. Electronically Signed By: Turner Sanders M.D. Date Signed: 09/21/05 [facility] Procedure Note 01/16/2009 09/20/2005 Reason for Consultation: Precordial chest pain. Evaluation of myocardial perfusion. CARDIOVASCULAR STRESS TEST WITH ADENOSINE PROVOCATION, MONITORING, ANDINTERPRETATION: This study was supervised and monitored by Dr. Turner Sanders. Following the intravenous administration of 36.9 mg of adenosine over afour- minute period, the patient remained in the supine position for an additional two minutes. The aboveradiopharmaceutical was injected at approximately two minutes into the adenosine infusion. Herblood pressure went from 138/82 to 132/70 at peak adenosine effect. Her heart rate went from a baselineof 61 to a peak of 82 beats per minute during the same interval. She developed shortness of breath,headache, and some shoulder discomfort with the adenosine infusion. These symptoms rapidly resolvedspontaneously upon completion of the adenosine infusion. No ischemic electrocardiographic changes werenoted. No arrhythmias were induced during or after the procedure. IMPRESSION: The patient had a non-ischemic electrocardiographic response to adenosineinfusion. No arrhythmias were induced during the procedure. Myocardial perfusion imaging report to follow. gaston Dictated By: Turner Sanders M.D. Electronically Signed By: Turner Sanders M.D. Date Signed: 09/21/05 [facility] Shady Hansen DO NM ORDERABLES Final Result Performing Organization Address City/State/[facility] Co de Phone Number INTERFACE SYSTEM Refer to clinic/hospital department documented in this encounter Visit Diagnoses Diagnosis Precordial pain- Primary documented in this encounter Care Teams Special Events Manager Relationship Specialty Start Date End Date Kem Portillo MD [address] [facility] [address] [place] [address] PCP - General Family Practice 02/02/16 documented as of this encounter
--- OUTSIDE RECORDS SUMMARY | 2024-12-18 09:15 | XMS_ITS | Encounter Summary ---
Author Organization [facility] Address [address] [place] [address] Care Team Providers Care Healthcare Economics Manager Name Role Phone Kem Portillo MD Primary Care Provider +1 [phone] Encounter Details Date Type Department Care Team (Latest Contact Info) Description 02/24/2005 Outpatient Historical [facility] Medicine [place] [address] [address] Anna Meza NP NO ADDRESS ON FILE ACUTE URI NOS (Primary Dx); MALAISE AND FATIGUE NEC Social History Tobacco Use Types Packs/Day Years Used Date Smoking Tobacco: Never Assessed Comments Unknown Sex and Gender Information Value Date Recorded Sex Assigned at Not on file 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
--- OUTSIDE RECORDS SUMMARY | 2024-12-18 09:15 | XMS_ITS | Encounter Summary ---
Author Organization [facility] Address [address] [place] [address] Care Team Providers Care Leak Inspector Name Role Phone Kem Portillo MD Primary Care Provider +1 -[phone] Encounter Details Date Type Department Care Team (Latest Contact Info) Description 12/24/2004 Outpatient Historical [facility] Orthopedics- 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
--- OUTSIDE RECORDS SUMMARY | 2024-12-18 09:16 | XMS_ITS | Encounter Summary ---
Author Organization [facility] Address [address] [place] [address] Care Team Providers Care Oil Pipeline Operator Name Role Phone Kem Portillo MD Primary Care Provider +1 -[phone] Encounter Details Date Type Department Care Team (Latest Contact Info) Description 04/11/2006 Outpatient Historical [facility] Medicine [place] [address] [address] Shady Hansen DO NO ADDRESS ON FILE Pain in Limb (Primary Dx); Corns and Callosities; Insomnia, Unspecified Social History Tobacco Use Types Packs/Day Years Used Date Smoking Tobacco: Never Assessed Comments Unknown Sex and Gender Information Value Date Recorded Sex Assigned at Not on file 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
--- OUTSIDE RECORDS SUMMARY | 2024-12-18 09:16 | XMS_ITS | Encounter Summary ---
Author Organization [facility] Address [address] [place] [address] Care Team Providers Care Orchestra Musician Name Role Phone Kem Portillo MD Primary Care Provider +1 -[phone] Encounter Details Date Type Department Care Team (Latest Contact Info) Description 06/14/2000 Outpatient Historical [facility] Medicine [place] [address] [address] Na Parrish MD Abdominal pain, right upper quadrant (Primary Dx) Social History Tobacco Use Types Packs/Day Years Used Date Smoking Tobacco: Never Assessed Comments Unknown Sex and Gender Information Value Date Recorded Sex Assigned at Not on file 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
--- OUTSIDE RECORDS SUMMARY | 2024-12-18 09:16 | XMS_ITS | Clinical Summary ---
Author Organization [employer] Address [address] [facility] Attn: Epic Prelude ADT DENIZ [place]IEGA [address] Care Team Providers Care Director Corporate Compliance Name Role Phone Kem Portillo MD Primary Care Provider [phone] Allergies Active Allergy Reactions Criticality Noted Date Comments Fluphenazine Hcl Unknown Lost control of my whole body Thiopental Sodium Swelling High 02/25/2016 Swelling of the Uvula Medications aspirin (ECOTRIN EC) 81 mg Tablet, Delayed Release (E.C.) Take 1 Tablet by mouth daily. 024 Active Ventolin HFA 90 mcg/actuation inhaler INHALE 2 PUFFS BY MOUTH EVERY 6 HOURS NEEDED FOR SHORTNESS OF BREATH 18 Gram 5 025 Active pantoprazole (PROTONIX) 40 mg Tablet, Delayed Release (E.C.) Take 1 Tablet (40 mg) by mouth daily. 90 Tablet 3 025 Active budesonide-formot Ophelia (SYMBICORT) 160-4.5 mcg/actuation HFA Aerosol InhalerIndication s:Panlobular emphysema Take 2 Puffs by inhalation 2 times daily. 10.2 Gram 11 025 Active famotidine (PEPCID) 20 mg tablet TAKE 1 TABLET BY MOUTH TWICE DAILY NEEDED FOR HEARTBURN/UPSE T STOMACH 200 Tablet 1 025 Active clopidogreL (PLAVIX) 75 mg Tablet Take 1 Tablet (75 mg) by mouth daily. 100 Tablet 1 025 Active DULoxetine (CYMBALTA) 30 mg Capsule, Delayed Release(E.C.)Jayna cations:Chronic pain syndrome Take 1 Capsule (30 mg) by mouth daily. Dose increase 100 Capsule 1 Active fluticasone propionate (FLONASE) 50 mcg/spray Mckinney, Suspension nasal inhalerIndication s:Dysfunction of Eustachian tube, unspecified laterality Administer 2 Sprays in each nostril daily. 16 Gram 11 Active polyethylene glycol 3350 (MIRALAX) 17 gram/dose PowderIndications :Constipation, unspecified constipation type Take 1 Scoop (17 Grams) by mouth daily. 527 Gram 2 Active isosorbide mononitrate (IMDUR) 60 mg Extended Release 24 hour tabletIndications :HTN (hypertension), benign Take 1 Tablet (60 mg) by mouth daily in the morning. 30 Tablet 2024 Active amLODIPine (NORVASC) 5 mg tabletIndications :HTN (hypertension), benign Take 1 Tablet (5 mg) by mouth daily. 30 Tablet 2024 Active ALPRAZolam (XANAX) 0.5 mg tabletIndications :ALMA DELIA (generalized anxiety disorder) Take 1 Tablet (0.5 mg) by mouth 2 times daily as needed for Anxiety. 60 Tablet 2 Active HYDROcodone-aceta minophen (NORCO) 10-325 mg TabletIndications :Chronic pain syndrome,Primary osteoarthritis involving multiple joints,Osteoarthr itis of spine with radiculopathy, lumbar region,Chronic bilateral low back pain with bilateral sciatica Take 1 Tablet by mouth every 4 hours as needed for Pain, Moderate. Max Daily Amount: 6 Tablets 180 Tablet Active valsartan (DIOVAN) 160 mg tabletIndications :Essential hypertension Take 1 Tablet (160 mg) by mouth daily. 30 Tablet Active predniSONE (DELTASONE) 20 mg tablet Take 1 Tablet (20 mg) by mouth daily with breakfast for 5 days. 5 Tablet 2024 Active hydrALAZINE (APRESOLINE) 25 mg tablet Take 1 Tablet (25 mg) by mouth 2 times daily as needed for Other (See Comment) (Blood pressure >160 or/and >100). 60 Tablet 2024 Active azithromycin (ZITHROMAX) 250 mg tablet Take 1 Tablet (250 mg) by mouth daily for 5 days. 5 Tablet 2024 Active cefdinir (OMNICEF) 300 mg capsule Take 1 Capsule (300 mg) by mouth every 12 hours for 7 days. 14 Capsule 2024 Active guaiFENesin (MUCINEX) 600 mg Extended Release Biphasic tablet Take 1 Tablet (600 mg) by mouth 2 times daily for 5 days. 10 Tablet 2024 Active fluticasone propionate (FLONASE) 50 mcg/spray Mckinney, Suspension nasal inhalerIndication s:Dysfunction of Eustachian tube, unspecified laterality Administer 2 Sprays in each nostril daily. 16 Gram 11 024 2024 Discontinued(R eorder) nystatin (NYSTOP) 100,000 unit/gram powderIndications :Candidal intertrigo Apply to affected area 2 times daily. 60 Gram 5 2024 Discontinued zinc oxide 12 % Cream Use barrier cream twice daily to areas of damaged skin 142 Gram 2 2024 Discontinued docusate sodium (COLACE) 100 mg capsule Take 1 Capsule (100 mg) by mouth 3 times daily as needed for Constipation. 125 Capsule 5 024 2024 Discontinued naloxone (NARCAN) 4 mg/spray Mckinney, Non-Aerosol EMERGENCY USE ONLY: Administer 1 spray (4 mg) in one nostril one time. May repeat in alternating nostrils every 2-3 min until responsive or EMS arrives. 2 Each 3 024 2024 Discontinued(A lternate therapy prescribed) polyethylene glycol 3350 (MIRALAX) 17 gram/dose PowderIndications :Constipation, unspecified constipation type Take 1 Scoop (17 Grams) by mouth daily. 527 Gram 2 024 2024 Discontinued(R eorder) valsartan (DIOVAN) 160 mg tabletIndications :Essential hypertension Take 1 tablet by mouth twice daily 200 Tablet 1 025 2024 Discontinued buPROPion HCL (Wellbutrin SR) 150 mg Sustained Release 12 hour tablet Take 1 Tablet (150 mg) by mouth 2 times daily. Dose increase 60 Tablet 5 025 2024 Discontinued hydrALAZINE (APRESOLINE) 100 mg Tablet tablet Take 1 tablet by mouth twice daily 200 Tablet 2 2024 Discontinued lubiprostone (AMITIZA) 24 mcg CapsuleIndication s:Opioid-induced constipation Take 1 Capsule (24 mcg) by mouth 2 times daily with meals. 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 180 Tablet 3 2024 Discontinued furosemide (LASIX) 20 mg tabletIndications :Atherosclerosis of lummi coronary artery of lummi heart with stable angina pectoris,Essentia l hypertension Take 1 Tablet (20 mg) by mouth daily. 100 Tablet 3 2024 Discontinued isosorbide mononitrate (IMDUR) 60 mg Extended Release 24 hour tabletIndications :Atherosclerosis of lummi coronary artery of lummi heart with stable angina pectoris Take 1 Tablet (60 mg) by mouth daily. 90 Tablet 3 2024 Discontinued metoprolol tartrate (LOPRESSOR) 50 mg tabletIndications :Atherosclerosis of lummi coronary artery of lummi heart with stable angina pectoris,Essentia l hypertension Take 1 Tablet (50 mg) by mouth 2 times daily. 180 Tablet 3 2024 Discontinued ALPRAZolam (XANAX) 0.5 mg tabletIndications :ALMA DELIA (generalized anxiety disorder) Take 1 Tablet (0.5 mg) by mouth 2 times daily as needed for Anxiety. 60 Tablet 2 2024 Discontinued(R eorder) gabapentin (NEURONTIN) 100 mg capsule Take 1 Capsule (100 mg) by mouth 2 times daily. 60 Capsule 2 2024 Discontinued DULoxetine (CYMBALTA) 20 mg Capsule, Delayed Release(E.C.)Jayna cations:Chronic pain syndrome Take 1 Capsule (20 mg) by mouth daily. 100 Capsule 1 025 2024 Discontinued(R eorder) HYDROcodone-aceta minophen (NORCO) 10-325 mg TabletIndications :Chronic pain syndrome,Primary osteoarthritis involving multiple joints,Osteoarthr itis of spine with radiculopathy, lumbar region,Chronic bilateral low back pain with bilateral sciatica Take 1 Tablet by mouth every 4 hours as needed for Pain, Moderate. Max Daily Amount: 6 Tablets 180 Tablet 025 2024 Discontinued(R eorder) valsartan (DIOVAN) 160 mg tabletIndications :Essential hypertension Take 1 tablet by mouth twice daily 200 Tablet 025 2024 Discontinued(R eorder) valsartan (DIOVAN) 160 mg tabletIndications :Essential hypertension Take 1 Tablet (160 mg) by mouth 2 times daily. 200 Tablet 3 025 2024 Discontinued Hospital, Clinic, or Other Facility Administered Medication Ordered Dose Route Frequency Start Date End Date Status cyanocobalamin (VITAMIN B-12) injection 1,000 mcgIndications:Sara min B12 deficiency (non anemic) 1000 mcg IM EVERY MONTH 11/20/2024 11/15/2025 Active cyanocobalamin (VITAMIN B-12) injection 1,000 mcgIndications:Sara min B12 deficiency (non anemic) 1000 mcg IM EVERY MONTH 01/13/2024 11/20/2024 Discontinue d Active Problems Problem Noted Date Diagnosed Date Patient understands importance of medication adh erence 12/16/2024 COPD with exacerbation 12/15/2024 Severe uncontrolled hypertension 12/15/2024 Abdominal pain 11/20/2024 Diarrhea 11/20/2024 Menopausal syndrome 11/20/2024 Neoplasm of uncertain behavior of ovary 11/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 Prediabetes 08/14/2024 Opioid-induced constipation 05/22/2024 Mesenteric angina 12/09/2023 Lumbar facet joint pain 11/02/2023 Discogenic low back pain 11/02/2023 DDD (degenerative disc disease), lumbosacral 05/2023 DDD (degenerative disc disease), lumbar 11/02/19 24 Lumbosacral spondylosis without myelopathy 11/01 Axial spondyloarthritis 11/02/2023 Retrolisthesis of vertebrae 11/02/2023 Overview (11/02/2023): L3 on L4 Other idiopathic scoliosis, lumbar region 2023 Primary osteoarthritis of left shoulder 05/17/19 PSVT (paroxysmal supraventricular tachycardia) 0 03/26/2022 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 10/19/2021 Urge incontinence of urine 03/26/2021 Excessive daytime sleepiness 03/26/2021 Fibromyalgia 03/26/2021 Mixed incontinence 11/06/2020 Stage 3a chronic kidney disease 07/21/2020 Aortoiliac occlusive disease 01/14/2020 Penetrating atherosclerotic ulcer of aorta 01/13 Chronic bilateral low back pain with bilateral s ciatica 11/16/2019 Osteoarthritis of spine with radiculopathy, lumb ar region 11/16/2019 Left renal atrophy 11/16/2019 Dissection of left renal artery 11/16/2019 Stable angina 11/16/2019 Aortic mural thrombus 11/16/2019 Aortic atherosclerosis 11/16/2019 Gastroesophageal reflux disease without esophagi tis 10/30/2019 Panlobular emphysema 06/29/2019 Tinnitus, bilateral 03/30/2019 prison prescription opiate use 04/21/2018 Otosclerosis, right 02/06/2018 Sensorineural hearing loss ( SNHL) of left ear with restricted hearing of right ear 2017 Discontinuity of ossicles of right ear 7 Vitamin D deficiency 09/14/2016 Moderate episode of recurrent major depressive d isorder 02/10/2016 Abdominal adhesions 12/30/2015 Seasonal allergic rhinitis 12/30/2015 Chronic pain syndrome 12/30/2015 Osteoarthritis of both knees 12/30/2015 Hearing loss in right ear 12/30/2015 ALMA DELIA (generalized anxiety disorder) 12/30/2015 Pelvic pain in female 04/08/2015 Cyst of ovary 04/08/2015 Pelvic adhesions 04/08/2015 Cigarette dependence 01/21/2015 Colon polyps 07/02/2014 Sigmoid diverticulosis 07/02/2014 Lactose intolerance 06/09/2014 Glass eye 06/09/2014 PTSD (post-traumatic stress disorder) 07/18/2013 Hyperlipidemia 07/03/2012 Onychomycosis 10/11/2009 Female stress incontinence 03/14/2009 Primary osteoarthritis involving multiple joints Essential hypertension Resolved Problems Problem Noted Date Diagnosed Date Resolved Date Hospice care 04/04/2024 08/14/2024 Hypertensive urgency 11/19/2021 022 Nausea 11/19/2021 08/14/2024 CKD (chronic kidney disease) stage 2, GFR 60-89 ml/min 11/16/2019 04/18/2023 Renal insufficiency 06/07/2019 11/16/19 Benign paroxysmal positional vertigo, right 05/13/2017 12/23/2017 Overview (06/25/2020): horizontal canal 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 hearing of left ear 10/11/2016 2017 Left asymmetrical SNHL 10/11/201603/30 Depression with anxiety 06/22/201512/30 Acute pain of right shoulder 10/29/2014 05/11/2016 Mass of breast, right 10/29/20142024 Smokers' cough 06/09/2014 10/29/2014 Tobacco abuse 05/06/2011 10/13/2014 Encounters Date Type Department Care Team Description 12/17/2024 10:51 AM CDT - 12/17/2024 11:59 PM CDT Hospital Encounter [facility] Ultrasound [address] [place] [address] Pino Mitchell MD Arrived Discharge Disposition: Home or Self Care 12/17/2024 Results Follow-Up [facility] Emergency Medicine [address] [place] [phone] Leah Messina FNP SPUTUM CULTURE WITH GRAM STAIN 12/15/2024 4:46 AM CDT - 12/16/2024 12:50 PM CDT Hospital Encounter [facility] [address] [place] [phone] Daniel Austin MD Day, Shamuel M, MD COPD with exacerbation ([facility]) Discharge Disposition: Home or Self Care 12/15/2024 Travel 12/11/2024 1:00 PM CDT Office Visit [facility] Gen Spec Surg [place] [address] [place] [phone] Pino Mitchell MD Right upper quadrant abdominal pain (Primary Dx) 12/11/2024 Orders Only [facility] Gen Spec Surg [place] [address] [facility] [address] [place] [phone] Pino Mitchell MD Gastroesophageal reflux disease without esophagitis (Primary Dx); Mesenteric angina 12/10/2024 5:20 PM CDT Office Visit [facility] [address] [phone] Patience Read FNP HTN (hypertension), benign (Primary Dx); Dysfunction of Eustachian tube, unspecified laterality; Constipation, unspecified constipation type; Moderate episode of recurrent major depressive disorder; ALMA DELIA (generalized anxiety disorder); Essential hypertension 12/10/[address] [phone] Patience Read FNP ALMA DELIA (generalized anxiety disorder); Chronic pain syndrome; Primary osteoarthritis involving multiple joints; Osteoarthritis of spine with radiculopathy, lumbar region; Chronic bilateral low back pain with bilateral sciatica 12/10/2024 Nurse Triage [address] [phone] Kem Portillo MD 11/29/2024 10:30 AM CDT Office Visit [facility] Gastroenterology- [place] [address] [facility] [address] [place] [phone] Anabell Diggs FNP Chronic abdominal pain (Primary Dx); Dysphagia, unspecified type; Black tarry stools 11/27/2024 External Device Data STL ABSTRACTION Provider, Abstract 11/27/2024 External Device Data STL ABSTRACTION Provider, Abstract 11/25/2024 Results Follow-Up [facility] Emergency Medicine [address] [facility] [address] [place] [phone] Sarahy Genao APRN URINE CULTURE 11/23/2024 4:07 PM CDT - 11/23/2024 6:25 PM CDT Emergency [facility] Emergency Medicine [address] [phone] Rodney Winston MD Abdominal pain, unspecified abdominal location (Primary Dx) Discharge Disposition: Home or Self Care 11/23/2024 Travel 11/22/[address] [phone] Kem Portillo MD Referral (Pain Management) 11/20/2024 10:40 AM CDT Office Visit [address] [phone] Kem Portillo MD Osteoarthritis of spine with radiculopathy, lumbar region (Primary Dx); Abnormal urine odor; Opioid-induced constipation; Chronic pain syndrome; Essential hypertension; Moderate episode of recurrent major depressive disorder; Vitamin B12 deficiency (non anemic); Stage 3a chronic kidney disease 11/20/[address] [phone] Kem Portillo MD Remote Monitoring 11/16/[address] [phone] Kem Portillo MD Essential hypertension 11/12/[address] [phone] Kem Portillo MD Chronic pain syndrome; Primary osteoarthritis involving multiple joints; Osteoarthritis of spine with radiculopathy, lumbar region; Chronic bilateral low back pain with bilateral sciatica 11/05/[address] [phone] Kem Portillo MD Remote Monitoring 11/01/2024 Orders Only [facility] V[facility] Surgery [place] [address] [place] [phone] Vicky Lal RN 11/01/2024 Telephone [facility] V[facility] Surgery [place] [address] [place] [phone] Madeline Motleyace Flori, Medication Question 10/24/2024 External Device Data STL ABSTRACTION Provider, Abstract 10/23/2024 External Device Data STL ABSTRACTION Provider, Abstract 10/08/[address] [phone] Kem Portillo MD Chronic pain syndrome; Primary osteoarthritis involving multiple joints; Osteoarthritis of spine with radiculopathy, lumbar region; Chronic bilateral low back pain with bilateral sciatica 10/03/[address] [phone] Kem Portillo MD Medication Assistance 09/28/2024 External Device Data Initial Department [address] [place] [address] Dr MCKEON: [place] [address] [facility] Emergency, 09/18/[address] [phone] Kem Portillo MD Clinical Consult Before Scheduling from Last 3 Months Immunizations Immunization Administration Dates Next Due (PNEUMOVAX 23)(50 YRS UP) PN EUMOCOCCAL POLYSACCHARIDE (PPV23) 0.5 ML, IM 10/22/2013 (SPIKEVAX) (12 YRS UP PRIMAR Y SERIES) COVID-19 VACCINE - MRNA-1273(PF) 100 MCG/0.5 ML IM SUSP 03/09/2021,07/25/2020,06/26/2020 (TDVAX)(7 YRS UP) TETANUS AN D DIPHTHERIA TOXOIDS, ADSORBED (2 LF OF TETANUS TOXOID AND 2 LF OF DIPHTHERIA TOXOID), 0.5ML (PF), IM 05/08/2007 INFLUENZA VACCINE HIGH DOSE QUADRIVALENT 65 YR UP PF IM 11/25/2023,12/31/2021,11/20/2018,11/14,11/30/2016,10/15/2015 INFLUENZA VACCINE HIGH DOSE TRIVALENT SPLIT VIRUS, (65 YR UP), 0.5ML (PF), IM 11/25/2023 INFLUENZA VACCINE TRIVALENT SPLIT VIRUS, (6 MOS UP), 0.5ML (PF), IM 11/20/2024 Influenza Seasonal Unspecifi ed Formulation IM 02/03/2021,10/25/2019,11/14/2017,12/01,10/15/2015,01/21/2015,03/14/2012 ,12/27/2006 Influenza Vaccine High Dose 65+ Yrs IM 9,11/30/2016 Influenza Vaccine Split 3+ Yrs IM 12/29/2007 PNEUMOVAX (PPSV23) pneumococ jessica polysaccharide 23-valent Vaccine 10/22/2013 PREVNAR (PCV13) pneumococcal 13-valent conjugate Vaccine 12/31/2015 Family History Medical History Relation Name Comments Heart Disease Father Hypertension Father Cancer Maternal Grandmother Cancer Mother liver cancer Heart Disease Mother Hypertension Mother Breast Cancer Neg Hx Colon Cancer Neg Hx Ovarian Cancer Neg Hx Relation Name Status Comments Daughter 1 Alive Daughter 2 Alive Father Maternal Grandmother Mother Sister Alive Social History Tobacco Use Types Packs/Day Years Used Date Smoking Tobacco: Every Day Cigarettes Smokeless Tobacco: Never Tobacco Cessation:Ready to Q uit: No; Counseling Given: Yes Alcohol Use Standard Drinks/Week Comments No 0 [...] declined 01/14/2020 How often do you attend yazidi or christianity serv ices? Patient declined 01/14/2020 Do you belong to any clubs o r organizations such as yazidi groups, unions, fraternal or athletic groups, or [...] worry about transportation for future doctor visits, pharmacy picking tech medication, etc.? No 2024 Housing Stability Answer [...] on file Legal Sex Female 12:40 AM [employer] Gender Identity Not on file Sexual Orientation [...] Mass Index 26.56 12/15/2024 4:47 AM CDT Plan of Treatment Upcoming Encounters Date Type Department Care Team (Latest Contact Info) Description 12/19/2024 10:20 AM CDT Office Visit [address] [phone] Marika Quintero FNP [address] [phone] 12/25/2024 3:20 PM CDT Office Visit [address] [phone] Kem Portillo MD [address] [phone] 02/05/2025 10:20 AM [employer] Hospital Encounter [facility] Endoscopy [address] [place] [address] Alex Berg MD [address] [facility] [address] [place] [address] 02/05/2025 10:20 AM RO[employer]ED [employer]ER - 02/05/2025 10:40 AM [employer] Surgery [facility] Endoscopy [address] [place] [address] Alex Berg MD [address] [facility] [address] [place] [address] ESOPHAGOGASTRODUODENOSCOPY Scheduled Procedures Name Priority Associated Diagnoses Date/Ti me ESOPHAGOGASTRODUODENOSCOPY Dysphagia, unspecified type; Black tarry stools 02/05/2025 10:20 AM [employer] COLONOSCOPY Dysphagia, unspecified type; Black tarry stools 02/05/2025 10:20 AM ROLLED H[employer]ER Health Maintenance Due Date Last Done Comments ZOSTER VACCINE (1 of 2) 1998 DTAP/TDAP/TD VACCINES (1 - Tdap) 05/09/2007 05/08/19 08 COLORECTAL SCREENING 04/23/2022 04/23/2021, 04/23/2021, 07/02/2014 RSV VACCINE (60+ or ) (1 - 1-dose 75+ series) 2023 Traditional Medicare ([facility]) A nnual Wellness Visit 08/23/2024 08/23/2023, 08/27/2021 COVID-19 Vaccine (4 - 2024-2 6 season) 2024 03/09/2021, 07/25/2020, 06/26/2020 OSTEOPOROSIS SCREENING 12/02/2024 12/03/2019, 2019 PNEUMOCOCCAL VACCINE 50+ YEARS Completed 1 03/01/2015, 10/22/2013, 10/22/2013 INFLUENZA VACCINE Completed 11/20/2024, , 11/25/2023, Additional history exists Goals Goal Patient Goal Type Associated Problems Recent Progress Patient-Stated? Author Autogenera carlos Goal Care Plan Autogenerated Problem No Lynn Rod RN Medical Devices Implanted Type Area Retail Warehouse Associate Device Identifier Shelf Expiration Date Model / Serial / Lot Closure Perclose Proglide 81732 - [id number] Implanted:Qt y: 1 on 01/14/2020 by Stephen Ramos MD Closure Device Left: Leg PASTOR- VASC DEVICE 09/27/2021 [id number] / / [id number] Closure Perclose Proglide 50240 - [id number] Implanted:Qt y: 1 on 01/14/2020 by Stephen Ramos MD Closure Device Right: Leg PASTOR- VASC DEVICE 09/27/2021 [id number] / / [id number] Closure Perclose Proglide 68127 - [id number] Implanted:Qt y: 1 on 01/14/2020 by Stephen Ramos MD Closure Device Right: Leg PASTOR- VASC DEVICE 09/27/2021 [id number] / / [id number] Closure Perclose Prostyle Sut Mediate 24231-88 - [id number] Implanted:Qt y: 1 on 12/14/2023 by Brianna Motley DO at [facility] Closure Device Right: Groin PSATOR- VASC DEVICE [id number] 09/27/2025 08766-13 / / [id number] Pros Piston Eclipse 0.6x4.25mm 468-425 - Sna Implanted:Qt y: 1 on 12/07/2016 by Filipe Mcmanus DO Ear Right: Ear [employer] 02/24/2021 [id number] / NA / [id number] Pros Ossclr Stanley Ti Adj Length 600 - [id number] Implanted: by Filipe Mcmanus DO (Quantity not on file) Ear Right: Ear [employer] 08/26/2023 600 / / [id number] Hemostatic Gelfoam Spng 12-7mm [id number] - Csc - Sna Implanted:Qt y: 2 on 12/07/2016 by Filipe Mcmanus DO Hemostatic Right: Ear [employer] 03/30/2019 [id number] / NA / [id number] Description:Not an implant. Documented in this section as required by a p supervisor and billing department.Soaked in Ciloxan (Lot: [id number], Exp: 11/2017) Hemostatic Surgifoam Sz12-7 1971 - [id number] Implanted:Qt y: 1 on 04/19/2018 by Filipe Mcmanus DO Hemostatic Right: Ear [employer]- [employer] 12/23/20211971 [id number] Hemostatic Surgifoam Sz12-7 1971 - [id number] Implanted: by Filipe Mcmanus DO (Quantity not on file) Hemostatic Right: Ear J[employer] 10/25/20221971 [id number] Log [id number] - Bladder Slings And Tapes - 1 - Advantage Tv Mid Ureth [id number] Implanted:Qt y: 1 on 07/25/2009 Sling N/A: Vagina [employer] UROLOGY/HUMANITIES PROFESSOR 02/29/2012 [id number] / [id number] / 1 [id number] Stent Afx Ii Bifur Etw29-59/I16 -40 - [id number] Implanted:Qt y: 1 on 01/14/2020 by Stephen Ramos MD Stent N/A: Aorta [employer] INC 09/23/2022 [id number]/ I16 -40 / [id number] / Stent Viabahn Vbx 7fr 8x29mm 135cm Bx2 [id number] - [id number] Implanted:Qt y: 1 on 12/14/2023 by Brianna Motley DO at [facility] Stent N/A: Mesenteric Artery [employer] [id number] 02/10/2026 [id number] / [id number] / Filler Bone [place] Mimix 2gr [id number] - [id number] Implanted:Qt y: 1 on 04/19/2018 by Filipe Mcmanus DO Tissue Right: Ear BIOMET [id number] - MAMIE [employer]ARLAND 08/24/2019 [id number] / / [id number] Procedures Procedure Name Priority Date/Time Associated Diagnosis Comments US MESENTERIC ARTERY Stat 12/17/2024 11:33 AM CDT Gastroesophageal reflux disease without esophagitis Mesenteric angina SPUTUM CULTURE WITH GRAM STAIN Routine 12/15/2024 4:16 PM CDT COVID-19 ANTIGEN Stat 12/15/2024 6:23 AM CDT INFLUENZA VIRUS A AND B, ANTIGEN DETECTION Stat 12/15/2024 6:23 AM CDT XR CHEST PA OR AP 1 VW Stat 12/15/2024 5:24 AM CDT EKG 12-LEAD Stat 12/15/2024 5:15 AM CDT COMPREHENSIVE METABOLIC PANEL Stat 12/15/2024 4:55 AM CDT CBC WITH DIFFERENTIAL Stat 12/15/2024 4:[address] ABDOMEN PELVIS W CONTRAST Stat 11/23/2024 5:18 PM CDT URINALYSIS MICROSCOPY ONLY Stat 11/23/2024 5:12 PM CDT URINALYSIS W/REFLEX MICROSCOPIC Stat 11/23/2024 5:12 PM CDT URINE CULTURE Stat 11/23/2024 5:12 PM CDT LIPASE Stat 11/23/2024 4:21 PM CDT COMPREHENSIVE METABOLIC PANEL Stat 11/23/2024 4:21 PM CDT CBC WITH DIFFERENTIAL Stat 11/23/2024 4:21 PM CDT VITAMIN B12 LEVEL Routine 11/20/2024 11: 33 AM CDT Vitamin B12 deficiency (non anemic) CBC WITHOUT DIFFERENTIAL Routine 11/20/2024 11:33 AM CDT Essential hypertension COMPREHENSIVE METABOLIC PANEL Routine 11/20/2024 11:33 AM CDT Essential hypertension VITAMIN D 25 HYDROXY Routine 11/20/2024 11:33 AM CDT Stage 3a chronic kidney disease POC URINALYSIS DIPSTICK AUTOMATED Routine 11/20/2024 10:58 AM CDT Abnormal urine odor XR DEXA BONE DENSITY AXIAL 1 OR MORE SITES Routine 12/03/2019 2:08 PM CDT Asymptomatic menopausal state from Last 3 Months or Most Recently Relevant to Health Maintenance Results * US MESENTERIC ARTERY (12/17/2024 11:33 [...] Pino Mitchell MD ORDERABLES Final R esult * COVID-19 ANTIGEN (12/15/2024 6:23 AM CDT) [facility] COVID-19 ANTIGEN Presumptive Negative Presumptive Negative 12/15/2024 6:58 AM CDT [facility] Upper Respiratory ANTERIOR NARES SWAB / Unknown Collection / Unknown 12/15/2024 6:23 AM CDT 12/15/2024 6:36 AM CDT [facility] - 12/15/2024 6:58 AM CDT Shaylee SARS antigen test has been authorized by FDA under an emergency use authorization (EUA) and has been authorized only for the detection of proteins from SARS-CoV-2 and influenza, not for any other viruses or pathogens. Shaylee SARS Antigen TERESA is intended for the simultaneous qualitative detection and differentiation of nucleocapsid protein antigen from SARS-CoV-2 directly from nasopharyngeal (FIBER WORKER) and nasal (NS) swab specimens collected from [...] ORD ERABLES Final Result Performing Organization Address City/[facility]/ZIP Co de Phone Number [facility] CLIA # [id number] [address] [place] [address] * INFLUENZA VIRUS A AND B, ANTIGEN DETECTION (12/15/2024 6:23 AM CDT) Pathologist [facility] INFLUENZA A AG NOT DETECTED Not Detected 12/15/2024 6:58 AM CDT [facility] INFLUENZA B AG NOT DETECTED Not Detected 12/15/2024 6:58 AM CDT [facility] Upper Respiratory ENTIRE NASOPHARYNX / Unknown Collection / Unknown 12/15/2024 6:23 AM CDT 12/15/2024 6:36 AM CDT [facility] - 12/15/2024 6:58 AM CDT Negative results do not rule out infection. If clinically indicated, consider PCR testing which is more sensitive than antigen testing. If PCR testing is desired, consult with your local laboratory as sample recollection may be required. 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 Daniel Austin MD ECG ORDERABLES Final Resu lt * (ABNORMAL) CBC WITH DIFFERENTIAL (12/15/2024 4:55 AM CDT) Only the most recent of2 resultswithin the time period is included. WBC 13.8(H) 4.0 - 10.0 K/uL 12/15/2024 5:04 AM CDT [facility] RBC 4.49 3.93 - 5.22 M/uL 12/15/2024 5:04 AM [facility] HEMOGLOBIN 13.0 11.2 - 15.7 g/dL 12/15/2024 5:04 AM T [facility] HEMATOCRIT 37.3 34.1 - 44.9 % 12/15/2024 5:04 AM T [facility] MCV 83.1 79.4 - 94.8 fL 12/15/2024 5:04 AM [facility] MCH 29.0 25.6 - 32.2 pg 12/15/2024 5:04 AM [facility] MCHC 34.9 32.2 - 35.5 g/dL 12/15/2024 5:04 AM [facility] RDW 12.7 11.0 - 14.5 % 12/15/2024 5:04 AM [facility] RDW-STDEV 38.6 36.9 - 56.9 fL 12/15/2024 5:04 AM [facility] PLATELETS 224 163 - 337 K/uL 12/15/2024 5:04 AM [facility] MPV 9.9(L) 10.0 - 14.8 fL 12/15/2024 5:04 AM [facility] NEUTROPHILS 87(H) 34 - 71 % 12/15/2024 5:04 AM [facility] LYMPHOCYTES 6(L) 19 - 52 % 12/15/2024 5:04 AM [facility] MONOCYTES 6 5 - 13 % 12/15/2024 5:04 AM [facility] EOSINOPHILS 1 1 - 6 % 12/15/2024 5:04 AM [facility] BASOPHILS 0 0 - 1 % 12/15/2024 5:04 AM [facility] IMMATURE GRANULOCYTES 0 % 12/15/2024 5:04 AM [facility] NEUTROPHIL ABSOLUTE 11.98(H) 1.56 - 6.13 K/uL 12/15/2024 5:04 AM [facility] LYMPHOCYTE ABSOLUTE 0.82(L) 1.20 - 3.40 K/uL 12/15/2024 5:04 AM [facility] MONOCYTE ABSOLUTE 0.82(H) 0.24 - 0.36 K/uL 12/15/2024 5:04 AM [facility] EOSINOPHIL ABSOLUTE 0.11 0.04 - 0.36 K/uL 12/15/2024 5:04 AM [facility] BASOPHILS ABSOLUTE 0.04 0.01 - 0.08 K/uL 12/15/2024 5:04 AM [facility] IMMATURE GRANULOCYTES ABSOLUTE 0.04 K/uL 12/15/2024 5:04 AM [facility] Blood BLOOD SPECIMEN / Unknown Collection / Unknown 12/15/2024 4:55 AM CDT 12/15/2024 5:01 AM CDT us Daniel Austin MD HEMATOLOGY ORDERABLES Augusta potts Result [facility] CLIA # [id number] [address] [place] [address] [id number] * (ABNORMAL) COMPREHENSIVE METABOLIC PANEL (12/15/2024 4:55 AM CDT) Only the most recent of3 resultswithin the time period is included. SODIUM 132(L) 136 - 145 mmol/L 12/15/2024 5:19 AM [facility] POTASSIUM 4.5 3.5 - 5.1 mmol/L 12/15/2024 5:19 AM [facility] Comment:Moderate hemolysis p resent. Can cause significant falsely elevated result. Redraw if indicated. CHLORIDE 95(L) 98 - 107 mmol/L 12/15/2024 5:19 AM [facility] CO2 26 22 - 29 mmol/L 12/15/2024 5:19 AM [facility] CALCIUM 9.2 8.8 - 10.2 mg/dL 12/15/2024 5:19 AM [facility] BUN 16 8 - 23 mg/dL 12/15/2024 5:19 AM [facility] CREATININE 0.88 0.51 - 0.95 mg/dL 12/15/2024 5:19 AM [facility] Comment:The GFR result is no t clinically significant on patients <18 or >70 years of age. GLUCOSE 124(H) 74 - 99 mg/dL 12/15/2024 5:19 AM [facility] TOTAL PROTEIN 6.8 6.6 - 8.7 g/dL 12/15/2024 5:19 AM [facility] ALBUMIN 4.0 3.5 - 5.2 g/dL 12/15/2024 5:19 AM [facility] BILIRUBIN TOTAL 0.5 0.0 - 1.2 mg/dL 12/15/2024 5:19 AM [facility] ALKALINE PHOSPHATASE 68 35 - 104 U/L 12/15/2024 5:19 AM [facility] AST 34 0 - 35 U/L 12/15/2024 5:19 AM [facility] Comment:Hemolysis present. R esult may be falsely elevated. ALT 16 0 - 35 U/L 12/15/2024 5:19 AM [facility] Comment:Hemolysis present. R esult may be falsely elevated. GFR >60 mL/min/1.7 3 sq meter 12/15/2024 5:19 AM [facility] Comment:eGFR calculated with 2020 CKD-EPI equation. Vegetarian diet, extremely high or low muscle mass, and may affect results. Cystatin C with Glomerular Filtration Rate is a suitable alternative for these patients. ANION GAP 11 5 - 20 mmol/L 12/15/2024 5:19 AM [facility] Blood BLOOD SPECIMEN / Unknown Collection / Unknown 12/15/2024 4:55 AM CDT 12/15/2024 5:01 AM CDT Daniel Austin MD CHEMISTRY ORDERABLES Final Result [facility] CLIA # [id number] [address] [place] [address] * CT ABDOMEN PELVIS W CONTRAST (11/23/2024 5:18 PM CDT) Anatomical Region Laterality Modality Abdomen Computed Tomogra phy 11/23/2024 4:49 PM CDT Impressions 11/23/2024 5:42 PM CDT IMPRESSION: 1. No acute radiographic abnormality noted. 2. Prior cholecystectomy. Unchanged mild intra and extrahepatic bile duct dilatation. 3. 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 4. Chronic left renal atrophy. Small left renal cyst. 5. Prior hysterectomy. Narrative 11/23/2024 5:42 PM CDT Exam: CT ABDOMEN PELVIS W CONTRAST Date/Time [...] is present. Multilevel degenerative change is noted. Procedure Note Marcella Harris MD - 11/23/2024 Exam: CT ABDOMEN PELVIS W CONTRAST Date/Time [...] Small left renal cyst. 5. Prior hysterectomy. Rodney Winston MD CT ORDERABLES Final Result * URINALYSIS MICROSCOPY ONLY (11/23/2024 5:12 PM CDT) WBC UA 0-2 0 - 2 /hpf 11/23/2024 5:29 PM CDT [facility] RBC UA 0-2 0 - 2 /hpf 11/23/2024 5:29 PM CDT [facility] BACTERIA UA Negative Negative /hpf 11/23/2024 5:29 PM CDT [facility] EPITHELIAL CELLS, URINE 0-5 0 - 5 /hpf 11/23/2024 5:29 PM CDT [facility] Urine URINE SPECIMEN OBTAINED BY CLEAN CATCH PROCEDURE / Unknown Collection / Unknown 11/23/2024 5:12 PM CDT 11/23/2024 5:15 PM CDT Rodney Winston MD URINE ORDERABLES Augusta potts Result [facility] CLIA # [id number] [address] [place] [address] * (ABNORMAL) URINALYSIS WITH REFLEX MICROSCOPIC (11/23/2024 5:12 PM CDT) COLOR UA Yellow Pale to Dark Yellow 11/23/2024 5:29 PM CDT [facility] CLARITY UA Clear Clear 11/23/2024 5:29 PM CDT [facility] SPECIFIC GRAVITY UA 1.015 1.003 - 1.035 11/23/2024 5:29 PM CDT [facility] PH UA 7.0 5.0 - 8.0 11/23/2024 5:29 PM CDT [facility] LEUKOCYTE ESTERASE UA Negative Negative 11/23/2024 5:29 PM CDT [facility] NITRITE UA Negative Negative 11/23/2024 5:29 PM CDT [facility] PROTEIN UA 1+(A) Negative 11/23/2024 5:29 PM CDT [facility] GLUCOSE UA Negative Negative 11/23/2024 5:29 PM CDT [facility] KETONES UA Negative Negative 11/23/2024 5:29 PM CDT [facility] UROBILINOGEN UA 0.2 <2.0 mg/dL 5:29 PM CDT [facility] BILIRUBIN UA Negative Negative 11/23/2024 5:29 PM CDT [facility] BLOOD UA Negative Negative 11/23/2024 5:29 PM CDT [facility] Urine URINE SPECIMEN OBTAINED BY CLEAN CATCH PROCEDURE / Unknown Collection / Unknown 11/23/2024 5:12 PM CDT 11/23/2024 5:15 PM CDT Rodney Winston MD URINE ORDERABLES Augusta l Result [facility] CLIA # [id number] [address] [place] [address] * URINE CULTURE (11/23/2024 5:12 PM CDT) CULTURE Polymicrobial growth consistent with normal urethral barbara and/or colonizing bacteria 11/25/2024 12:35 PM CDT [facility] Urine URINE SPECIMEN OBTAINED BY CLEAN CATCH PROCEDURE / Unknown Collection / Unknown 11/23/2024 5:12 PM CDT 11/23/2024 5:15 PM CDT Rodney Winston MD MICROBIOLOGY - GENERA L ORDERABLES Final Result [facility] CLIA # [id number] [address] [place] [address] * (ABNORMAL) LIPASE (11/23/2024 4:21 PM CDT) LIPASE 69(H) 13 - 60 U/L 11/23/2024 4:55 PM CDT [facility] Blood Venipuncture / Unknown 11/23/2024 4:21 PM CDT 11/23/2024 4:26 PM CDT us Rodney Winston MD CHEMISTRY ORDERABLES Final Result [facility] # [id number] [address] [place] [address] * VITAMIN D 25 HYDROXY (11/20/2024 11:33 AM CDT) VITAMIN D, 25 OH, TOTAL 62 30 - 100 ng/mL [facility] Comment: Vitamin D Status 25-OH Vitamin D: Deficiency: <20 ng/mL Insufficiency: 20 - 29 ng/mL Optimal: > or = 30 ng/mL For 25-OH Vitamin D testing on patients on D2-supplementation and patients for whom quantitation of D2 and D3 fractions is required, the [facility](TM) 25-OH VIT D, (D2,D3), LC/MS/MS is recommended: order code 22907 (patients >2yrs). See Note 1 Note 1 For additional information, please refer to http://education.[employer]/faq/KUA114 (This link is being provided for informational/ educational purposes only.) Test Performed at: [facility] [address] [place] [address] Starr Lainez MD Blood 11/20/2024 11:3 3 AM CDT 11/21/2024 5:29 AM CDT us Kem Portillo MD CHEMISTRY ORDERABLES Aguusta l Result [facility] [phone] [facility] [address] [facility] [place] [address] * (ABNORMAL) CBC WITHOUT DIFFERENTIAL (11/20/2024 11:33 AM CDT) WBC 6.0 3.8 - 10.8 Thousand/u L [facility] RBC 4.77 3.80 - 5.10 Million/uL [facility] HEMOGLOBIN 13.9 11.7 - 15.5 g/dL [facility] HEMATOCRIT 44.3 35.0 - 45.0 % [facility] MCV 92.9 80.0 - 100.0 fL [facility] MCH 29.1 27.0 - 33.0 pg [facility] MCHC 31.4(L) 32.0 - 36.0 g/dL [facility] Comment: For adults, a slight decrease in the calculated MCHC value (in the range of 30 to 32 g/dL) is most likely not clinically significant; however, it should be interpreted with caution in correlation with other red cell parameters and the patient's clinical condition. RDW 12.9 11.0 - 15.0 % [facility] PLATELETS 283 140 - 400 Thousand/u L [facility] MPV 10.0 7.5 - 12.5 fL [facility] Comment: Test Performed at: [facility] [address] [place] [address] Starr Lainez MD Blood 11/20/2024 11:3 3 AM CDT 11/21/2024 5:29 AM CDT Kem Portillo MD HEMATOLOGY ORDERABLES Marquise al Result Performing Organization Address City/State/[facility] Phone Number [facility] [phone] [facility] [address] [place], [place] [address]ner [facility] [place] [address] * (ABNORMAL) VITAMIN B12 LEVEL (11/20/2024 11:33 AM CDT) VITAMIN B12 >2000(H) 200 - 1100 pg/mL [facility] Comment: Test Performed at: [facility] [address] [place] [address] Starr Lainez MD Blood 11/20/2024 11:3 3 AM CDT 11/21/2024 5:29 AM CDT Kem Portillo MD CHEMISTRY ORDERABLES Augusta l Result [facility] [phone] [facility] [address] [place] [address] * POC URINALYSIS DIPSTICK AUTOMATED (11/20/2024 10:58 AM CDT) COLOR UA POC Yellow Pale to Dark Yellow [facility] CLARITY UA POC Clear Clear, Other [facility] GLUCOSE UA POC Negative Negative, Normal [facility] BILIRUBIN UA POC Negative Negative [facility] KETONES UA POC Negative Negative [facility] SPECIFIC GRAVITY UA POC 1.020 1.000 - 1.030 [facility] BLOOD UA POC Negative Negative [facility] PH UA POC 7.0 5.0 - 8.0 [facility] PROTEIN UA POC Negative Negative [facility] UROBILINOGEN UA POC 0.2 <2.0 mg/dL [facility] NITRITE UA POC Negative Negative [facility] LEUKOCYTE ESTERASE UA POC Negative Negative [facility] KIT LOT NUMBER POC [phone] [facility] KIT EXP DATE POC 01/27/25 [facility] Urine 11/20/2024 10:5 8 AM CDT Kem Portillo MD POINT OF CARE TESTING Fin al Result Performing Organization Address [facility] Co de Phone Number [facility] CLIA# [id number] [address] [place] [address] * XR DEXA BONE DENSITY AXIAL 1 OR MORE SITES (12/03/2019 2:08 PM CDT) Anatomical Region Laterality Modality Other Impressions 12/03/2019 8:35 PM CDT Abnormal examination Low bone density/osteopenic values are present in the lumbar spine and left proximal femur lying above the average the patient's age-matched control consistent with age-appropriate physiologic demineralization. Narrative 12/03/2019 8:35 PM CDT DEXA Evaluation of the Lumbar Spine and Left Proximal Femur Reason for Consultation: Post ablative ovarian failure. Evaluation of bone mineral density. The following absorptiometry data were obtained. The quality of this examination is acceptable with regards to count density, processed images, data display and lack of important artifacts (including but not limited to motion and attenuation artifacts). Serial examination number one. Lumbar spine images demonstrate degenerative changes at upper levels resulting in spurious elevation of bone density. L3/L4 BMD (g/cm2): 0.956/1.002 Adult T-score: -1.2/-1.0 Adult Z-score: 1.1/1.3 Left Femoral Neck BMD (g/cm2): 0.740 Adult T-score: -1.0 Adult Z-score: 0.9 Left Total Hip BMD (g/cm2): 0.902 Adult T-score: -0.3 Adult Z-score: 1.3 Procedure Note Doug Duncan MD - 07/16/2020 DEXA Evaluation of the Lumbar Spine and Left Proximal Femur Reason for Consultation: Post ablative ovarian failure. Evaluation of bone mineral density. The following absorptiometry data were obtained. The quality of this examination is acceptable with regards to count density, processed images, data display and lack of important artifacts (including but not limited to motion and attenuation artifacts). Serial examination number one. Lumbar spine images demonstrate degenerative changes at upper levels resulting in spurious elevation of bone density. L3/L4 BMD (g/cm2): 0.956/1.002 Adult T-score: -1.2/-1.0 Adult Z-score: 1.1/1.3 Left Femoral Neck BMD (g/cm2): 0.740 Adult T-score: -1.0 Adult Z-score: 0.9 Left Total Hip BMD (g/cm2): 0.902 Adult T-score: -0.3 Adult Z-score: 1.3 IMPRESSION Abnormal examination Low bone density/osteopenic values are present in the lumbar spine and left proximal femur lying above the average the patient's age-matched control consistent with age-appropriate physiologic demineralization. Kem Portillo MD DIAGNOSTIC IMAGING ORDERA BLES Final Result from Last 3 Months or Most Recently Relevant to Health Maintenance Additional Health Concerns Active Problems Noted Date Diagnosed Date Autogenerated Problem 11/29/2024 Insurance [facility] RX Stand Offer Medicare Part D Advance Directives For more information, please contact: [phone] * Default Full Code - Needs Discussion (Latest Code Status on File) Date Activated Date Inactivated Comments 12/15/2024 11:43 AM 12/16/2024 2:53 PM * Full Code Date Activated Date Inactivated Comments 08/14/2024 4:45 PM 08/30/2024 10:03 AM * Full Code Date Activated Date Inactivated Comments 09/15/2023 1:34 PM 09/15/2023 4:44 PM * Full Code Date Activated Date Inactivated Comments 04/23/2021 11:33 AM 05/01/2021 10:57 AM * Full Code Date Activated Date Inactivated Comments 04/23/2021 11:01 AM 04/23/2021 11:33 AM Care Teams Director Corporate Compliance Relationship Specialty Start Date End Date Kem Portillo MD [address] [phone] PCP - General Family Practice 09/02/21
--- OUTSIDE RECORDS SUMMARY | 2024-12-18 09:16 | XMS_ITS | Encounter Summary ---
Author Organization [facility] Address [address] [place] [address] Care Team Providers Care Shaping Machine Operator Name Role Phone Kem Portillo MD Primary Care Provider [phone] Encounter Details Date Type Department Care Team (Latest Contact Info) Description 03/02/2006 Outpatient Historical [facility] Medicine [place] [address] [address] Danielle Szymanski, [employer] [address] [place] [address] Closed Fracture of Distal Phalanx or Phalanges of Hand (Primary Dx) Social History Tobacco Use Types Packs/Day Years Used Date Smoking Tobacco: Never Assessed Comments Unknown Sex and Gender Information Value Date Recorded Sex Assigned at Not on file 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
--- OUTSIDE RECORDS SUMMARY | 2024-12-18 09:16 | XMS_ITS | Encounter Summary ---
Author Organization [facility] Address [address] [place] [address] Care Team Providers Care Roll Edge Machine Operator Name Role Phone Kem Portillo MD Primary Care Provider [phone] Encounter Details Date Type Department Care Team (Latest Contact Info) Description 07/12/2006 Outpatient Historical [facility] Medicine [place] [address] [address] Shady Hansen DO NO ADDRESS ON FILE Depressive Disorder, not Elsewhere Classified (Primary Dx) Social History Tobacco Use Types Packs/Day Years Used Date Smoking Tobacco: Never Assessed Comments Unknown Sex and Gender Information Value Date Recorded Sex Assigned at Not on file 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
--- OUTSIDE RECORDS SUMMARY | 2024-12-18 09:16 | XMS_ITS | Encounter Summary ---
Author Organization [facility] Address [address] [place] [address] Care Team Providers Care Character Impersonator Name Role Phone Kem Portillo MD Primary Care Provider [phone] Encounter Details Date Type Department Care Team (Latest Contact Info) Description 05/13/2006 Outpatient Historical [facility] Medicine [place] [address] [address] Shady Hansen DO NO ADDRESS ON FILE Acute Bronchitis (Primary Dx) Social History Tobacco Use Types Packs/Day Years Used Date Smoking Tobacco: Never Assessed Comments Unknown Sex and Gender Information Value Date Recorded Sex Assigned at Not on file 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
--- OUTSIDE RECORDS SUMMARY | 2024-12-18 09:16 | XMS_ITS | Encounter Summary ---
Author Organization [facility] Address [address] [place] [address] Care Team Providers Care Automotive Service Management Teacher Name Role Phone Kem Portillo MD Primary Care Provider [phone] Encounter Details Date Type Department Care Team (Latest Contact Info) Description 05/19/2004 Outpatient Historical [facility] [place] [address] [address] Shady Hansen DO NO ADDRESS ON FILE JOINT PAIN-L/LEG (Primary Dx) Social History Tobacco Use Types Packs/Day Years Used Date Smoking Tobacco: Never Assessed Comments Unknown Sex and Gender Information Value Date Recorded Sex Assigned at Not on file 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
--- OUTSIDE RECORDS SUMMARY | 2024-12-18 09:16 | XMS_ITS | Encounter Summary ---
Author Organization [facility] Address [address] [place] [address] Care Team Providers Care News Intern Name Role Phone Kem Portillo MD Primary Care Provider [phone] Encounter Details Date Type Department Care Team (Latest Contact Info) Description 08/16/2000 Outpatient Historical [facility] Medicine [place] [address] [address] Na Parrish MD Irritable bowel syndrome (Primary Dx) Social History Tobacco Use Types Packs/Day Years Used Date Smoking Tobacco: Never Assessed Comments Unknown Sex and Gender Information Value Date Recorded Sex Assigned at Not on file 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
--- OUTSIDE RECORDS SUMMARY | 2024-12-18 09:16 | XMS_ITS | Encounter Summary ---
Author Organization [facility] Address [address] [place] [address] Care Team Providers Care Film Numberer Name Role Phone Kem Portillo MD Primary Care Provider [phone] Encounter Details Date Type Department Care Team (Late st Contact Info) Description 10/27/2004 Outpatient Historical [facility] Shady Hansen, DO NO ADDRESS ON FILE Social History Tobacco Use Types Packs/Day Years Used Date Smoking Tobacco: Never Assessed Comments Unknown Sex and Gender Information Value Date Recorded Sex Assigned at Not on file Legal Sex Female 3:44 AM PUTTY REMOVER Gender Identity Not on file Sexual Orientation Not on file documented as of this encounter Plan of Treatment Not on file documented as of this encounter Visit Diagnoses Not on filedocumented in this encounter Care Teams Film Numberer Relationship Specialty Start Date End Date Kem Portillo MD [address] [place] [phone] PCP - General Family Practice 02/02/16 documented as of this encounter
--- OUTSIDE RECORDS SUMMARY | 2024-12-18 09:16 | XMS_ITS | Encounter Summary ---
Author Organization [facility] Address [address] [place] [address] Care Team Providers Care Licensed Land Surveyor Name Role Phone Kem Portillo MD Primary Care Provider [phone] Encounter Details Date Type Department Care Team (Late st Contact Info) Description 03/04/2006 Outpatient Historical [facility] [place] [address] [place] [address] Social History Tobacco Use Types Packs/Day Years Used Date Smoking Tobacco: Never Assessed Comments Unknown Sex and Gender Information Value Date Recorded Sex Assigned at Not on file 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
--- OUTSIDE RECORDS SUMMARY | 2024-12-18 09:16 | XMS_ITS | Encounter Summary ---
Author Organization [facility] Address [address] [place] [address] Care Team Providers Care Shoe Salesman Name Role Phone Kem Portillo MD Primary Care Provider [phone] Reason for Referral * Outpatient Services (Routine) - Closed Specialty Diagnoses / Procedures Referred By Contac t Referred To Contact Radiology Diagnoses Breast cyst, left Breast pain Procedures MAMMO DIAG BILAT 3D VALENTINO W OR WO CAD MAMMO DIAGNOSTIC BILATERAL W OR WO CAD Kem Portillo MD [address] [address] Phone: tel: fax: [facility] [address] [address] Phone: tel: fax: Referral ID Status Reason Start Date Expiration Date V isits Requested Visits Authorized [id number] Closed F [facility] TO SCHEDULE (SGF) 11/30/2016 12/31/2017 1 1 Encounter Details Date Type Department Care Team (Late st Contact Info) Description 01/19/2017 Ancillary Orders [facility] Family Medicine [place] [address] [address] Kem Portillo MD [address] [address] Breast cyst, left; Breast pain Social History Tobacco Use Types Packs/Day [...] on file 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 No abnormality visualized at the site of the patient's and the patient's clinicians palpable findings bilaterally. BI-RADS: 1 Recommendation: Clinical correlation/management and annual screening mammography Recommendation Laterality: Bilateral [id number] Narrative 01/19/2017 1:26 PM AIRPORT SCREENER EXAM: MAMMO BREAST US BILAT [facility], MAMMO DIAG BILAT 3D VALENTINO W OR WO CAD, 01/19/2017 12:45 PM CLINICAL INDICATIONS: 66-year-old woman presents with palpable finding within her right breast. Her clinician also noted a palpable finding within the 9:00 axis of the left breast at the site of bruising. She is due for her annual bilateral mammogram. COMPARISON: 03/08/2012, 02/10/2013, 03/15/2006, and 10/02/2003. TECHNIQUE: 3-D MLO and CC digital tomosynthesis images were acquired. Synthesized 2-D images (C-view) were generated. This digital mammogram was also analyzed by the Computer Aided Detection System (CAD). FINDINGS: The breasts are almost entirely fatty. A triangular radiopaque marker overlies the central inner right breast at the site of the patient's palpable finding. There is no underlying mammographic abnormality. There are no new suspicious masses, calcifications, or architectural distortions. Bilateral ultrasound evaluation of the patient's and the patient's clinicians palpable findings to follow. TECHNIQUE: Multiple real-time acuña-scale images of the bilateral breasts are performed. Color Doppler was used to assess vascular flow. FINDINGS: At the site of the patient's palpable finding within the 3:00 axis of the right breast, 1 cm from the nipple, there are no suspicious masses, architectural distortion, or abnormal vascularity visualized. At the site of the patient's clinicians palpable finding within the 9:00 axis of the left breast, there are no abnormal masses, architectural distortion, or abnormal vascularity. us Kem Portillo MD MAMMO ORDERABLES Final Re sult documented in this encounter Visit Diagnoses Diagnosis Breast cyst, left Breast pain Mastodynia Breast cyst, left Breast pain Mastodynia documented in this encounter Additional Health Concerns Assessment Noted Time PHQ-9 Depression Total Score: 6 09/15/19 17 11:00 AM CDT documented as of this encounter Care Teams Shoe Salesman Relationship Specialty Start Date End Date Kem Portillo MD [address] [address] PCP - General Family Practice 02/02/16 documented as of this encounter
--- OUTSIDE RECORDS SUMMARY | 2024-12-18 09:16 | XMS_ITS | Encounter Summary ---
Author Organization [facility] Address [address] [place] [address] Care Team Providers Care Indigo Mixer Name Role Phone Kem Portillo MD Primary Care Provider [phone] [phone] Encounter Details Date Type Department Care Team (Latest Contact Info) Description 09/15/2000 Outpatient Historical [facility] [place] [address] [address] Na Parrish MD Irritable bowel syndrome (Primary Dx) Social History Tobacco Use Types Packs/Day Years Used Date Smoking Tobacco: Never Assessed Comments Unknown Sex and Gender Information Value Date Recorded Sex Assigned at Not on file 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
--- OUTSIDE RECORDS SUMMARY | 2024-12-18 09:16 | XMS_ITS | Encounter Summary ---
Author Organization [facility] Address [address] [place] [address] Care Team Providers Care Skirt Clipper Name Role Phone Kem Portillo MD Primary Care Provider [phone] Encounter Details Date Type Department Care Team (Latest Contact Info) Description 03/20/2004 Outpatient Historical [facility] [place] [address] [address] Shady Hansen DO NO ADDRESS ON FILE ACUTE BRONCHITIS (Primary Dx); HYPERTENSION NOS Social History Tobacco Use Types Packs/Day Years Used Date Smoking Tobacco: Never Assessed Comments Unknown Sex and Gender Information Value Date Recorded Sex Assigned at Not on file 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
--- OUTSIDE RECORDS SUMMARY | 2024-12-18 09:16 | XMS_ITS | Encounter Summary ---
Author Organization [facility] Address [address] [place] [address] Care Team Providers Care Safekeeping Clerk Name Role Phone Kem Portillo MD Primary Care Provider [phone] [phone] Encounter Details Date Type Department Care Team (Latest Contact Info) Description 08/10/2004 Outpatient Historical [facility] Medicine [place] [address] [address] Anna Meza NP NO ADDRESS ON FILE JOINT PAIN-PELVIS (Primary Dx); DISORDERS OF SACRUM Social History Tobacco Use Types Packs/Day Years Used Date Smoking Tobacco: Never Assessed Comments Unknown Sex and Gender Information Value Date Recorded Sex Assigned at Not on file 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
--- OUTSIDE RECORDS SUMMARY | 2024-12-18 09:16 | XMS_ITS | Clinical Summary ---
Author Organization [facility] Address [address] [place] [address] Care Team Providers Care Ems Instructor Name Role Phone Kem Portillo MD Primary Care Provider +1 [phone] Allergies Active Allergy Reactions Criticality Noted Date Comments Fluphenazine Hcl Unknown Lost control of my whole body Thiopental Sodium Swelling High 02/25/2016 Swelling of the Uvula Medications pyridoxine, vitamin B6, (VITAMIN B6) 50 mg tabletIndications:T eeth grinding,Dyskinesia Take 1 Tablet (50 mg) by mouth daily. 30 Tablet 2 11/10/19 19 Active cholecalciferol, Vitamin D3, (VITAMIN D3) 2,000 unit Tablet Take by mouth. Act anthony aspirin (CRUZITO) 325 mg tablet Take 325 mg by mouth daily. Active psyllium seed, with sugar, (METAMUCIL SMOOTH TEXTURE ORAL) Take by mouth 1 time daily as needed. Active naloxone (NARCAN) 4 mg/spray [place], Non-AerosolIndicati ons:[facility]PC prescription opiate use Administer 1 spray (4 mg) in one nostril one time. May repeat in alternating nostrils every 2-3 min until responsive or EMS arrives. 2 Each 3 06/07/19 20 Active escitalopram oxalate (LEXAPRO) 20 mg tablet 07/13/19 20 Active tiotropium (SPIRIVA RESPIMAT) 2.5 mcg/actuation MistIndications:Sim ple chronic bronchitis (CMS/HCC) Take 2 Puffs by inhalation daily. 4 Gram 5 02/12/20 20 Active albuterol HFA 90 mcg inhalerIndications: Simple chronic bronchitis (CMS/HCC) Take 2 Puffs by inhalation every 4 hours as needed for Shortness of Breath. 8.5 Gram 11 03/24/19 21 Active polyethylene glycol (MIRALAX) 17 gram Powder in PacketIndications:F ecal impaction (CMS/HCC) Drink only clear liquids for the entire day of stool clean-out. Clear liquids include Sprite, water, chicken/vegetabl e broth, jello, popsicles, etc. Dissolve one capful of Miralax powder in 8 ounces of water or juice. Complete full dose within 15 minutes. Give a dose of Miralax every 2-3 hours. Drink 3-4 doses per day for 2-3 days. Take Miralax until stools are transparent (until they are thin and watery enough to see through them). Expect passage of a large amount of stool during the next 24-48 hours. Once stools are transparent, you may resume a regular diet 60 Each 2 04/24/19 21 Active psyllium husk, with sugar, (METAMUCIL) 3.4 gram/7 gram Powder Take by mouth. Activ e gabapentin (NEURONTIN) 100 mg capsule Take 1 Capsule (100 mg) by mouth daily. 30 Capsule 5 05/03/19 21 Active carvediloL (Coreg) 6.25 mg tablet Take 1 Tablet (6.25 mg) by mouth 2 times daily with meals. 60 Tablet 12 07/10/19 21 Active traZODone (DESYREL) 100 mg tablet Take 1 Tablet (100 mg) by mouth daily at bedtime. Sleep 90 Tablet 4 07/22/19 21 Active valsartan (DIOVAN) 160 mg tabletIndications:E ssential hypertension Take 1 Tablet (160 mg) by mouth 2 times daily. Blood pressure 180 Tablet 4 07/22/19 21 Active omeprazole (PriLOSEC) 40 mg Capsule, Delayed Release(E.C.)Indica tions:Gastroesophag eal reflux disease without esophagitis Take 1 Capsule (40 mg) by mouth daily. Heartburn 90 Capsule 4 07/22/19 21 Active NIFEdipine (PROCARDIA XL) 60 mg Extended Release 24 hour tabletIndications:E ssential hypertension,Stage 3a chronic kidney disease (CMS/HCC) Take 1 Tablet (60 mg) by mouth daily. Blood pressure 90 Tablet 4 07/22/19 21 Active lovastatin (MEVACOR) 20 mg tabletIndications:M ixed hyperlipidemia,Aort ic atherosclerosis Take 1 Tablet (20 mg) by mouth daily with supper. Cholesterol 90 Tablet 4 07/22/19 Active hydroCHLOROthiazide 25 mg tabletIndications:E ssential hypertension Take 1 Tablet (25 mg) by mouth daily. Blood pressure 90 Tablet 4 07/22/19 Active sennosides-docusate sodium (SENNA-S) 8.6-50 mg tabletIndications:C onstipation, unspecified constipation type Take 1 Tablet by mouth daily. Constipation 90 Tablet 4 07/22/19 21 Active hydrALAZINE (APRESOLINE) 25 mg tabletIndications:E ssential hypertension Take 1 Tablet (25 mg) by mouth 2 times daily. Blood pressure 180 Tablet 4 07/22/19 Active ALPRAZolam (XANAX) 0.5 mg tabletIndications:G AD (generalized anxiety disorder) Take 1 Tablet (0.5 mg) by mouth 2 times daily as needed for Anxiety. 30 Tablet 2 07/26/19 Active HYDROcodone-acetami nophen (NORCO) 10-325 mg TabletIndications:C hronic pain syndrome,Primary osteoarthritis involving multiple joints,Chronic bilateral low back pain with bilateral sciatica,Osteoarthr itis of spine with radiculopathy, lumbar region Take 1 Tablet by mouth every 6 hours as needed for Pain, Moderate. Last seen 07/21/2020 Dx:M15.0 Max Daily Amount: 4 Tablets 120 Tablet 08/02/19 Active famotidine (PEPCID) 20 mg tablet Take 1 Tablet (20 mg) by mouth 2 times daily as needed for Other (See Comment) (Heartburn/upset stomach). 60 Tablet 5 08/28/19 Active Active Problems Problem Noted Date Diagnosed Date Stage 3a chronic kidney disease 07/21/2020 Aortoiliac occlusive disease 01/14/2020 Penetrating atherosclerotic ulcer of aorta 01/13 Chronic bilateral low back pain with bilateral s ciatica 11/16/2019 Stable angina 11/16/2019 Osteoarthritis of spine with radiculopathy, lumb ar region 11/16/2019 Left renal atrophy 11/16/2019 CKD (chronic kidney disease) stage 2, GFR 60-89 ml/min 11/16/2019 Dissection of left renal artery 11/16/2019 Aortic atherosclerosis 11/16/2019 Aortic mural thrombus 11/16/2019 Gastroesophageal reflux disease without esophagi tis 10/30/2019 Panlobular emphysema 06/29/2019 Tinnitus, bilateral 03/30/2019 salvage determiner prescription opiate use 04/21/2018 Otosclerosis, right 02/06/2018 Sensorineural hearing loss ( SNHL) of left ear with restricted hearing of right ear 2017 Discontinuity of ossicles of right ear 7 Vitamin D deficiency 09/14/2016 Moderate episode of recurrent major depressive d isorder 02/10/2016 Abdominal adhesions 12/30/2015 Seasonal allergic rhinitis 12/30/2015 Hearing loss in right ear 12/30/2015 Chronic pain syndrome 12/30/2015 Osteoarthritis of both knees 12/30/2015 ALMA DELIA (generalized anxiety disorder) 12/30/2015 Ovarian cyst, right 04/08/2015 Pelvic pain in female 04/08/2015 Pelvic adhesions 04/08/2015 Cigarette dependence 01/21/2015 Mass of breast, right 10/29/2014 Colon polyps 07/02/2014 Sigmoid diverticulosis 07/02/2014 Lactose intolerance 06/09/2014 Glass eye 06/09/2014 PTSD (post-traumatic stress disorder) 07/18/2013 Hyperlipidemia 07/03/2012 Onychomycosis 10/11/2009 Stress incontinence 03/14/2009 HTN (hypertension) Primary osteoarthritis involving multiple joints Resolved Problems Problem Noted Date Diagnosed Date Resolved Date Renal insufficiency 06/07/2019 11/16/19 20 Benign paroxysmal positional vertigo, right 05/13/2017 12/23/2017 Overview (05/13/2017): horizontal canal Left asymmetrical SNHL 10/11/201603/30 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 hearing of left ear 10/11/2016 2017 Depression with anxiety 06/22/201512/30 Acute pain of right shoulder 10/29/2014 05/11/2016 Smokers' cough 06/09/2014 10/29/2014 Tobacco abuse 05/06/2011 10/13/2014 Immunizations Immunization Administration Dates Next Due (PNEUMOVAX 23)(50 YRS UP) PN EUMOCOCCAL POLYSACCHARIDE (PPV23) 0.5 ML, IM 10/22/2013 (SPIKEVAX) (12 YRS UP PRIMAR Y SERIES) COVID-19 VACCINE - MRNA-1273(PF) 100 MCG/0.5 ML IM SUSP 06/26/2020 (TDVAX)(7 YRS UP) TETANUS AN D DIPHTHERIA TOXOIDS, ADSORBED (2 LF OF TETANUS TOXOID AND 2 LF OF DIPHTHERIA TOXOID), 0.5ML (PF), IM 05/08/2007 Influenza Seasonal Unspecifi ed Formulation IM 10/25/2019,11/14/2017,12/01/2016,10/14,01/21/2015,03/14/2012,12/27/2006 Influenza Vaccine High Dose 65+ Yrs IM 9,11/30/2016 Influenza Vaccine Split 3+ Yrs IM 12/29/2007 Family History Medical History Relation Name Comments Heart Disease Father Hypertension Father Cancer Maternal Grandmother ? CANCE R Cancer Mother liver cancer Heart Disease Mother Hypertension Mother Breast Cancer Neg Hx Colon Cancer Neg Hx Ovarian Cancer Neg Hx Relation Name Status Comments Daughter 1 Alive Daughter 2 Alive Father Maternal Grandmother Mother Sister Alive Social History Tobacco Use Types Packs/Day Years Used Date Smoking Tobacco: Every Day Cigarettes 1.5 50 Smokeless Tobacco: Never Tobacco Cessation:Ready to Q uit: No; Counseling Given: Yes Comments:1 ppd 12.05.20 Alcohol Use Standard Drinks/Week Comments No 0 [...] declined 01/14/2020 How often do you attend rastafari or protestant serv ices? Patient declined 01/14/2020 Do you belong to any clubs o r organizations such as rastafari groups, unions, fraternal or athletic groups, or [...] like food, housing, medical care, and heating? Patient declined 01/14/2020 Food Insecurity Answer Date Recorded Within the past 12 months, y ou worried that your food would run out before you got the money to buy more. Patient declined Within the past 12 months, t he food you bought just didn't last and you didn't have money to get more. Patient declined Transportation Needs Answer Date Record ed In the past 12 months, has l ack of transportation kept you from medical appointments or from getting medications? Patient declined 01/14/2020 In the past 12 months, has l ack of transportation kept you from meetings, work, or from getting things needed for daily living? 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 Gender Identity Not on file Sexual Orientation Not on file Occupation Industry Job Start Date Job End Date Not on file Not on file Not on file Not on file Last Filed Vital Signs Vital Sign Reading Time Taken Comments Blood Pressure 132/82 07/21/2020 12:04 PM CDT Pulse 66 07/21/2020 12:04 PM CDT Temperature 36.7 C (98.1 F) 07/21/2020 12:04 PM CDT Respiratory Rate 16 07/21/2020 12:04 PM CDT Oxygen Saturation 96% 07/21/2020 12:04 PM CDT Inhaled Oxygen Concentration - - Weight 70.8 kg (156 lb) 07/21/2020 12:04 PM CDT Height 152.4 cm (5') 07/21/2020 12:04 PM CDT Body Mass Index 30.47 07/21/2020 12:04 PM CDT Plan of Treatment Health Maintenance Due Date Last Done Comments ZOSTER VACCINE (1 of 2) 1998 DTAP/TDAP/TD VACCINES (1 - Tdap) 05/09/2007 05/08/19 08 Traditional Medicare (ACO) A nnual Wellness Visit 10/23/2014 10/22/2013 RSV VACCINE (60+ or ) (1 - 1-dose 75+ series) 2023 Preventative Visit- Commercial 02/29/2024 10/22/2013 INFLUENZA VACCINE (#1) 2024 0, 11/20/2018, 11/14/2017, Additional history exists COVID-19 Vaccine (2 - 2024-2 6 season) 2024 06/26/2020 OSTEOPOROSIS SCREENING 12/02/2024 12/03/2019 PNEUMOCOCCAL VACCINE 50+ YEARS Completed 12/31/2015 , 10/22/2013 COLORECTAL SCREENING Discontinued 04/23/2021, 07/03/19 15 Colorectal Cancer Screening Discontinued FIT-DNA Q 3 years Discontinued FIT/FOBT Q 1 year Discontinued Flex Sig/CT Colonography Q 5 years Discontinued Medical Devices Implanted Type Area Alignment Specialist Device Identifier Shelf Expiration Date Model / Serial / Lot Closure Perclose Proglide 94843 - [id number] Implanted:Qty: 1 on 01/14/2020 by Stephen Ramos MD at [facility] Closure Device Right: Leg PASTOR- VASC DEVICE 09/27/2021 [id number] / / [id number] Closure Perclose Proglide 33639 - [id number] Implanted:Qty: 1 on 01/14/2020 by Stephen Ramos MD at [facility] Closure Device Left: Leg PASTOR- VASC DEVICE 09/27/2021 [id number] / / [id number] Closure Perclose Proglide 51169 - [id number] Implanted:Qty: 1 on 01/14/2020 by Stephen Ramos MD at [facility] Closure Device Right: Leg PASTOR- VASC DEVICE 09/27/2021 [id number] / / [id number] Pros Piston Eclipse 0.6x4.25mm [id number] - Sna Implanted:Qty: 1 on 12/07/2016 by Filipe Mcmanus DO at [facility] Ear Right: Ear [employer] 02/24/2021 [id number] / NA / [id number] Pros Ossclr Idalou Ti Adj Length 600 - [id number] Implanted:11/29 by Filipe Mcmanus DO at [facility] (Quantity not on file) Ear Right: Ear [employer] 08/26/2023 600 / / [id number] Hemostatic Gelfoam Spng 12-7mm [id number] - Csc - Sna Implanted:Qty: 2 on 12/07/2016 by Filipe Mcmanus DO at [facility] Hemostatic Right: Ear PFIZER- PHARM 03/30/2019 [id number] / NA / [id number] Description:Not an implant. Documented in this section as required by supervisor dry cell assembly and billing department. Soaked in Ciloxan (Lot: [id number], Exp: 11/2017) Hemostatic Surgifoam Sz12-7 1971 - [id number] Implanted:Qty: 1 on 04/19/2018 by Filipe Mcmanus DO at [facility] Hemostatic Right: Ear J[employer]J- [employer] 12/23/20211971 / / [id number] Hemostatic Surgifoam Sz12-7 1971 - [id number] Implanted:11/29 by Filipe Mcmanus DO at [facility] (Quantity not on file) Hemostatic Right: Ear J[employer]J- [employer] 10/25/20221971 / [id number] Log [id number] - Bladder Slings And Tapes - 1 - Advantage Tv Mid Ureth [id number] Implanted:Qty: 1 on 07/25/[address] [facility] Sling N/A: Vagina [employer]- UROLOGY/CHEMICAL PREPARER 02/29/2012 [id number] / [id number] / 1 [id number] Stent Afx Ii Bifur Ewn87-37/I16-4 0 - [id number] Implanted:Qty: 1 on 01/14/2020 by Stephen Ramos MD at [facility] Stent N/A: Aorta [employer] INC 09/23/2022 YTC09-29/I16- 40 / [id number] / Filler Bone Otway Mimix 2gr [id number] - [id number] Implanted:Qty: 1 on 04/19/2018 by Filipe Mcmanus DO at [facility] Tissue Right: Ear BIOMET ANTHONY MCFARLAND 08/24/2019 [id number] / / [id number] Procedures Procedure Name Priority Date/Time Associated Diagnosis Comments XR DEXA BONE DENSITY AXIAL 1 OR MORE SITES Routine 12/03/2019 2:08 PM CDT Asymptomatic menopausal state from Last 3 Months or Most Recently Relevant to Health Maintenance Results * XR DEXA BONE DENSITY AXIAL 1 OR MORE SITES (12/03/2019 2:08 PM CDT) Anatomical Region Laterality Modality Digital Radiogra phy 12/03/2019 2:08 PM CDT Impressions 12/03/2019 8:35 PM CDT IMPRESSION: Abnormal examination Low bone density/osteopenic values are [...] 1.3 Procedure Note Doug Duncan MD - 12/03/2019 DEXA Evaluation of the Lumbar Spine and [...] 0.902 Adult T-score: -0.3 Adult Z-score: 1.3 IMPRESSION: Abnormal examination Low bone density/osteopenic values are present in the lumbar spine and left proximal femur lying above the average the patient's age-matched control consistent with age-appropriate physiologic demineralization. Kem Portillo MD DIAGNOSTIC IMAGING ORDERA BLES Final Result from Last 3 Months or Most Recently Relevant to Health Maintenance Insurance RX [employer] Medicare Part D MEDICARE PART A AND B [facility] Advance Directives For more information, please contact: [phone] * Full Code (Latest Code Status on File) Date Activated Date Inactivated Comments 01/14/2020 2:26 PM 01/15/2020 10:17 AM * Full Code Date Activated Date Inactivated Comments 07/30/2019 2:06 PM 07/30/2019 9:31 PM * Full Code Date Activated Date Inactivated Comments 12/21/2018 3:36 PM 12/21/2018 8:46 PM * Full Code Date Activated Date Inactivated Comments 12/21/2018 11:51 AM 12/21/2018 3:36 PM * Full Code Date Activated Date Inactivated Comments 04/19/2018 11:28 AM 04/19/2018 7:45 PM Care Teams Ems Instructor Relationship Specialty Start Date End Date Kem Portillo MD [address] [address] PCP - General Family Practice 02/02/16
--- OUTSIDE RECORDS SUMMARY | 2024-12-18 09:16 | XMS_ITS | Encounter Summary ---
Author Organization [facility] Address [address] [place] [address] Care Team Providers Care Director Community Center Name Role Phone Kem Portillo MD Primary Care Provider +1 -[phone] Encounter Details Date Type Department Care Team (Latest Contact Info) Description 12/15/1998 Outpatient Historical [facility] Medicine-[address] [address] Edna Herrera MD NO ADDRESS ON FILE Abdominal pain, unspecified site (Primary Dx) Social History Tobacco Use Types Packs/Day Years Used Date Smoking Tobacco: Never Assessed Comments Unknown Sex and Gender Information Value Date Recorded Sex Assigned at Not on file 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
--- OUTSIDE RECORDS SUMMARY | 2024-12-18 09:16 | XMS_ITS | Encounter Summary ---
Author Organization [facility] Address [address] [place] [address] Care Team Providers Care Marketing Development Specialist Name Role Phone Kem Portillo MD Primary Care Provider +1 -[phone] Encounter Details Date Type Department Care Team (Latest Contact Info) Description 11/13/2004 Outpatient Historical [facility] Medicine [place] [address] [address] Shady Hansen DO NO ADDRESS ON FILE HEADACHE (Primary Dx) Social History Tobacco Use Types Packs/Day Years Used Date Smoking Tobacco: Never Assessed Comments Unknown Sex and Gender Information Value Date Recorded Sex Assigned at Not on file 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
--- OUTSIDE RECORDS SUMMARY | 2024-12-18 09:16 | XMS_ITS | Encounter Summary ---
Author Organization [facility] Address [address] [place] [address] Care Team Providers Care Turntable Worker Name Role Phone Kem Portillo MD Primary Care Provider +1 -[phone] Encounter Details Date Type Department Care Team (Latest Contact Info) Description 10/14/2004 Outpatient Historical [facility] Medicine [place] [address] [address] Shady Hansen DO NO ADDRESS ON FILE HEADACHE (Primary Dx); Pain in limb Social History Tobacco Use Types Packs/Day Years Used Date Smoking Tobacco: Never Assessed Comments Unknown Sex and Gender Information Value Date Recorded Sex Assigned at Not on file 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
--- OUTSIDE RECORDS SUMMARY | 2024-12-18 09:16 | XMS_ITS | Encounter Summary ---
Author Organization [facility] Address [address] [place] [address] Care Team Providers Care Talent Acquisition Associate Name Role Phone Kem Portillo MD Primary Care Provider +1 [phone] Encounter Details Date Type Department Care Team (Latest Contact Info) Description 03/11/2006 Outpatient Historical [facility] Medicine [place] [address] [address] Shady Hansen DO NO ADDRESS ON FILE Corns and Callosities (Primary Dx); Acute Bronchitis; Symptomatic Menopausal or Female Climacteric States Social History Tobacco Use Types Packs/Day Years Used Date Smoking Tobacco: Never Assessed Comments Unknown Sex and Gender Information Value Date Recorded Sex Assigned at Not on file 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
--- OUTSIDE RECORDS SUMMARY | 2024-12-18 09:16 | XMS_ITS | Encounter Summary ---
Author Organization [facility] Address [address] [place] [address] Care Team Providers Care Clinical Psychology Teacher Name Role Phone Kem Portillo MD Primary Care Provider +1 [phone] Encounter Details Date Type Department Care Team (Latest Contact Info) Description 11/25/2000 Outpatient Historical [facility] Medicine [place] [address] [address] Lorenza Tony MD NO ADDRESS ON FILE Other malaise and fatigue (Primary Dx); Anxiety state, unspecified; Spontaneous ecchymoses Social History Tobacco Use Types Packs/Day Years Used Date Smoking Tobacco: Never Assessed Comments Unknown Sex and Gender Information Value Date Recorded Sex Assigned at Not on file 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
--- OUTSIDE RECORDS SUMMARY | 2024-12-18 09:16 | XMS_ITS | Encounter Summary ---
Author Organization [facility] Address [address] [place] [address] Care Team Providers Care Histology Aide Name Role Phone Kem Portillo MD Primary Care Provider [phone] Reason for Referral * Outpatient Services (Routine) - Closed Specialty Diagnoses / Procedures Referred By Contac t Referred To Contact Radiology Diagnoses Other (abnormal) findings on radiological examination of breast Procedures MAMMO DIGITAL DIAG UNI RIGHT Anel Martin APRN NO ADDRESS ON FILE [facility] [address] [address] Phone: tel: fax: Referral ID Status Reason Start Date Expiration Date Visits Re quested Visits Authorized [id number] Closed 03/22/2012 04/22/2013 1 1 GN ASSEMBLER Encounter Details Date Type Department Care Team (Late st Contact Info) Description 03/22/2012 Ancillary Orders [facility] [address] [address] Anel Martin APRN NO ADDRESS ON FILE Other (abnormal) findings on radiological examination of breast Social History Tobacco Use Types Packs/Day Years Used Date Smoking Tobacco: Former Cigarettes 1 30 1 03/04/1981 - 01/03/2012 Smokeless Tobacco: Never Alcohol Use Standard Drinks/Week Comments Yes 0 (1 standard drink = 0.6 oz pur e alcohol) 1-2 glasses per year Comments No Sex and Gender Information Value Date Recorded Sex Assigned at Not on file 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 No persistent or suspicious abnormality is detected. I would return the patient to routine yearly screening exams. Patient received the result and recommendation letter. Giuseppe 1308 PM - uploaded from [employer] - Narrative 04/13/2012 6:03 PM DESIGN ASSEMBLER REASON FOR EXAM: Patient is returning for further evaluation on the right as requested following screening study of 03/08/2012. IMAGING PERFORMED: Right lateral projection and magnification views in the CC and lateral projection were obtained. COMPARISON(S): 10/02/2003 and 03/15/2006. TISSUE COMPOSITION: Average, scattered fibroglandular densities. FAMILY HX.-BREAST Ca: Negative. MAMMOGRAPHIC FINDINGS: RIGHT BREAST: The distribution of the tissue on the right appears to be stable when comparison is made with the prior exams. The subtle area of distortion suspected on the screening exam did not persist following additional views today. I believe it represented overlapping parenchymal structures. This digital mammogram was also analyzed by the Computer Aided Detection System (CAD), [employer] Pixels ImageChecker, Version 8.3. Procedure Note Gavi Duffy MD - 04/13/2012 REASON FOR EXAM: Patient is returning for further evaluation on the right as requested following screening study of 03/08/2012. IMAGING PERFORMED: Right lateral projection and magnification views in the CC and lateral projection were obtained. COMPARISON(S): 10/02/2003 and 03/15/2006. TISSUE COMPOSITION: Average, scattered fibroglandular densities. FAMILY HX.-BREAST Ca: Negative. MAMMOGRAPHIC FINDINGS: RIGHT BREAST: The distribution of the tissue on the right appears to be stable when comparison is made with the prior exams. The subtle area of distortion suspected on the screening exam did not persist following additional views today. I believe it represented overlapping parenchymal structures. This digital mammogram was also analyzed by the Computer Aided Detection System (CAD), 64 Pixels ImageFooPetscker, Version 8.3. IMPRESSION IMPRESSION: Patient returned for a few additional views on the right. No persistent or suspicious abnormality is detected. I would return the patient to routine yearly screening exams. Patient received the result and recommendation letter. Giuseppe 1308 PM - uploaded from [employer] - Anel Martin STABLE MANAGER MAMMO ORDERABLES Final Result documented in this encounter Visit Diagnoses Diagnosis Other (abnormal) findings on radiological examination of breast Other (abnormal) findings on radiological examination of breast documented in this encounter Care Teams Histology Aide Relationship Specialty Start Date End Date Kem Portillo MD [address] [id number] PCP - General Family Practice 02/02/16 documented as of this encounter
--- OUTSIDE RECORDS SUMMARY | 2024-12-18 09:16 | XMS_ITS | Encounter Summary ---
Author Organization [facility] Address [address] [place] [address] Care Team Providers Care Color Worker Name Role Phone Kem Portillo MD Primary Care Provider [phone] Encounter Details Date Type Department Care Team (Latest Contact Info) Description 12/21/2005 Outpatient Historical [facility] Medicine [place] [address] [address] Shady Hansen DO NO ADDRESS ON FILE Lumbago (Primary Dx) Social History Tobacco Use Types Packs/Day Years Used Date Smoking Tobacco: Never Assessed Comments Unknown Sex and Gender Information Value Date Recorded Sex Assigned at Not on file 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
--- OUTSIDE RECORDS SUMMARY | 2024-12-18 09:16 | XMS_ITS | Encounter Summary ---
Author Organization [facility] Address [address] [place] [address] Care Team Providers Care Medieval English Literature Professor Name Role Phone Kem Portillo MD Primary Care Provider [phone] Encounter Details Date Type Department Care Team (Latest Contact Info) Description 08/01/2000 Outpatient Historical [facility] Medicine [place] [address] [address] Na Parrish MD Abdominal pain, right upper quadrant (Primary Dx) Social History Tobacco Use Types Packs/Day Years Used Date Smoking Tobacco: Never Assessed Comments Unknown Sex and Gender Information Value Date Recorded Sex Assigned at Not on file 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
--- OUTSIDE RECORDS SUMMARY | 2024-12-18 09:16 | XMS_ITS | Encounter Summary ---
Author Organization [facility] Address [address] [place] [address] Care Team Providers Care Reproduction Artist Name Role Phone Kem Portillo MD Primary Care Provider [phone] Encounter Details Date Type Department Care Team (Late st Contact Info) Description 12/17/2005 Outpatient Historical [facility] Indira [address] [place] [address] Social History Tobacco Use Types Packs/Day Years Used Date Smoking Tobacco: Never Assessed Comments Unknown Sex and Gender Information Value Date Recorded Sex Assigned at Not on file 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
[2024-12-18 09:32] LABS: Troponin(5th) Baseline 11 ng/L (0-10)
[2024-12-18 09:35] LABS: Alanine Aminotransferase 17 U/L (0-33); Albumin Level 4.6 g/dL (3.5-5.2); Alkaline Phosphatase 77 U/L (35-105); Anion Gap 18.8 (5-19); Aspartate Amino Transferase 18 U/L (0-32); Blood Urea Nitrogen 14 mg/dL (8-23); Calcium 9.7 mg/dL (8.5-10.5); Carbon Dioxide 26 mmol/L (22-29); Chloride 97 mmol/L (98-107); Creatinine Clr Calc Pharmacy 61.0882; Globulin 2.4 g/dL (1.3-4.6); Glucose 92 mg/dL (65-115); Osmolality Calculated 286 mOsm/kg (285-295); Potassium 3.8 mmol/L (3.5-5.1); Sodium 138 mmol/L (136-145); Total Protein 7.0 g/dL (6.6-8.7)
[2024-12-18 10:30] VITALS: BP 215/130; PULSE 99; O2SAT 96
[2024-12-18] MEDS: labetalol 5 mg/mL SDV 20mL 10 MG IVP (11:29)
[2024-12-18 11:31] VITALS: BP 183/98; PULSE 86; O2SAT 96
[2024-12-18] MEDS: hyDRALAzine 20 mg/mL INJ 1 mL 10 MG IVP (11:31)
[2024-12-18] MEDS: HYDROcodone-acetaminophen 10-325 mg Tablet 1 TAB PO (11:32)
--- NOTE | 2024-12-18 11:40 | ECG_ITS ---
[employer] [facility] Date: 2024-12-18 Pat Name: Mary Cruz Department: Room: Gender: Female Area Operations Manager: : [id number] Requested By: Darnell Martin Order Number: [id number] Ronnell MD: Chandu Cates M.D. Measurements Intervals [place] Rate: 68 P: 44 [place]: 158 QRS: -33 QRSD: 94 T: 56 QT: 424 QTc: 451 Interpretive Statements SINUS RHYTHM WITH OCCASIONAL SUPRAVENTRICULAR PREMATURE COMPLEXES LEFT AXIS DEVIATION [QRS AXIS < -30] SEPTAL MYOCARDIAL INFARCTION , OF INDETERMINATE AGE [40+ ms Q WAVE IN V1/V2] Compared to ECG 12/18/2024 08:42:42 Junctional rhythm no longer present Myocardial infarct finding still present Electronically Signed On 12-18-2024 19:37:30 CDT by Chandu Cates M.D. [email or web address]
[2024-12-18 11:59] LABS: Troponin 5 2HR 10.67 ng/L (0-10)
[2024-12-18 12:00] VITALS: BP 149/84; PULSE 70; O2SAT 95
[2024-12-18 12:00] LABS: Troponin 5 2HR Delta -0.33 ABS# (0-10)
== END 2024-12-18 12:50 | disposition home or self-care (01) ==
PROVIDERS: Emergency Provider Family Medicine; PCP Family Medicine
DX: R07.9 Chest pain, unspecified (principal); Z79.02 Long term (current) use of antithrombotics/antiplatelets; F17.210 Nicotine dependence, cigarettes, uncomplicated; E78.5 Hyperlipidemia, unspecified; I12.9 Hypertensive chronic kidney disease with stage 1 through stage 4 chronic kidney disease, or unspecified chronic kidney disease; N18.9 Chronic kidney disease, unspecified
CPT/HCPCS: 36415; 71045; 80053; 84484; 85025; 93005; 96374; 96375; 99285; J0360; J3490; J9999